=== PATIENT | female | born 1945 | race Caucasian/White ===

== ENCOUNTER 2016-05-21 11:21 | Outpatient (RCR) | payer MEDICARE, OTHER | END 2016-07-08 | disposition home or self-care (01) | LOC: CR 11:21 | PROVIDERS: ATTEND Internal Medicine Cardiovascular Disease | DX: Z48.812 Encounter for surgical aftercare following surgery on the circulatory system (principal); Z95.2 Presence of prosthetic heart valve | CPT/HCPCS: 93798 ==

== ENCOUNTER → 2016-08-21 | Outpatient (CLI) | payer MEDICARE, OTHER ==
--- NOTE | 2016-08-22 14:52 | ECHOCARDIOGRAPHY REPORT ---
DATE OF SERVICE: 08/21/2016 DATE OF SERVICE: 08/21/2016 PRIMARY PHYSICIAN: TINY CONTRERAS MD ATTENDING PHYSICIAN: MIROSLAVA NICE MD DIAGNOSES: I48.91 FINDINGS: 1. Sinus rhythm. 2. Aortic root is normal. 3. Mild left atrial enlargement is noted. 4. Left atrial diameter is 4.2 cm. 5. LV systolic function is mildly reduced. LVEF is 45 to 50%. There is mild concentric LVH with diastolic interventricular septal diameter to 1.1 cm. 6. Global hypokinesis is noted. 7. LV size and function is normal. 8. There is no significant diastolic dysfunction. 9. There is mild pericardial effusion. 10. IVC is 2 cm which suggests increased right atrial pressure. STRUCTURES OF THE HEART: There is mild pulmonic regurgitation. There is moderate tricuspid regurgitation with RVSP of 31 mmHg. There is mitral regurgitation. There is moderate mitral annular calcification noted. There is aortic valve sclerosis with no stenosis or regurgitation. CONCLUSIONS: 1. Left ventricular systolic function is mildly reduced with an ejection fraction of 45 to 50%. 2. There mild left ventricular hypertrophy and mild left ventricular enlargement. 3. There is moderate tricuspid regurgitation. 4. Mild pulmonary hypertension with RVSP of 31 mmHg. 5. Mild pericardial effusion. 6. Inferior vena cava is dilated which suggests increased right atrial pressure. Job ID: [id number] DocumentID: [id number] Dictated Date: 08/22/2016 11:57:55 Choir Accompanist Date: 08/22/2016 12:28:48 Dictated By: MIROSLAVA NICE MD
== END ==
LOC: CARD 11:26
PROVIDERS: ATTEND Internal Medicine Interventional Cardiology
DX: I48.91 Unspecified atrial fibrillation (principal); Z95.2 Presence of prosthetic heart valve
CPT/HCPCS: 93306

== ENCOUNTER → 2016-09-18 | Outpatient (CLI) | payer MEDICARE, OTHER | LOC: RAD 09:57 | PROVIDERS: ATTEND Family Medicine | DX: Z12.31 Encounter for screening mammogram for malignant neoplasm of breast (principal) | CPT/HCPCS: 77067 ==

== ENCOUNTER → 2016-10-15 | Outpatient (CLI) | payer MEDICARE, OTHER ==
--- NOTE | 2016-10-15 08:23 | Diagnostic Imaging Report ---
Left breast diagnostic mammogram. INDICATION: Increasing calcifications in the upper outer quadrant of the left breast and nodule. FINDINGS: Focal compression and magnification views demonstrate increasing calcifications in the upper outer quadrant that appear coarse with minimal heterogeneity. The oval asymmetry along the MLO view appears slightly less prominent on the true lateral view and could be related to summation artifact of parenchyma. IMPRESSION: Somewhat confluent minimally heterogeneous coarse calcifications in the upper outer aspect of the left breast. Less prominent asymmetry is seen on the lateral projection. Ultrasound evaluation pending. ACR BI-RADS Category 0: Incomplete. (Needs additional imaging evaluation). Result letter will be mailed to the patient. Note: At least 10% of breast cancer is not imaged by mammography. Dictated by: Dictated on workstation # [id number]
--- NOTE | 2016-10-15 13:03 | Diagnostic Imaging Report ---
EXAMINATION: Left breast ultrasound. INDICATION: Calcifications and asymmetry along the upper outer aspect of the left breast. FINDINGS: There is a simple cyst measuring 9 x 4 x 10 mm seen at the 1 o'clock zone 7 cm from the nipple. This may explain the oval asymmetry seen on mammography. No suspicious mass to correlate with the calcification seen on mammography is noted. IMPRESSION: No suspicious lesion. The calcifications seen on mammography are likely benign. A 6 month followup left breast mammogram is recommended to ensure stability. ACR BI-RADS Category 3: Probably benign findings. Dictated by: Dictated on workstation # [id number]
== END ==
LOC: RAD 07:18
PROVIDERS: ATTEND Nurse Practitioner Family
DX: R92.1 Mammographic calcification found on diagnostic imaging of breast (principal)
CPT/HCPCS: 76642

== ENCOUNTER 2017-03-15 09:21 | Emergency (ER) | payer MEDICARE, OTHER ==
[~2017-03-15] VITALS: Ht 160 cm; Wt 88.5 kg
[2017-03-15] MEDS ORDERED: MECLIZINE 25 MG (ANTIVERT) TAB PO ONE (11:00)
--- NOTE | 2017-03-15 11:13 | ED Neurological Problem ---
General Chief Complaint: Dizziness/Syncope Stated Complaint: VERTIGO Nursing Triage Note: pt c/o dizziness starting yesterday afternoon. hx afib. denies palpitations. worse when supine. denies congestion. denies chest pain, soa, vision changes, weakness. Nursing Sepsis Screen: No Definite Risk Source: patient Exam Limitations: no limitations History of Present Illness Time seen by provider: 11:12 Initial Comments To ER with dizziness that began yesterday afternoon. She states the dizziness is present all the time but seems to be worse with movement. She has never had this before. She denies any headache chest pain or shortness of breath. She does have a history of atrial fibrillation. Timing/Duration: 24 hours Severity: moderate Associated Symptoms: nausea/vomiting (nausea without vomiting) Allergies and Home Medications Allergies Coded Allergies: No Known Drug Allergies (Unverified , 03/15/17) Constitutional: see HPI Eyes: No Symptoms Reported Ears, Nose, Mouth, Throat: no symptoms reported Respiratory: no symptoms reported Cardiovascular: no symptoms reported Genitourinary: no symptoms reported Musculoskeletal: no symptoms reported Skin: no symptoms reported Psychiatric/Neurological: See HPI, Other (dizziness) Endocrine: No Symptoms Reported Hematologic/Lymphatic: No Symptoms Reported Past Digdpty-Ntaepj-Yzzbgm Hx Patient Social History Recent Foreign Travel: No Contact w/Someone Who Travel: No Recent Infectious Disease Expo: No Physical Exam Vital Signs Vital Sign - Last 12Hours 03/15/17 09:58 Temp 97.3 Pulse 84 Resp 16 B/P (MAP) 113/66 Pulse Ox 99 O2 Delivery Room Air Capillary Refill : Less Than 3 Seconds General Appearance: WD/WN, no apparent distress HEENT: PERRL/EOMI, normal ENT inspection Neck: non-tender, full range of motion Respiratory: normal breath sounds, no respiratory distress, no accessory muscle use Cardiovascular: regular rate, rhythm, no murmur Gastrointestinal: normal bowel sounds, non tender, soft Extremities: normal range of motion, non-tender Neurologic/Psychiatric: alert, normal mood/affect, oriented x 3 Crainal Nerves: normal hearing, normal speech, PERRL Skin: normal color, warm/dry Progress/Results/Core Measures Results/Orders Lab Results Laboratory Tests Test 03/15/17 11:34 03/15/17 11:38 Range/Units White Blood Count 5.5 4.3-11.0 10^3/uL Red Blood Count 4.25 L 4.35-5.85 10^6/uL Hemoglobin 12.3 11.5-16.0 G/DL Hematocrit 37 35-52 % Mean Corpuscular Volume 87 80-99 FL Mean Corpuscular Hemoglobin 29 25-34 PG Mean Corpuscular Hemoglobin Concent 33 32-36 G/DL Red Cell Distribution Width 14.9 H 10.0-14.5 % Platelet Count 190 130-400 10^3/uL Mean Platelet Volume 9.9 7.4-10.4 FL Neutrophils (%) (Auto) 72 42-75 % Lymphocytes (%) (Auto) 18 12-44 % Monocytes (%) (Auto) 8 0-12 % Eosinophils (%) (Auto) 2 0-10 % Basophils (%) (Auto) 1 0-10 % Neutrophils # (Auto) 3.9 1.8-7.8 X 10^3 Lymphocytes # (Auto) 1.0 1.0-4.0 X 10^3 Monocytes # (Auto) 0.5 0.0-1.0 X 10^3 Eosinophils # (Auto) 0.1 0.0-0.3 10^3/uL Basophils # (Auto) 0.0 0.0-0.1 10^3/uL My Orders Orders - MELANY OCONNOR APRN Cbc With Automated Diff (03/15/17 10:52) Comprehensive Metabolic Panel (03/15/17 10:52) Troponin I (03/15/17 10:52) Ekg Tracing (03/15/17 10:52) Ua Culture If Indicated (03/15/17 10:52) Ct Head Wo (03/15/17 10:52) Meclizine Tablet (Antivert Tablet) (03/15/17 11:00) Protime With Inr (03/15/17 11:41) Medications Given in ED Current Medications Medications Dose Ordered Sig/Ann Route Start Time Stop Time Status Last Admin Dose Admin Meclizine HCl 25 mg ONCE ONCE PO 03/15/17 11:00 03/15/17 11:01 DC 03/15/17 11:27 25 MG Vital Signs/I&O Vital Sign - Last 12Hours 03/15/17 09:58 Temp 97.3 Pulse 84 Resp 16 B/P (MAP) 113/66 Pulse Ox 99 O2 Delivery Room Air Blood Pressure Mean: 82 Diagnostic Imaging Diagonstic Imaging: CT Comments NAME: DYLAN OSORIO [facility] REC#: [id number] PT STATUS: REG ER : 1945 PHYSICIAN: MELANY OCONNOR APRN ADMIT DATE: 03/15/17/ER Signed Date of Exam:03/15/17 CT HEAD WO PROCEDURE: CT head without contrast. TECHNIQUE: Multiple contiguous axial images were obtained through the brain without the use of intravenous contrast. INDICATION: Vertigo. No comparison is available. FINDINGS: The there is no CT demonstration of acute intracranial hemorrhage. There is no abnormal extra-axial fluid collection. There is no mass effect or shift. There is age-appropriate global volume loss. There are some scattered regions of hypoattenuation within the subcortical white matter most compatible with microvascular changes. There is no evidence of territorial loss of meyer-white differentiation or abnormal hypodensity within the basal ganglia. There is no CT evidence to suggest abnormal hypodensity within the dorota. No focally abnormal hyperdense blood vessel evident. Basilar cisterns patent. Mastoids are clear. The visualized paranasal sinuses are clear. There is no acute calvarial abnormality IMPRESSION: 1. Age-appropriate global volume loss without CT demonstration of an acute intracranial abnormality. Dictated by: Dictated on workstation # [id number] Dict: 03/15/17 1115 Trans: 03/15/17 1132 [facility] [id number] Interpreted by: NEHEMIAH MONTILLA MD Electronically signed by: NEHEMIAH MONTILLA MD 03/15/17 1132 Departure Communication (Admissions) Progress Notes 1157- patient is up walking to the bathroom currently states that her dizziness is "a lot better" Impression Impression: Primary Impression: Vertigo Disposition: 01 HOME, SELF-CARE Condition: Improved Departure-Patient Inst. Decision time for Depature: 11:57 Referrals: TINY CONTRERAS MD (PCP/Family) Primary Care Physician Patient Instructions: Vertigo (a Type of Dizziness) (DC) Add. Discharge Instructions: 1. Return to ER for any worsening symptoms or other concerns 2. Follow-up with your doctor this week as needed 3. Use one of the pills for dizziness every 8 hours as needed All discharge instructions reviewed with patient and/or family. Voiced understanding. Scripts Meclizine HCl (Meclizine HCl) 25 Mg Tablet 25 MG PO TID Y for DIZZINESS, #15 TAB Prov: MELANY OCONNOR APRN 03/15/17 MELANY OCONNOR APRN Mar 15, 2017 11:13
--- NOTE | 2017-03-15 11:20 | Diagnostic Imaging Report ---
PROCEDURE: CT head without contrast. TECHNIQUE: Multiple contiguous axial images were obtained through the brain without the use of intravenous contrast. INDICATION: Vertigo. No comparison is available. FINDINGS: The there is no CT demonstration of acute intracranial hemorrhage. There is no abnormal extra-axial fluid collection. There is no mass effect or shift. There is age-appropriate global volume loss. There are some scattered regions of hypoattenuation within the subcortical white matter most compatible with microvascular changes. There is no evidence of territorial loss of meyer-white differentiation or abnormal hypodensity within the basal ganglia. There is no CT evidence to suggest abnormal hypodensity within the dorota. No focally abnormal hyperdense blood vessel evident. Basilar cisterns patent. Mastoids are clear. The visualized paranasal sinuses are clear. There is no acute calvarial abnormality IMPRESSION: 1. Age-appropriate global volume loss without CT demonstration of an acute intracranial abnormality. Dictated by: Dictated on workstation # [id number]
[2017-03-15 11:48] LABS: BASOPHILS % (AUTO) 1 % (0-10); EOSINOPHILS # (AUTO) 0.1 10^3/uL (0.0-0.3); EOSINOPHILS % (AUTO) 2 % (0-10); LYMPHOCYTES % (AUTO) 18 % (12-44); MEAN CORPUSCULAR HEMOGLOBIN 29 PG (25-34); MEAN CORPUSCULAR HGB CONC 33 G/DL (32-36); MEAN CORPUSCULAR VOLUME 87 FL (80-99); MEAN PLATELET VOLUME 9.9 FL (7.4-10.4); MONOCYTES # (AUTO) 0.5 X 10^3 (0.0-1.0); MONOCYTES % (AUTO) 8 % (0-12); NEUTROPHILS # (AUTO) 3.9 X 10^3 (1.8-7.8); NEUTROPHILS % (AUTO) 72 % (42-75); PLATELET COUNT 190 10^3/uL (130-400); RED BLOOD COUNT 4.25 10^6/uL (4.35-5.85); RED CELL DISTRIBUTION WIDTH 14.9 % (10.0-14.5); WHITE BLOOD COUNT 5.5 10^3/uL (4.3-11.0)
[2017-03-15 11:56] LABS: INR 1.9 (0.8-1.4)
[2017-03-15] MEDS ORDERED: MECL-106 PO (11:59)
[2017-03-15 12:06] LABS: ALANINE AMINOTRANSFERASE 17 U/L (0-55); ALBUMIN 3.9 GM/DL (3.2-4.5); ANION GAP 9 MMOL/L (5-14); ASPARTATE AMINO TRANSFERASE 22 U/L (5-34); BILIRUBIN,TOTAL 1.2 MG/DL (0.1-1.0); BLOOD UREA NITROGEN 15 MG/DL (7-18); BUN/CREATININE RATIO 22; CALCIUM 9.2 MG/DL (8.5-10.1); CARBON DIOXIDE 22 MMOL/L (21-32); CHLORIDE 108 MMOL/L (98-107); CREATININE SERUM 0.69 MG/DL (0.60-1.30); GFR ESTIMATED > 60; GLUCOSE 115 MG/DL (70-105); POTASSIUM 3.7 MMOL/L (3.6-5.0); SODIUM 139 MMOL/L (135-145); TOTAL PROTEIN 7.1 GM/DL (6.4-8.2)
[2017-03-15 12:11] LABS: BILIRUBIN,URINE NEGATIVE (NEGATIVE); KETONES,URINE NEGATIVE (NEGATIVE); LEUKOCYTE ESTERASE ,URINE 1+ (NEGATIVE); NITRITE,URINE NEGATIVE (NEGATIVE); PH,URINE 7 (5-9); PROTEIN,URINE NEGATIVE (NEGATIVE); UROBILINOGEN,URINE NORMAL (NORMAL)
[2017-03-15 12:12] LABS: WBC,URINE 0-2 /HPF
[2017-03-15 12:12] LABS: TROPONIN I < 0.30 NG/ML (<0.30)
[2017-03-15 12:50] VITALS: BP 116/62
== END 2017-03-15 12:50 | disposition home or self-care (01) ==
LOC: EDUNIT# 09:21 → ER 09:22
DX: R42 Dizziness and giddiness (principal)
CPT/HCPCS: 36415; 70450; 80053; 81000; 84484; 85025; 85610; 93005

== ENCOUNTER → 2017-04-10 | Outpatient (CLI) | payer MEDICARE, OTHER ==
[~2017-04-10] MED LIST: MECL-106 PO
--- NOTE | 2017-04-10 08:48 | Diagnostic Imaging Report ---
Left breast diagnostic mammogram with tomography evaluation. INDICATION: Left breast calcifications. FINDINGS: There is a group of calcifications in the outer aspect of the left breast with slight heterogeneity. They appear to be slightly increased from the prior exam. No definite associated mass. There is a smoothly marginated nodule in the central aspect of the left breast which appeared to correlate with a cyst on previous ultrasound. Background heterogeneously dense parenchyma is again noted. IMPRESSION: The previously seen lateral left breast calcifications appear slightly increased from the previous exam. Stereotactic biopsy is recommended. The findings and recommendations were discussed with the patient personally just before this dictation. ACR BI-RADS Category 4A: Low suspicion of malignancy. Result letter will be mailed to the patient. Note: At least 10% of breast cancer is not imaged by mammography. Report was faxed to office of CECE Turner, @ 8:44 AM/rupa. Dictated by: Dictated on workstation # [id number]
== END ==
LOC: RAD 07:46
PROVIDERS: ATTEND Nurse Practitioner Family
DX: R92.1 Mammographic calcification found on diagnostic imaging of breast (principal)

== ENCOUNTER → 2017-04-20 | Outpatient (CLI) | payer MEDICARE, OTHER ==
[~2017-04-20] VITALS: Ht 160 cm; Wt 88.5 kg
[~2017-04-20] MED LIST changes: +LIDOCAINE 1% INJ 20 ML (XYLOCAINE) VIAL INJ ONE
[2017-04-20 08:28] LABS: INR 1.3 (0.8-1.4)
[2017-04-20 10:25] VITALS: BP 124/71
[2017-04-20 11:18] VITALS: BP 118/62
== END ==
LOC: LAB 07:53
DX: R92.1 Mammographic calcification found on diagnostic imaging of breast (principal)
CPT/HCPCS: 36415; 85610; 85730

== ENCOUNTER → 2017-05-11 | Outpatient (CLI) | payer MEDICARE, OTHER ==
[~2017-05-11] MED LIST changes: -LIDOCAINE 1% INJ 20 ML (XYLOCAINE) VIAL INJ ONE
== END ==
LOC: CARD 12:06
PROVIDERS: ATTEND Internal Medicine Interventional Cardiology
DX: I48.91 Unspecified atrial fibrillation (principal); I42.9 Cardiomyopathy, unspecified; Z95.2 Presence of prosthetic heart valve
CPT/HCPCS: 93306

== ENCOUNTER → 2017-09-25 | Outpatient (CLI) | payer MEDICARE, OTHER ==
--- NOTE | 2017-09-25 17:46 | Diagnostic Imaging Report ---
INDICATION: Routine screening. COMPARISON: Comparison is made with prior mammograms from 09/18/2016 and 08/09/2015. TECHNIQUE: 2D and 3D bilateral screening mammography was performed with computer-aided detection (CAD) system. FINDINGS: Both breasts are heterogeneously dense, limiting the sensitivity of mammography. Extensive vascular and benign parenchymal calcifications are again noted bilaterally. Circumscribed mass in the central left breast appears stable consistent with benign etiology. There is a stereotactic clip in the outer left breast from prior biopsy. There appears to be postoperative scarring at this location as well in the upper-outer left breast. No malignant appearing microcalcifications are seen. The axillae are unremarkable. IMPRESSION: No mammographic features suspicious for malignancy are identified. ACR BI-RADS Category 2: Benign findings. Result letter will be mailed to the patient. Note: At least 10% of breast cancer is not imaged by mammography. Dictated by: Dictated on workstation # [id number]
== END ==
LOC: RAD 13:30
PROVIDERS: ATTEND Internal Medicine
DX: Z12.31 Encounter for screening mammogram for malignant neoplasm of breast (principal)
CPT/HCPCS: 77067

== ENCOUNTER → 2018-01-25 | Outpatient (CLI) | payer MEDICARE, OTHER | LOC: CARD 10:37 | PROVIDERS: ATTEND Internal Medicine Interventional Cardiology | DX: I48.91 Unspecified atrial fibrillation (principal); I42.9 Cardiomyopathy, unspecified; G47.33 Obstructive sleep apnea (adult) (pediatric); E66.9 Obesity, unspecified; Z95.2 Presence of prosthetic heart valve | CPT/HCPCS: 93306 ==

== ENCOUNTER 2018-06-08 09:00 | Outpatient (RCR) | payer MEDICARE, OTHER ==
--- NOTE | 2018-03-22 13:34 | Pulmonary Rehab Eval/Txmt Plan ---
Pulmonary Rehab Initial Eval Information Paper Evaluation Completed: Yes Date: Mar 22, 2018 Therapist: STAS LANDIN Diagnosis: PULM HYPERTENSION Referring Physician: BENEDICT SPARROW MD Pulmonary Rehab Treatment Plan Treatment P Treatment Periord: Initial Diagnosis Diagnosis: PULM HYPERTENSION Date: Mar 22, 2018 Barriers to Learning Barriers: None Assessment/Problems Exercise: Deconditioning, No Regular Exercise, Sedentary Type: AREOBIC Frequency: 2X WEEK Duration: 1 HR EXERCISE PER PTS ELBA Barriers to Exercise: NONE Initial MET Level: 2 Aerobic Exercise/Goals Freq: time per week minus VA: 2 Intensity: 2 Type: Arm Ergometry, Bike, Scifi/Nustep, Treadmill KAELA RIOS DO Mar 22, 2018 13:34
[2018-04-20 08:50] VITALS: BP 140/60
[2018-04-20 09:58] VITALS: BP 110/50
[2018-04-22 08:45] VITALS: BP 116/60
[2018-04-22 09:35] VITALS: BP 130/60
[2018-05-06 08:50] VITALS: BP 100/63
[2018-05-06 09:58] VITALS: BP 98/70
[2018-05-11 09:00] VITALS: BP 118/80
[2018-05-11 09:42] VITALS: BP 100/60
[2018-05-13 09:00] VITALS: BP 100/70
[2018-05-13 10:00] VITALS: BP 99/63
[2018-05-18 08:45] VITALS: BP 118/53
[2018-05-20 08:40] VITALS: BP 92/60
[2018-05-20 10:00] VITALS: BP 80/50
[2018-05-25 09:00] VITALS: BP 120/70
[2018-05-25 10:00] VITALS: BP 120/50
[2018-05-27 08:55] VITALS: BP 118/60
[2018-05-27 10:00] VITALS: BP 107/60
[2018-06-01 09:00] VITALS: BP 125/60
[2018-06-01 10:00] VITALS: BP 128/60
[2018-06-03 08:50] VITALS: BP 111/83
[2018-06-03 09:50] VITALS: BP 120/60
[2018-06-08 09:00] VITALS: BP 90/60
[2018-06-08 10:00] VITALS: BP 95/58
[2018-06-17 08:55] VITALS: BP 115/60
== END 2018-06-20 | disposition home or self-care (01) ==
LOC: PULM 09:00
PROVIDERS: ATTEND Internal Medicine Pulmonary Disease
DX: J45.909 Unspecified asthma, uncomplicated (principal); I27.20 Pulmonary hypertension, unspecified

== ENCOUNTER 2018-06-09 16:10 | Outpatient (RCR) | payer MEDICARE, OTHER | END 2018-06-11 | disposition home or self-care (01) | LOC: CR3 16:10 | PROVIDERS: ATTEND Internal Medicine Interventional Cardiology | DX: Z29.8 Encounter for other specified prophylactic measures (principal) ==

== ENCOUNTER 2018-06-24 08:52 | Outpatient (RCR) | payer MEDICARE, OTHER ==
[2018-06-22 08:45] VITALS: BP 102/69
[2018-06-22 09:40] VITALS: BP 120/60
[2018-06-24 09:00] VITALS: BP 100/50
[2018-06-24 11:00] VITALS: BP 115/60
[2018-07-06 13:00] VITALS: BP 140/60
[2018-07-06 14:00] VITALS: BP 120/60
[2018-07-08 08:40] VITALS: BP 98/60
[2018-07-08 09:50] VITALS: BP 120/70
[2018-07-13 08:45] VITALS: BP 83/59
[2018-07-13 09:52] VITALS: BP 82/58
== END 2018-09-22 | disposition home or self-care (01) ==
LOC: PULM 08:52
PROVIDERS: ATTEND Internal Medicine Pulmonary Disease
DX: J45.909 Unspecified asthma, uncomplicated (principal); I27.20 Pulmonary hypertension, unspecified

== ENCOUNTER 2018-07-14 17:10 | Outpatient (RCR) | payer MEDICARE, OTHER | END 2018-07-16 | disposition home or self-care (01) | LOC: CR3 17:10 | PROVIDERS: ATTEND Internal Medicine Interventional Cardiology | DX: Z29.8 Encounter for other specified prophylactic measures (principal) ==

== ENCOUNTER → 2018-08-04 | Outpatient (CLI) | payer MEDICARE, OTHER ==
--- NOTE | 2018-08-04 17:08 | Diagnostic Imaging Report ---
PROCEDURE: CT abdomen and pelvis with and without contrast. TECHNIQUE: Precontrast acquisitions were acquired through the abdomen and pelvis. Multiple contiguous axial images were obtained through the abdomen and pelvis after the administration of intravenous contrast. Auto Exposure Controls were utilized during the CT exam to meet ALARA standards for radiation dose reduction. INDICATION: Non-Hodgkin's lymphoma checkup. COMPARISON: None FINDINGS: The lung bases demonstrate no focal masses. There is mild cardiomegaly. Mitral valve prosthesis is noted. No pericardial effusion is seen. Cholecystectomy clips are noted. No focal hepatic lesions are seen. The spleen demonstrates multiple calcified granulomas, as does the liver. Mild heterogeneity of the spleen is likely due to perfusion artifact, and this appears normal on the delayed imaging. There is mild atrophy of the pancreas with no focal lesion seen. The adrenal glands appear normal. The kidneys are unremarkable. There is no hydronephrosis. No retroperitoneal adenopathy is seen. No significant mesenteric adenopathy is seen. The bowel loops are nondistended without evidence of obstruction. No bowel wall thickening is seen. Sternotomy wires are noted. No acute osseous abnormality is seen. There are degenerative changes in the spine. IMPRESSION: 1. No focal masses or lymphadenopathy seen. 2. Mild cardiomegaly. Dictated by: Dictated on workstation # [id number]
== END ==
LOC: RAD 15:38
PROVIDERS: ATTEND Internal Medicine
DX: C85.90 Non-Hodgkin lymphoma, unspecified, unspecified site (principal); I51.7 Cardiomegaly
CPT/HCPCS: 74178

== ENCOUNTER → 2018-08-12 | Outpatient (CLI) | payer MEDICARE, OTHER | LOC: CARD 13:55 | PROVIDERS: ATTEND Internal Medicine Interventional Cardiology | DX: I48.1 Persistent atrial fibrillation (principal); I42.9 Cardiomyopathy, unspecified; R06.02 Shortness of breath; O07.1 Delayed or excessive hemorrhage following failed attempted termination of pregnancy; Z95.2 Presence of prosthetic heart valve | CPT/HCPCS: 93306 ==

== ENCOUNTER → 2018-09-28 | Outpatient (CLI) | payer MEDICARE, OTHER ==
--- NOTE | 2018-09-28 13:14 | Diagnostic Imaging Report ---
INDICATION: Routine screening. COMPARISON: 09/25/2017 and 09/18/2016. TECHNIQUE: 2D and 3D bilateral screening mammography was performed with CAD. FINDINGS: Both breasts remain heterogeneously dense, limiting the sensitivity of mammography. The nodular density in the central left breast is stable and consistent with benign etiology. Calcifications appear to be stable. A marker clip in the left breast from prior biopsy remains in place. No new mass or malignant appearing microcalcifications are seen. The axillae are unremarkable. IMPRESSION: No mammographic features. ACR BI-RADS Category 2: Benign findings. Result letter will be mailed to the patient. Note: At least 10% of breast cancer is not imaged by mammography. Dictated by: Dictated on workstation # [id number]
== END ==
LOC: RAD 07:53
PROVIDERS: ATTEND Internal Medicine
DX: Z12.31 Encounter for screening mammogram for malignant neoplasm of breast (principal)
CPT/HCPCS: 77067

== ENCOUNTER → 2019-03-17 | Outpatient (CLI) | payer MEDICARE, OTHER ==
[~2019-03-17] VITALS: Ht 160 cm; Wt 90.0 kg
[~2019-03-17] MED LIST changes: +CATHETER FLUSH 10 ML SYR IV PRN; +REGADENOSON 0.4 MG/5 ML SYR (LEXISCAN) IV ONE
[2019-03-17 09:41] VITALS: BP 131/85
[2019-03-17 09:44] VITALS: BP 125/81
== END ==
LOC: CARD 07:48
PROVIDERS: ATTEND Internal Medicine Interventional Cardiology
DX: I42.9 Cardiomyopathy, unspecified (principal); G47.33 Obstructive sleep apnea (adult) (pediatric); Z95.2 Presence of prosthetic heart valve
CPT/HCPCS: 78452; 93017

== ENCOUNTER 2019-07-12 11:11 | Outpatient (RCR) | payer MEDICARE, OTHER ==
[~2019-07-12 11:11] MED LIST changes: -CATHETER FLUSH 10 ML SYR IV PRN; -MECL-106 PO; +MECL-149 PO; -REGADENOSON 0.4 MG/5 ML SYR (LEXISCAN) IV ONE
== END 2019-07-12 11:44 | disposition home or self-care (01) ==
PROVIDERS: ATTEND Internal Medicine
DX: R32 Unspecified urinary incontinence (principal); R39.15 Urgency of urination

== ENCOUNTER 2019-07-13 19:10 | Observation (INO) | payer MEDICARE, OTHER ==
[~2019-07-13] VITALS: Ht 167 cm; Wt 100.0 kg
[2019-07-13 19:45] LABS: BASOPHILS % (AUTO) 1 % (0-10); EOSINOPHILS # (AUTO) 0.2 10^3/uL (0.0-0.3); EOSINOPHILS % (AUTO) 3 % (0-10); HEMATOCRIT 35 % (35-52); HEMOGLOBIN 11.5 G/DL (11.5-16.0); LYMPHOCYTES # (AUTO) 1.2 X 10^3 (1.0-4.0); LYMPHOCYTES % (AUTO) 20 % (12-44); MEAN CORPUSCULAR HEMOGLOBIN 28 PG (25-34); MEAN CORPUSCULAR HGB CONC 33 G/DL (32-36); MEAN CORPUSCULAR VOLUME 85 FL (80-99); MEAN PLATELET VOLUME 9.6 FL (7.4-10.4); MONOCYTES # (AUTO) 0.7 X 10^3 (0.0-1.0); MONOCYTES % (AUTO) 12 % (0-12); NEUTROPHILS % (AUTO) 65 % (42-75); PLATELET COUNT 190 10^3/uL (130-400); RED CELL DISTRIBUTION WIDTH 14.6 % (10.0-14.5); WHITE BLOOD COUNT 6.1 10^3/uL (4.3-11.0)
[2019-07-13] MEDS ORDERED: dilTIAZem DRIP PRE-MIX 125 ML IV SCH (19:45)
[2019-07-13 19:51] LABS: INR 3.3 (0.8-1.4); PROTHROMBIN TIME PATIENT 35.2 SEC (12.2-14.7)
[2019-07-13 20:10] LABS: ALANINE AMINOTRANSFERASE 12 U/L (0-55); ALBUMIN 3.9 GM/DL (3.2-4.5); ALKALINE PHOSPHATASE 81 U/L (40-136); BILIRUBIN,TOTAL 1.1 MG/DL (0.1-1.0); BUN/CREATININE RATIO 15; CARBON DIOXIDE 21 MMOL/L (21-32); CREATININE SERUM 0.79 MG/DL (0.60-1.30); GFR ESTIMATED > 60; GLUCOSE 114 MG/DL (70-105); MAGNESIUM 1.7 MG/DL (1.6-2.4); TOTAL PROTEIN 7.2 GM/DL (6.4-8.2)
--- NOTE | 2019-07-13 20:23 | Diagnostic Imaging Report ---
INDICATION: Heart palpitations FINDINGS: Frontal view of the chest demonstrates cardiomegaly with postoperative changes. The lungs are clear. The vascularity is normal. IMPRESSION: There is cardiomegaly and postoperative changes with no acute findings. Dictated by: Dictated on workstation # [id number]
[2019-07-13 20:31] LABS: TSH (THYROID ANALYZER) 0.75 UIU/ML (0.35-4.94)
--- NOTE | 2019-07-13 20:38 | ED Cardiac General ---
History of Present Illness General Chief Complaint: Cardiac/General Problems Stated Complaint: HIGH HEART RATE Nursing Triage Note: THE PT IS AMBULATORY TO THE ROOM WITHOUT DIFFICULTY. NO DISTRESS IS SEEN ON ARRIVAL. LOC IS NORMAL FOR THE PT. THE PT HAS A LONG HX OF A-FIB. Source: patient, old records Exam Limitations: no limitations History of Present Illness Date Seen by Provider: Jul 13, 2019 Time Seen by Provider: 19:22 Initial Comments This 74-year-old woman presents to the emergency room with tachycardia and palpitations. She denies chest pain. She has a history of atrial fibrillation which seemed to resolve after having a bovine mitral valve replacement and a Rizvi Maze procedure performed in 2015. She is anticoagulated on warfarin therapy. Dr. Espinoza is her public relations supervisor. Dr. Vogt's her primary care provider. Allergies and Home Medications Allergies Coded Allergies: No Known Drug Allergies (Unverified , 03/15/17) Home Medications Meclizine HCl 25 Mg Tablet, 25 MG PO TID PRN for DIZZINESS Prescribed by: MELANY OCONNOR on 03/15/17 1159 Patient Home Medication List Home Medication List Reviewed: Yes Review of Systems Review of Systems Constitutional: no symptoms reported EENTM: No Symptoms Reported Respiratory: No Symptoms Reported Cardiovascular: See HPI Gastrointestinal: No Symptoms Reported Genitourinary: No Symptoms Reported Musculoskeletal: no symptoms reported Skin: no symptoms reported Psychiatric/Neurological: No Symptoms Reported Endocrine: No Symptoms Reported Hematologic/Lymphatic: No Symptoms Reported Past Vswvotz-Wytlcl-Xvgjmq Hx Past Med/Social Hx: Reviewed Nursing Past Med/Soc Hx Patient Social History Alcohol Use: Denies Use Recreational Drug Use: No 2nd Hand Smoke Exposure: No Recent Foreign Travel: No Contact w/Someone Who Travel: No Recent Infectious Disease Expo: No Recent Hopitalizations: No Physical Abuse: No Sexual Abuse: No Mistreated: No Fear: No Seasonal Allergies Seasonal Allergies: Yes Past Medical History Surgeries: Yes Valve Replacement (bovine mitral valve replacement with Rizvi maze procedure) Respiratory: Yes Asthma, Sleep Apnea Currently Using CPAP: Yes Cardiac: Yes Atrial Fibrillation (paroxysmal), Valvular Heart Disease Neurological: No : No Reproductive Disorders: No Genitourinary: No Gastrointestinal: No Musculoskeletal: No Endocrine: No HEENT: No Cancer: Yes Lymphoma Did You Recieve Any Treatments: Yes What Type of Treatment Did You: Chemotherapy Physical Exam Vital Signs Vital Signs - First Documented 07/13/19 19:55 Temp 37.1 Pulse 130 Resp 18 B/P (MAP) 106/84 (91) Capillary Refill : Less Than 3 Seconds Height, Weight, BMI Height: 5'3.00" Weight: 197lbs. 0.0oz. 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 Norm as Tested Skin: Normal Color, Warm/Dry Progress/Results/Core Measures Results/Orders Lab Results Laboratory Tests Test 07/13/19 19:30 Range/Units White Blood Count 6.1 4.3-11.0 10^3/uL Red Blood Count 4.10 L 4.35-5.85 10^6/uL Hemoglobin 11.5 11.5-16.0 G/DL Hematocrit 35 35-52 % Mean Corpuscular Volume 85 80-99 FL Mean Corpuscular Hemoglobin 28 25-34 PG Mean Corpuscular Hemoglobin Concent 33 32-36 G/DL Red Cell Distribution Width 14.6 H 10.0-14.5 % Platelet Count 190 130-400 10^3/uL Mean Platelet Volume 9.6 7.4-10.4 FL Neutrophils (%) (Auto) 65 42-75 % Lymphocytes (%) (Auto) 20 12-44 % Monocytes (%) (Auto) 12 0-12 % Eosinophils (%) (Auto) 3 0-10 % Basophils (%) (Auto) 1 0-10 % Neutrophils # (Auto) 4.0 1.8-7.8 X 10^3 Lymphocytes # (Auto) 1.2 1.0-4.0 X 10^3 Monocytes # (Auto) 0.7 0.0-1.0 X 10^3 Eosinophils # (Auto) 0.2 0.0-0.3 10^3/uL Basophils # (Auto) 0.0 0.0-0.1 10^3/uL Prothrombin Time 35.2 H 12.2-14.7 SEC INR Comment 3.3 H 0.8-1.4 Activated Partial Thromboplast Time 44 H 24-35 SEC Sodium Level 138 135-145 MMOL/L Potassium Level 3.2 L 3.6-5.0 MMOL/L Chloride Level 106 98-107 MMOL/L Carbon Dioxide Level 21 21-32 MMOL/L Anion Gap 11 5-14 MMOL/L Blood Urea Nitrogen 12 7-18 MG/DL Creatinine 0.79 0.60-1.30 MG/DL Estimat Glomerular Filtration Rate > 60 BUN/Creatinine Ratio 15 Glucose Level 114 H 70-105 MG/DL Calcium Level 8.6 8.5-10.1 MG/DL Corrected Calcium 8.7 8.5-10.1 MG/DL Magnesium Level 1.7 1.6-2.4 MG/DL Total Bilirubin 1.1 H 0.1-1.0 MG/DL Aspartate Amino Transf (AST/SGOT) 17 5-34 U/L Alanine Aminotransferase (ALT/SGPT) 12 0-55 U/L Alkaline Phosphatase 81 40-136 U/L Myoglobin 62.8 10.0-92.0 NG/ML Troponin I < 0.028 <0.028 NG/ML Total Protein 7.2 6.4-8.2 GM/DL Albumin 3.9 3.2-4.5 GM/DL TSH [place] Testing 0.75 0.35-4.94 UIU/ML My Orders Orders - RONNIE MUNIZ MD Cbc With Automated Diff (07/13/19:) Magnesium (07/13/19:) Chest 1 View, Ap/Pa Only (07/13/19:) Ekg Tracing (07/13/19:) Comprehensive Metabolic Panel (07/13/19:) Myoglobin Serum (07/13/19:) Protime With Inr (07/13/19) Partial Thromboplastin Time (07/13/19:) O2 (07/13/19:) Monitor-Rhythm Ecg Trace Only (07/13/19:) Lipid Panel (07/14/19 06:00) Ed Iv/Invasive Line Start (07/13/19) Troponin I (07/13/19 19:22) Thyroid Analyzer (07/13/19 19:24) Diltiazem Drip Pre-Mix (Cardizem Drip Pr (07/13/19 19:45) Metoprolol Tartrate (Ir) Tab (Lopressor (07/13/19 21:00) Potassium Chloride (Tablet) (Klor Con Ta (07/13/19 21:15) Ekg Tracing (07/13/19 21:43) Diltiazem Tablet (Cardizem Tablet) (07/13/19 22:00) Diltiazem Tablet (Cardizem Tablet) (07/13/19 22:00) Medications Given in ED Current Medications Medications Dose Ordered Sig/Ann Route Start Time Stop Time Status Last Admin Dose Admin Metoprolol Tartrate 12.5 mg ONCE ONCE PO 07/13/19 21:00 07/13/19 21:01 DC 07/13/19 21:17 12.5 MG Potassium Chloride 20 meq ONCE ONCE PO 07/13/19 21:15 07/13/19 21:16 DC 07/13/19 21:11 20 MEQ Vital Signs/I&O 07/13/19 19:55 Temp 37.1 Pulse 130 Resp 18 B/P (MAP) 106/84 (91) Blood Pressure Mean: 91 Progress Progress Note #1: Time: 21:10 Progress Note Patient is found to have atrial fibrillation with RVR. Rate was well-controlled on Cardizem drip at 5 mg per hour. Workup was fairly benign. She had mild hypokalemia which was replaced with oral potassium. We will continue warfarin therapy and her metoprolol doses while on the Cardizem drip. Dr. Cárdenas requested holding off on the losartan doses. Case was discussed with both Dr. Cárdenas and Dr. Mendez. Progress Note #2: Time: 22:00 Progress Note Patient converted to sinus rhythm. We will stop the Cardizem drip and converted to oral Cardizem 30 mg every 6 hours. EKG confirmed sinus rhythm. This was discussed with Dr. Mendez. Initial ECG Impression Date: Jul 13, 2019 Initial ECG Impression Time: 19:17 Initial ECG Rate: 129 Initial ECG Rhythm: A Fib/Flutter Initial ECG Impression: Atrial Fibrillation w/RVR Comment Fibrillation with RVR. No ST elevation or depression. QTc interval 516. EKG : EKG Time: 21:38 Rate: 76 Rhythm: Normal Sinus Intervals: Normal ECG Impression: Normal Comment Sinus rhythm with no ST elevation or depression. No abnormal intervals or axis deviation. Diagnostic Imaging Diagonstic Imaging: Xray Plain Films/CT/US/NM/MRI: chest Comments Chest x-ray viewed by me and report reviewed. See report below: NAME: DYLAN OSORIO [facility] REC#: [id number] PT STATUS: REG ER : 1945 PHYSICIAN: RONNIE MUNIZ MD ADMIT DATE: 07/13/19/ER Signed Date of Exam:07/13/19 CHEST 1 VIEW, AP/PA ONLY INDICATION: Heart palpitations FINDINGS: Frontal view of the chest demonstrates cardiomegaly with postoperative changes. The lungs are clear. The vascularity is normal. IMPRESSION: There is cardiomegaly and postoperative changes with no acute findings. Dictated by: Dictated on workstation # [id number] Dict: 07/13/192021 Trans: 07/13/192026 [facility] [id number] Interpreted by: RIGO ORTIZ MD Electronically signed by: RIGO ORTIZ MD 07/13/192026 Departure Communication (Admissions) Time/Spoke to Admitting Phy: 21:00 Dr. Cárdenas Time/Spoke to Consulting Phy: 20:40 Dr. Mendez Impression Primary Impression: Atrial fibrillation with RVR Additional Impression: Hypokalemia Disposition: ADMITTED INPATIENT Condition: Improved Admissions Decision to Admit Reason: Admit from ER (General) Decision to Admit/Date: Jul 13, 2019 Time/Decision to Admit Time: 20:40 Departure-Patient Inst. Referrals: MARIE VOGT MD (PCP) Primary Care Physician RONNIE MUNIZ MD Jul 13, 2019 20:38
[2019-07-13 20:55] LABS: CALCIUM 8.6 MG/DL (8.5-10.1); CHLORIDE 106 MMOL/L (98-107); POTASSIUM 3.2 MMOL/L (3.6-5.0); SODIUM 138 MMOL/L (135-145)
[2019-07-13] MEDS ORDERED: meTOprolol TARTRATE 25 MG (LOPRESSOR) TABLET PO ONE (21:00)
[2019-07-13] MEDS ORDERED: KCL 10 MEQ TAB (MICRO K) PO ONE (21:15)
[2019-07-13 23:00] VITALS: BP 109/50
[2019-07-13] MEDS ORDERED: traZODone 50 MG (DESYREL) TAB PO PRN (23:15)
[2019-07-13 23:45] VITALS: BP 109/50
[2019-07-14] VITALS: BP 99/54
[2019-07-14 03:31] LABS: BUN/CREATININE RATIO 14; CALCIUM 8.3 MG/DL (8.5-10.1); CARBON DIOXIDE 22 MMOL/L (21-32); CHLORIDE 108 MMOL/L (98-107); CHOLESTEROL 151 MG/DL (< 200); CREATININE SERUM 0.73 MG/DL (0.60-1.30); GFR ESTIMATED > 60; GLUCOSE 97 MG/DL (70-105); HDL CHOLESTEROL 47 MG/DL (40-60); POTASSIUM 3.6 MMOL/L (3.6-5.0); SODIUM 139 MMOL/L (135-145); TRIGLYCERIDES 66 MG/DL (<150); VLDL CHOLESTEROL 13 MG/DL (5-40)
[2019-07-14 04:00] VITALS: BP 90/54
[2019-07-14] MEDS ORDERED: NS IV 500 ML 500 ML IV ONE (05:45)
[2019-07-14] MEDS ORDERED: NS IV 1000 ML 1,000 ML IV SCH (05:45)
--- NOTE | 2019-07-14 07:23 | Consultation-Cardiology ---
HPI-Cardiology Cardiology Consultation Date of Consultation 07/14/19 Date of Admission Time Seen by Provider: 07:18 Indication: Atrial fibrillation HPI 74-year-old lady with history of mitral valve replacement using bovine valve with Maze procedure done in 2016, was doing well until yesterday when she started to have palpitation, felt her heart racing and irregular. Denied any chest pain. No shortness of breath. No syncope or near syncopal episodes. Started on Cardizem drip, heart rate is better controlled at this time. Home Medications & Allergies Allergies: Coded Allergies: nifedipine (Verified Adverse Reaction, Unknown, HEADACHE, 07/13/19) Home Medication List Reviewed: Yes WIC-Pdlusb-Hcqnzo Hx Patient Social History Marital Status: Alcohol Use: Denies Use Recreational Drug Use: No 2nd Hand Smoke Exposure: No Recent Foreign Travel: No Recent Infectious Disease Expo: No Recent Hopitalizations: No Immunizations Up To Date Date of Pneumonia Vaccine: May 04, 2016 Date of Influenza Vaccine: Jan 12, 2019 Past Medical History Discussed below Family Medical History Family Medical Hx Noncontributory Review of Systems-General Review of Systems Constitutional: no symptoms reported, see HPI EENTM: see HPI, no symptoms reported Respiratory: no symptoms reported, see HPI Cardiovascular: see HPI; No chest pain, No edema, No Hx of Intervention; palpitations; No syncope, No vascular heart diseas, No other Gastrointestinal: no symptoms reported, see HPI Genitourinary: no symptoms reported, see HPI Musculoskeletal: no symptoms reported Skin: no symptoms reported Psychiatric/Neurological: No Symptoms Reported Reviewed Test Results Reviewed Test Results Lab Laboratory Tests Test 07/13/19 19:30 07/14/19 02:29 Range/Units White Blood Count 6.1 4.3-11.0 10^3/uL Red Blood Count 4.10 L 4.35-5.85 10^6/uL Hemoglobin 11.5 11.5-16.0 G/DL Hematocrit 35 35-52 % Mean Corpuscular Volume 85 80-99 FL Mean Corpuscular Hemoglobin 28 25-34 PG Mean Corpuscular Hemoglobin Concent 33 32-36 G/DL Red Cell Distribution Width 14.6 H 10.0-14.5 % Platelet Count 190 130-400 10^3/uL Mean Platelet Volume 9.6 7.4-10.4 FL Neutrophils (%) (Auto) 65 42-75 % Lymphocytes (%) (Auto) 20 12-44 % Monocytes (%) (Auto) 12 0-12 % Eosinophils (%) (Auto) 3 0-10 % Basophils (%) (Auto) 1 0-10 % Neutrophils # (Auto) 4.0 1.8-7.8 X 10^3 Lymphocytes # (Auto) 1.2 1.0-4.0 X 10^3 Monocytes # (Auto) 0.7 0.0-1.0 X 10^3 Eosinophils # (Auto) 0.2 0.0-0.3 10^3/uL Basophils # (Auto) 0.0 0.0-0.1 10^3/uL Prothrombin Time 35.2 H 12.2-14.7 SEC INR Comment 3.3 H 0.8-1.4 Activated Partial Thromboplast Time 44 H 24-35 SEC Sodium Level 138 139 135-145 MMOL/L Potassium Level 3.2 L 3.6 3.6-5.0 MMOL/L Chloride Level 106 108 H 98-107 MMOL/L Carbon Dioxide Level 21 22 21-32 MMOL/L Anion Gap 11 9 5-14 MMOL/L Blood Urea Nitrogen 12 10 7-18 MG/DL Creatinine 0.79 0.73 0.60-1.30 MG/DL Estimat Glomerular Filtration Rate > 60 > 60 BUN/Creatinine Ratio 15 14 Glucose Level 114 H 97 70-105 MG/DL Calcium Level 8.6 8.3 L 8.5-10.1 MG/DL Corrected Calcium 8.7 8.5-10.1 MG/DL Magnesium Level 1.7 1.6-2.4 MG/DL Total Bilirubin 1.1 H 0.1-1.0 MG/DL Aspartate Amino Transf (AST/SGOT) 17 5-34 U/L Alanine Aminotransferase (ALT/SGPT) 12 0-55 U/L Alkaline Phosphatase 81 40-136 U/L Myoglobin 62.8 10.0-92.0 NG/ML Troponin I < 0.028 <0.028 NG/ML Total Protein 7.2 6.4-8.2 GM/DL Albumin 3.9 3.2-4.5 GM/DL TSH [place] Testing 0.75 0.35-4.94 UIU/ML Triglycerides Level 66 <150 MG/DL Cholesterol Level 151 < 200 MG/DL LDL Cholesterol Direct 108 1-129 MG/DL VLDL Cholesterol 13 5-40 MG/DL HDL Cholesterol 47 40-60 MG/DL Physical Exam Physical Exam Vital Signs Vital Signs - First Documented 07/13/19 07/13/19 19:55 22:46 Temp 37.1 Pulse 130 Resp 18 B/P (MAP) 106/84 (91) Pulse Ox 100 O2 Delivery Room Air Capillary Refill : Less Than 3 Seconds Height, Weight, BMI Height: 5'3.00" Weight: 197lbs. 0.0oz. 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 Had history of maze procedure done in 2016. Will evaluate 2-D echo. I will start amiodarone bolus then oral and follow-up as an outpatient Mitral valve replacement using bovine valve done in 2016. Has been doing well. Maintained on Coumadin Hypotension, maintained on IV start and and metoprolol. Continue to monitor blood pressure Palpitation, improved Clinical Quality Measures DVT/VTE Risk/Contraindication: Risk Factor Score Per Nursin RFS Level Per Nursing on Admit: 2=Moderate ALYSHA WASHINGTON MD Jul 14, 2019 07:23
[2019-07-14] MEDS ORDERED: AMIODARONE (OMNICELL DRIP KIT) 150 MG/3 ML IV ONE (07:37)
[2019-07-14] MEDS ORDERED: AMIODARONE 200 MG (CORDARONE) TAB ONE (07:37)
[2019-07-14] MEDS: AMIODARONE FOR BOLUS 150 MG in D5W 100 ML IVPB 100 ML IV NR ×2 (07:49→09:27)
[2019-07-14 08:00] VITALS: BP 106/61
[2019-07-14] MEDS ORDERED: AMIODARONE 200 MG (CORDARONE) TAB PO SCH (09:00)
[2019-07-14] MEDS ORDERED: meTOprolol TARTRATE 25 MG (LOPRESSOR) TABLET PO SCH (09:00)
[2019-07-14] MEDS ORDERED: ONDANSETRON 4 MG/2 ML (SDV) Z0FRAN ONE (09:20)
[2019-07-14] MEDS ORDERED: ONDANSETRON 4 MG/2 ML (SDV) Z0FRAN IVP ONE (09:30)
--- NOTE | 2019-07-14 09:52 | Short Stay Summary-Hospitalist ---
History of Present Illness HPI/Chief Complaint 74-year-old female with past medical history of chronic A. fib who presented to the emergency department due to heart palpitations. She states that her symptoms started yesterday afternoon and continued to worsen and her heart rate was 142 when she decided to seek care in the emergency room. She was found to be in atrial fibrillation with rapid ventricular rate in the emergency room. she was given oral diltiazem and converted to sinus rhythm. She was monitored overnight and has remained in sinus rhythm. She denies any chest pain or further palpitations. She does have a history of mitral valve replacement in 2016. She is on warfarin for anticoagulation and INR is 3.3. Date Seen 07/14/19 Time Seen by a Provider: 09:48 Attending Physician Cassius Cárdenas MD PCP Emil Becerra MD Referring Physician Date of Admission Jul 13, 2019 at 21:57 Home Medications & Allergies Home Medications Reviewed patient Home Medication Reconciliation performed by pharmacy medication reconciliations staging technician and/or nursing. Patients Allergies have been reviewed. Allergies Allergies Coded Allergies nifedipine (Verified Adverse Reaction, Unknown, HEADACHE, 07/13/19) Past Ddbfpup-Ztunsr-Wwprsc Hx Past Med/Social Hx: Reviewed Nursing Past Med/Soc Hx Patient Social History Marrital Status: Employed/Student: retired Alcohol Use: Denies Use Recreational Drug Use: No Smoking Status: Unknown if Ever Smoked 2nd Hand Smoke Exposure: No Recent Foreign Travel: No Contact w/other who traveled: No Recent Hopitalizations: No Recent Infectious Disease Expo: No Immunizations Up To Date Date of Pneumonia Vaccine: May 04, 2016 Date of Influenza Vaccine: Jan 12, 2019 Seasonal Allergies Seasonal Allergies: Yes Past Medical History Surgeries: Gallbladder, Hysterectomy, Valve Replacement Currently Using CPAP: Yes Currently Using BIPAP: No Cardiac: Atrial Fibrillation : No Reproductive: No Cancer: Lymphoma Did You Recieve Any Treatments: Yes What Type of Treatment Did You: Chemotherapy History of Blood Disorders: No Adverse Reaction to Blood [place]: No Family History Reviewed Nursing Family Hx No Pertinent Family Hx Review of Systems Constitutional: No chills, No fever Respiratory: No short of breath Cardiovascular: No chest pain; Hx of Intervention, palpitations Gastrointestinal: no symptoms reported Genitourinary: no symptoms reported Musculoskeletal: no symptoms reported Skin: no symptoms reported Psychiatric/Neurological: No Symptoms Reported Physical Exam Physical Exam Vital Signs Vital Signs - First Documented 07/13/19 07/13/19 19:55 22:46 Temp 37.1 Pulse 130 Resp 18 B/P (MAP) 106/84 (91) Pulse Ox 100 O2 Delivery Room Air Capillary Refill : Less Than 3 Seconds Height, Weight, BMI Height: 5'3.00" Weight: 197lbs. 0.0oz. 88.587714ll; 35.85 BMI Method:Stated General Appearance: No Apparent Distress, WD/WN HEENT: PERRL/EOMI, Normal ENT Inspection Neck: Normal Inspection, Supple Respiratory: Chest Non Tender, Lungs Clear, No Accessory Muscle Use, No Respiratory Distress Cardiovascular: No Edema, Systolic Murmur, Irregularly Irregular Gastrointestinal: Normal Bowel Sounds, Non Tender, Soft Extremity: Normal Inspection, No Pedal Edema Neurologic/Psychiatric: Alert, Oriented x3, Normal Mood/Affect; No Aphasia, No Facial Droop Skin: Normal Color, Warm/Dry Results Results/Procedures Labs Laboratory Tests 07/13/19 19:30 07/14/19 02:29 Patient resulted labs reviewed. Short Stay Diagnosis Discharge Diagnosis-Short Stay Admission Diagnosis A-fib with RVR Final Discharge Diagnosis A-fib with RVR Conclusion Plan A-fib with RVR Mitral Valve Prolapse s/p replacement Rate now in the 60s Not on cardizem gtt Echo ordered Continue Cardizem orally Amiodarone to be started by Dr Vanessa Islas DC home following echo Clinical Quality Measures DVT/VTE Risk/Contraindication: Risk Factor Score Per Nursin RFS Level Per Nursing on Admit: 2=Moderate ABDIEL SOLIS MD Jul 14, 2019 09:52
[2019-07-14] MEDS ORDERED: POTA10TA36 PO (11:19)
[2019-07-14] MEDS ORDERED: FLUT1DIS26 IH (11:19)
[2019-07-14] MEDS ORDERED: OMEP20CA18 PO (11:19)
[2019-07-14] MEDS ORDERED: MONT10TA26 PO (11:19)
[2019-07-14] MEDS ORDERED: DOCU100C37 PO (11:19)
[2019-07-14] MEDS ORDERED: WARF2.5T82 PO (11:19)
[2019-07-14] MEDS ORDERED: IRBE75TA9 PO (11:19)
[2019-07-14] MEDS ORDERED: TRZ50T PO (11:19)
[2019-07-14] MEDS ORDERED: METO-333 PO (11:19)
--- NOTE | 2019-07-14 11:22 | NUR ---
SPOKE WITH THE PT (SHE HAD HER BOTTLES) AND CALLED [facility] TO COMPLETE THE MED REC. THE FOLLOWING ARE FILL DATES FROM [facility]: 04-21-2019 WARFARIN 2.5MG #90/90DS 04-28-2019 METOPROLOL TART 25MG #90/90FD 05-09-2019 OMEPRAZOLE 20MG #90/90DS 05-09-2019 MONTELUKAST 10MG #90/90DS 05-25-2019 TRAZODONE 50MG #90/90DS 06-08-2019 IRBESARTAN 75MG #90/90DS FOLLOWING ARE FILL DATES FROM [facility]: 03-17-2019 ADVAIR 250/50MG #1/30DS- I NOTED PAST DUE FILL ON THE MED REC 07-02-2019 POTASSIUM ER 10MEQ #30/30DS OTC MEDS: DOCUSATE 100MG
[2019-07-14 12:00] VITALS: BP 108/58
[2019-07-14] MEDS ORDERED: WARF2TAB PO (13:01)
[2019-07-14] MEDS ORDERED: AMIO200T4 PO (13:01)
[2019-07-14] MEDS ORDERED: warFARin 2.5 MG (COUMADIN) TAB PO SCH (18:00)
[2019-07-15] MEDS ORDERED: fentaNYL INJECTION 100 MCG/2 ML AMP ONE (09:19)
[2019-07-15] MEDS ORDERED: LIDOCAINE 1% INJ 20 ML 20 ML VIAL ONE (09:19)
[2019-07-15] MEDS ORDERED: MIDAZOLAM 5 MG/5 ML (VERSED) VIAL ONE (09:19)
[2019-07-15] MEDS ORDERED: VERAPAMIL 5 MG/2 ML (CALAN) VIAL IV ONE (09:19)
[2019-07-15] MEDS ORDERED: NS IV 1000 ML 0 ML ONE (09:20)
[2019-07-15] MEDS ORDERED: HEParin (CATH LAB) 0 ML IV ONE (09:20)
[2019-07-15] MEDS ORDERED: NITRO DRIP 25000 MCG/D5W 0 ML IV ONE (09:20)
[2019-07-15] MEDS ORDERED: HEParin 1000 UNIT/ML (10ML VIAL) FOR BOLUS ONE (09:20)
--- OUTSIDE RECORDS SUMMARY | 2019-07-16 00:21 | XMS REPORT | Encounter Summary ---
Author Author [facility] Organization [facility] Address Unknown Phone Unavailable Care Team Providers Care Artificial Flowers Starcher Name Role Phone PCP Unavailable Encounter Details Care Team Description Date Type Department Regi Gay DO [address] [place] [id number] [phone] 05/30/2011 [facility] al Encounter Social History Date Tobacco Use Types Packs/Day Years Used Never Assessed Sex Assigned at Date Recorded Not on file Industry Job Start Date Occupation Not on file Not on file Not on file Travel End Travel History Travel Start No recent travel history available. 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 HISTORY OF PRESENT ILLNESS: This is a very pleasant 66-year-old female accompanied by her today for the above-mentioned diagnosis of non-Hodgkin's lymphoma. She is currently here for evaluation of cycle number 6 having cycle number 5 yesterday. She continues with her R-CHOP every 21 days and has done really remarkably well. She did have a repeat PET scan done after 4 cycles on 05/12/2011 that showed a very good clinical response. The previously mentioned retroperitoneal nodes in the initial scan had decreased in size, largest node measuring 1.1 x 0.8 cm with no new areas of uptake. The spleen continues to be without any abnormalities. Liver, adrenal glands, kidney, and pancreas also unremarkable. I had called the patient previously but then again went over the PET scan with her and her on the 16 of May. Plans are for the additional 2 cycles of R-CHOP with a repeat PET scan and determination of her final needs, whether 6 or 8 with then a referral to Radiation Oncology when she completes chemotherapy. CURRENT MEDICATIONS: Include 1. Albuterol inhaler. 2. Digoxin 125 mcg. 3. Diltiazem 240 mg. 4. Colace 100 mg. 5. Omeprazole 20 mg. 6. Ferrous sulfate 325 mg. 7. Flonase 50 mcg. 8. Advair 500/50. 9. Hydrocodone/acetaminophen as needed. 10. Singulair 4 mg daily. 11. Zofran 4 mg as needed. 12. Senokot as needed for constipation. 13. Ambien 5 mg at bedtime for sleep. 14. Allopurinol daily. 15. Fentanyl patch. REVIEW OF SYSTEMS: Completely negative unless otherwise specified per HPI. A 10-point review of systems has been completed. SOCIAL HISTORY: Updated. The patient is expecting an additional grandchild on the 19 of June. She is requesting we move her chemotherapy to the with Neulasta on the , and I feel like she will be able to have this accommodated. The patient and her recently went to [place], drove to their [place] in [place], and she did quite well with the trip. PHYSICAL EXAMINATION: VITAL SIGNS: Oxygen saturation is 98% on room air, temperature is 97, blood pressure is 122/71, pulse 95, respirations 16, weight is 174 pounds. GENERAL: The patient is nontoxic, in no acute distress. Awake, alert, and oriented x3. HEENT: Mucous membranes are moist. Neck is supple. There is no JVD. Extraocular muscles are intact. HEART: S1, S2. Regular. LUNGS: Clear bilaterally. ABDOMEN: Soft and nontender. EXTREMITIES: Without any cyanosis, clubbing, or edema. LABORATORY DATA: Today is pending. Results from the show her white count though to be 5.35, hemoglobin is 11.2, platelets 265,000, ANC was 3350. Her LFTs were all acceptable. Glucose was slightly elevated at 107. We obviously will recheck her CBC with CMP prior to her next cycle of chemotherapy. IMPRESSION AND PLAN: This is a 66-year-old female with non-Hodgkin's lymphoma, stage III. At this time, will continue with her chemotherapy. After cycle number 6 on the 18 of June. Hopefully, I would like to repeat a PET scan the following week or possibly the next week and then have the patient follow up in the clinic as needed. Regi Gay DO CC: RS LACE MACHINE OPERATOR documented in this encounter Plan of Treatment Not on filedocumented as of this encounter Visit Diagnoses Not on filedocumented in this encounter
--- OUTSIDE RECORDS SUMMARY | 2019-07-16 00:21 | XMS REPORT | Encounter Summary ---
Author Author [facility] Organization [facility] Address Unknown Phone Unavailable Care Team Providers Care Silk Screen Printer Machine Name Role Phone PCP Unavailable Encounter Details Care Team Description Date Type Department Regi Pham DO [address] [place] [address] [phone] 07/11/2011 [facility] al Encounter Social History Date Tobacco Use Types Packs/Day Years Used Never Assessed Sex Assigned at Date Recorded Not on file Industry Job Start Date Occupation Not on file Not on file Not on file Travel End Travel History Travel Start No recent travel history available. documented as of this encounter Miscellaneous Notes * Clinic Note - Regi Pham DO - 07/01/2013 10:14 PM [facility] LAB TECHNICIAN REPORT Name: MONA FRANCO Date of : 1945 Attending Physician: REGI PHAM Date of Service: 07/11/2011 REASON FOR VISIT: Non-Hodgkin's lymphoma, diffuse large B-cell stage III. HISTORY OF PRESENT ILLNESS: This is a very pleasant 66-year-old female accompanied by her today for the above-mentioned diagnosis of non-Hodgkin's lymphoma. She is currently here after having received her seventh of R-CHOP. She did have a repeat PET and then after 6 cycles it still showed residual disease. I have elected to give her 2 additional cycles of R-CHOP. I did do a dose reduction on the vincristine to 1 mg total dose as she was complaining of some neuropathy. She today in clinic visit is feeling well. She has no new complaints. REVIEW OF SYSTEMS: The patient has some variable fatigue as well as the above-mentioned numbness in her toes that I am concerned could be related to vincristine, so I have done a 50% dose reduction on it. The patient as well did have some insomnia associated with the prednisone and likely may do a dose reduction on the prednisone on her last cycle as well. The patient is going to move back to [place], [place], and I will help to establish her with a radiation and medical oncologist in the area. PAST MEDICAL/SURGICAL HISTORY: Unchanged. MEDICATIONS: Medications have been reviewed and updated per the paper chart. PHYSICAL EXAMINATION: VITAL SIGNS: Heart rate is 89, blood pressure is 126/63, oxygen saturation 97% on room air, temperature is 98. GENERAL: She is nontoxic in no acute distress. Awake, alert, and oriented x3. HEENT: Mucous membranes are moist. Neck is supple. There is no jugular venous distention. Extraocular muscles are intact. HEART: S1, S2 regular. LUNGS: Clear bilaterally. ABDOMEN: Soft and nontender. EXTREMITIES: Without any cyanosis, clubbing, or edema. PLAN: As stated above, the patient does have stage III non-Hodgkin's lymphoma. She will complete a total of 8 cycles of R-CHOP, and then a repeat PET scan will be done. The patient will be referred then to Radiation Oncology at [place], [place], and she will be referred to Dr. Bolivar Joy, phone number [phone], for further discussions of radiation needs. I will attempt to contact this physician to help the referral process. I will see the patient back in 3 weeks time, and she was instructed to contact me if I can be of any further assistance. Regi Pham DO CC: LAB TECHNICIAN documented in this encounter Plan of Treatment Not on filedocumented as of this encounter Visit Diagnoses Not on filedocumented in this encounter
--- OUTSIDE RECORDS SUMMARY | 2019-07-16 00:21 | XMS REPORT | Encounter Summary ---
Author Author [facility] Address Unknown Phone Unavailable Care Team Providers Care Global Marketing Intern Name Role Phone PCP Unavailable Encounter Details Care Team Description Date Type Department Regi Pham DO [address] [place] [address] [phone] 08/03/2011 [facility] 08/26/[id number] [place] [id number] Social History Date Tobacco Use Types Packs/Day Years Used Never Assessed Sex Assigned at Date Recorded Not on file Industry Job Start Date Occupation Not on file Not on file Not on file Travel End Travel History Travel Start No recent travel history available. documented as of this encounter Plan of Treatment Not on filedocumented as of this encounter Visit Diagnoses Not on filedocumented in this encounter
--- OUTSIDE RECORDS SUMMARY | 2019-07-16 00:21 | XMS REPORT | Encounter Summary ---
Author Author [facility] Organization [facility] Address Unknown Phone Unavailable Care Team Providers Care Air Marshal Name Role Phone PCP Unavailable Encounter Details Care Team Description Date Type Department 05/30/2011 Hist-Appointmen [facility] t Social History Date Tobacco Use Types Packs/Day [...]
--- OUTSIDE RECORDS SUMMARY | 2019-07-16 00:21 | XMS REPORT | Encounter Summary ---
Author Author [facility] Organization [facility] Address Unknown Phone Unavailable Care Team Providers Care Chief Medical Physicist Name Role Phone PCP Unavailable Encounter Details Care Team Description Date Type Department Regi Pham DO [address] [address] [phone] Other malignant lymphomas, unspecified s ite, extranodal and solid organ sites 06/25/2011 [facility] Encounter [address] [place] [address] Social History Date Tobacco Use Types Packs/Day Years Used Never Assessed Sex Assigned at Date Recorded Not on file Industry Job Start Date Occupation Not on file Not on file Not on file Travel End Travel History Travel Start No recent travel history available. documented as of this encounter Plan of Treatment Not on filedocumented as of this encounter Procedures Comments Procedure Name Priority Date/Time Associated Diag nosis NM PET CT SKULL BASE TO Routine 06/25/2011 THIGH PS 7:15 AM MARQUETRY WORKER documented in this encounter Results * NM Pet CT skull base to thigh PS (06/25/2011 7:15 AM MARQUETRY WORKER) Specimen Narrative Performed At [facility] Patient: MONA FRANCO Phone #: Simplify Rec#: [id number] Sex: F : 1945 Roberto#: [id number] Location: RL Check-in#: [id number] Procedure Requested: [id number] SK ULL BASE TO THIGH PS Reason For Exam: 199.1 MALIGNANT N EOPLASM NOS Exam Ordered: 06/25/2011 073 9 Exam Date/Time: 06/25/2011 0845 Check-in Date/Time: 06/25/2011 0739 Attendin REGI PHAM Requestin REGI PHAM Referrin NO, REFERRING Primary Care: [id number] [place] [place] PET/CT WHOLE BODY INDICATION: Restaging non-Hodgkin's d iffuse large B-cell lymphoma diagnosed February 2011. Last chemothera py treatment June 20, 2011. COMPARISON: May 12, 2011 TECHNIQUE: Nuclear medicine PET scanning was perfo rmed after the intravenous administration of 13.7 mCi F - 18 FDG f rom the skull base to the mid-thigh. Noncontrasted concurrent CT scanning wa s performed for attenuation correction and localization purposes on ly. These images do not constitute a diagnostic quality CT exam ination and are not used to diagnose disease independently of the P ET images. A glucose level before injection was 91 mg/dl. FINDINGS: HEAD-NECK: MRI with contrast has superior sensitiv ity for metastatic disease within the brain, due to normal physiologic up take of FDG throughout the meyer matter. Given this limitation no suspicious foc us of increased FDG uptake within the brain parenchyma to suggest intracr anial metastasis. The brain parenchyma is without evidence of space -occupying mass lesion, mass effect, or extra-axial fluid collection . No suspicious foci of increased FDG upt jaye within the head and neck. No suspicious cervical lymphadenopathy. Th e visualized orbits and globes are normal in appearance. Mild right ma xillary sinus disease. The remaining visualized paranasal sinuses and mastoid air cells are otherwise clear. The thyroid gland is h omogeneous. CHEST: Right Port-A-Cath with the tip at the s uperior vena cava/right atrial junction. No suspicious foci of increased FDG upt jaye are identified within the thorax. Calcified mediastinal and bilateral hil ar lymph nodes. No mediastinal or hilar lymphadenopathy. No focal consoli dation or mass. Calcified pulmonary granulomas. No pleural effusi ons. Normal heart size. Mitral annular calcifications. ABDOMEN/PELVIS: Limit evaluation of the solid organs an d viscera without intravenous contrast. Smaller retroperitoneal lymph nodes wit h the largest in the left para-aortic region measuring 0.8 x 0.6 cm, previously 1.1 x 0.8 cm (image to 15, series 3) with no hyperme tabolic FDG uptake. No new suspicious foci of increased FDG uptake are identified within the abdomen and pelvis. The liver, spleen, pancreas, kidneys, adrenal glands, urinary bladder, and bowel are within normal limits. No intraperitoneal free fluid. Cholecystec andrew. Splenic granulomas. MUSCULOSKELETAL: No osseous lesions suspicious for bony metastasis on the basis of increased FDG uptake and CT appearance are identified. Multilevel degenerative disc disease. T he previously described right subareolar low level FDG uptake has res olved and was likely physiologic. IMPRESSION: Continued treatment response as indicat ed by smaller retroperitoneal lymph nodes and absence of hypermetabol ic FDG uptake. No new suspicious foci to suggest metas tatic disease. ATTESTATION STATEMENT: The Staff Radiologist has personally re viewed this study and agrees with the findings in this report. Signed (Authenticated, Released) Date-T phi: 06/25/2011 1133 Weekday Babysitter- HELEN YAN M.D., Staff Radiologist Dictated By- TYLER VANESSA M.D., Re sident Staff Physician- HELEN YAN M.D., S [facility] Radiologist Authenticated By- HELEN YAN M.D., Staff Radiologist Procedure Note Interface, Rad Conversion - 07/02/2013 5:12 AM MARQUETRY WORKER REPORT Patient: MONA FRANCO Phone #: Med Rec#: [id number] Sex: F : 1945 Roberto#: [id number] Location: RL Check-in#: [id number] Procedure Requested: [id number] SKULL BASE TO THIGH PS Reason For Exam: 199.1 MALIGNANT NEOPLASM NOS Exam Ordered: 06/25/2011 0739 Exam Date/Time: 06/25/201145 Check-in Date/Time: 06/25/201139 AttendinREGI MERIDA RequestinREGI MERIDA Referrin NO, REFERRING Primary Care: [id number] [place]ER [place] NM PET/CT WHOLE BODY INDICATION: Restaging non-Hodgkin's diffuse large B-cell lymphoma diagnosed February 2011. Last chemotherapy treatment June 20, 2011. COMPARISON: May 12, 2011 TECHNIQUE: Nuclear medicine PET scanning was performed after the intravenous administration of 13.7 mCi F - 18 FDG from the skull base to the mid-thigh. Noncontrasted concurrent CT scanning was performed for attenuation correction and localization purposes only. These images do not constitute a diagnostic quality CT examination and are not used to diagnose disease independently of the PET images. A glucose level before injection was 91 mg/dl. FINDINGS: HEAD-NECK: MRI with contrast has superior sensitivity for metastatic disease within the brain, due to normal physiologic uptake of FDG throughout the meyer matter. Given this limitation no suspicious focus of increased FDG uptake within the brain parenchyma to suggest intracranial metastasis. The brain parenchyma is without evidence of space-occupying mass lesion, mass effect, or extra-axial fluid collection. No suspicious foci of increased FDG uptake within the head and neck. No suspicious cervical lymphadenopathy. The visualized orbits and globes are normal in appearance. Mild right maxillary sinus disease. The remaining visualized paranasal sinuses and mastoid air cells are otherwise clear. The thyroid gland is homogeneous. CHEST: Right Port-A-Cath with the tip at the superior vena cava/right atrial junction. No suspicious foci of increased FDG uptake are identified within the thorax. Calcified mediastinal and bilateral hilar lymph nodes. No mediastinal or hilar lymphadenopathy. No focal consolidation or mass. Calcified pulmonary granulomas. No pleural effusions. Normal heart size. Mitral annular calcifications. ABDOMEN/PELVIS: Limit evaluation of the solid organs and viscera without intravenous contrast. Smaller retroperitoneal lymph nodes with the largest in the left para-aortic region measuring 0.8 x 0.6 cm, previously 1.1 x 0.8 cm (image to 15, series 3) with no hypermet abolic FDG uptake. No new suspicious foci of increased FDG uptake are identified within the abdomen and pelvis. The liver, spleen, pancreas, kidneys, adrenal glands, urinary bladder, and bowel are within normal limits. No intraperitoneal free fluid. Cholecystectomy. Splenic granulomas. MUSCULOSKELETAL: No osseous lesions suspicious for bony metastasis on the basis of increased FDG uptake and CT appearance are identified. Multilevel degenerative disc disease. The previously described right subareolar low level FDG uptake has resolved and was likely physiologic. IMPRESSION: Continued treatment response as indicated by smaller retroperitoneal lymph nodes and absence of hypermetabolic FDG uptake. No new suspicious foci to suggest metastatic disease. ATTESTATION STATEMENT: The Staff Radiologist has personally reviewed this study and agrees with the findings in this report. Signed (Authenticated, Released) Date-Time: 06/25/2011 1133 Weekday Babysitter- HELEN YAN M.D., Staff Radiologist Dictated By- TYLER VANESSA M.D., Resident Staff Physician- HELEN YAN M.D., Staff Radiologist Authenticated By- HELEN YAN M.D., Staff Radiologist Performing Organization Address City/State/[facility] Ph one Number SYMONE documented in this encounter Visit Diagnoses Diagnosis Other malignant lymphomas, unspecified site, extranodal and solid organ sites documented in this encounter
--- OUTSIDE RECORDS SUMMARY | 2019-07-16 00:21 | XMS REPORT | Encounter Summary ---
Author Author [facility] Organization [facility] Address Unknown Phone Unavailable Care Team Providers Care Physician Chief Of Pathology Name Role Phone PCP Unavailable Encounter Details Care Team Description Date Type Department 07/11/2011 Hist-Appointmen SLS CANCER [facility] t [...]
--- OUTSIDE RECORDS SUMMARY | 2019-07-16 00:21 | XMS REPORT | Encounter Summary ---
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 documented in this encounter Results * NM Pet CT skull base to thigh PS (05/12/2011 9:05 AM LEADED GLASS INSTALLER) Specimen Narrative Performed At [facility] Patient: MONA FRANCO Phone #: Edufii Rec#: [id number] Sex: F : 1945 Roberto#: [id number] Location: RL Check-in#: [id number] Procedure Requested: [id number] SK ULL BASE TO THIGH PS Reason For Exam: 199.1 MALIGNANT N EOPLASM NOS Exam Ordered: 05/12/2011 091 9 Exam Date/Time: 05/12/2011 1030 Check-in Date/Time: 05/12/2011 0919 AttendinREGI MERIDA Requestin REGI PHAM Referrin NO, REFERRING DR Primary Care: [id number] REGI PHAM DO NM PET/CT WHOLE BODY Indication: Restaging non-Hodgkin lym phoma status post chemotherapy. Comparison: No previous PET-CT for bri navarro. MRI lumbar and thoracic spine dated 24 February 2011. Technique: Nuclear medicine PET scannin g was performed after the intravenous administration of 16.8 mCi F - 18 FDG from the skull base to the mid thigh. Noncontrasted concurrent CT scanning wa s performed for attenuation correction and localization purposes on ly. These images do not constitute a diagnostic quality CT exam ination and are not used to diagnose disease independently of the P ET images. A glucose level before injection was 90 mg/dl. Findings: Life support devices: Right port with t ip at the superior cavoatrial junction. Head-neck: MRI with contrast has superior sensitiv ity for metastatic disease within the brain, due to normal physiologic up take of FDG throughout the meyer matter. Given this limitation, no suspi cious foci of increased FDG uptake in are identified within the vis ualized cerebellar parenchyma to suggest intracranial metastasis. No abnormal FDG uptake within the head or neck. No suspicious cervical lymphadenopathy. The salivary glands an d thyroid gland are unremarkable. The cervical airway is patent. The para nasal sinuses, orbits and mastoid air cells are unremarkable. Chest: No suspicious focus of abnormal FDG upt jaye within the chest. Scattered foci of bilateral lower lobe and left u pper lobe groundglass opacities likely represent subsegmental atelectas is versus less likely infectious/inflammatory process. No pul monary mass or consolidation. Scattered calcified pulmonary granuloma s. Mediastinal and bilateral hilar calcified lymph nodes are consist ent with remote granulomatous disease. No axillary, supraclavicular, mediastinal or hilar lymphadenopathy. The heart is normal in size. No pericardial effusion. Mitral annular calcifications. No pleur al effusion or pneumothorax. Abdomen/pelvis: Limited evaluation of the viscera and o rgans without IV contrast. No abnormal FDG uptake is identified withi n the abdomen or pelvis. There has been marked interval decrease in si ze of the multiple retroperitoneal lymph nodes consistent with treatment response. The largest retroperitoneal lymph node now measures 1.1 x 0.8 cm and is a left para-aortic lymph node (image 208, series 3). The gallbladder is surgically absent. S plenic calcifications are consistent with remote granulomatous di sease. The liver, spleen, adrenal glands, kidneys, pancreas and bowel are otherwise unremarkable. The uterus is surgically absent. Normal uri nary bladder. Musculoskeletal: No osseous lesions suspicious for bony metastasis on the basis of increased FDG uptake and CT appearance are identified. Multilevel degenerative changes of the visualized spine. Asymmetry of the right breast subareolar region compared to th e left may be within physiologic amounts. This would be optimally evalua asuncion with mammography. Impression: Findings consistent with treatment resp onse as indicated by the absence of FDG uptake within multiple retroperi toneal lymph nodes which have markedly decreased in size. The largest lymph node now measures 1.1 x 0.8 cm. Remote granulomatous disease. Asymmetry of the right breast subareola r region compared to the left may be within physiologic limits. This woul d be more optimally evaluated with mammography. ATTESTATION STATEMENT: The Staff Radiologist has personally re viewed the images and dictated, reviewed, or edited the final report. Signed (Authenticated, Released) Date-T phi: 05/12/2011 1610 Political Consultant- STUART Wharton, Staff Radiologist Dictated By- MARY BURNETTE D.O., Resident Staff Physician- STUART Up, Staff Radiologist Authenticated By- STUART Wharton, Staff Radiologist Procedure Note Interface, Rad Conversion - 07/02/2013 6:18 AM LEADED GLASS INSTALLER REPORT Patient: MONA FRANCO Phone #: Edufii Rec#: [id number] Sex: F : 1945 Roberto#: [id number] Location: RL Check-in#: [id number] Procedure Requested: [id number] SKULL BASE TO THIGH PS Reason For Exam: 199.1 MALIGNANT NEOPLASM NOS Exam Ordered: 05/12/2011 0919 Exam Date/Time: 05/12/2011 1030 Check-in Date/Time: 05/12/2011918 AttendinREGI MERIDA RequestinREGI MERIDA Referrin NO, REFERRING Primary Care: REGI MERIDA DO NM PET/CT WHOLE BODY Indication: Restaging non-Hodgkin lymphoma status post chemotherapy. Comparison: No previous PET-CT for comparison. MRI lumbar and thoracic spine dated 24 February 2011. Technique: Nuclear medicine PET scanning was performed after the intravenous administration of 16.8 mCi F - 18 FDG from the skull base to the mid thigh. Noncontrasted concurrent CT scanning was performed for attenuation correction and localization purposes only. These images do not constitute a diagnostic quality CT examination and are not used to diagnose disease independently of the PET images. A glucose level before injection was 90 mg/dl. Findings: Life support devices: Right port with tip at the superior cavoatrial junction. Head-neck: MRI with contrast has superior sensitivity for metastatic disease within the brain, due to normal physiologic uptake of FDG throughout the meyer matter. Given this limitation, no suspicious foci of increased FDG uptake in are identified within the visualized cerebellar parenchyma to suggest intracranial metastasis. No abnormal FDG uptake within the head or neck. No suspicious cervical lymphadenopathy. The salivary glands and thyroid gland are unremarkable. The cervical airway is patent. The paranasal sinuses, orbits and mastoid air cells are unremarkable. Chest: No suspicious focus of abnormal FDG uptake within the chest. Scattered foci of bilateral lower lobe and left upper lobe groundglass opacities likely represent subsegmental atelectasis versus less likely infectious/inflammatory process. No pulmonary mass or consolidation. Scattered calcified pulmonary granulomas. Mediastinal and bilateral hilar calcified lymph nodes are consistent with remote granulomatous disease. No axillary, supraclavicular, mediastinal or hilar lymphadenopathy. The heart is normal in size. No pericardial effusion. Mitral annular calcifications. No pleural effusion or pneumothorax. Abdomen/pelvis: Limited evaluation of the viscera and organs without IV contrast. No abnormal FDG uptake is identified within the abdomen or pelvis. There has been marked interval decrease in size of the multiple retroperitoneal lymph nodes consistent with treatment response. The largest retroperitoneal lymph node now measures 1.1 x 0.8 cm and is a left para-aortic lymph node (image 208, series 3). The gallbladder is surgically absent. Splenic calcifications are consistent with remote granulomatous disease. The liver, spleen, adrenal glands, kidneys, pancreas and bowel are otherwise unremarkable. The uterus is surgically absent. Normal urinary bladder. Musculoskeletal: No osseous lesions suspicious for bony metastasis on the basis of increased FDG uptake and CT appearance are identified. Multilevel degenerative changes of the visualized spine. Asymmetry of the right breast subareolar region compared to the left may be within physiologic amounts. This would be optimally evaluated with mammography. Impression: Findings consistent with treatment response as indicated by the absence of FDG uptake within multiple retroperitoneal lymph nodes which have markedly decreased in size. The largest lymph node now measures 1.1 x 0.8 cm. Remote granulomatous disease. Asymmetry of the right breast subareolar region compared to the left may be within physiologic limits. This would be more optimally evaluated with mammography. ATTESTATION STATEMENT: The Staff Radiologist has personally reviewed the images and dictated, reviewed, or edited the final report. Signed (Authenticated, Released) Date-Time: 05/12/2011 1610 Political Consultant- STUART DICKEY M.D., Staff Radiologist Dictated By- MARY BURNETTE D.O., Resident Staff Physician- STUART DICKEY M.D., Staff Radiologist Authenticated By- STUART DICKEY M.D., Staff Radiologist Performing Organization Address City/State/[facility] Ph one Number SANTODYLAN documented in this encounter Visit Diagnoses Diagnosis Chemotherapy follow-up examination documented in this encounter
--- OUTSIDE RECORDS SUMMARY | 2019-07-16 00:21 | XMS REPORT | Encounter Summary ---
Author Author [facility] Organization [facility] Address Unknown Phone Unavailable Care Team Providers Care Laborer Pipeline Name Role Phone PCP Unavailable Encounter Details Care Team Description Date Type Department 06/27/2011 Hist-Appointmen SLS CANCER SPC HST CL t [...]
--- OUTSIDE RECORDS SUMMARY | 2019-07-16 00:21 | XMS REPORT | Encounter Summary ---
Author Author [facility] Organization [facility] Address Unknown Phone Unavailable Care Team Providers Care Junior Java Developer Name Role Phone PCP Unavailable Encounter Details Care Team Description Date Type Department Regi Pham DO [address] [place] [address] [phone] 08/06/2011 [facility] al Encounter Social History Date Tobacco Use Types Packs/Day Years Used Never Assessed Sex Assigned at Date Recorded Not on file Industry Job Start Date Occupation Not on file Not on file Not on file Travel End Travel History Travel Start No recent travel history available. documented as of this encounter Miscellaneous Notes * Clinic Note - Regi Pham DO - 07/01/2013 9:54 PM PRODUCTION ARTIST REPORT Name: MONA FRANCO Date of : 1945 Attending Physician: REGI PHAM Date of Service: 08/06/2011 REASON FOR CLINIC VISIT: Diffuse large B-cell non-Hodgkin's lymphoma. HISTORY: This is a very pleasant 66-year-old female coming in with her today for the above-mentioned diagnosis of non-Hodgkin's lymphoma. She is here today after she has received 8 total cycles of R-CHOP. It was noted that the patient did have a repeat PET scan after 4 cycles and after 6 cycles, still showing minimal residual disease. I have chosen to given her 2 additional cycles of R-CHOP past. She did have a repeat PET scan today after all 8 cycles showing from August 04, [address] with stable small retroperitoneal lymph nodes without FDG uptake. No new suspicious foci of FDG uptake or lymphadenopathy. At this time it is felt the patient did have a complete response in regards to her chemotherapy of R-CHOP with 8 cycles. However, she will be sent to radiation oncology in [facility] in [place], [place] for an evaluation by Dr. Joy for evaluation. I have previously spoken with Dr. Joy regarding the patient's treatment. REVIEW OF SYSTEMS: On review of systems today, the patient is in good spirits. She did tolerate cycle #8 with only minimal complications of fatigue. It was noted that after the first 6 cycles I did dose reduce her vincristine 50% as she was having some neuropathies. PAST MEDICAL AND SURGICAL HISTORY: Unchanged. MEDICATIONS: Reviewed and updated per the paper chart. PHYSICAL EXAMINATION: VITAL SIGNS: Stable. HEART: S1 and S2. LUNGS: Clear. ABDOMEN: Soft. EXTREMITIES: Without cyanosis, clubbing, or edema. NEUROLOGIC: Neuropathy in her fingertips and hands. Fingers have greatly improved. Feet still have some variable neuropathy. LABORATORY DATA: Reviewed and updated per the chart. PLAN AT THIS TIME: This is an individual with the above-mentioned stage III non-Hodgkin's lymphoma. She has completed a total of 8 cycles or R-CHOP and with a repeat PET scan after all 8 cycles showing what appears to be a complete response. She will, however, be evaluated by radiation for recommendations regarding additional consolidative treatment. At this time the patient is relocating back to her home of [place], [place] and will be referred to the [facility]. She does have appointments pending with them to establish a new relationship with a medical oncologist and a radiation oncologist at [facility]. I had assisted the patient today with obtaining PET CT DVDs to take with her and also any additional clinic information the patient needs will be forwarded to her oncologist in [place]. The patient has been told if I can be of any further assistance going forward to let me know. I would be happy to continue to participate in her care. Regi Pham DO CC: Dr. Joy, [facility], [facility] [address] [address] UCTION ARTIST documented in this encounter Plan of Treatment Not on filedocumented as of this encounter Visit Diagnoses Not on filedocumented in this encounter
--- OUTSIDE RECORDS SUMMARY | 2019-07-16 00:21 | XMS REPORT | Encounter Summary ---
Author Author [facility] Organization [facility] Address Unknown Phone Unavailable Care Team Providers Care Stained Glass Joiner Name Role Phone PCP Unavailable Encounter Details Care Team Description Date Type Department Regi Pham DO [address] [address] [phone] Other malignant lymphomas, unspecified s ite, extranodal and solid organ sites 08/04/2011 [facility] Encounter [address] [place] [address] Social History Date Tobacco Use Types Packs/Day [...] NM PET CT SKULL BASE TO Routine 08/04/2011 THIGH PS 7:22 AM CDT documented in this encounter Results * NM Pet CT skull base to thigh PS (08/04/2011 7:22 AM CDT) [facility] N[facility] Patient: MONA FRANCO Phone #: Med Rec#: [id number] Sex: F : 1945 Roberto#: [id number] Location: Check-in#: [id number] Procedure Requested: [id number] SK ULL BASE TO THIGH PS Reason For Exam: 199.1 MALIGNANT N EOPLASM NOS Exam Ordered: 08/04/2011 075 1 Exam Date/Time: 08/04/2011 0900 Check-in Date/Time: 08/04/2011 0751 Attendin REGI PHAM Requestin REGI PHAM Referrin NO, REFERRING DR Primary Care: [id number] [place] PET/CT WHOLE BODY Indication: Restaging non-Hodgkin's large B cell lymphoma status post chemotherapy. Comparison: June 25, 2011. Technique: Nuclear medicine PET scannin g was performed after the intravenous administration of 13.6 mCi F - 18 FDG from the skull base to the mid-thigh. Noncontrasted concurrent CT scanning wa s performed for attenuation correction and localization purposes on ly. These images do not constitute a diagnostic quality CT exam ination and are not used to diagnose disease independently of the P ET images. A glucose level before injection was 91 mg/dl. Findings: Head-neck: MRI with contrast has superior sensitiv ity for metastatic disease within the brain, due to normal physiologic up take of FDG throughout the meyer matter. Given this limitation no suspic ious focus of increased FDG uptake within the visualized brain pare nchyma to suggest intracranial metastasis. The visualized brain parenchyma is unre markable, without evidence of space-occupying mass lesion, mass effec t, or extra-axial fluid collection. Mild bilateral maxillary si nus disease, without FDG uptake. The other visualized paranasal sinuses are clear. No suspicious foci of increased FDG upt jaye within the head neck. No suspicious cervical lymphadenopathy. Th e orbits and globes are normal in appearance. The visualized mastoid air cells are clear. The thyroid gland is unremarkable. Chest: Stable right port with tip at the super ior cavoatrial junction. No suspicious foci of increased FDG upt jaye are identified within the thorax. No mediastinal or hilar lymphad enopathy. Small calcified pulmonary granulomas, without FDG uptak e. Mild bilateral dependent and basilar subsegmental atelectasis. No pu lmonary mass or consolidation. No pleural effusions. Stable cardiomegaly. Mild coronary artery disease. Mitral annular calcification. Calcified mediastinal and hilar lymph nodes. Minimal atherosclerosis of the t horacic aorta. Abdomen/Pelvis: Limit evaluation of the solid organs an d viscera without intravenous contrast. No suspicious foci of increased FDG upt jaye are identified within the abdomen and pelvis. No abdominal or pel jeff lymphadenopathy. Stable small subcentimeter retroperitoneal lymph nod es. The liver, pancreas, kidneys, adrenal g lands, urinary bladder, and bowel are unremarkable. Numerous tiny calcifi ed splenic granulomas, without FDG uptake. Cholecystectomy. No intrape ritoneal free fluid. Mild atherosclerosis of the abdominal aorta and its branches. Small fat-containing umbilical hernia. Trace free fluid in the posterior pelvis is likely physiologic. Musculoskeletal: No osseous lesions suspicious for bony metastasis on the basis of increased FDG uptake and CT appearance are identified. Impression: Stable small retroperitoneal lymph node s without FDG uptake. No new suspicious foci of FDG uptake or lymphadenopathy. ATTESTATION STATEMENT: The Staff Radiologist has personally re viewed the images and dictated, reviewed, or edited the final report. Signed (Authenticated, Released) Date-T phi: 08/06/2011 1123 Block Feeder- STUART Wharton, Staff Radiologist Dictated By- BETTIE THOMPSON D.O., Resident Staff Physician- STUART Up, Staff Radiologist Authenticated By- STUART Wharton, Staff Radiologist Procedure Note Interface, Rad Conversion - 07/02/2013 4:10 AM POULTRY BARN MANAGER REPORT Patient: MONA FRANCO Phone #: Epos Rec#: [id number] Sex: F : 1945 Roberto#: [id number] Location: Check-in#: [id number] Procedure Requested: [id number] SKULL BASE TO THIGH PS Reason For Exam: 199.1 MALIGNANT NEOPLASM NOS Exam Ordered: 08/04/2011 0751 Exam Date/Time: 08/04/2011 09 Check-in Date/Time: 08/04/2011 075 AttendinREGI STRINGER RequestinREGI STRINGER Referrin NO, REFERRING Primary Care: [id number] [place]ER [place] NM PET/CT WHOLE BODY Indication: Restaging non-Hodgkin's large B cell lymphoma status post chemotherapy. Comparison: June 25, 2011. Technique: Nuclear medicine PET scanning was performed after the intravenous administration of 13.6 mCi F - 18 FDG from the skull base to the mid-thigh. Noncontrasted concurrent CT scanning was performed for attenuation correction and localization purposes only. These images do not constitute a diagnostic quality CT examination and are not used to diagnose disease independently of the PET images. A glucose level before injection was 91 mg/dl. Findings: Head-neck: MRI with contrast has superior sensitivity for metastatic disease within the brain, due to normal physiologic uptake of FDG throughout the meyer matter. Given this limitation no suspicious focus of increased FDG uptake within the visualized brain parenchyma to suggest intracranial metastasis. The visualized brain parenchyma is unremarkable, without evidence of space-occupying mass lesion, mass effect, or extra-axial fluid collection. Mild bilateral maxillary sinus disease, without FDG uptake. The other visualized paranasal sinuses are clear. No suspicious foci of increased FDG uptake within the head neck. No suspicious cervical lymphadenopathy. The orbits and globes are normal in appearance. The visualized mastoid air cells are clear. The thyroid gland is unremarkable. Chest: Stable right port with tip at the superior cavoatrial junction. No suspicious foci of increased FDG uptake are identified within the thorax. No mediastinal or hilar lymphadenopathy. Small calcified pulmonary granulomas, without FDG uptake. Mild bilateral dependent and basilar subsegmental atelectasis. No pulmonary mass or consolidation. No pleural effusions. Stable cardiomegaly. Mild coronary artery disease. Mitral annular calcification. Calcified mediastinal and hilar lymph nodes. Minimal atherosclerosis of the thoracic aorta. Abdomen/Pelvis: Limit evaluation of the solid organs and viscera without intravenous contrast. No suspicious foci of increased FDG uptake are identified within the abdomen and pelvis. No abdominal or pelvic lymphadenopathy. Stable small subcentimeter retroperitoneal lymph nodes. The liver, pancreas, kidneys, adrenal glands, urinary bladder, and bowel are unremarkable. Numerous tiny calcified splenic granulomas, without FDG uptake. Cholecystectomy. No intraperitoneal free fluid. Mild atherosclerosis of the abdominal aorta and its branches. Small fat-containing umbilical hernia. Trace free fluid in the posterior pelvis is likely physiologic. Musculoskeletal: No osseous lesions suspicious for bony metastasis on the basis of increased FDG uptake and CT appearance are identified. Impression: Stable small retroperitoneal lymph nodes without FDG uptake. No new suspicious foci of FDG uptake or lymphadenopathy. ATTESTATION STATEMENT: The Staff Radiologist has personally reviewed the images and dictated, reviewed, or edited the final report. Signed (Authenticated, Released) Date-Time: 08/06/2011 1123 Block Feeder- STUART DICKEY M.D., Staff Radiologist Dictated By- BETTIE THOMPSON D.O., Resident Staff Physician- STUART DICKEY M.D., Staff Radiologist Authenticated By- STUART DICKEY M.D., Staff Radiologist Performing Organization Address City/State[facility] one Number SYMONE documented in this encounter Visit Diagnoses Diagnosis Other malignant lymphomas, unspecified site, extranodal and solid organ sites documented in this encounter
--- OUTSIDE RECORDS SUMMARY | 2019-07-16 00:21 | XMS REPORT | Encounter Summary ---
Author Author [facility] Organization [facility] Address Unknown Phone Unavailable Care Team Providers Care Materials Assistant Name Role Phone PCP Unavailable Encounter Details Care Team Description Date Type Department 08/06/2011 Hist-Appointmen SL CANCER SPC HST C L t Social History Date Tobacco Use Types [...]
--- OUTSIDE RECORDS SUMMARY | 2019-07-16 00:21 | XMS REPORT | Clinical Summary ---
Author Author [facility] Organization [facility] Address Unknown Phone Unavailable Care Team Providers Care Second Butler Name Role Phone PCP Unavailable Allergies Not on File Medications Not on file Active Problems Not on file Social History Date Tobacco Use Types Packs/Day Years Used Never Assessed Sex Assigned at Date Recorded Not on file Industry Job Start Date Occupation Not on file Not on file Not on file Travel End Travel History Travel Start No recent travel history available. Last Filed Vital Signs Not on file Plan of Treatment Not on file Results Not on filefrom Last 3 Months
--- OUTSIDE RECORDS SUMMARY | 2019-07-16 00:21 | XMS REPORT | Encounter Summary ---
Author Author [facility] Organization [facility] Address Unknown Phone Unavailable Care Team Providers Care Employee Counselor Name Role Phone PCP Unavailable Encounter Details Care Team Description Date Type Department 04/25/2011 Hist-Appointmen SLS CANCER SPC HST CL t [...]
--- OUTSIDE RECORDS SUMMARY | 2019-07-16 00:21 | XMS REPORT | Encounter Summary ---
Author Author [facility] Organization [facility] Address Unknown Phone Unavailable Care Team Providers Care Manager China Name Role Phone PCP Unavailable Encounter Details Care Team Description Date Type Department Regi Gay DO [address] [place] [address] [phone] 05/16/2011 [facility] al Encounter Social History Date Tobacco Use Types Packs/Day Years Used Never Assessed Sex Assigned at Date Recorded Not on file Industry Job Start Date Occupation Not on file Not on file Not on file Travel End Travel History Travel Start No recent travel history available. documented as of this encounter Miscellaneous Notes * Clinic Note - Regi Gay DO - 07/01/2013 10:58 PM MECHANIC DRIVER REPORT Name: MONA FRANCO Date of : 1945 Attending Physician: REGI GAY Date of Service: 05/16/2011 REASON FOR CLINIC VISIT: Non-Hodgkin's diffuse large B-cell lymphoma. HISTORY OF PRESENT ILLNESS: This is a very pleasant 66-year-old female accompanied by her today with the above-mentioned diagnosis of lymphoma. She is currently here for evaluation of cycle #5 of her non-Hodgkin's lymphoma treatment. She continues with R-CHOP every 21 days. She does 4 cycles with a repeat imaging of a PET/CT done on 05/12/2011 that shows a good clinical response, but continues to show good treatment response as indicated by the absence of the FDG uptake within the previously multiple retroperitoneal nodes which has decreased in size. The largest node now measures 1.1 x 0.8 cm. No new areas of uptake. The spleen is without any abnormalities as well as liver, adrenal glands, kidney, and pancreas are also unremarkable. I have called the patient previously about this but again went over this with the patient and her today in clinic visit. Plans are for 2 additional cycles of R-CHOP with a repeat PET scan and then make a determination if she will need a total of 6 or 8. She likely will be referred on to radiation oncology as well when she completes her chemotherapy. MEDICATIONS: Reviewed and updated per the paper chart. REVIEW OF SYSTEMS: Completely negative. Mona continues to do well. She denies any fevers, chills, or night sweats. No appetite changes. No abdominal pains. No insomnia. Past Medical, Past Surgical, and Social History are unchanged from previous dictations. PHYSICAL EXAMINATION: VITAL SIGNS: Oxygen saturation is 98% on room air. Temperature is 97. Blood pressure is 112/72. Pulse 95. Respirations are 16. Weight is 166 pounds. GENERAL: The patient is nontoxic, in no acute distress. Awake, alert, and oriented x3. HEENT: Mucous membranes are moist. NECK is supple. There is no JVD. Extraocular muscles are intact. HEART: S1, S2. Regular. LUNGS: Clear bilaterally. ABDOMEN: Soft and nontender. No palpable splenomegaly. EXTREMITIES: Without any cyanosis, clubbing, or edema. LABORATORY DATA: From 05/08/2011 shows an albumin of 3.8, AST 25, total bilirubin 0.5, total protein 6.4, calcium is 9.1, creatinine 0.4, alkaline phosphatase 79, sodium is 149, potassium 3.9, platelet count is 241, hemoglobin is 11. White count is 5.32. IMPRESSION AND PLAN: As stated, this is a 66-year-old female with the above mentioned stage III non-Hodgkin's lymphoma. At this time, the patient will complete #5 and #6 of her R-CHOP with likely a repeat PET CT after 6 cycles for determination of additional cycles if needed. I will see the patient back prior to cycle #5 of her R-CHOP. She has been instructed to contact me if I can be of any further assistance. Regi Gya DO CC: ANIC DRIVER documented in this encounter Plan of Treatment Not on filedocumented as of this encounter Visit Diagnoses Not on filedocumented in this encounter
--- OUTSIDE RECORDS SUMMARY | 2019-07-16 00:21 | XMS REPORT | Encounter Summary ---
Author Author [facility] Organization [facility] Address Unknown Phone Unavailable Care Team Providers Care Pool Hall Inspector Name Role Phone PCP Unavailable Encounter Details Care Team Description Date Type Department Regi Gay DO [address] [place] [address] [phone] 06/27/2011 [facility] al Encounter Social History Date Tobacco Use Types Packs/Day Years Used Never Assessed Sex Assigned at Date Recorded Not on file Industry Job Start Date Occupation Not on file Not on file Not on file Travel End Travel History Travel Start No recent travel history available. documented as of this encounter Miscellaneous Notes * Clinic Note - Regi Gay DO - 07/01/2013 10:26 PM INSULATION MACHINE OPERATOR REPORT Name: MONA FRANCO Date of : 1945 Attending Physician: REGI GAY Date of Service: 06/27/2011 REASON FOR CLINIC VISIT: Non-Hodgkin's lymphoma, diffuse large B-cell, stage III. HISTORY OF PRESENT ILLNESS: This is a very pleasant 66-year-old female accompanied by her today for the above-mentioned diagnosis of non-Hodgkin's lymphoma. She is currently here for evaluation of cycle #7 after having a total of 6. She continues to do quite well. A repeat PET scan again visualizes a retroperitoneal lymph nodes, with the smaller left retroperitoneal lymph nodes with the largest in the left periaortic region measuring 0.8 x 0.6 cm, previous 1.1 x 0.8 cm. After careful consideration with the patient and her , I recommended an additional 2 cycles of R-CHOP therapy for a total of 8 for stage III non-Hodgkin's lymphoma. When they do complete this therapy, they will transition her care to [place]. The patient continued to have some variable fatigue. She is now mentioning some numbness in her toes and I am concerned this possibly could be related to vincristine, so I will likely make a dose reduction. The patient is also having significant insomnia and agitation from her prednisone so likely I will also reevaluate this for possible dose reduction. REVIEW OF SYSTEMS: The patient is having an adequate appetite. As stated, fatigue is variable. Overall, she appears to be doing well. Unless otherwise mentioned, ten-point review of systems has been completed and is negative. CURRENT MEDICATIONS: Have been reviewed and updated per the paper chart. PAST MEDICAL/PAST SURGICAL HISTORY: Unchanged. SOCIAL HISTORY: Updated. The patient did have granddaughter since her last visit and she is very happy to have the addition of the granddaughter to their family. PHYSICAL EXAMINATION: VITAL SIGNS: Stable. The patient is awake, alert, and oriented. HEART: S1, S2. Regular. LUNGS: Clear bilaterally. ABDOMEN: Soft and nontender. EXTREMITIES: Without any cyanosis, clubbing, or edema. There is noted on the nails bilaterally some discoloration in the corners likely related to chemotherapy. Pulses are good and intact. The patient has no ambulatory dysfunction on physical examination. Motor strength is equal bilaterally. LABORATORY DATA: Today is pending. IMPRESSION: A 66-year-old female with stage III non-Hodgkin's disease. At this time, based on her most recent PET scan we will plan for an additional two cycles of R-CHOP and then we will refer to radiation for evaluation. Please note the patient will be transitioning her care after she finishes here to [place], [place], [facility] in [facility] for further continuation of care. Regi Gay DO CC: LATION MACHINE OPERATOR documented in this encounter Plan of Treatment Not on filedocumented as of this encounter Visit Diagnoses Not on filedocumented in this encounter
--- OUTSIDE RECORDS SUMMARY | 2019-07-16 00:21 | XMS REPORT | Encounter Summary ---
Author Author [facility] Organization [facility] Address Unknown Phone Unavailable Care Team Providers Care Drop Hammer Set Up Operator Name Role Phone PCP Unavailable Encounter Details Care Team Description Date Type Department 05/16/2011 Hist-Appointmen SLS CANCER SPC HST CL t [...]
--- OUTSIDE RECORDS SUMMARY | 2019-07-16 00:21 | XMS REPORT | Encounter Summary ---
Author Author [facility] Organization [facility] Address Unknown Phone Unavailable Care Team Providers Care Obstetrician Name Role Phone PCP Unavailable Encounter Details Care Team Description Date Type Department AnkitRegi, DO [address] [address] [phone] Other malignant lymphomas, unspecified s ite, extranodal and solid organ sites 04/17/2011 [facility] 08/02/[id number] [place] [id number] Social History Date Tobacco Use Types Packs/Day [...] Procedure Name Priority Date/Time Associated Diag nosis COMPREHENSIVE METABOLIC Routine 07/30/2011 PANEL 7:58 AM CDT CBC AND DIFF (MANUAL DIFF Routine 07/30/2011 IF NECESSARY) 7:58 AM CDT COMPREHENSIVE METABOLIC Routine 07/09/2011 PANEL 7:48 AM FUR IRONER CBC AND DIFF (MANUAL DIFF Routine 07/09/2011 IF NECESSARY) 7:48 AM FUR IRONER COMPREHENSIVE METABOLIC Routine 06/18/2011 PANEL 7:50 AM FUR IRONER CBC AND DIFF (MANUAL DIFF Routine 06/18/2011 IF NECESSARY) 7:50 AM FUR IRONER COMPREHENSIVE METABOLIC Routine 05/29/2011 PANEL 7:25 AM FUR IRONER CBC AND DIFF (MANUAL DIFF Routine 05/29/2011 IF NECESSARY) 7:25 AM FUR IRONER COMPREHENSIVE METABOLIC Routine 05/08/2011 PANEL 7:50 AM FUR IRONER CBC AND DIFF (MANUAL DIFF Routine 05/08/2011 IF NECESSARY) 7:50 AM FUR IRONER COMPREHENSIVE METABOLIC Routine 04/22/2011 PANEL 10:15 AM FUR IRONER COMPREHENSIVE METABOLIC Routine 04/17/2011 PANEL 8:00 AM FUR IRONER CBC AND DIFF (MANUAL DIFF Routine 04/17/2011 IF NECESSARY) 8:00 AM FUR IRONER documented in this encounter Results * CBC and Diff (manual diff if necessary) (07/30/2011 7:58 AM CDT) Only the most recent of 6 results within the time period is included. WBC 5.94 4.00 - 11.00 TH/UL SUNQUEST RBC 3.13 (L) 4.00 - 5.00 MIL/UL SUNQUEST Hemoglobin 9.6 (L) 12.0 - 15.0 G/DL SUNQUEST Hematocrit 29 (L) 36 - 45 % SUNQUEST MCV 92 80 - 99 FL SUNQUEST MCH 31 27 - 34 PG SUNQUEST MCHC 33 32 - 36 % SUNQUEST RDW 16.4 (H) 9.0 - 14.5 % SUNQUEST Platelet Count 294 140 - 400 TH/UL SUNQUEST MPV 9.7 9.4 - 12.3 FL SUNQUEST % Neutrophils 67 45 - 78 % SUNQUEST %Lymphocytes 16 15 - 47 % SUNQUEST %Monocytes 15 (H) 0 - 12 % SUNQUEST %Eosinophils 1 0 - 7 % SUNQUEST %Basophils 1 0 - 2 % SUNQUEST # Granulocytes 3.99 1.70 - 6.80 TH/UL SUNQUEST # Lymphocytes 0.95 (L) 1.00 - 3.30 TH/UL SUNQUEST # Monocytes 0.91 (H) 0.20 - 0.90 TH/UL SUNQUEST # Eosinophils 0.04 0.00 - 0.40 TH/UL SUNQUEST # Basophils 0.05 0.00 - 0.10 TH/UL SUNQUEST Specimen Blood Performing Organization Address City/State/Zipcode Ph one Number [facility]RL [address] [place], [place] [address] SUNQUEST * Comprehensive Metabolic Panel (07/30/2011 7:58 AM CDT) Only the most recent of 7 results within the time period is included. Albumin 3.5 3.5 - 5.0 G/DL SUNQUEST Aspartate 26 15 - 46 IU/L SUNQUEST Aminotransferas e Bilirubin Total 0.5 0.2 - 1.3 MG/DL [place] Protein Total 5.9 (L) 6.0 - 8.2 G/DL SUN[place] Serum Calcium 8.5 8.4 - 10.2 MG/DL [place] Creatinine 0.4 0.4 - 1.1 MG/DL [place] Glucose 109 (H) 70 - 100 MG/DL SUNQUEST Alkaline 100 42 - 128 IU/L [place] Phosphatase Sodium 143 133 - 147 MEQ/L [place] Potassium 3.1 (L) 3.5 - 5.1 MEQ/L SUNQUEST Chloride 103 96 - 112 MEQ/L SUN[place] Carbon Dioxide 31 (H) 22 - 30 MEQ/L SUNQUEST Blood Urea 9 7 - 26 MG/DL SUNQUEST Nitrogen Anion Gap 9 3 - 15 [place] Alanine 33 13 - 69 IU/L SUNQUEST Aminotransferas e eGFR Female >130 SUNQUEST Non-AA Comment: Chronic Kidney Disease less than 60 mL/min/1.73 sq.m Kidney failure less than 15 mL/min/1.73 sq.m eGFR Female AA >130 SUNQUEST Comment: Chronic Kidney Disease less than 60 mL/min/1.73 sq.m Kidney failure less than 15 mL/min/1.73 sq.m Specimen Blood Performing Organization Address City/[facility] Ph one Number [facility] [address] [place], [place] [address] SUNQUEST documented in this encounter Visit Diagnoses Diagnosis Other malignant lymphomas, unspecified site, extranodal and solid organ sites documented in this encounter
--- OUTSIDE RECORDS SUMMARY | 2019-07-16 00:22 | XMS REPORT | Encounter Summary ---
Author Author [facility] Organization [facility] Address Unknown Phone Unavailable Care Team Providers Care Special Education Instructor Name Role Phone PCP Unavailable Encounter Details Care Team Description Date Type Department Regi Gay DO [address] [place] [address] [phone] 03/05/2011 [facility] al Encounter Social History Date Tobacco Use Types Packs/Day Years Used Never Assessed Sex Assigned at Date Recorded Not on file Industry Job Start Date Occupation Not on file Not on file Not on file Travel End Travel History Travel Start No recent travel history available. documented as of this encounter Miscellaneous Notes * Clinic Note - Regi Gay DO - 07/01/2013 11:45 PM LAST PUTTER AWAY REPORT Name: MONA FRANCO Date of : 1945 Attending Physician: REGI GAY Date of Service: 03/05/2011 REASON FOR CLINIC VISIT: Non-Hodgkin's diffuse large B-cell lymphoma, stage III. HISTORY OF PRESENT ILLNESS: This is a female I first met in clinic visit on 02/21/2011. She recently moved back to [place] from [place]. She had an extensive workup in [place] where she was found to have a diffuse large B-cell lymphoma. When I initially met the patient in my clinic, she was complaining of significant back pain as well as she was also found to be hypoxic. At that time, she was admitted to the hospital for further evaluation of her back pain and hypoxia as well as also to complete staging workup of her non-Hodgkin's lymphoma. It was noted to date that the patient did have an LP as well as also a bone marrow biopsy. Both were negative for any evidence of disease. It is noted that by outside scans, she does have a diffuse hilar and retroperitoneal lymphadenopathy as well as initial LDH was found to be 212 at her outside hospital. Since I have last seen the patient, in the interim, she did receive her first cycle of R-CHOP as an inpatient. She did get allopurinol as prophylaxis for tumor lysis. She is doing well. She continues to have some nausea as well as complications with headache likely from the Zofran. REVIEW OF SYSTEMS: Remarkable for nausea, also anorexia. Her back pain is controlled with fentanyl patches. She denies any ankle swelling. No chest pain. No rectal bleeding. No hematuria. No dysuria. The remainder of the 10-point review of systems is completely negative. PAST MEDICAL/PAST SURGICAL HISTORY: Unchanged. CURRENT MEDICATIONS: Have been reviewed and updated per the paper chart. PHYSICAL EXAMINATION: VITAL SIGNS: Today oxygen saturation is 99% on room air, temperature is 97.7, blood pressure is 112/59, pulse 86, respirations are 16, weight is 160 pounds. GENERAL: The patient is nontoxic, in no acute distress. Awake, alert, and oriented x3. HEENT: Mucous membranes are moist. Neck is supple. There is no JVD. Extraocular muscles are intact. HEART: S1, S2. Regular. LUNGS: Clear bilaterally. ABDOMEN: Soft and nontender. EXTREMITIES: Without any cyanosis, clubbing, or edema. LABORATORY DATA: Pending. IMPRESSION AND PLAN: Diffuse large B-cell lymphoma, stage III. The patient will proceed with R-CHOP according to plan at next cycle. Plans at this time are 6 to 8 cycles of therapy. I will repeat a PET scan likely after 2 to 3 cycles of R-CHOP. The patient will receive Neulasta on day 2 after her R-CHOP. Regi Gay DO CC: PUTTER AWAY documented in this encounter Plan of Treatment Not on filedocumented as of this encounter Visit Diagnoses Not on filedocumented in this encounter
--- OUTSIDE RECORDS SUMMARY | 2019-07-16 00:22 | XMS REPORT | Encounter Summary ---
Author Author [facility] Organization [facility] Address Unknown Phone Unavailable Care Team Providers Care Hat Trimmer Name Role Phone PCP Unavailable Encounter Details Care Team Description Date Type Department Regi Pham, DO [address] [address] [phone] 04/07/2011 [facility] Encounter [address] [place] [address] Social History Date Tobacco Use Types Packs/Day [...] Procedure Name Priority Date/Time Associated Diag nosis URINALYSIS MICROSCOPIC Routine 04/07/2011 ONLY 11:45 AM COMMERCIAL COLLECTIONS DRIVER URINALYSIS REFLEX Routine 04/07/2011 11:45 AM COMMERCIAL COLLECTIONS DRIVER URINALYSIS (INCLUDES Routine 04/07/2011 MICROSCOPIC REVIEW, IF 11:45 AM COMMERCIAL COLLECTIONS DRIVER INDICATED) CULTURE, URINE Routine 04/07/2011 11:45 AM COMMERCIAL COLLECTIONS DRIVER documented in this encounter Results * Culture, Urine (04/07/2011 11:45 AM COMMERCIAL COLLECTIONS DRIVER) Specimen Urine Narrative Performed At [facility] Specimen: URINE Collected: 04/07/2011 11:45 Status: Final Last Updated: 10/2010 21:55 Isolate 1 (Final) >100,000 Cfu/ml Escherichia coli I solate 1 E scherichia coli - m cg/ml JOY Ampicillin <=2 S Aztreonam <=1 S Cefazolin <=4 S Cefepime <=1 S Ceftriaxone <=1 S Ciprofloxacin <=0.25 S ESBL (+/-) - Gentamicin <=1 S Meropenem <=0.25 S Nitrofurantoin <=16 S Septra/Bactrim <=20 S Antibiotic Therapy Table: Drug Cost Admini stration ------- -- AMPICILLIN $ IV AMPICILLIN $ PO AZTREONAM $$$ IV CEFAZOLIN $ IV CEFEPIME $ IV CEFTRIAXONE $ IV CIPROFLOXACIN $ PO CIPROFLOXACIN $ IV GENTAMICIN $ IV MEROPENEM $$$ IV NITROFURANTOIN $ PO SEPTRA/BACTRIM $ PO Performing Organization [facility] one Number RL [address] [place] [address] SUNQUEST * Urinalysis Microscopic Only (04/07/2011 11:45 AM COMMERCIAL COLLECTIONS DRIVER) MICROSCOPIC Done SUNQUEST Microscopic WBC >40 (A) 1 - 5 SUNQUEST Urine Epithelial Small (A) Absent SUNQUEST Cells Calcium Oxalate Present (A) Absent SUNQUEST [place] Microscopic RBC 11 - 20 (A) 1 - 5 SUNQUEST Urine Specimen Urine Performing Organization [facility] one Number [facility] [address] [place] [address] SUNQUEST * Urinalysis Reflex (04/07/2011 11:45 AM COMMERCIAL COLLECTIONS DRIVER) Pathologist [facility] UA Reflex COMPLETEComment: Culture SUNQUEST Ordered Specimen Urine Performing Organization [facility] one Number [facility] [address] [place] [address] SUNQUEST * Urinalysis (04/07/2011 11:45 AM COMMERCIAL COLLECTIONS DRIVER) Appearance, Yellow SUNQUEST Urine Specific 1.020 1.001 - 1.030 SUNQUEST [place], UA PH Urine 7.0 5.0 - 8.0 SUNQUEST Hemoglobin Large (A) Negative SUNQUEST Urine Leukocyte Negative Negative SUNQUEST Esterase Bilirubin Urine Negative Negative SUNQUEST Glucose Urine Negative Negative MG/DL SUNQUEST Ketones Urine Negative Negative MG/DL SUNQUEST Protein Urine Negative Negative MG/DL SUNQUEST Qual Urobilinogen Negative Negative EU/DL SUNQUEST Urine Specimen Urine Performing Organization Address City/State/[facility] Ph one Number RL [address] [place], [place] [address] SUNQUEST documented in this encounter Visit Diagnoses Not on filedocumented in this encounter
--- OUTSIDE RECORDS SUMMARY | 2019-07-16 00:22 | XMS REPORT | Encounter Summary ---
Author Author [facility] Organization [facility] Address Unknown Phone Unavailable Care Team Providers Care Shift Superintendent Caustic Cresylate Name Role Phone PCP Unavailable Encounter Details Care Team Description Date Type Department 04/04/2011 Hist-Appointmen [facility] CL t [...]
--- OUTSIDE RECORDS SUMMARY | 2019-07-16 00:22 | XMS REPORT | Encounter Summary ---
Author Author [facility] Address Unknown Phone Unavailable Care Team Providers Care Fruit Tester Name Role Phone PCP Unavailable Encounter Details Care Team Description Date Type Department Regi Pham, DO [address] [address] [phone] Encounter for antineoplastic chemotherap y 03/20/2011 [facility] 04/11/2011 [address] [place] [address] Social History Date Tobacco Use Types [...] Date/Time Associated Diag nosis COMPREHENSIVE METABOLIC Routine 03/20/2011 PANEL 8:08 AM POLICE RADIO DISPATCHER CBC AND DIFF (MANUAL DIFF Routine 03/20/2011 IF NECESSARY) 8:08 AM POLICE RADIO DISPATCHER documented in this encounter Results * Comprehensive Metabolic Panel (03/20/2011 8:08 AM POLICE RADIO DISPATCHER) Albumin 3.2 (L) 3.5 - 5.0 G/DL SUNQUEST Aspartate 20 15 - 46 IU/L SUNQUEST Aminotransferas e Bilirubin Total 0.5 0.2 - 1.3 MG/DL SUNQUEST Protein Total 7.2 6.0 - 8.2 G/DL SUNQUEST Serum Calcium 9.1 8.4 - 10.2 MG/DL SUNQUEST Creatinine 0.5 0.4 - 1.1 MG/DL SUNQUEST Glucose 134 (H) 65 - 100 MG/DL SUNQUEST Alkaline 116 42 - 128 IU/L SUNQUEST Phosphatase Sodium 139 134 - 145 MEQ/L SUNQUEST Potassium 3.2 (L) 3.5 - 5.1 MEQ/L SUNQUEST Chloride 103 98 - 107 MEQ/L SUNQUEST Carbon Dioxide 27 22 - 30 MEQ/L SUNQUEST Blood Urea 7 7 - 26 MG/DL SUNQUEST Nitrogen Anion Gap 8 3 - 15 SUNQUEST Alanine 22 13 - 69 IU/L SUNQUEST Aminotransferas e eGFR Female 124 SUNQUEST Non-AA Comment: Chronic Kidney Disease less than 60 mL/min/1.73 sq.m Kidney failure less than 15 mL/min/1.73 sq.m eGFR Female AA >130 SUNQUEST Comment: Chronic Kidney Disease less than 60 mL/min/1.73 sq.m Kidney failure less than 15 mL/min/1.73 sq.m Specimen Blood Performing Organization Address City/State/[facility] Ph one Number [facility] [address] [place], [place] [address] SUNQUEST * CBC and Diff (manual diff if necessary) (03/20/2011 8:08 AM POLICE RADIO DISPATCHER) WBC 5.20 4.00 - 11.00 TH/UL SUNQUEST RBC 3.45 (L) 4.00 - 5.00 MIL/UL SUNQUEST Hemoglobin 9.3 (L) 12.0 - 15.0 G/DL SUNQUEST Hematocrit 30 (L) 36 - 45 % SUNQUEST MCV 86 80 - 99 FL SUNQUEST MCH 27 27 - 34 PG SUNQUEST MCHC 31 (L) 32 - 36 % SUNQUEST RDW 24.6 (H) 9.0 - 14.5 % SUNQUEST Platelet Count 352 140 - 400 TH/UL SUNQUEST MPV 10.2 9.4 - 12.3 FL SUNQUEST % Neutrophils 47 45 - 78 % SUNQUEST %Lymphocytes 29 15 - 47 % SUNQUEST %Monocytes 19 (H) 0 - 12 % SUNQUEST %Eosinophils 1 0 - 7 % SUNQUEST %Basophils 4 (H) 0 - 2 % SUNQUEST # Granulocytes 2.44 1.70 - 6.80 TH/UL SUNQUEST # Lymphocytes 1.51 1.00 - 3.30 TH/UL SUNQUEST # Monocytes 0.99 (H) 0.20 - 0.90 TH/UL SUNQUEST # Eosinophils 0.05 0.00 - 0.40 TH/UL SUNQUEST # Basophils 0.21 (H) 0.00 - 0.10 TH/UL SUNQUEST Polychromasia Present (A) Absent SUNQUEST Toxic Present (A) Absent SUNQUEST Granulation Specimen Blood Performing Organization Address City/State/[facility] Ph one Number [facility] [address] [place], [place] [address] SUNQUEST documented in this encounter Visit Diagnoses Diagnosis Encounter for antineoplastic chemothera py documented in this encounter
--- OUTSIDE RECORDS SUMMARY | 2019-07-16 00:22 | XMS REPORT | Encounter Summary ---
Author Author [facility] Organization [facility] Address Unknown Phone Unavailable Care Team Providers Care Traffic Monitor Specialist Name Role Phone PCP Unavailable Encounter Details Care Team Description Date Type Department Regi Pham DO [address] [address] [phone] 03/25/2011 [facility] ion Encounter Social History Date Tobacco Use Types Packs/Day Years Used Never Assessed Sex Assigned at Date Recorded Not on file Industry Job Start Date Occupation Not on file Not on file Not on file Travel End Travel History Travel Start No recent travel history available. documented as of this encounter Miscellaneous Notes * Miscellaneous - Regi Pham DO - 03/25/2011 10:05 AM LANDSCAPE FOREMAN Date: 03/25/11 10:05 To: MONA FRANCO From: Promise Cannon Patient: MONA FRANCO Physician: Dr. Regi Pham DO Subject: New Medication Message: I have written a prescription for you and sent it directly to the pharm acy listed below. Click on Prescription Receipt for a copy of the prescription t hat the pharmacy received. Be sure to follow the directions and precautions on t he prescription. If the pharmacy recipient is a mail order pharmacy, you may wish to contact you r mail order service in 3-7 business days to verify shipment of your prescriptio n. If the pharmacy recipient is not a mail order pharmacy, please call the pharm acy to make sure your prescription is ready before you pick it up. Prescription Details Date Prescribed:03/25/2011 10:05:12 AM Medication: Allopurinol Dosage Form: TABS Strength: 300 MG Dispense: 30 Quantity Qualifier: Tablet(s) SI tablet orally daily Refills: 1 Refills Left: 1 Note to Pharmacist: Date Expires: 03/25/2012 12:00:00 Attachments: 1 SCAPE FOREMAN documented in this encounter Plan of Treatment Not on filedocumented as of this encounter Visit Diagnoses Not on filedocumented in this encounter
--- OUTSIDE RECORDS SUMMARY | 2019-07-16 00:22 | XMS REPORT | Encounter Summary ---
Author Author [facility] Organization [facility] Address Unknown Phone Unavailable Care Team Providers Care Digital Photographic Printer Name Role Phone PCP Unavailable Encounter Details Care Team Description Date Type Department Ralph Santana MD [address] [facility] [address] [place] [address] [phone] 04/08/2011 [facility] Encounter Social History Date Tobacco Use Types Packs/Day Years Used Never Assessed Sex Assigned at Date Recorded Not on file Industry Job Start Date Occupation Not on file Not on file Not on file Travel End Travel History Travel Start No recent travel history available. documented as of this encounter Miscellaneous Notes * Miscellaneous - Ralph Santana MD - 04/08/2011 9:49 AM CONVERTIBLE TOP INSTALLER Date: 04/08/11 09:49 To: MONA FRANCO From: Promise Cannon Patient: MONA FRANCO Physician: Dr. RALPH SANTANA MD Subject: New Medication Message: I have written [...] you pick it up. Prescription Details Date Prescribed:04/08/2011 9:49:50 AM Medication: Cipro Dosage Form: TABS Strength: 500 MG Dispense: 10 Quantity Qualifier: Tablet(s) SI tablet po BID x 5 days Refills: 0 Refills Left: 0 Note to Pharmacist: Date Expires: 04/08/2012 12:00:00 Attachments: 1 ERTIBLE TOP INSTALLER * Miscellaneous - Ralph Santana MD - 04/08/2011 9:49 AM CONVERTIBLE TOP INSTALLER Date: 04/08/11 09:49 To: MONA FRANCO From: Promise Davis Patient: MONA FRANCO Physician: Dr. RALPH SANTANA MD Subject: Doctor Added for Online Messaging Message: Since you have an online messaging relationship with other doctors at [facility], your account has also been made av ailable to me in order to provide you with services online. If you believe this messaging relationship was made in error, please deactivate me from your list of doctors. Attachments: 0 ERTIBLE TOP INSTALLER documented in this encounter Plan of Treatment Not on filedocumented as of this encounter Visit Diagnoses Not on filedocumented in this encounter
--- OUTSIDE RECORDS SUMMARY | 2019-07-16 00:22 | XMS REPORT | Encounter Summary ---
Author Author [facility] Organization [facility] Address Unknown Phone Unavailable Care Team Providers Care Cash Applications Associate Name Role Phone PCP Unavailable Encounter Details Care Team Description Date Type Department Regi Gay DO [address] [place] [address] [phone] 04/04/2011 [facility] al Encounter Social History Date Tobacco Use Types Packs/Day Years Used Never Assessed Sex Assigned at Date Recorded Not on file Industry Job Start Date Occupation Not on file Not on file Not on file Travel End Travel History Travel Start No recent travel history available. documented as of this encounter Miscellaneous Notes * Clinic Note - Regi Gay DO - 07/01/2013 11:19 PM PHOTORESIST PRINTER REPORT Name: MONA FRANCO Date of : 1945 Attending Physician: REGI GAY Date of Service: 04/04/2011 REASON FOR CLINIC VISIT: Non-Hodgkin's diffuse large B-cell lymphoma, stage III. HISTORY OF PRESENT ILLNESS: This is a 66-year-old female whom I initially met in clinic visit on 02/21/2011, after she had presented from [place] to [place] for ongoing care and evaluation of her non-Hodgkin's lymphoma. She is currently status post 2 cycles of R-CHOP where she has tolerated them well, had some associated nausea that adjustments of her antiemetics seemed to have improved. She is noted to have an increase in appetite, and overall is doing quite well. Since I have last seen the patient, past medical and past surgical history are unchanged. CURRENT MEDICATIONS: Have been reviewed and updated per the paper chart. Chemotherapy today, her BSA has been calculated and adjusted, and chemotherapy has been again calculated for her 3rd cycle of R-CHOP. PHYSICAL EXAMINATION: VITAL SIGNS: Stable. She is afebrile. GENERAL: She is nontoxic, in no acute distress. Awake, alert, and oriented x3. HEENT: Mucous membranes are moist. Neck is supple. There is no JVD. Extraocular muscles are intact. HEART: S1, S2. LUNGS: Clear. ABDOMEN: Soft and nontender. EXTREMITIES: Without any cyanosis, clubbing, or edema. LABORATORY DATA: Prior to her cycle number 3 of chemotherapy is pending. IMPRESSION AND PLAN: This is a 66-year-old female with stage III diffuse large B-cell lymphoma. At this time, the patient will continue with R-CHOP according to plan for next cycle. The plans are 6 to 8 cycles of therapy. I will repeat a PET/CT after likely 3 to 4 cycles of R-CHOP. The patient will continue to receive Neulasta growth factor on day 2 of her R-CHOP therapy. I will see the patient back in 3 weeks' time prior to her cycle number 5 of R-CHOP. Regi Gay DO CC: Authenticated and Edited by Regi Gay DO On 05/16/11 3:46:20 PM ORESIST PRINTER documented in this encounter Plan of Treatment Not on filedocumented as of this encounter Visit Diagnoses Not on filedocumented in this encounter
--- OUTSIDE RECORDS SUMMARY | 2019-07-16 00:22 | XMS REPORT | Encounter Summary ---
Author Author [facility] Organization [facility] Address Unknown Phone Unavailable Care Team Providers Care Growth Hacker Name Role Phone PCP Unavailable Encounter Details Care Team Description Date Type Department Regi hPam, DO [address] [facility] [address] [place] [address] [phone] Other malignant lymphomas, unspecified s ite, extranodal and solid organ sites [facility] [id number] [facility] 03/28/2011 [address] [place] [address] Social History Date Tobacco Use Types Packs/Day [...] Procedure Name Priority Date/Time Associated Diag nosis URIC ACID Routine 03/05/2011 3:55 PM CDT COMPREHENSIVE METABOLIC Routine 03/05/2011 PANEL 3:55 PM CDT CBC AND DIFF (MANUAL DIFF Routine 03/05/2011 IF NECESSARY) 3:55 PM CDT DIRECT ANTIGLOBULIN Routine 03/05/2011 POLYSPECIFIC 3:55 PM CDT documented in this encounter Results * Comprehensive Metabolic Panel (03/05/2011 3:55 PM CDT) Albumin 2.6 (L) 3.5 - 5.0 G/DL SUNQUEST Aspartate 23 15 - 46 IU/L SUNQUEST Aminotransferas e Bilirubin Total 0.5 0.2 - 1.3 MG/DL SUNQUEST Protein Total 7.2 6.0 - 8.0 G/DL SUNQUEST Serum Calcium 8.5 8.4 - 10.2 MG/DL SUNQUEST Creatinine 0.4 0.4 - 1.1 MG/DL SUNQUEST Glucose 112 (H) 65 - 100 MG/DL SUNQUEST Alkaline 146 (H) 42 - 128 IU/L SUNQUEST Phosphatase Sodium 138 137 - 145 MEQ/L SUNQUEST Potassium 3.8 3.5 - 5.1 MEQ/L SUNQUEST Chloride 103 98 - 107 MEQ/L SUNQUEST Carbon Dioxide 27 22 - 30 MEQ/L SUNQUEST Blood Urea 13 7 - 26 MG/DL SUNQUEST Nitrogen Anion Gap 8 3 - 15 SUNQUEST Alanine 32 13 - 69 IU/L SUNQUEST Aminotransferas e eGFR Female AA >130 SUNQUEST Comment: Chronic Kidney Disease less than 60 mL/min/1.73 sq.m Kidney failure less than 15 mL/min/1.73 sq.m eGFR Female >130 SUNQUEST Non-AA Comment: Chronic Kidney Disease less than 60 mL/min/1.73 sq.m Kidney failure less than 15 mL/min/1.73 sq.m Specimen Blood Performing Organization Address [facility] Ph one Number [id number] [place] [phone] SUNQUEST * Uric Acid (03/05/2011 3:55 PM CDT) Uric Acid 2.6 2.5 - 7.0 MG/DL SUNQUEST Specimen Blood Performing Organization Address [facility] Ph one Number [id number] [phone] SUNQUEST * CBC and Diff (manual diff if necessary) (03/05/2011 3:55 PM CDT) WBC 4.90 4.00 - 11.00 TH/UL SUNQUEST RBC 3.21 (L) 4.00 - 5.00 MIL/UL [facility]QUEST Hemoglobin 7.8 (L) 12.0 - 15.0 G/DL [facility]QUEST Hematocrit 26 (L) 36 - 45 % SUNQUEST MCV 80 80 - 99 FL SUNQUEST MCH 24 (L) 27 - 34 PG SUNQUEST MCHC 30 (L) 32 - 36 % SUNQUEST RDW 18.8 (H) 9.0 - 14.5 % SUNQUEST Platelet Count 315 140 - 400 TH/UL SUNQUEST MPV 9.1 (L) 9.4 - 12.3 FL SUNQUEST % Neutrophils 82 (H) 45 - 78 % SUNQUEST %Lymphocytes 16 15 - 47 % SUNQUEST %Monocytes 0 0 - 12 % SUNQUEST %Eosinophils 1 0 - 7 % SUNQUEST Ovalocytes Present (A) Absent SUNQUEST # Basophils 0.05 0.00 - 0.10 TH/UL SUNQUEST # Eosinophils 0.05 0.00 - 0.40 TH/UL SUNQUEST %Basophils 1 0 - 2 % SUNQUEST Stomatocytes Present SUNQUEST # Monocytes 0.02 (L) 0.20 - 0.90 TH/UL SUNQUEST # Lymphocytes 0.78 (L) 1.00 - 3.30 TH/UL SUNQUEST # Granulocytes 4.02 1.70 - 6.80 TH/UL SUNQUEST Hypersegmented Present (A) Absent SUNQUEST Polys Specimen Blood Performing Organization Address [facility] Ph one Number [phone] [id number] [phone] SUNQUEST * Direct Antiglobulin Polyspecific (03/05/2011 3:55 PM CDT) Direct Negative [facility]QUEST Antiglobulin Polyspecific Specimen Blood Performing Organization Address [facility]/Count Includes [facility] one Number [id number] [phone] [place], [place] [address] SUNQUEST documented in this encounter Visit Diagnoses Diagnosis Other malignant lymphomas, unspecified site, extranodal and solid organ sites documented in this encounter
--- OUTSIDE RECORDS SUMMARY | 2019-07-16 00:22 | XMS REPORT | Encounter Summary ---
Author Author [facility] Organization [facility] Address Unknown Phone Unavailable Care Team Providers Care Poultry Pathologist Name Role Phone PCP Unavailable Encounter Details Care Team Description Date Type Department Regi Pham DO [address] [place] [id number] [phone] Other malignant lymphomas, unspecified s ite, extranodal and solid organ sites 03/22/2011 [facility] 04/12/[id number] [place] [address] Social History Date Tobacco Use Types Packs/Day Years Used Never Assessed Sex Assigned at Date Recorded Not on file Industry Job Start Date Occupation Not on file Not on file Not on file Travel End Travel History Travel Start No recent travel history available. documented as of this encounter Plan of Treatment Not on filedocumented as of this encounter Visit Diagnoses Diagnosis Other malignant lymphomas, unspecified site, extranodal and solid organ sites documented in this encounter
--- OUTSIDE RECORDS SUMMARY | 2019-07-16 00:22 | XMS REPORT | Encounter Summary ---
Author Author [facility] Organization [facility] Address Unknown Phone Unavailable Care Team Providers Care Electrotyper Name Role Phone PCP Unavailable Encounter Details Care Team Description Date Type Department Michael Phamcy Bren, DO [address] [place] [id number] [phone] Other malignant lymphomas, unspecified s ite, extranodal and solid organ sites 03/03/[address] [address] Social History Date Tobacco Use Types [...]
--- OUTSIDE RECORDS SUMMARY | 2019-07-16 00:22 | XMS REPORT | Encounter Summary ---
Author Author [facility] Organization [facility] Address Unknown Phone Unavailable Care Team Providers Care Technical Maintenance Technician Name Role Phone PCP Unavailable Encounter Details Care Team Description Date Type Department Regi Gay DO [address] [place] [id number] [phone] 04/25/2011 [facility] Encounter Social History Date Tobacco Use Types Packs/Day Years Used Never Assessed Sex Assigned at Date Recorded Not on file Industry Job Start Date Occupation Not on file Not on file Not on file Travel End Travel History Travel Start No recent travel history available. documented as of this encounter Miscellaneous Notes * Clinic Note - Regi Gay DO - 07/01/2013 11:14 PM [facility] REPORT Name: MONA FRANCO Date of : 1945 Attending Physician: REGI GAY Date of Service: 04/25/2011 REASON FOR CLINIC VISIT: Non-Hodgkin's diffuse large B-cell lymphoma, stage III. HISTORY OF PRESENT ILLNESS: This 66-year-old female presents with the above-mentioned diagnosis of lymphoma. She is here for ongoing evaluation of her non-Hodgkin's lymphoma. She is currently status post 3 cycles of R-CHOP. After cycle #4, I do plan to reimage her with PET CT. The patient continues to tolerate R-CHOP well. She has some variable fatigue and very mild grade 1 nausea. Overall, she continues to do well. Appetite is good and weight is stable. Since I have last seen Mona, there are no additional changes to her past medical or past surgical history. CURRENT MEDICATIONS: Have been reviewed and updated. They include: 1. Albuterol. 2. Digoxin. 3. Diltiazem. 4. Colace. 5. Omeprazole. 6. Ferrous sulfate. 7. Flonase. 8. Advair. 9. Hydrocodone acetaminophen or Lortab. 10. Singulair. 11. Zofran as needed. 12. Senokot. 13. Ambien. 14. Allopurinol. 15. Fentanyl patch every 72 hours. REVIEW OF SYSTEMS: Completely negative unless otherwise specified per history of present illness. A ten-point review of systems has been completed. PHYSICAL EXAMINATION: VITAL SIGNS: Oxygen saturation is 100% on room air. Temperature 96.6, blood pressure 112/69, pulse 72, respirations are 18. Weight is 163 pounds. GENERAL: The patient is nontoxic, in no acute distress. Awake, alert, and oriented x3. HEENT: Mucous membranes are moist. Neck is supple. There is no JVD. Extraocular muscles are intact. HEART: S1, S2. Regular. LUNGS: Clear bilaterally. ABDOMEN: Soft and nontender. EXTREMITIES: Without any cyanosis, clubbing, or edema. LABORATORY DATA: Lab from 04/22: Albumin 2.7, AST 19, total bilirubin 0.3, total protein 6.3, calcium 8.8, creatinine 0.5, sodium 144, potassium 3.5, chloride 106, CO2 29, BUN 20. White count is pending. CBC and differential will be done prior to her next cycle of chemotherapy. IMPRESSION AND PLAN: This is a very pleasant 66-year-old female accompanied by her today in clinic visit for discussion of her stage III diffuse large B-cell lymphoma. Plans are cycle #4 of R-CHOP with the repeat imaging with a PET/CT to assess response to chemotherapy. We will see the patient back in 3 weeks' time and review PET/CT with her. Regi Gay DO CC: ITE MAN documented in this encounter Plan of Treatment Not on filedocumented as of this encounter Visit Diagnoses Not on filedocumented in this encounter
--- OUTSIDE RECORDS SUMMARY | 2019-07-16 00:22 | XMS REPORT | Encounter Summary ---
Author Author [facility] Organization [facility] Address Unknown Phone Unavailable Care Team Providers Care Senior Linux Systems Engineer Name Role Phone PCP Unavailable Encounter Details Care Team Description Date Type Department 03/05/2011 Hist-Appointmen [facility] C L [...] * Miscellaneous - Regi Pham DO - 03/05/2011 3:00 PM CDT Date: 03/05/11 16:32 To: MONA FRANCO From: Jordana Coello Patient: MONA FRANCO Physician: Dr. Regi Pham [...] you pick it up. Prescription Details Date Prescribed:03/05/2011 4:32:01 PM Medication: Lidocaine-Prilocaine Dosage Form: KIT Strength: 2.5-2.5 % Dispense: 30 Quantity Qualifier: grams SIG: apply to port site 1 hour prior to treatment- # 30 gm tube Refills: 1 Refills Left: 1 Note to Pharmacist: Date Expires: 03/05/2012 12:00:00 Date Prescribed:03/05/2011 4:32:02 PM Medication: Ativan Dosage Form: TABS Strength: 1 MG Dispense: 30 Quantity Qualifier: Tablet(s) SI tab orally Q 8 hrs PRN Refills: 1 Refills Left: 1 Note to Pharmacist: Date Expires: 03/05/2012 12:00:00 Date Prescribed:03/05/2011 4:32:02 PM Medication: Prochlorperazine Maleate Dosage Form: TABS Strength: 10 MG Dispense: 30 Quantity Qualifier: Tablet(s) SI tablet orally Q 6 hrs PRN Refills: 1 Refills Left: 1 Note to Pharmacist: Date Expires: 03/05/2012 12:00:00 Attachments: 3 O CHECKER AND ASSEMBLER documented in this encounter Plan of Treatment Not on filedocumented as of this encounter Visit Diagnoses Not on filedocumented in this encounter
--- OUTSIDE RECORDS SUMMARY | 2019-07-16 00:23 | XMS REPORT | Encounter Summary ---
Author Author [facility] Organization [facility] Address Unknown Phone Unavailable Care Team Providers Care Cigar Binder Name Role Phone PCP Unavailable Encounter Details Care Team Description Date Type Department Steve López MD [address] [place], [place] [id number] Rafael Mendoza DO [address] [place], [place] [id number] Other malignant lymphomas, unspecified s ite, extranodal and solid organ sites 02/21/2011 [facility] 02/28/[address] [place] [address] Social History Date Tobacco Use Types Packs/Day Years Used Never Assessed Sex Assigned at Date Recorded Not on file Industry Job Start Date Occupation Not on file Not on file Not on file Travel End Travel History Travel Start No recent travel history available. documented as of this encounter Discharge Summaries * Steve López MD - 07/01/2013 11:53 PM [facility] REPAIRER REPORT Name: DYLAN OSORIO Date of : 1945 Attending Physician: PHYSICIAN BRISA Date of Admission: 02/21/2011 Date of Discharge: 02/28/2011 Primary Care Physician: Dr. Griffin Chaney [place], [place] CONSULTATIONS: 1. Linux Vmware Administrator, Dr. Regi Gay. 2. Machine Group Leader, Dr. Jose Maria Lassiter. DIAGNOSES: 1. Diffuse large B cell lymphoma. 2. Back pain. 3. Anemia, microcytic. 4. Hypoxia with sleep and at rest. 5. Constipation. 6. Moderate diastolic dysfunction. 7. Atrial fibrillation. 8. Obstructive sleep apnea. PAST MEDICAL HISTORY: 1. Atrial fibrillation off anticoagulation due to anemia. 2. Esophagogastroduodenoscopy, January 27, 2011, that showed a hiatal hernia, gastric polyps, gastritis. 3. Colonoscopy on January 27, 2011 showed uncomplicated internal hemorrhoids. 4. Anemia, microcytic. 5. Pulmonary nodules. 6. Obstructive sleep apnea. 7. Asthma. 8. Insomnia. 9. Gastroesophageal reflux disease. 10. Urinary tract infection. PRINCIPAL PROCEDURES PERFORMED: 1. Chemotherapy port placement. 2. Bone marrow biopsy. 3. Lumbar puncture. SIGNIFICANT LABORATORY DATA AND OTHER STUDIES: ABG: pH of 7.49, pCO2 34, pO2 54. Uric acid 1.7. BNP 84. Haptoglobin more than 300. Ferritin 656. WBC 12.83, hemoglobin 6.9, hematocrit 22, MCV 76, platelet count 471. Vitamin B12 471, folic acid 6.1. Echocardiogram: Ejection fraction 60%. Severe left ventricular dilatation. Mild to moderate mitral regurgitation. Moderate diastolic dysfunction. Haptoglobin more than 300. CSF for cytology: Negative for malignant cells. CHEST X-RAY: Mild interval increased interstitial markings bilaterally which may represent mild vascular congestion. Linear atelectasis versus scarring is again seen in the left upper lobe. A small left pleural effusion is again identified likely associated with atelectasis. MRI of her lumbar spine: No evidence of significant degenerative changes. There is no spinal canal stenosis or neuroforaminal narrowing at any level. No vertebral body height loss or marrow edema to suggest acute fracture. Diffuse low T1 marrow signal is noted which may relate to diffuse marrow infiltrative process. Extensive lymphadenopathy in the visualized retroperitoneum, upper abdomen, and pelvis. MRI of thoracic spine: No significant degenerative disk disease and no evidence of spinal canal stenosis or neuroforaminal narrowing. Enhancing lesion in the T11 vertebral body is also hyperintense on the T1 sequence images and is comfortable with a hemangioma. There is diffuse T1 marrow signal, which may relate to diffuse marrow infiltrative process. HOSPITAL COURSE and PLAN: This is a 66-year-old white female patient recently diagnosed with B cell lymphoma at [facility]. Patient had a biopsy of left supraclavicular lymph node that showed diffuse large B cell lymphoma that was done at [facility]. The patient also has been having backache. The patient is now here in [place] for further treatment. The patient was seen by the director sales support, Dr. Regi Gay, and directed to the hospital as a direct admission. 1. Large B cell lymphoma. The patient is being followed the director sales support and the patient underwent a chemotherapy port placement as well as a lumbar puncture and a bone marrow biopsy. The bone marrow biopsy result is pending at the time of this dictation. The patient has been started on chemotherapy and she did receive chemotherapy on February 27, 2011. The patient tolerated chemotherapy very well. 2. The patient had been evaluated with MRA of thoracic and lumbar spine. The findings as described above that showed diffuse infiltrative process, possible that this could be from lymphoma. The patient's pain is controlled with the fentanyl patch and Vicodin as needed. 3. Anemia, microcytic. The patient did require blood transfusion. The patient had a recent esophagogastroduodenoscopy and colonoscopy done on January 27, 2011 as described above. The fecal occult blood test is negative. The patient's haptoglobin is also normal. 4. Mild hypoxemia, seems multifactorial due to V/Q mismatch, nodules, nocturnal hypoxemia, as well as hypoxemia with sleeping. The patient also had been evaluated by the account review specialist, Dr. Jose Maria Lassiter. After evaluating the oxygen saturations by the respiratory therapist, patient was maintaining good oxygen saturation with walking and it is a 93 to 95% with walking, but while the patient is in bed sleeping, oxygen will decrease to 88%. It seems like the patient needs oxygen while she is in bed and she spends most of her time in bed due to her generalized weakness. I recommended her to use oxygen 2 to 3 liters while in bed or sleeping during the daytime or she can use the CPAP during the daytime and continue to use CPAP at night time. 5. Constipation. Continue laxatives. 6. History of atrial fibrillation. The patient has been off Coumadin and that has been discontinued recently due to anemia. 7. Moderate diastolic dysfunction. 8. I also discussed with the director sales support, Dr. Regi Gay, and they are planning to do the Neulasta as an outpatient as the patient's cell count will drop after his chemotherapy. Continue to follow with the director sales support as an outpatient. CONDITION: Stable. DISPOSITION: Home with home health. DISCHARGE INSTRUCTIONS: 1. Diet: Two-gram sodium diet. 2. Activity as per tolerance. FOLLOW UP: 1. Follow with the primary care physician in one week. 2. Linux Vmware Administrator, Dr. Regi Gay in one week. 3. Machine Group Leader, Dr. Lassiter in 2 to 3 weeks. Total time for the discharge, including coordination of care was one hour. DISCHARGE MEDICATIONS: Electronically generated summary for 1. ADVAIR DISKUS 500 inhalation 2 times per day 2. ALBUTEROL SULFATE ORAL 2 puff Every 4 hours PRN 3. ALLOPURINOL ORAL 300 mg Daily 4. AMBIEN ORAL 5 mg Bedtime 5. ASPIRIN ORAL 325 mg Daily 6. CARDIZEM ORAL 240 mg Daily 7. COLACE ORAL 100 mg 2 times per day 8. DIGOXIN ORAL 125 mcg Daily PM 9. FENTANYL TD 12 mcg Change every 72 hrs 10. FLONASE NASL 1 spray Daily 11. IRON ORAL 325 mg Daily 12. LIDOCAINE 1 patch on 12 hrs --off 12 hours 13. MIRALAX ORAL 17 gram Bedtime 14. NEXIUM ORAL 20 mg Daily 15. SENOKOT ORAL 2 tablet Daily 16. SINGULAIR ORAL 10 mg Daily PM 17. VICODIN ORAL 5 mg Every 4 hours PRN every 4-6 hrs as needed for pain 18. ZOFRAN ORAL 4 mg Every 6 hours Steve López MD Dictated By: cc: Destiny Land, MD Regi Bell, [place] REPAIRER documented in this encounter H&P Notes * Steve López MD - 07/01/2013 11:59 PM [facility] REPAIRER REPORT Name: DYLAN OSORIO Date of : 1945 Attending Physician: PHYSICIAN BRISA Date of Admission: 02/21/2011 Primary Care Physician: Griffin Chaney MD - ANDREIA Dixon CHIEF COMPLAINT: Back pain. HISTORY OF PRESENT ILLNESS: This is a 66-year-old white female patient, referred to the hospital by director sales support, Dr. Gay, office, with a chief complaint of back pain and diagnosed for non-Hodgkin's lymphoma. The patient states that she has been having back pain mainly in the lower back, across her lower back as well as more pain on the left lower back, and going on for the last 6 weeks, 5/10 in severity, constant dull pain, increased with sitting up and walking, decreased with lying down. Nonradiating, the patient had been evaluated in [place] by primary care physician and had a CT scan of the spine done and the patient states that she was diagnosed with non-Hodgkin's lymphoma and had been evaluated by the director sales support in [place], Dr. Brody Haynes, and the patient wishes to get the treatment here in [place] with Dr. Gay, director sales support. The patient also has been having nausea, had an episode of vomiting x1. She was having decreased oral intake. The patient also has been feeling constipated and states that her last bowel movement was one week ago. The patient also has been having fever on and off for the last 6 weeks and it was a low-grade fever 100.8. The patient has had a weight loss of 32 pounds in the last 3 months. The patient denies any chest pain. The patient also has been having night sweats. The patient has been feeling generalized weak and malaise. REVIEW OF SYSTEMS: The patient denies any shortness of air or chest pain. The patient has been having a fever, weight loss, nausea, vomiting, constipation, , night sweats, and generalized weak. The patient also states that she was at [facility] about 2 weeks ago and the patient also had EGD and colonoscopy done one month at the [facility] and that is was normal Her hemoglobin was 7.29 but she did require any blood transfusion. At that time physician also recommended to stop the Coumadin and she is off Coumadin for the last 2 weeks that she was taking for her atrial fibrillation. Now the patient is taking aspirin. Other information as in the history, otherwise a 12-point system asked and negative except as described in the history. Patient denies any lower extremity numbness or any weakness. ALLERGIES: PROCARDIA. PAST MEDICAL HISTORY: 1. Recent diagnosis for non-Hodgkin's lymphoma about one week ago by Dr. Brody Haynes in [place]. 2. Asthma. 3. Urinary tract infection. 4. Obstructive sleep apnea. The patient is on CPAP at nighttime. 5. Atrial fibrillation. The patient underwent radiofrequency ablation in 2005 at [facility]. The patient was on Coumadin stopped about 2 weeks ago as described above. 6. EGD colonoscopy done about one month ago, and as per patient, it was normal. 7. Anemia. PAST SURGICAL HISTORY: Hysterectomy, cholecystectomy, right knee surgery. MEDICATIONS: 1. Keflex, started about 4 days ago for her urinary tract infection. 2. Albuterol inhaler p.r.n. 3. Digoxin 125 mcg p.o. daily. 4. Cardizem CD 240 mg p.o. daily 5. Colace 100 mg p.o. b.i.d. 6. Nexium 20 mg p.o. daily. 7. Ferrous sulfate 325 mg p.o. daily. 8. Flonase nasal spray daily. 9. Advair 500/51 puff b.i.d. 10. Vicodin 5/500 p.r.n. 11. Singular 10 mg p.o. daily. 12. Zofran 4 mg p.r.n. 13. Ambien 5 mg p.o. at bedtime. SOCIAL HISTORY: The patient denies any smoking or alcohol. The patient is and has 3 children. The patient lives with her . The patient does not have any advanced care directives. Wishes her to be decision-maker. The patient is to be a FULL CODE. FAMILY HISTORY: Mother due to lung cancer. Father due to myocardial infarction at age of 86. Also had a history of coronary artery disease, cerebrovascular accident, chronic obstructive pulmonary disease, diabetes. PHYSICAL EXAMINATION: VITAL SIGNS: Temperature 98.8, pulse 9. As per a rate blood pressure 107/64, saturation 92% on room air. GENERAL: This is a 66-year-old white female patient, lying in bed, comfortable, and not in any acute distress. SKIN: No cyanosis. No icterus. HEAD: Atraumatic, normocephalic. EYES: Pupils equal and reactive to light. Oral cavity: Mucous membranes are moist. NECK: Supple. No jugular venous distention. HEART: S1 and S2 normal. No murmur or gallop. Percent regular. LUNGS: Bilateral air entry present, clear. ABDOMEN: Soft, nontender, nondistended. Bowel sounds present. EXTREMITIES: Bilateral pedal pulses present. No edema. NEUROLOGIC: The patient is awake, alert, and oriented x4. Bilateral upper extremity and lower extremity power 5/5. Bilateral lower extremity touch sensation is normal. LABORATORY DATA: Pending. ASSESSMENT/PLAN: 1. Non-Hodgkin's lymphoma, associated with backache. We will admit the patient to the hospital. Will ask for hematologic consultation. Pain control with pain medications. We will also need further evaluation with MRI of the spine. 2. History of atrial fibrillation, radiofrequency ablation. Continue the digoxin and Cardizem CD. The patient was on Coumadin that has been stopped about 2 weeks ago and the patient is now on aspirin. 3. Constipation. We will check with acute abdominal series. 4. History of obstructive sleep apnea. Continue the CPAP. 5. History of asthma, stable. Continue with bronchodilator treatment. Deep venous thrombosis prophylaxis. Currently we will put the patient on SCDs, and once the patient is done with other procedures including the bone marrow biopsy, then we will start the patient on heparin subcutaneous for DVT prophylaxis. The case was discussed with the patient's family, , and son at the bedside. Steve López MD Dictated By: cc: Griffin Chaney MD - [place], [place] REPAIRER documented in this encounter Consult Notes * Jose Maria Lassiter MD - 07/01/2013 11:54 PM [facility] REPAIRER REPORT Name: DYLAN OSORIO Date of : 1945 Attending Physician: HOSPITALIST, PHYSICIAN Consulting Physician: Jose Maria Lassiter MD Date of Consultation: 02/28/2011 REASON FOR REFERRAL: Hypoxemia. HISTORY OF PRESENT ILLNESS: Ms. Osorio is a 66-year-old white female with recent diagnosis of non-Hodgkin's lymphoma, admitted for planned chemotherapy. She was also noted to be dyspneic and hypoxic. A pulmonary consultation was requested. Ms. Osorio has been diagnosed with asthma all her life. Primary factor was ragweed. She is on Advair and Singulair. She was also diagnosed with sleep apnea, on BiPAP at 16/7 with 2 to 3 liters of O2 at night. This was diagnosed several years ago. Several months ago, she moved to [place] to retire. This was around April of last year. About 6 weeks ago, she was seen for fatigue. Eventual workup showed that she had non-Hodgkin's lymphoma. She moved back to the [place] area to continue ongoing therapy for her cancer and to be closer to family. She was admitted several days ago. Since admission, she was noted to be hypoxic and she requires about 2 liters of oxygen. According to Ms. Osorio, her dyspnea has not changed since 6 weeks ago while in [place]. She denied any chest pain, productive cough, night sweats or chills. PAST MEDICAL HISTORY: 1. Recent diagnosis of Non-Hodgkin's lymphoma. 2. CT imaging of the chest, abdomen and pelvis revealed hepatosplenomegaly, retroperitoneal intraabdominal, thoracic and left supraclavicular adenopathy. Diagnosis was made on an excisional biopsy of a lymph node, I believe it is the left supraclavicular adenopathy. 3. She has also a history of anemia due to chronic disease, 4. Atrial fibrillation status post ablation. 5. Sub-centimeter bilateral pulmonary nodules of unknown etiology. 6. Elevated liver function tests due to presumed lymphoma with hepatosplenomegaly. 7. Obstructive sleep apnea on BiPAP 16/7 cm pressure with 3 liters of O2. 8. History of intermittent hypoxemia. 9. Insomnia. 10. Irregular breast mass felt to be due to scarring. PAST SURGICAL HISTORY: 1. Hysterectomy. 2. Cholecystectomy. 3. Appendectomy. 4. Right knee surgery. 5. Prior breast biopsy in 2009, benign. 6. Status post ablation therapy for atrial fib. ALLERGIES: PROCARDIA - REACTION IS NOT SPECIFIED. CURRENT MEDICATIONS: 1. Diltiazem 240 mg once a day. 2. Digoxin 0.125 mg once a day. 3. Colace 100 mg p.o. b.i.d. 4. Protonix 40 mg once a day. 5. Ferrous sulfate 325 mg once a day. 6. Advair 1 puff twice a day. 7. Flonase 1 puff once a day. 8. Singulair 10 mg once a day 9. Senokot 374 mg once a day 10. Ambien 5 mg p.o. at bedtime. 11. MiraLax one package p.o. at bedtime. 12. Lidocaine patch once a day. 13. Fentanyl 12 mcg per hour patch once every 72 hours. 14. Allopurinol 300 mg daily. FAMILY HISTORY: Remarkable for lung cancer in her mother who at the age of 60. Father at age 85 due to complications following hip fracture. She suspects it may have been related to heart disease. SOCIAL HISTORY: Born and raised in [place]. She is . She has never smoked. Denies any alcohol use. 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 Medical directive: SHE IS A FULL CODE. REVIEW OF SYSTEMS: As mentioned above. It is remarkable for fatigue. Otherwise, denies any headache, seizure, syncope, chest pain, hemoptysis, abdominal pain, nausea, vomiting, diarrhea, hematemesis, hematochezia, melena. PHYSICAL EXAMINATION: GENERAL: She is alert, in no apparent distress. VITAL SIGNS: Temperature is 97.7 degrees Fahrenheit, pulse is 97, respiratory rate is 20, blood pressure 96/59 mmHg. Saturates 93% on 3 liters. HEENT: Unremarkable. NECK: Supple without lymphadenopathy or thyromegaly. CHEST: Breath sounds are clear bilaterally without rales or wheezes. CARDIOVASCULAR: Normal S1, S2. No murmur or gallop. There is no JVD and no carotid bruit. Pulses, though 4+ bilaterally. ABDOMEN: Soft, nontender. No organomegaly or masses felt. EXTREMITIES: There is no edema, cyanosis, or clubbing. LABORATORY: Portable chest x-ray shows mild interstitial nodular infiltrates. There is mild volume loss in the left lower lobe. Cannot rule out left lower lobe atelectasis or infiltrates. Compared to the study of February 26, there are no significant changes. Urine protein electrophoresis was performed, showing no evidence of monoclonal protein being present. MRI of the spine showed some enhancing lesion in T11 vertebral body compatible with hemangioma. CSF fluid was negative of malignant cells. Echocardiogram showed normal ejection fraction, left ventricular function, severe left atrial dilatation with mild to moderate mitral regurgitation, moderate diastolic dysfunction, arterial blood gas revealed pH 7.49, pCO2 34, pO2 of 54 on 2 liters of O2. WBC is 13,100, hemoglobin 7.2, platelets are 347,000. INR is 1.5. IMPRESSION: 1. Hypoxia in this 66-year-old white female. Etiology is probably related to underlying apparent severe obstructive sleep apnea with hypoxemia. Suspect some evidence for abnormal ventilation perfusion scan related to her parenchymal nodules that are contributing. Her underlying asthma may be contributing to some degree. I do not believe the patient has pulmonary embolus. No evidence of pneumonia. She does not appear to be in congestive heart failure. 2. Diffuse non-Hodgkin's lymphoma. Please see above comments. 3. Obstructive sleep apnea-hypopnea syndrome on BiPAP with 16/7 cm of pressure with 3 liters of O2. 4. Atrial fibrillation status post ablation therapy in 2005. 5. Moderate diastolic dysfunction. 6. Mild to moderate mitral regurgitation. 7. Anemia, due to above processes. 8. Asthma, currently well-controlled. RECOMMENDATIONS: Would continue her bronchodilator therapy for asthma. Continue home BiPAP as you are, along with oxygen therapy. For now, I suspect Ms. Osorio will require oxygen during the daytime while she is undergoing treatment for non-Hodgkin's lymphoma. We will keep saturation around 90% or greater. From a pulmonary standpoint, the patient is stable and could be discharged if okay with Dr. López and the oncologist. I would be happy to see her in the office in the next 1 to 3 weeks for followup. Thank you for this consultation. Jose Maria Lassiter MD Dictated by: cc: Regi Gay DO [place] REPAIRER documented in this encounter Plan of Treatment Not on filedocumented as of this encounter Procedures Comments Procedure Name Priority Date/Time Associated Diag nosis FECAL OCCULT BLOOD Routine 02/28/2011 INPATIENT 9:15 AM CDT CBC AND DIFF (MANUAL DIFF Routine 02/28/2011 IF NECESSARY) 7:45 AM CDT XR CHEST SINGLE VIEW Routine 02/28/2011 FRONTAL 4:[address] GUIDED BIOPSY BONE Routine 02/27/2011 11:15 AM CDT HEMATOPATHOLOGY REPORT Routine 02/27/2011 10:15 AM CDT [place] HIST[facility]Y Routine 02/27/2011 10:15 AM CDT HEMATOPATHOLOGY REPORT Routine 02/27/2011 8:58 AM CDT HEMATOPATHOLOGY REPORT Routine 02/27/2011 8:57 AM CDT ARTERIAL BLOOD GAS + COOX Routine 02/27/2011 8:22 AM CDT URIC ACID Routine 02/27/2011 4:35 AM CDT HEMOGLOBIN AND HEMATOCRIT Routine 02/27/2011 4:35 AM CDT PLATELET Routine 02/26/2011 4:09 PM CDT COAGULATION SCREEN Routine 02/26/2011 4:09 PM CDT MESSAGE TO PHYSICIAN Routine 02/26/2011 3:00 PM CDT PROTEIN CEREBROSPINAL Routine 02/26/2011 FLUID 2:57 PM CDT CSF CELL COUNT AND Routine 02/26/2011 DIFFERENTIAL 2:57 PM CDT GLUCOSE CSF Routine 02/26/2011 2:57 PM CDT IR LUMBAR PUNCTURE W Routine 02/26/2011 FLUORO 2:40 PM CDT IR PORTACATH PLACEMENT Routine 02/26/2011 2:00 PM CDT XR CHEST 2 VIEWS (PA AND Routine 02/26/2011 LATERAL) 1:20 PM CDT CBC AND DIFF (MANUAL DIFF Routine 02/26/2011 IF NECESSARY) 4:45 AM CDT [place] HISTOLOGY Routine 02/26/2011 12:00 AM CDT PROTIME MIXING STUDIES Routine 02/25/2011 4:30 AM CDT CBC AND DIFF (MANUAL DIFF Routine 02/25/2011 IF NECESSARY) 4:30 AM CDT BASIC METABOLIC PANEL Routine 02/25/2011 4:30 AM CDT POTASSIUM Routine 02/24/2011 5:40 PM CDT HAPTOGLOBIN Routine 02/24/2011 5:40 PM CDT MRI LUMBAR SPINE W WO Routine 02/24/2011 CONTRAST 2:18 PM CDT MRI THORACIC SPINE W WO Routine 02/24/2011 CONTRAST 2:17 PM CDT COAGULATION SCREEN Routine 02/24/2011 7:46 AM CDT MAGNESIUM Routine 02/24/2011 4:35 AM CDT COMPLETE BLOOD COUNT Routine 02/24/2011 4:35 AM CDT BASIC METABOLIC PANEL Routine 02/24/2011 4:35 AM CDT VITAMIN B12 Routine 02/23/2011 4:51 AM CDT IRON/TRANSFERRIN Routine 02/23/2011 4:51 AM CDT HAPTOGLOBIN Routine 02/23/2011 4:51 AM CDT FOLATE Routine 02/23/2011 4:51 AM CDT FERRITIN Routine 02/23/2011 4:51 AM CDT COMPLETE BLOOD COUNT Routine 02/23/2011 4:51 AM CDT BASIC METABOLIC PANEL Routine 02/23/2011 4:51 AM CDT B TYPE NATRIURETIC Routine 02/23/2011 PEPTIDE 4:51 AM CDT DIRECT ANTIGLOBULIN IGG Routine 02/22/2011 3:31 PM CDT DIRECT ANTIGLOBULIN C3 Routine 02/22/2011 3:31 PM CDT IRON/TRANSFERRIN Routine 02/22/2011 2:45 PM CDT HAPTOGLOBIN Routine 02/22/2011 2:45 PM CDT RBCS 2 UNITS Routine 02/22/2011 4:21 AM CDT ANTIBODY SCREEN Routine 02/22/2011 4:21 AM CDT COMPLETE BLOOD COUNT Routine 02/22/2011 4:21 AM CDT DIRECT ANTIGLOBULIN Routine 02/22/2011 POLYSPECIFIC 4:21 AM CDT ABORH TYPE Routine 02/22/2011 4:21 AM CDT B TYPE NATRIURETIC Routine 02/22/2011 PEPTIDE 4:20 AM CDT URINE NITRITE Routine 02/21/2011 9:30 PM CDT URINALYSIS (INCLUDES Routine 02/21/2011 MICROSCOPIC REVIEW, IF 9:30 PM CDT INDICATED) PROTEIN ELECTROPHORESIS Routine 02/21/2011 URINE RANDOM 9:30 PM CDT CULTURE, URINE Routine 02/21/2011 9:30 PM CDT XR ACUTE ABDOMEN SERIES W Routine 02/21/2011 2 VIEW CHEST P 5:09 PM CDT ECHO TRANSTHORACIC Routine 02/21/2011 4:36 PM CDT HEMATOPATHOLOGY REPORT Routine 02/21/2011 3:54 PM CDT RETYPE PATIENT ABORH Routine 02/21/2011 3:54 PM CDT URIC ACID Routine 02/21/2011 3:54 PM CDT PROTEIN ELECTROPHORESIS Routine 02/21/2011 SERUM 3:54 PM CDT LACTATE DEHYDROGENASE Routine 02/21/2011 3:54 PM CDT FERRITIN Routine 02/21/2011 3:54 PM CDT DIGOXIN Routine 02/21/2011 3:54 PM CDT COMPREHENSIVE METABOLIC Routine 02/21/2011 PANEL 3:54 PM CDT CBC AND DIFF (MANUAL DIFF Routine 02/21/2011 IF NECESSARY) 3:54 PM CDT COAGULATION SCREEN Routine 02/21/2011 3:54 PM CDT BETA 2 MICROGLOBULIN, Routine 02/21/2011 SERUM 3:54 PM CDT B12/FOLATE Routine 02/21/2011 3:54 PM CDT documented in this encounter Results * Fecal Occult Blood Inpatient (02/28/2011 9:15 AM CDT) Pathologist [facility] Fecal Occult Negative [facility] Blood Specimen Stool Performing Organization Address City/State/Zipcond Ph one Number [phone] [place], [place] [address] [facility] * CBC and Diff (manual diff if necessary) (02/28/2011 7:45 AM CDT) Only the most recent of 4 results within the time period is included. WBC 13.16 (H) 4.00 - 11.00 TH/UL [facility] RBC 2.95 (L) 4.00 - 5.00 MIL/UL [facility] Hemoglobin 7.2 (L) 12.0 - 15.0 G/DL SUNQUEST Hematocrit 24 (L) 36 - 45 % SUNQUEST MCV 80 80 - 99 FL SUNQUEST MCH 24 (L) 27 - 34 PG SUNQUEST MCHC 31 (L) 32 - 36 % SUNQUEST RDW 20.1 (H) 9.0 - 14.5 % SUNQUEST Platelet Count 347 140 - 400 TH/UL SUNQUEST MPV 9.6 9.4 - 12.3 FL SUNQUEST % Neutrophils 89 (H) 45 - 78 % SUNQUEST %Lymphocytes 5 (L) 15 - 47 % SUNQUEST %Monocytes 6 0 - 12 % SUNQUEST %Basophils 0 0 - 2 % SUNQUEST # Granulocytes 11.74 (H) 1.70 - 6.80 TH/UL SUNQUEST # Lymphocytes 0.62 (L) 1.00 - 3.30 TH/UL SUNQUEST # Monocytes 0.79 0.20 - 0.90 TH/UL SUNQUEST # Eosinophils 0.00 0.00 - 0.40 TH/UL SUNQUEST # Basophils 0.01 0.00 - 0.10 TH/UL SUNQUEST Specimen Blood Performing Organization Address City/State/Zipcode one Number SLRL [address] [place], [place] [address] SUNQUEST * XR Chest single view frontal (02/28/2011 4:15 AM CDT) Specimen Narrative Performed At [facility]ONE Patient: DYLAN OSORIO Phone #: [place] Rec#: [id number] Sex: F : 1945 Roberto#: [id number] Location: [place] [address] Check-in#: [id number] Procedure Requested: [id number] DX CHEST SIN GLE VIEW Reason For Exam: DYSPNEA Exam Ordered: 02/28/2011 060 0 Exam Date/Time: 02/28/2011419 Check-in Date/Time: 02/28/2011424 Attendin HOSPITALCHAU ADKINS "" Requestin MAN LEDEZMA "" Referrin NO, REFERRING Primary Care: COTY, FAMILY Single frontal view of the chest. History: Dyspnea and sleep apnea. Findings: Comparison is made with February 26. Right chest port has been placed with t he distal tip overlying the superior vena cava. There is mild pulmo nary venous congestion present. Left pleural effusion and left basilar atelectasis are not significantly change. No pneumothorax is present. Impression: Stable chest with mild pulmonary venous congestion, left basilar atelectasis and pleural effusion. Signed (Authenticated, Released) Date-T phi: 02/28/2011 0753 Electronic Device Monitor- NATHANAEL Up, Staff Radiologist Dictated By- NATHANAEL CLEMENT M.D., [facility] Radiologist Staff Physician- NATHANAEL Sheehan, Staff Radiologist Authenticated By- NATHANAEL Up, Staff Radiologist Procedure Note Interface, Rad Conversion - 07/02/2013 8:06 AM CUPOLA REPAIRER REPORT Patient: DYLAN OSORIO Phone #: [place] Rec#: [id number] Sex: F : 1945 Roberto#: [id number] Location: [place] [address] Check-in#: [id number] Procedure Requested: [id number] DX CHEST SINGLE VIEW Reason For Exam: DYSPNEA Exam Ordered: 02/28/2011 06 Exam Date/Time: 02/28/2011419 Check-in Date/Time: 02/28/2011424 Attendin HOSPITALIST, PHYSICIAN "" Requestin HOSPITALIST, PHYSICIAN "" Referrin COTY, REFERRING Primary Care: COTY, FAMILY Single frontal view of the chest. History: Dyspnea and sleep apnea. Findings: Comparison is made with February 26, 2011. Right chest port has been placed with the distal tip overlying the superior vena cava. There is mild pulmonary venous congestion present. Left pleural effusion and left basilar atelectasis are not significantly change. No pneumothorax is present. Impression: Stable chest with mild pulmonary venous congestion, left basilar atelectasis and pleural effusion. Signed (Authenticated, Released) Date-Time: 02/28/2011 0753 Electronic Device Monitor- NATHANAEL CLEMENT M.D., Staff Radiologist Dictated By- NATHANAEL CLEMENT M.D., Staff Radiologist Staff Physician- NATHANAEL CLEMENT M.D., Staff Radiologist Authenticated By- NATHANAEL CLEMENT M.D., Staff Radiologist Performing Organization Address City/State/Zipcode Ph one Number SYMONE * CT Guided Biopsy Bone (02/27/2011 11:15 AM CDT) Specimen Narrative Performed At [facility] Patient: DYLAN OSORIO Phone #: [place] Rec#: [id number] Sex: F : 1945 [facility]#: [id number] Location: [facility] [address] Check-in#: [id number] Procedure Requested: [id number] CT BIOPSY KARLIE NE Reason For Exam: LYMPHOMA Exam Ordered: 02/27/2011 110 0 Exam Date/Time: 02/27/2011 1215 Check-in Date/Time: 02/27/2011 1246 Attendin HOSPITALISTCHAU "" Requestin REGI GAY Referrin NO, REFERRING DR Primary Care: NO, FAMILY DR CT BIOPSY BONE LYMPHOMA Feb 27, 2011 12:15:00 PM Findings: After written informed con sent was obtained, the patient was prepped and draped in a sterile manner. Conscious sedation was provided with fentanyl and Versed. 1% lidocaine visualized. Using CT guidance, a 13-gauge bone biop sy needle was advanced into the posterior right iliac crest. Bone marro w aspirate was obtained and given to laboratory personnel for processing. Bone marrow biopsy was then obtained through the access needle. Following removal of the needle, hemost asis was achieved using manual compression. There were no complication s. Approximate sedation time approximately 30 minutes. Impression: Successful CT guided right iliac crest bone marrow aspiration and biopsy. Signed (Authenticated, Released) Date-T phi: 02/27/2011 1325 Electronic Device Monitor- AIDE GUPTA M.D. , Staff Radiologist Dictated By- AIDE GUPTA M.D., Sta [facility] Radiologist Staff Physician- AIDE GUPTA M.D., Staff Radiologist Authenticated By- AIDE GUPTA M.D. , Staff Radiologist Procedure Note Interface, Rad Conversion - 07/02/2013 8:06 AM CUPOLA REPAIRER REPORT Patient: DYLAN OSORIO Phone #: [place] Rec#: [id number] Sex: F : 1945 Roberto#: [id number] Location: [facility] [address] Check-in#: [id number] Procedure Requested: [id number] CT BIOPSY BONE Reason For Exam: LYMPHOMA Exam Ordered: 02/27/2011 1100 Exam Date/Time: 02/27/2011 1215 Check-in Date/Time: 02/27/2011 1246 Attendin HOSPITALIST, PHYSICIAN "" Requestin REGI GAY Referrin COTY, REFERRING DR Primary Care: NO, FAMILY DR CT BIOPSY BONE LYMPHOMA Feb 27, 2011 12:15:00 PM Findings: After written informed consent was obtained, the patient was prepped and draped in a sterile manner. Conscious sedation was provided with fentanyl and Versed. 1% lidocaine visualized. Using CT guidance, a 13-gauge bone biopsy needle was advanced into the posterior right iliac crest. Bone marrow aspirate was obtained and given to laboratory personnel for processing. Bone marrow biopsy was then obtained through the access needle. Following removal of the needle, hemostasis was achieved using manual compression. There were no complications. Approximate sedation time approximately 30 minutes. Impression: Successful CT guided right iliac crest bone marrow aspiration and biopsy. Signed (Authenticated, Released) Date-Time: 02/27/2011 1325 Electronic Device Monitor- AIDE GUPTA M.D., Staff Radiologist Dictated By- AIDE GUPTA M.D., Staff Radiologist Staff Physician- AIDE GUPTA M.D., Staff Radiologist Authenticated By- AIDE GUPTA M.D., Staff Radiologist Performing Organization Address City/State/[facility] Ph one Number SYMONE * Pathology (02/27/2011 10:15 AM CDT) Only the most recent of 2 results within the time period is included. Specimen Narrative Performed At See Anatomic Pathology report: [id number] SUNQUEST Performing Organization Address City/[facility] Ph one Number SLRL [address] [place], [place] [address] SUNQUEST * Hematopathology Report (02/27/2011 10:15 AM CDT) Only the most recent of 4 results within the time period is included. AP_REPORT-Horiz HEMATOPathology Report SUNQUEST on AP Report Comment: (unformatted) HEMATOPathology Report Encounter: [id number] Reported: 02/28/2011 16:02 Flow Cytometry Report Specimen:Bone Marrow Collection Date:02/27/2011 10:15 CLINICAL HISTORY Lymphoma, back pain, hypoxia DESCRIPTION Adequacy assessment: The specimen is adequate for evaluation (viability - 100%). A total of 150,212 events are analyzed. B-lymphoid cells: B cells comprise approximately <1% of all cells and show normal expression of B cell markers CD19, CD20, and HLA-DR; too few for clonality assessment. T-lymphoid cells: T cells comprise approximately 11% of all cells and show normal expression of T cell markers CD2, CD3, CD5, and CD7. The CD4:CD8 ratio is 2.6. There is no evidence of loss of any de leon-T cell antigen. NK cells comprise approximately 3% of all cells that co-express CD16 and CD56. Myeloid cells: Blasts (dim CD45 expressing cells) comprise approximately 1% of cells. INTERPRETATION There is no diagnostic immunophenotypic evidence of non-Hodgkin lymphoma. An increased blast population is not identified immunophenotypically. Clinical and morphological correlation is essential. Sample analysis included the following cell surface markers: CD2, CD3, CD4, CD5, CD7, CD8, CD10, CD16, CD19, CD20, CD45, CD56, and HLA-DR. Viability was assessed using 7-AAD. This panel was developed and its performance characteristics determined by [facility] [employer]. It has not been approved by the US Food and Drug Administration. The FDA has determined that such clearance or approval is not necessary. End of Report Specimen AP_SPECIMEN Performing Organization Address City/State/Zipcode Ph one Number SLRL [address] [place] [phone] SUNQUEST * Arterial Blood Gas + Coox (02/27/2011 8:22 AM CDT) pH Arterial 7.49 (H) 7.36 - 7.44 UNITS SUNQUEST pCO2 Arterial 34 (L) 35 - 45 MM HG SUNQUEST PO2 Arterial 54 (L) 71 - 100 MM HG SUNQUEST Base Excess 2.6 -3.0 - 3.0 MEQ/L SUNQUEST Bicarbonate 26.0 19.0 - 29.0 MEQ/L SUNQUEST Hemoglobin 7.5 (L) 12.0 - 15.0 G/DL SUNQUEST Whole Blood Oxyhemoglobin 90.0 (L) 95.0 - 100.0 % THB SUNQUEST Carboxyhemoglob 2.5 (H) 0.0 - 1.5 % THB SUNQUEST in Methemoglobin 0.0 0.0 - 1.5 % THB SUNQUEST O2 Content 9.5 (L) 17.0 - 100.0 ML/DL SUNQUEST Arterial Sample Site Brach left SUNQUEST Device NC SUNQUEST LPM 2.00 L/MIN SUNQUEST Total Oxygen 92.0 (L) 95.0 - 100.0 % THB SUNQUEST Saturation Specimen Arterial Performing Organization Address [facility] one Number SLRL [address] [place] [phone] SUNQUEST * Hemoglobin and Hematocrit (02/27/2011 4:35 AM CDT) Hemoglobin 7.6 (L) 12.0 - 15.0 G/DL SUNQUEST Hematocrit 24 (L) 36 - 45 % SUNQUEST Specimen Blood Performing Organization Address [facility] one Number SLRL [address] [place] [phone] SUNQUEST * Uric Acid (02/27/2011 4:35 AM CDT) Only the most recent of 2 results within the time period is included. Uric Acid 1.7 (L) 2.5 - 7.0 MG/DL SUNQUEST Specimen Blood Performing Organization Address [facility] one Number SLRL [address] [place] [phone] SUNQUEST * Platelet (02/26/2011 4:09 PM CDT) Platelet Count 383 140 - 400 TH/UL SUNQUEST Specimen Blood Performing Organization Address [facility] one Number SLRL [address] [place] [phone] SUNQUEST * Coagulation Screen (02/26/2011 4:09 PM CDT) Only the most recent of 3 results within the time period is included. Protime 17.6 (H) 11.7 - 14.3 SEC SUNQUEST APTT 34 22 - 34 SEC SUNQUEST Fibrinogen 886 (H) 146 - 390 MG/DL SUNQUEST Assay INR 1.5 (H) 0.9 - 1.1 SUNQUEST Specimen Blood Performing Organization Address [facility] Ph one Number SLRL [address] [place], [place] [address] SUNQUEST * Message to Physician (02/26/2011 3:00 PM CDT) Message to Flow cytometry testing SUNQUEST Physician cancelled Comment: Flow cytometry testing cancelled due to the low cell count of the CSF specimen. Specimen No Collect Performing Organization Address [facility] Ph one Number SLRL [address] [place], [place] [address] SUNQUEST * Protein Cerebrospinal Fluid (02/26/2011 2:57 PM CDT) Protein CSF 35 15 - 60 MG/DL SUNQUEST Specimen CSF Performing Organization Address [facility] Ph one Number SLRL [address] [place], [place] [address] SUNQUEST * Glucose CSF (02/26/2011 2:57 PM CDT) Glucose CSF 58 40 - 70 MG/DL SUNQUEST Specimen CSF Performing Organization Address [facility] Ph one Number SLRL [address] [place] [phone] SUNQUEST * CSF Cell Count and Differential (02/26/2011 2:57 PM CDT) CSF Lymphs 2 SUNQUEST Total CSF RBC Count 7 /UL SUNQUEST CSF WBC Count 0 0 - 5 /UL SUNQUEST CSF Absent Absent SUNQUEST Xanthochromia CSF Clarity Clear SUNQUEST CSF Color Colorless SUNQUEST Tube Number, 4 SUNQUEST CSF CSF Cells 2 SUNQUEST Counted Specimen CSF Performing Organization Address [facility] Ph one Number SLRL [address] [place] [phone] SUNQUEST * IR Lumbar puncture w fluoro (02/26/2011 2:40 PM CDT) Specimen [facility]ative [facility] Patient: DYLAN OSORIO Phone #: [place] Rec#: [id number] Sex: F : 1945 Roberto#: [id number] Location: [facility] [address] Check-in#: [id number] Procedure Requested: [id number] IR LUMBAR PU NCTURE Reason For Exam: INFECTION Exam Ordered: 02/26/2011 133 0 Exam Date/Time: 02/26/2011 1510 Check-in Date/Time: 02/26/2011 1343 Attendin HOSPITALIST, CHAU FERNANDO "" Requestin REGI GAY Referrin NO, REFERRING DR Primary Care: NO, FAMILY Reason for Examination: INFECTION IR LUMBAR PUNCTURE, Feb 26, 2011 03: 10:00 PM With the patient in the prone position, using fluoroscopic guidance, sterile technique, and 1% Xylocaine loc al anesthesia, a 20 gauge spinal needle was inserted into the lumbar sub arachnoid space at the L2-L3 level without difficulty or complicatio ns. 9 cc of CSF was withdrawn and sent for analysis. The needle was remov ed and manual pressure was applied. The patient tolerated the procedure wel l and no complications were noted. Impression: Successful uncomplicated nicanor mbar puncture. Signed (Authenticated, Released) Date-T phi: 02/26/2011 1607 Electronic Device Monitor- VIVIAN LOONEY M.D., Staff Radiologist Dictated By- VIVIAN LOONEY M.D., Staff Radiologist Staff Physician- VIVIAN LOONEY M.D., S taf Radiologist Authenticated By- VIVIAN LOONEY M.D., Staff Radiologist Procedure Note Interface, Rad Conversion - 07/02/2013 8:08 AM CUPOLA REPAIRER REPORT Patient: DYLAN OSORIO Phone #: [place] Rec#: [id number] Sex: F : 1945 Roberto#: [id number] Location: [facility] Check-in#: [id number] Procedure Requested: [id number] IR LUMBAR PUNCTURE Reason For Exam: INFECTION Exam Ordered: 02/26/2011 1330 Exam Date/Time: 02/26/2011 1510 Check-in Date/Time: 02/26/2011 1343 Attendin HOSPITALIST, PHYSICIAN "" Requestin REGI GAY Referrin NO, REFERRING DR Primary Care: NO, FAMILY DR Reason for Examination: INFECTION IR LUMBAR PUNCTURE, Feb 26, 2011 03:10:00 PM With the patient in the prone position, using fluoroscopic guidance, sterile technique, and 1% Xylocaine local anesthesia, a 20 gauge spinal needle was inserted into the lumbar subarachnoid space at the L2-L3 level without difficulty or complications. 9 cc of CSF was withdrawn and sent for analysis. The needle was removed and manual pressure was applied. The patient tolerated the procedure well and no complications were noted. Impression: Successful uncomplicated lumbar puncture. Signed (Authenticated, Released) Date-Time: 02/26/2011 1607 Electronic Device Monitor- VIVIAN LOONEY M.D., Staff Radiologist Dictated ByAdarsh LOONEY M.D., Staff Radiologist Staff Physician- VIVIAN LOONEY M.D., Staff Radiologist Authenticated ByAdarsh LOONEY M.D., Staff Radiologist Performing Organization Address City/[facility] Ph one Number SYMONE * IR Portacath placement (02/26/2011 2:00 PM CDT) Specimen Narrative Performed At REPORT SYMONE Patient: DYLAN OSORIO Phone #: [place] Rec#: [id number] Sex: F : 1945 Roberto#: [id number] Location: [facility] Check-in#: [id number] Procedure Requested: [id number] IR PORTACATH PLACEMENT Reason For Exam: MALIGNANCY Exam Ordered: 02/26/2011 133 0 Exam Date/Time: 02/26/2011 1440 Check-in Date/Time: 02/26/2011 1412 Attendin HOSPITALIST, CHAU FERNANDO "" Requestin REGI GAY Referrin NO, REFERRING DR Primary Care: NO, FAMILY Reason for Examination: MALIGNANCY IR PORTACATH PLACEMENT, Feb 26, 2011 02:40:00 PM Interpretation: Ultrasound localization was utilized to evaluate potential access sites, to document selected vessel patency, to allow real-time ultrasound visualization of vascular needle entry, or to identify and confirm appropriate needle access of organ or m ass, and to provide hard copy documentation of the vascular access, n eedle position or catheter position. All elements of Maximal sterile barrier technique were utilized. Procedure: Port-A-Cath insertion Informed Consent: The procedure and p ossible complications were explained to the patient prior to the procedure. Guidance: Ultrasound and fluoroscopy Personnel: Dr. Vivian Looney Access: Percutaneous, right inte rnal jugular vein, right chest pocket Structures Accessed: SVC, and chest wall Closure: 4-0 Vicryl Local Anesthetic: 1% Xylocaine local Conscious Sedation: 1 mg Versed, 50 m cg fentanyl Sedation time: 1 hour Complications: None X-ray Report: With the patient in the supine position , using sterile prepping draping, and 1% Xylocaine local anesthesia, a mi cropuncture needle was used to access the right internal jugular v ein under ultrasound guidance. Through this, a stainless steel wire wa s inserted to the right atrium. A 5 Bengali coaxial dilator was advanced. Using 1% Xylocaine local anesthesia, a small chest pocket and subcutaneous tunnel were created into t he subclavicular region on the right . A SmartPort single-lumen Port-A-Cath wa s then inserted into the pocket, and line is tunneled through the subcut aneous tissues. A peel-away sheath was inserted into th e venotomy site, the dilator and wire were removed, and following measur ement and trimming of the catheter to length, the catheter was in serted. The peel-away sheath was then removed, position was confirmed with the tip at the atriocaval junction, and the venotomy site and port pocket were closed with 4-0 Vicryl. The patient tolerated the procedure wel l no complications were noted. Impression: Successful uncomplicated in sertion of a right IJ SmartPort. Signed (Authenticated, Released) Date-T phi: 02/26/2011 1607 Electronic Device Monitor- VIVIAN LOONEY M.D., Staff Radiologist Dictated By- VIVIAN LOONEY M.D., Staff Radiologist Staff Physician- VIVIAN LOONEY M.D., S lorin Radiologist Authenticated By- VIVIAN LOONEY M.D., Staff Radiologist Procedure Note Interface, Rad Conversion - 07/02/2013 8:08 AM CUPOLA REPAIRER REPORT Patient: DYLAN OSORIO Phone #: [place] Rec#: [id number] Sex: F : 1945 Roberto#: [id number] Location: [facility] [address] Check-in#: [id number] Procedure Requested: [id number] IR PORTACATH PLACEMENT Reason For Exam: MALIGNANCY Exam Ordered: 02/26/2011 1330 Exam Date/Time: 02/26/2011 1440 Check-in Date/Time: 02/26/2011 1412 Attendin HOSPITALIST, PHYSICIAN "" Requestin VICTOR HUGO REGI NURLL Referrin NO, REFERRING Primary Care: NO, FAMILY Reason for Examination: MALIGNANCY IR PORTACATH PLACEMENT, Feb 26, 2011 02:40:00 PM Interpretation: Ultrasound localization was utilized to evaluate potential access sites, to document selected vessel patency, to allow real-time ultrasound visualization of vascular needle entry, or to identify and confirm appropriate needle access of organ or mass, and to provide hard copy documentation of the vascular access, needle position or catheter position. All elements of Maximal sterile barrier technique were utilized. Procedure: Port-A-Cath insertion Informed Consent: The procedure and possible complications were explained to the patient prior to the procedure. Guidance: Ultrasound and fluoroscopy Personnel: Dr. Vivian oLoney Access: Percutaneous, right internal jugular vein, right chest pocket Structures Accessed: SVC, and chest wall Closure: 4-0 Vicryl Local Anesthetic: 1% Xylocaine local Conscious Sedation: 1 mg Versed, 50 mcg fentanyl Sedation time: 1 hour Complications: None X-ray Report: With the patient in the supine position, using sterile prepping draping, and 1% Xylocaine local anesthesia, a micropuncture needle was used to access the right internal jugular vein under ultrasound guidance. Through this, a stainless steel wire was inserted to the right atrium. A 5 Bengali coaxial dilator was advanced. Using 1% Xylocaine local anesthesia, a small chest pocket and subcutaneous tunnel were created into the subclavicular region on the right . A SmartPort single-lumen Port-A-Cath was then inserted into the pocket, and line is tunneled through the subcutaneous tissues. A peel-away sheath was inserted into the venotomy site, the dilator and wire were removed, and following measurement and trimming of the catheter to length, the catheter was inserted. The peel-away sheath was then removed, position was confirmed with the tip at the atriocaval junction, and the venotomy site and port pocket were closed with 4-0 Vicryl. The patient tolerated the procedure well no complications were noted. Impression: Successful uncomplicated insertion of a right IJ SmartPort. Signed (Authenticated, Released) Date-Time: 02/26/2011 1607 Electronic Device Monitor- VIVIAN LOONEY M.D., Staff Radiologist Dictated ByAdarsh LOONEY M.D., Staff Radiologist Staff Physician- VIVIAN LOONEY M.D., Staff Radiologist Authenticated ByAdarsh LOONEY M.D., Staff Radiologist Performing Organization Address City/State/Zipcode Ph one Number SYMONE * XR Chest 2 views (PA and lateral) (02/26/2011 1:20 PM CDT) Specimen Narrative Performed At REPORT [facility]MONE Patient: DYLAN OSORIO Phone #: [place] Rec#: [id number] Sex: F : 1945 Roberto#: [id number] Location: [facility] [address] 01 Check-in#: [id number] Procedure Requested: [id number] DX CHEST 2 V IEWS Reason For Exam: CHEST PAIN Exam Ordered: 02/26/2011 114 9 Exam Date/Time: 02/26/2011 1330 Check-in Date/Time: 02/26/2011 1332 Attendin HOSPITALISTCHAU "" Requestin STEVE LÓPEZ Referrin COTY, REFERRING Primary Care: COTY, FAMILY Two View Chest Feb 26, 2011 01:30:00 PM Indications: CHEST PAIN, fever, adenopa thy Comparison: Five days prior\\E:E\\ recent MRI lumbar and thoracic spine studies Lungs/pleura: There has been an interva l increase in vascularity and interstitial markings bilaterally. Line ar atelectasis or scarring is again seen in the left upper lobe. A sm all left pleural effusion is identified. Heart and Mediastinum: Upper normal to mildly enlarged. Mediastinal/hilar adenopathy cannot be excluded. Calcified hilar nodes are also identified bilaterally. Bones: Unremarkable, degenerative cortez es. Abdomen: Unremarkable Impression: Mild interval increase in interstitial markings bilaterally which may represent mild vascular congestion. Liz ear atelectasis versus scarring is again seen in the left upper lobe. S mall left pleural effusion is again identified likely associated with atelectasis. Recent MRI studies demonstrated signifi cant adenopathy in the abdomen but also likely present in the chest. Signed (Authenticated, Released) Date-T phi: 02/26/2011 1445 Electronic Device Monitor- DENY Sheehan, Staff Radiologist Dictated By- DENY LYNCH M.D., [facility] Radiologist Staff Physician- DENY LYNCH M.D. , Staff Radiologist Authenticated By- DENY Sheehan, Staff Radiologist Procedure Note Interface, Rad Conversion - 07/02/2013 8:08 AM CUPOLA REPAIRER REPORT Patient: DYLAN OSORIO Phone #: [place] Rec#: [id number] Sex: F : 1945 [facility]#: [id number] Location: [place] [address] Check-in#: [id number] Procedure Requested: [id number] DX CHEST 2 VIEWS Reason For Exam: CHEST PAIN Exam Ordered: 02/26/2011 1149 Exam Date/Time: 02/26/2011 1330 Check-in Date/Time: 02/26/2011 1332 Attendin HOSPITALIST, PHYSICIAN "" Requestin STEVE LÓPEZ Referrin COTY, REFERRING Primary Care: COTY, FAMILY Two View Chest Feb 26, 2011 01:30:00 PM Indications: CHEST PAIN, fever, adenopathy Comparison: Five days prior\\E:E\\ recent MRI lumbar and thoracic spine studies Lungs/pleura: There has been an interval increase in vascularity and interstitial markings bilaterally. Linear atelectasis or scarring is again seen in the left upper lobe. A small left pleural effusion is identified. Heart and Mediastinum: Upper normal to mildly enlarged. Mediastinal/hilar adenopathy cannot be excluded. Calcified hilar nodes are also identified bilaterally. Bones: Unremarkable, degenerative changes. Abdomen: Unremarkable Impression: Mild interval increase in interstitial markings bilaterally which may represent mild vascular congestion. Linear atelectasis versus scarring is again seen in the left upper lobe. Small left pleural effusion is again identified likely associated with atelectasis. Recent MRI studies demonstrated significant adenopathy in the abdomen but also likely present in the chest. Signed (Authenticated, Released) Date-Time: 02/26/2011 1445 Electronic Device Monitor- DENY LYNCH M.D., Staff Radiologist Dictated By- DENY LYNCH M.D., Staff Radiologist Staff Physician- DENY LYNCH M.D., Staff Radiologist Authenticated By- DENY LYNCH M.D., Staff Radiologist Performing Organization Address [facility] one Number SYMONE * Basic Metabolic Panel (02/25/2011 4:30 AM CDT) Only the most recent of 3 results within the time period is included. Sodium 134 134 - 144 MEQ/L SUNQUEST Potassium 4.0 3.5 - 5.1 MEQ/L SUNQUEST Chloride 102 101 - 111 MEQ/L SUNQUEST Carbon Dioxide 25 23 - 32 MEQ/L SUNQUEST Anion Gap 7 3 - 15 SUNQUEST Creatinine 0.6 0.4 - 1.1 MG/DL SUNQUEST Blood Urea 16 8 - 26 MG/DL SUNQUEST Nitrogen Glucose 101 (H) 65 - 100 MG/DL SUNQUEST Calcium 7.7 (L) 8.8 - 10.5 MG/DL SUNQUEST eGFR Female 101 SUNQUEST Non-AA Comment: Chronic Kidney Disease less than 60 mL/min/1.73 sq.m Kidney failure less than 15 mL/min/1.73 sq.m eGFR Female AA 121 SUNQUEST Comment: Chronic Kidney Disease less than 60 mL/min/1.73 sq.m Kidney failure less than 15 mL/min/1.73 sq.m Specimen Blood Performing Organization Address [facility] one Number [address] [place] [address] 11 SUNQUEST * Protime Mixing Studies (02/25/2011 4:30 AM CDT) Protime Patient 17.9 (H) 11.9 - 14.3 SEC SUNQUEST Protime Mix 15.5 SEC SUNQUEST Normal Pool 14.3 SEC SUNQUEST Protime Mix Corrects SUNQUEST Interpretation Specimen Blood Performing Organization Address [facility] one Number [address]RL [address] [place], [place] [address] 11 SUNQUEST * Potassium (02/24/2011 5:40 PM CDT) Potassium 3.5 3.5 - 5.1 MEQ/L SUNQUEST Specimen Blood Performing Organization Address [facility] one Number [address] [place] [address] 11 SUNQUEST * Haptoglobin (02/24/2011 5:40 PM CDT) Only the most recent of 3 results within the time period is included. Haptoglobin >300 (H) 30 - 200 MG/DL SUNQUEST Specimen Blood Performing Organization Address City/State/Zipcode Ph one Number [address] [place], [place] [address] SUNQUEST * MRI Lumbar Spine w wo contrast (02/24/2011 2:18 PM CDT) Specimen Narrative Performed At REPORT SYMONE Patient: DYLAN OSORIO Phone #: [place] [facility] Rec#: [id number] Sex: F : 1945 Roberto#: [id number] Location: [facility] Check-in#: [id number] Procedure Requested: [id number] MRI L SPINE W WO CONTRAST Reason For Exam: KNOWN L SPINE MA SS SPECIFY Exam Ordered: 02/21/2011 152 6 Exam Date/Time: 02/24/2011 1500 Check-in Date/Time: 02/24/2011 1417 Attendin SAWISTCHAU "" Requestin REGI GAY Referrin NO, REFERRING DR Primary Care: NO, FAMILY MRI L SPINE W WO CONTRAST Date: Feb 24, 2011 03:00:00 PM Indication: Back pain. Technique: Multiplanar, multipulse sequ ence images of the lumbar spine were obtained before and after the admi nistration of 15 mL of Omniscan IV gadolinium contrast. Comparison: MRI thoracic spine the same day. Findings: The conus medullaris is in no rmal position. Visualized spinal cord is homogeneous in signal intensity . No abnormal spinal cord or nerve root enhancement is seen. Vertebral bodies maintain normal height and alignment. There is diffuse low T1 marrow signal without focal abno rmality. No suspicious enhancement is seen. There is mild disc desiccation and intervertebral disc space narrowing at T11-T12, L3-L4, and L4-L5. There is no disc herniation or significant disc bulge at any level. No spinal canal stenosis or neural foraminal narrowing is seen. There is extensive retroperitoneal lymp hadenopathy. Multiple enlarged lymph nodes are also seen along the aor tocaval chain and in the visualized upper abdomen. Multiple enla rged retrocrural lymph nodes are also noted. Multiple enlarged pelvic ly mph nodes are also seen in the visualized portions of the pelvis. Impression: 1. No evidence of significant degenerat charline changes. There is no spinal canal stenosis or neural foraminal narr owing at any level. 2. No vertebral body height loss or mar row edema to suggest acute fracture. 3. Diffuse low T1 marrow signal is note d which may relate to diffuse marrow infiltrative process. 4. Extensive lymphadenopathy in the vis ualized retroperitoneum, upper abdomen, and pelvis. Correlation with p rior studies if available is advised. If no prior studies are availa ble, consider further evaluation with CT of the chest, abdomen, and pelv is. Signed (Authenticated, Released) Date-T phi: 02/24/2011 1613 Electronic Device Monitor- KIERA Magdaleno, Staff Radiologist Dictated By- Belinda IRVIN D.O. Radiologist Staff Physician- KIERA Sheehan, Staff Radiologist Authenticated By- KIERA Magdaleno, Staff Radiologist Procedure Note Interface, Rad Conversion - 07/02/2013 8:12 AM CUPOLA REPAIRER REPORT Patient: DYLAN OSORIO Phone #: [place] [facility] Rec#: [id number] Sex: F : 1945 Roberto#: [id number] Location: [place] [address] Check-in#: [id number] Procedure Requested: [id number] MRI L SPINE W WO CONTRAST Reason For Exam: KNOWN L SPINE MASS SPECIFY Exam Ordered: 02/21/2011 1526 Exam Date/Time: 02/24/2011 1500 Check-in Date/Time: 02/24/2011 1417 Attendin HOSPITALIST, PHYSICIAN "" Requestin REGI GAY Referrin NO, REFERRING DR Primary Care: NO, FAMILY MRI L SPINE W WO CONTRAST Date: Feb 24, 2011 03:00:00 PM Indication: Back pain. Technique: Multiplanar, multipulse sequence images of the lumbar spine were obtained before and after the administration of 15 mL of Omniscan IV gadolinium contrast. Comparison: MRI thoracic spine the same day. Findings: The conus medullaris is in normal position. Visualized spinal cord is homogeneous in signal intensity. No abnormal spinal cord or nerve root enhancement is seen. Vertebral bodies maintain normal height and alignment. There is diffuse low T1 marrow signal without focal abnormality. No suspicious enhancement is seen. There is mild disc desiccation and intervertebral disc space narrowing at T11-T12, L3-L4, and L4-L5. There is no disc herniation or significant disc bulge at any level. No spinal canal stenosis or neural foraminal narrowing is seen. There is extensive retroperitoneal lymphadenopathy. Multiple enlarged lymph nodes are also seen along the aortocaval chain and in the visualized upper abdomen. Multiple enlarged retrocrural lymph nodes are also noted. Multiple enlarged pelvic lymph nodes are also seen in the visualized portions of the pelvis. Impression: 1. No evidence of significant degenerati ve changes. There is no spinal canal stenosis or neural foraminal narrowing at any level. 2. No vertebral body height loss or yudi ow edema to suggest acute fracture. 3. Diffuse low T1 marrow signal is noted which may relate to diffuse marrow infiltrative process. 4. Extensive lymphadenopathy in the visu alized retroperitoneum, upper abdomen, and pelvis. Correlation with prior studies if available is advised. If no prior studies are available, consider further evaluation with CT of the chest, abdomen, and pelvis. Signed (Authenticated, Released) Date-Time: 02/24/2011 1613 Electronic Device Monitor- KIERA CRUZ D.O., Staff Radiologist Dictated By- KIERA CRUZ D.O., Staff Radiologist Staff Physician- KIERA CRUZ D.O., Staff Radiologist Authenticated By- KIERA CRUZ D.O., Staff Radiologist Performing Organization Address City/State/Zipcode Ph one Number SYMONE * MRI Thoracic Spine w wo contrast (02/24/2011 2:17 PM CDT) Specimen Narrative Performed At REPORT [facility] Patient: DYLAN OSORIO Phone #: [place] [facility] Rec#: [id number] Sex: F : 1945 Roberto#: [id number] Location: [facility] 01 Check-in#: [id number] Procedure Requested: [id number] MRI T SPINE W WO CONTRAST Reason For Exam: KNOWN T SPINE MA SS SPECIFY Exam Ordered: 02/21/2011 152 6 Exam Date/Time: 02/24/2011 1440 Check-in Date/Time: 02/24/2011 1417 Attendin HOSPITALISTCHAU "" Requestin VICTOR HUGOREGILL Referrin NO, REFERRING DR Primary Care: NO, FAMILY MRI T SPINE W WO CONTRAST Date: Feb 24, 2011 02:40:00 PM Indication: Back pain. Technique: Multiplanar, multipulse sequ ence images of the thoracic spine were obtained before and after the admi nistration of 15 mL of Omniscan IV gadolinium contrast. Comparison: MRI lumbar spine the same d ay. Findings: Visualized spinal cord is xavier ogeneous in signal intensity. There is no abnormal spinal cord or ner ve root enhancement seen. Vertebral bodies maintain normal height and alignment. Mild disc bulges at T5-T6 and T11-T12. There is no spina l canal stenosis or neural foraminal narrowing at any level. There is a 1 cm T2 hyperintense lesion with heterogeneous hyperintense T1 sign al shows enhancement on the postcontrast images in the anterior/sup erior T11 vertebral body and likely relates to hemangioma. There is diffuse low T1 marrow signal the visualized skeletal structures with no other focal signal abnormality. No other areas of osseous enhancement a re present. Evaluation of the thorax is limited by respiratory motion and technique, however, cannot exclude mediastinal lym phadenopathy. Impression: 1. No significant degenerative disc dis ease and no evidence of spinal canal stenosis or neural foraminal narr owing. 2. Enhancing lesion in the T11 vertebra l body is also hyperintense on the T1 sequence images and is compatibl e with hemangioma. No other areas of focal signal abnormality or suspicio us enhancement in the visualized skeletal structures. However, there is diffuse low T1 marrow signal which may relate to diffuse marrow infi ltrative process. Signed (Authenticated, Released) Date-T phi: 02/24/2011 1122 Electronic Device Monitor- KIERA Magdaleno, Staff Radiologist Dictated By- Belinda IRVIN D.O. [facility] Radiologist Staff Physician- KIERA Sheehan, Staff Radiologist Authenticated By- KIERA Magdaleno, Staff Radiologist Procedure Note Interface, Rad Conversion - 07/02/2013 8:12 AM CUPOLA REPAIRER REPORT Patient: DYLAN OSORIO Phone #: [place] [facility] Rec#: [id number] Sex: F : 1945 Roberto#: [id number] Location: [place] [address] Check-in#: [id number] Procedure Requested: [id number] MRI T SPINE W WO CONTRAST Reason For Exam: KNOWN T SPINE MASS SPECIFY Exam Ordered: 02/21/2011 1526 Exam Date/Time: 02/24/2011 1440 Check-in Date/Time: 02/24/2011 1417 Attendin HOSPITALIST, PHYSICIAN "" Requestin REGI GAY Referrin NO, REFERRING DR Primary Care: NO, FAMILY MRI T SPINE W WO CONTRAST Date: Feb 24, 2011 02:40:00 PM Indication: Back pain. Technique: Multiplanar, multipulse sequence images of the thoracic spine were obtained before and after the administration of 15 mL of Omniscan IV gadolinium contrast. Comparison: MRI lumbar spine the same day. Findings: Visualized spinal cord is homogeneous in signal intensity. There is no abnormal spinal cord or nerve root enhancement seen. Vertebral bodies maintain normal height and alignment. Mild disc bulges at T5-T6 and T11-T12. There is no spinal canal stenosis or neural foraminal narrowing at any level. There is a 1 cm T2 hyperintense lesion with heterogeneous hyperintense T1 signal shows enhancement on the postcontrast images in the anterior/superior T11 vertebral body and likely relates to hemangioma. There is diffuse low T1 marrow signal the visualized skeletal structures with no other focal signal abnormality. No other areas of osseous enhancement are present. Evaluation of the thorax is limited by respiratory motion and technique, however, cannot exclude mediastinal lymphadenopathy. Impression: 1. No significant degenerative disc dise ase and no evidence of spinal canal stenosis or neural foraminal narrowing. 2. Enhancing lesion in the T11 vertebral body is also hyperintense on the T1 sequence images and is compatible with hemangioma. No other areas of focal signal abnormality or suspicious enhancement in the visualized skeletal structures. However, there is diffuse low T1 marrow signal which may relate to diffuse marrow infiltrative process. Signed (Authenticated, Released) Date-Time: 02/24/2011 2093 Electronic Device Monitor- KIERA CRUZ D.O., Staff Radiologist Dictated By- KIERA CRUZ D.O., Staff Radiologist Staff Physician- KIERA CRUZ D.O., Staff Radiologist Authenticated By- KIERA CRUZ D.O., Staff Radiologist Performing Organization Address [facility] Ph one Number SYMONE * Complete Blood Count (02/24/2011 4:35 AM CDT) Only the most recent of 3 results within the time period is included. WBC 12.66 (H) 4.00 - 11.00 TH/UL SUNQUEST RBC 3.24 (L) 4.00 - 5.00 MIL/UL SUNQUEST Hemoglobin 8.1 (L) 12.0 - 15.0 G/DL SUNQUEST Hematocrit 25 (L) 36 - 45 % SUNQUEST MCV 78 (L) 80 - 99 FL SUNQUEST MCH 25 (L) 27 - 34 PG SUNQUEST MCHC 32 32 - 36 % SUNQUEST RDW 20.0 (H) 9.0 - 14.5 % SUNQUEST Platelet Count 418 (H) 140 - 400 TH/UL SUNQUEST MPV 9.7 9.4 - 12.3 FL SUNQUEST Specimen Blood Performing Organization Address [facility] Ph one Number [address] [place] [address] SUNQUEST * Magnesium (02/24/2011 4:35 AM CDT) Magnesium 1.5 1.4 - 2.0 MEQ/L SUNQUEST Specimen Blood Performing Organization Address [facility] one Number [address] [place] [address] 11 SUNQUEST * B Type Natriuretic Peptide (02/23/2011 4:51 AM CDT) Only the most recent of 2 results within the time period is included. B-Type 84 0 - 100 PG/ML SUNQUEST Naturiuretic Peptide Specimen Blood Performing Organization Address [facility] one Number [address] [place] [address] SUNQUEST * Vitamin B12 (02/23/2011 4:51 AM CDT) VITAMIN B12 414 180 - 914 PG/ML SUNQUEST Specimen Blood Performing Organization Address [facility] one Number [address]RL [address] [place] [address] SUNQUEST * Folate (02/23/2011 4:51 AM CDT) Folate 4.5 3.4 - 20.0 NG/ML SUNQUEST Specimen Blood Performing Organization [facility] one Number [address] [place] [address] SUNQUEST * Ferritin (02/23/2011 4:51 AM CDT) Only the most recent of 2 results within the time period is included. Ferritin 774 (H) 20 - 200 NG/ML SUNQUEST Specimen Blood Performing Organization Address [facility] one Number [address] [place] [address] SUNQUEST * Iron/Transferrin (02/23/2011 4:51 AM CDT) Only the most recent of 2 results within the time period is included. Transferrin 95 (L) 170 - 340 MG/DL SUNQUEST Iron 13 (L) 50 - 150 UG/DL SUNQUEST Iron/Transferri 11 (L) 15 - 50 % SUNQUEST n % Saturation Total 114 (L) 204 - 408 UG/DL SUNQUEST Iron-Binding Capacity Specimen Blood Performing Organization [facility] one Number [address] [place], [place] [address] SUNQUEST * Direct Antiglobulin C3 (02/22/2011 3:31 PM CDT) DIRECT Negative SUNQUEST ANTIGLOBULIN C3 Specimen Blood Performing Organization Address [facility] one Number [address] [place], [place] [address] SUNQUEST * Direct Antiglobulin IgG (02/22/2011 3:31 PM CDT) Direct Positive (A) SUNQUEST Antiglobulin IgG Specimen Blood Performing Organization Address [facility] one Number [address] [place], [place] [address] SUNQUEST * RBCs 2 Units (02/22/2011 4:21 AM CDT) 01 - PRODUCT ID Red Blood Cells SUNQUEST 01 - UNIT [id number] SUNQUEST NUMBER 01 - CROSS Compatible SUNQUEST MATCH 01 - STATUS Transfused SUNQUEST INFO 01 - PRODUCT [id number] SUNQUEST CODE 01 - BLOOD TYPE O Pos SUNQUEST 02 - PRODUCT [id number] SUNQUEST CODE 02 - PRODUCT ID Red Blood Cells SUNQUEST 02 - STATUS Transfused SUNQUEST INFO 02 - UNIT [id number] SUNQUEST NUMBER 02 - BLOOD TYPE O Pos SUNQUEST 02 - CROSS Compatible SUNQUEST MATCH Specimen Blood Performing Organization Address [facility] one Number [address] [place], [place] [address] SUNQUEST * ABORH Type (02/22/2011 4:21 AM CDT) ABORH Type O Positive SUNQUEST Specimen Blood Performing Organization Address [facility] one Number [address] [place], [place] [address] SUNQUEST * Antibody Screen (02/22/2011 4:21 AM CDT) Antibody Screen Negative SUNQUEST Specimen Blood Performing Organization Address [facility] one Number [address] [place], [place] [address] SUNQUEST * Direct Antiglobulin Polyspecific (02/22/2011 4:21 AM CDT) Direct Positive (A) SUNQUEST Antiglobulin Polyspecific Specimen Blood Performing Organization Address [facility] one Number [address] [place] [address] SUNQUEST * Culture, Urine (02/21/2011 9:30 PM CDT) Specimen Urine Narrative Performed At REPORT [facility] Specimen/Source: URINE/coag Collected: 02/21/2011 21:30 Status: Final Last Updated: 23:28 Culture result (Final) No growth at 1 day Performing Organization Address [facility] one Number [address] [place] [address] SUNQUEST * Urine Nitrite (02/21/2011 9:30 PM CDT) Nitrite Urine Negative Negative SUNQUEST Specimen Urine Performing Organization Address [facility] one Number [address] [place] [address] SUNQUEST * Urinalysis (02/21/2011 9:30 PM CDT) Appearance, Yellow SUNQUEST Urine Specific >=1.030 1.001 - 1.030 SUNQUEST [place], UA PH Urine 5.5 5.0 - 8.0 SUNQUEST Hemoglobin Negative Negative SUNQUEST Urine Leukocyte Negative Negative SUNQUEST Esterase Bilirubin Urine Small (A) Negative SUNQUEST Glucose Urine Negative Negative MG/DL SUNQUEST Ketones Urine Negative Negative MG/DL SUNQUEST Protein Urine 30 (A) Negative MG/DL SUNQUEST Qual Urobilinogen 2.0 (A) Negative EU/DL SUNQUEST Urine Specimen Urine Performing Organization Address [facility] one Number [address] [place] [address] SUNQUEST * Protein Electrophoresis Urine Random (02/21/2011 9:30 PM CDT) Protein Urine 73.0 MG/DL SUNQUEST Quantitative Creatinine 171.0 MG/DL SUNQUEST Urine Random Protein/Creat 427 (H) 0 - 150 MG/G SUNQUEST Ratio Albumin UPE 11 0 - 50 % SUNQUEST Random Total Globulins 89 (H)Comment: A monoclonal 60 - 67 % S UNQUEST UPE Random protein is not identified. Pathologist Reviewed by Christofer Banda SUNJERAD Morrison M.D.,Comment: Reviewed by Penelope Banda M.D.,Ph.D. Specimen Urine Performing Organization Address City/State/Zipcode Ph one Number [address] [place], [place] [address] SUNQUEST * XR Acute Abdomen series w 2 view Chest P (02/21/2011 5:09 PM CDT) Specimen Narrative Performed At [facility] Patient: DYLAN OSORIO Phone #: [place] Rec#: [id number] Sex: F : 1945 Roberto#: [id number] Location: [facility] Check-in#: [id number] Procedure Requested: [id number] DX ACUTE ABD SERIES W 2V CHEST P Reason For Exam: CONSTIPATION Exam Ordered: 02/21/2011 171 0 Exam Date/Time: 02/21/20114 Check-in Date/Time: 02/21/20111712 Attendin HOSPITALCHAU ADKINS "" Requestin HOSPITALISTMAN "" Referrin COTY, REFERRING Primary Care: COTY, FAMILY Reason for Examination: CONSTIPATION DX ACUTE ABD SERIES W 2V CHEST P, Feb 21, 2011 05:14:00 PM Interpretation: The heart is large wi th mild vascular engorgement, and mild interstitial change, and a small a mount of pleural effusion on the left. No free air or fluid is seen within the abdomen. Intestinal gas pattern is normal with opaque contrast material The left colon. No soft tissue masses or unusual calcifications are se en. Impression: Residual barium in the left colon. Mild congestive failure. Signed (Authenticated, Released) Date-T phi: 02/21/2011 184 Electronic Device Monitor- VIVIAN LOONEY M.D., Staff Radiologist Dictated By- VIVIAN LOONEY M.D., Staff Radiologist Staff Physician- VIVIAN LOONEY M.D., S lorin Radiologist Authenticated By- VIVIAN LOONEY M.D., Staff Radiologist Procedure Note Interface, Rad Conversion - 07/02/2013 11:13 AM CUPOLA REPAIRER REPORT Patient: DYLAN OSORIO Phone #: [place] [facility] Rec#: [id number] Sex: F : 1945 Roberto#: [id number] Location: [place] [address] Check-in#: [id number] Procedure Requested: [id number] DX ACUTE ABD SERIES W 2V CHEST P Reason For Exam: CONSTIPATION Exam Ordered: 02/21/20111709 Exam Date/Time: 02/21/20111713 Check-in Date/Time: 02/21/20111712 Attendin HOSPITALIST, PHYSICIAN "" Requestin HOSPITALIST, PHYSICIAN "" Referrin COTY, REFERRING Primary Care: COTY, FAMILY Reason for Examination: CONSTIPATION DX ACUTE ABD SERIES W 2V CHEST P, Feb 21, 2011 05:14:00 PM Interpretation: The heart is large with mild vascular engorgement, and mild interstitial change, and a small amount of pleural effusion on the left. No free air or fluid is seen within the abdomen. Intestinal gas pattern is normal with opaque contrast material The left colon. No soft tissue masses or unusual calcifications are seen. Impression: Residual barium in the left colon. Mild congestive failure. Signed (Authenticated, Released) Date-Time: 02/21/2011 184 Electronic Device Monitor- VIVIAN LOONEY M.D., Staff Radiologist Dictated By- VIVIAN LOONEY M.D., Staff Radiologist Staff Physician- VIVIAN LOONEY M.D., Staff Radiologist Authenticated By- VIVIAN LOONEY M.D., Staff Radiologist Performing Organization Address City/State/Zipcode Ph one Number [email or web address] * ECHO TRANSTHORACIC (02/21/2011 4:36 PM CDT) Specimen Narrative Performed At [facility] RAD ECHOCARDIOGRAM REPORT [facility] Name: DYLAN OSORIO Date: 02/21/2011 16:36 Chart #: [id number] : 1945 Location: [facility] IP Sono: beltran Age: 66 Gender: F Referring: STEVE LÓPEZ Room #: 214 Indication Chest pain Procedure -[id number] Complete Echo 2D/Color flow/Doppler BP: 106 / 72 HR: Ht: 65 Wt: 166 BSA: 1.9 2D ECHO MEASUREMENTS LV Diastolic Diameter Bas 5.1 cm 3.6-5.4 IVS Diastolic Thickness 1.1 cm 0.6-1.1 LV Systolic Diameter Base 3.2 cm 2.3-4.0 LVPW Diastolic Thickness 0.8 cm 0.6-1.1 LA Systolic Diameter LX 4.2 cm 2.3-3.8 Ascending Aorta Diameter 3.6 cm 2.1-3.4 MITRAL VALVE DOPPLER Mitral E Point Velocity 123 cm/s Mitral E to A Ratio 1.5 Mitral A Point Velocity 82.7 cm/s TRICUSPID VALVE DOPPLER RV Systolic Pressure 36.8 mmHg WALL SEGMENT ANALYSIS: ROUTINE LVSI : 1 %FM : 100 LAD : 1 LCX : 1 RCA : 1 FINDINGS LV Ejection Fraction: 60 Normal left ventricular systolic functi on, with an estimated ejection fraction of 60%. Normal wall thickness. Normal wall motion. Normal left ventricular chamber dimensi ons. Normal right ventricular size and systo lic function. Mild right atrial dilatation. Severe le ft atrial dilatation. LA volume index= 42 ml/m2. Moderate diastolic dysfunction - elevat ed mean LA pressure with reduced LV relaxation. Sclerotic aortic valve without regurgit ation. Mitral annular calcification and mildly thickened leaflets with mild to moderate regurgitation. Normal pulmonic valve with trivial regu rgitation. Normal tricuspid valve with mild regurg itation. Unable to accurately estimate PA pressure. No pericardial effusion. IVC is responsive to inspiration indica ting normal RA pressure. Normal ascending aorta dimension. No apparent intracardiac masses or thro mbi. CONCLUSIONS: 1. Normal left ventricular systolic fun ction, with an estimated ejection fraction of 60%. 2. Severe left atrial dilatation. LA vo lume index= 42 ml/m2. 3. Mild-moderate mitral regurgitation. 4. Moderate diastolic dysfunction. 5. No previous study available for bri navarro. Yoko Lin M.D. (Electronically Signed) Final Date: 21 February 2011 17:12 Procedure Note Interface, Rad Conversion - 07/12/2013 12:53 PM CDT RESULT ECHOCARDIOGRAM REPORT [facility] Name: DYLAN OSORIO Date: 02/21/2011 16:36 Chart #: [id number] : 1945 Location: [facility] IP Sono: beltran Age: 66 Gender: F Referring: STEVE LÓPEZ Room #: 214 Indication Chest pain Procedure -70681 Complete Echo 2D/Colorflow/Doppler BP: 106 / 72 HR: Ht: 65 Wt: 166 BSA: 1.9 2D ECHO MEASUREMENTS LV Diastolic Diameter Bas 5.1 cm 3.6-5.4 IVS Diastolic Thickness 1.1 cm 0.6-1.1 LV Systolic Diameter Base 3.2 cm 2.3-4.0 LVPW Diastolic Thickness 0.8 cm 0.6-1.1 LA Systolic Diameter LX 4.2 cm 2.3-3.8 Ascending Aorta Diameter 3.6 cm 2.1-3.4 MITRAL VALVE DOPPLER Mitral E Point Velocity 123 cm/s Mitral E to A Ratio 1.5 Mitral A Point Velocity 82.7 cm/s TRICUSPID VALVE DOPPLER RV Systolic Pressure 36.8 mmHg WALL SEGMENT ANALYSIS: ROUTINE LVSI : 1 %FM : 100 LAD : 1 LCX : 1 RCA : 1 FINDINGS LV Ejection Fraction: 60 Normal left ventricular systolic function, with an estimated ejection fraction of 60%. Normal wall thickness. Normal wall motion. Normal left ventricular chamber dimensions. Normal right ventricular size and systolic function. Mild right atrial dilatation. Severe left atrial dilatation. LA volume index= 42 ml/m2. Moderate diastolic dysfunction - elevated mean LA pressure with reduced LV relaxation. Sclerotic aortic valve without regurgitation. Mitral annular calcification and mildly thickened leaflets with mild to moderate regurgitation. Normal pulmonic valve with trivial regurgitation. Normal tricuspid valve with mild regurgitation. Unable to accurately estimate PA pressure. No pericardial effusion. IVC is responsive to inspiration indicating normal RA pressure. Normal ascending aorta dimension. No apparent intracardiac masses or thrombi. CONCLUSIONS: 1. Normal left ventricular systolic func tion, with an estimated ejection fraction of 60%. 2. Severe left atrial dilatation. LA vol ume index= 42 ml/m2. 3. Mild-moderate mitral regurgitation. 4. Moderate diastolic dysfunction. 5. No previous study available for alexey landry. Yoko Lin M.D. (Electronically Signed) Final Date: 21 February 2011 17:12 Performing Organization Address [facility] Ph one Number [facility] RAD [address] [place] [address] * Comprehensive Metabolic Panel (02/21/2011 3:54 PM CDT) Albumin 1.5 (L) 3.5 - 5.0 G/DL SUNQUEST Aspartate 37 15 - 41 IU/L SUNQUEST Aminotransferas e Bilirubin Total 1.3 0.3 - 1.4 MG/DL SUNQUEST Protein Total 7.1 6.0 - 8.0 G/DL SUNQUEST Serum Calcium 8.1 (L) 8.8 - 10.5 MG/DL SUNQUEST Creatinine 0.6 0.4 - 1.1 MG/DL SUNQUEST Glucose 106 (H) 65 - 100 MG/DL SUNQUEST Alkaline 120 42 - 128 IU/L SUNQUEST Phosphatase Sodium 132 (L) 134 - 144 MEQ/L SUNQUEST Potassium 4.1 3.5 - 5.1 MEQ/L SUNQUEST Chloride 96 (L) 101 - 111 MEQ/L SUNQUEST Carbon Dioxide 25 23 - 32 MEQ/L SUNQUEST Blood Urea 17 8 - 26 MG/DL SUNQUEST Nitrogen Anion Gap 11 3 - 15 SUNQUEST Alanine 20 14 - 63 IU/L SUNQUEST Aminotransferas e eGFR Female 101 SUNQUEST Non-AA Comment: Chronic Kidney Disease less than 60 mL/min/1.73 sq.m Kidney failure less than 15 mL/min/1.73 sq.m eGFR Female AA 121 SUNQUEST Comment: Chronic Kidney Disease less than 60 mL/min/1.73 sq.m Kidney failure less than 15 mL/min/1.73 sq.m Specimen Blood Performing Organization Address [facility] Ph one Number [address] [place], [place] [address] SUNQUEST * Lactate Dehydrogenase (02/21/2011 3:54 PM CDT) Lactate 214 5 - 248 IU/L SUNQUEST Dehydrogenase Specimen Blood Performing Organization Address [facility] Ph one Number [address] [address] [place], [place] [address] SUNQUEST * Digoxin (02/21/2011 3:54 PM CDT) Digoxin 0.8 0.8 - 2.1 NG/ML SUNQUEST Specimen Blood Performing Organization Address [facility] one Number [address] [place], [place] [address] SUNQUEST * B12/Folate (02/21/2011 3:54 PM CDT) VITAMIN B12 471 180 - 914 PG/ML SUNQUEST Folate 6.1 3.4 - 20.0 NG/ML SUNQUEST Specimen Blood Performing Organization Address [facility] one Number [address] [place] [phone] SUNQUEST * Protein Electrophoresis Serum (02/21/2011 3:54 PM CDT) Pathologist [facility] Protein Total 7.0 6.0 - 8.0 G/DL SUNQUEST SPE Albumin 1.6 (L) 3.5 - 5.0 G/DL SUNQUEST Alpha 1 0.4 0.1 - 0.4 G/DL SUNQUEST Alpha 2 1.1 0.4 - 1.3 G/DL SUNQUEST Beta 0.8 0.6 - 1.3 G/DL SUNQUEST Gamma 3.1 (H)Comment: Chronic 0.6 - 1.5 G/DL SUNQUE ST inflammatory pattern. A/G Ratio 0.3 SUNQUEST Pathologist Reviewed by Christofer Banda, SUNQUEST Review M.D.,Comment: Reviewed by Penelope Banda M.D.,Ph.D. Specimen Blood Performing Organization Address [facility] one Number [address] [place], [place] [address] SUNQUEST * Beta 2 Microglobulin, Serum (02/21/2011 3:54 PM CDT) Beta 2 4.56 (H) 0.70 - 1.80 MCG/ML SUNQUEST Microglobulin Comment: Test Performed by: [facility] D[facility] Med [facility] Pathology [address] [place] [address] Director Broadcast: Geovanny Pichardo III, M.D. Specimen Blood Performing Organization Address [facility] one Number [address] [place], [place] [address] SUNQUEST * Retype Patient ABORH (02/21/2011 3:54 PM CDT) Pathologist [facility] ABORH Type O Positive SUNQUEST Confirm Blood Yes SUNQUEST Type Specimen Blood Performing Organization Address City/State/Zipcode Ph one Number [address] [place], [place] [address] SUNQUEST documented in this encounter Visit Diagnoses Diagnosis Other malignant lymphomas, unspecified site, extranodal and solid organ sites documented in this encounter
--- OUTSIDE RECORDS SUMMARY | 2019-07-16 00:23 | XMS REPORT | Encounter Summary ---
Author Author [facility] Organization [facility] Address Unknown Phone Unavailable Care Team Providers Care Butt Welder Name Role Phone PCP Unavailable Encounter Details Care Team Description Date Type Department Regi Pham DO [address] [place] [id number] [phone] 02/21/2011 [facility] Encounter Social History Date Tobacco Use Types Packs/Day Years Used Never Assessed Sex Assigned at Date Recorded Not on file Industry Job Start Date Occupation Not on file Not on file Not on file Travel End Travel History Travel Start No recent travel history available. documented as of this encounter Miscellaneous Notes * Clinic Note - Regi Phma DO - 07/01/2013 11:59 PM [employer] REPORT Name: MONA FRANCO Date of : 1945 Attending Physician: REGI PHAM Date of Service: 02/21/2011 REASON FOR CLINIC VISIT: 1. Diffuse large B-cell lymphoma. 2. Back pain. 3. Hypoxia. HISTORY OF PRESENT ILLNESS: This patient transferred her care from the [facility] in [place] to myself at [facility]. She initially presented with of low back pain, about 35 pound weight loss. She has had a workup at an outside hospital with an excisional biopsy that flow cytometry is negative. However, there are some microscopic cells consistent with diffuse large B-cell lymphoma. It is also noted that she had a CT scan of her chest, abdomen, and pelvis that shows diffuse hilar and retroperitoneal lymphadenopathy. She, as well, has had an LDH at an outside hospital that was found to be elevated at 212 and also her IgA is 468, IgG is elevated at 2814, IgM is 183. The patient presents for ongoing evaluation and recommendations regarding the recent diagnosis of diffuse large B-cell lymphoma. Today when I see the patient in clinic visit, she is very ill appearing. She was uncomfortable. She is hypoxic on room air at 89%. She is complaining of extreme pain in her thoracic and lumbar region. I have offered to admit the patient for pain control and also appropriate workup of her hypoxia as well as finish the remainder of the workup for diffuse large B-cell lymphoma as the patient has not had a bone marrow biopsy nor LP. I would like to get a PET scan and also an MRI of the thoracic spine. PAST MEDICAL HISTORY: Remarkable for asthma, atrial fibrillation sleep apnea, gastroesophageal reflux disease, anemia, and also as mentioned above. PAST SURGICAL HISTORY: Remarkable for previous heart ablation, hysterectomy, cholecystectomy, appendectomy, previous knee surgeries. The patient has a history of previous breast biopsy that was benign. FAMILY HISTORY: Mother has a history of lung cancer. No other type of lymphoma noted in the family. SOCIAL HISTORY: She is . She has 3 sons. She recently moved back to [place] within the last 1 to 2 days from [place]. She does not use tobacco. 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 She does not consume daily alcohol. ALLERGIES: PROCARDIA. CURRENT MEDICATIONS: Include 1. Albuterol inhaler. 2. Digoxin. 3. Diltiazem. 4. Colace. 5. Omeprazole. 6. Ferrous sulfate. 7. Flonase. 8. Advair. 9. Lortab. 10. Singulair. 11. Zofran as needed for nausea. 12. Ambien as needed for sleep. 13. Senokot for constipation. REVIEW OF SYSTEMS: As stated per History of Present Illness. A ten-point review of systems has been completed and unless otherwise specified is negative. PHYSICAL EXAMINATION: VITAL SIGNS: Oxygen saturation is 89% on room air. Temperature 97.2, blood pressure 108/65, pulse 100, respirations 18. Height 168 cm. Weight 168 pounds. GENERAL: The patient is nontoxic and in no acute distress. Awake, alert, and oriented x3. HEENT: Mucous membranes are moist. Neck is supple. No JVD. Extraocular muscles are intact. HEART: S1, S2. Regular. LUNGS: Clear bilaterally. ABDOMEN: Soft and nontender. EXTREMITIES: Without any cyanosis, clubbing, or edema. LABORATORY DATA: Labs today are pending. The patient will be admitted to the hospital for further workup. IMPRESSION: This is a female who transferred her care from [place] to [facility] for additional workup of her diagnosis of diffuse large B-cell lymphoma. At this time, she will be going to the hospital for further workup. PLAN: While she is in the hospital, I would like to check a beta 2 microglobulin, SPEP with immunofixation, UPEP with immunofixation, and send her peripheral blood for flow cytometry. I will recheck LDH, uric acid level, and also standard blood work with a CBC, CMP, urinalysis, coagulations. I would like to get a bone marrow biopsy with aspirate and send for flow and cytogenetics for proper staging of her diffuse large B-cell lymphoma. I do recommend a lumbar puncture with cytology. My concern is that she has extensive disease. I recommend a PET CT scan for further workup of her lymphoma. MRI of the thoracic spine and lumbar spine due to her significant exquisite back pain with concern for tumor burden encasing the thoracic spine and lumbar spine. I do recommend echocardiogram. The patient will need a port prior to DC for anticipated chemotherapy. I have spoken with Dr. José Miguel Mendoza, the hospitalist senior loss control specialist. He has agreed to accept the patient to his service. Regi Pham DO CC: [employer] * Clinic Note - Regi Pham DO - 07/01/2013 11:59 PM [employer] REPORT Name: MONA FRANCO Date of : 1945 Attending Physician: REGI PHAM Date of Service: 02/21/2011 REASON FOR CLINIC VISIT: 1. Diffuse large B-cell lymphoma. 2. Back pain. 3. Hypoxia. HISTORY OF PRESENT ILLNESS: This patient transferred her care from the [facility] in [place] to myself at [facility]. She initially presented with complaints of low back pain, about 35 pound weight loss. She has had a workup at an outside hospital with an excisional biopsy that flow cytometry is negative. However, there are some microscopic cells consistent with diffuse large B-cell lymphoma. It is also noted that she had a CT scan of her chest, abdomen, and pelvis that shows diffuse hilar and retroperitoneal lymphadenopathy. She, as well, has had an LDH at an outside hospital that was found to be elevated at 212 and also her IgA is 468, IgG is elevated at 2814, IgM is 183. The patient presents for ongoing evaluation and recommendations regarding the recent diagnosis of diffuse large B-cell lymphoma. Today when I see the patient in clinic visit, she is very ill appearing. She was uncomfortable. She is hypoxic on room air at 89%. She is complaining of extreme pain in her thoracic and lumbar region. I have offered to admit the patient for pain control and also appropriate workup of her hypoxia as well as finish the remainder of the workup for diffuse large B-cell lymphoma as the patient has not had a bone marrow biopsy nor LP. I would like to get a PET scan and also an MRI of the thoracic spine. PAST MEDICAL HISTORY: Remarkable for asthma, atrial fibrillation sleep apnea, gastroesophageal reflux disease, anemia, and also as mentioned above. PAST SURGICAL HISTORY: Remarkable for previous heart ablation, hysterectomy, cholecystectomy, appendectomy, previous knee surgeries. The patient has a history of previous breast biopsy that was benign. FAMILY HISTORY: Mother has a history of lung cancer. No other type of lymphoma noted in the family. SOCIAL HISTORY: She is . She has 3 sons. She recently moved back to [place] within the last 1 to 2 days from [place]. She does not use tobacco. 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 She does not consume daily alcohol. ALLERGIES: PROCARDIA. CURRENT MEDICATIONS: Include 1. Albuterol inhaler. 2. Digoxin. 3. Diltiazem. 4. Colace. 5. Omeprazole. 6. Ferrous sulfate. 7. Flonase. 8. Advair. 9. Lortab. 10. Singulair. 11. Zofran as needed for nausea. 12. Ambien as needed for sleep. 13. Senokot for constipation. REVIEW OF SYSTEMS: As stated per History of Present Illness. A ten-point review of systems has been completed and unless otherwise specified is negative. PHYSICAL EXAMINATION: VITAL SIGNS: Oxygen saturation is 89% on room air. Temperature 97.2, blood pressure 108/65, pulse 100, respirations 18. Height 168 cm. Weight 168 pounds. GENERAL: The patient is nontoxic and in no acute distress. Awake, alert, and oriented x3. HEENT: Mucous membranes are moist. Neck is supple. No JVD. Extraocular muscles are intact. HEART: S1, S2. Regular. LUNGS: Clear bilaterally. ABDOMEN: Soft and nontender. EXTREMITIES: Without any cyanosis, clubbing, or edema. LABORATORY DATA: Labs today are pending. The patient will be admitted to the hospital for further workup. IMPRESSION: This is a female who transferred her care from [place] to [facility] for additional workup of her diagnosis of diffuse large B-cell lymphoma. At this time, she will admitted to the hospital for further workup. PLAN: I would like to get a bone marrow biopsy with aspirate and send for flow and cytogenetics for proper staging of her diffuse large B-cell lymphoma and I recommend a lumbar puncture with cytology. I recommend a PET CT scan for further workup of her lymphoma. MRI of the thoracic spine and lumbar spine due to her significant exquisite back pain with concern for tumor burden encasing the thoracic spine and lumbar spine. I do recommend echocardiogram. The patient will need a port prior to DC for anticipated chemotherapy. While she is in the hospital, I would like to check a beta 2 microglobulin, SPEP with immunofixation, UPEP with immunofixation, and send her peripheral blood for flow cytometry. I will recheck LDH, uric acid level, and also standard blood work with a CBC, CMP, urinalysis, coagulations. I have spoken with Dr. José Miguel Mendoza, the hospitalist senior loss control specialist. He has agreed to accept the patient to his service. Regi Pham DO CC: Authenticated and Edited by Regi Pham DO On 03/26/11 3:36:38 PM [employer] documented in this encounter Plan of Treatment Not on filedocumented as of this encounter Visit Diagnoses Not on filedocumented in this encounter
--- OUTSIDE RECORDS SUMMARY | 2019-07-16 00:23 | XMS REPORT | Encounter Summary ---
Author Author [facility] Organization [facility] Address Unknown Phone Unavailable Care Team Providers Care Straw Hat Brusher Name Role Phone PCP Unavailable Encounter Details Care Team Description Date Type Department 02/21/2011 Hist-Appointmen [facility]LS [facility] CL t [...]
--- OUTSIDE RECORDS SUMMARY | 2019-07-16 00:24 | XMS REPORT | CCD ---
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 Name Role Phone PP Unavailable CCM Unavailable Summary Purpose Interface Exchange Insurance Providers Payer name Policy type / Coverage type Covered green party ID Effective Begin Date Effective End Date WPS Medicare Part B Medicare Part B [id number] Unknown [employer] Medicar e Part B [id number] Unkno wn Family history Father Diagnosis Age At Onset Stroke Unknown Heart Attack Unknown Diabetes Unknown Mother Diagnosis Age At Onset Cancer Unknown Asthma Unknown Social History Social History Element Codes Description Effective Dates Marital status Unknown M arried Raciel 07/08/2016 Number of children Unknown 3 04/10/2016 Employment Unknown Retir ed 04/10/[address]: 822904627 Never smoker 04/10/[address]: 974600045 Never drinks alcohol 04/10/2016 Allergies, Adverse Reactions, Alerts Allergies, Adverse Reactions, Alerts data not found Past Medical History Illness Codes Condition Status Onset Date Resolved Date Bilateral primary os teoarthritis of knee ICD-9: 715.96 ICD-10: M17.0 Active 09/09/2016 Unknown Chronic atrial fibri llation ICD-9: 427.31 ICD-10: I48.2 Active 04/10/2016 Unknown Essential (primary) hypertension ICD-9: 401.1 ICD-10: I10 Active 04/10/2016 Unknown Pain in left leg ICD-9: 729.5 ICD-10: M79.605 Active 09/09/2016 Unknown Pain in right leg ICD-9: 729.5 ICD-10: M79.604 Active 09/09/2016 Unknown Gastro-esophageal re flux disease without esophagitis ICD-9: 530.81 ICD-10: K21.9 Active 04/10/2016 Unknown Problems Condition Codes Effectiv e Dates Condition Status Bilateral primary os teoarthritis of knee ICD-9: 715.96 ICD-10: M17.0 09/09/2016 Active Chronic atrial fibri llation ICD-9: 427.31 ICD-10: I48.2 04/10/2016 Active Essential (primary) hypertension ICD-9: 401.1 ICD-10: I10 04/10/2016 Active Pain in left leg ICD-9: 729.5 ICD-10: M79.605 09/09/2016 Active Pain in right leg ICD-9: 729.5 ICD-10: M79.604 09/09/2016 Active Gastro-esophageal re flux disease without esophagitis ICD-9: 530.81 ICD-10: K21.9 04/10/2016 Active Medications Medication Codes Instruc tions Start Date Stop Date Sta s Fill Instructions metoprolol tartrate 25 mg tablet RxNorm: 028288 1/2 Tablet(s) PO BID 07/10/2016 07/04/2017 Active montelukast 10 mg ta blet RxNorm: 141536 1 Tablet(s) PO daily 07/08/2016 07/02/2017 Active omeprazole 20 mg cap jaren,delayed release RxNorm: 439683 1 Capsule(s) PO daily 07/08/2016 07/02/2017 Ac tive warfarin 2.5 mg tablet RxNorm: 728503 1 Tablet(s) PO /thu/w//sat 1/2 tab oth er days 07/08/2016 01/03/2017 Active omeprazole 20 mg cap jaren,delayed release RxNorm: 143348 1 Capsule(s) PO daily 06/23/2016 07/07/2016 In active montelukast 10 mg ta blet RxNorm: 826058 1 Tablet(s) PO daily 06/23/2016 07/07/2016 Inactive aspirin 81 mg tablet RxNorm: 397656 1 Tablet(s) PO daily No Start Date Active albuterol sulfate 1. 25 mg/3 mL solution for nebulization RxNorm: 469895 Milliliter(s) INH as needed No Start Date Active melatonin 10 mg RxNorm: 1 PO QHS No Start Date Active Advair Diskus 500 mc g-50 mcg/dose powder for inhalation RxNorm: 4232824 1 INH BID No Start Date Active magnesium oxide 400 mg capsule RxNorm: 265376 1 Capsule(s) PO No Start Date Active 1 tab twice a week fluticasone 50 mcg/a ctuation nasal spray,suspension RxNorm: 2505628 1 Jetmore NASAL daily No Start Date Active montelukast 10 mg ta blet RxNorm: 703129 1 Tablet(s) PO daily No Start Date 06/22/2016 Inactive omeprazole 20 mg cap jaren,delayed release RxNorm: 223723 1 Capsule(s) PO No Start Date 06/22/2016 Inactive warfarin 2.5 mg tablet RxNorm: 506666 1 Tablet(s) PO m-w-f 1.25 other days No Start Date 07/07/2016 Inactive metoprolol tartrate 12.5 Tablet RxNorm: 1 Tablet(s) PO BID No Start Date 07/09/2016 Inactive Medication Administered No Medication Administered data Immunizations No Immunization data Assessments Condition Codes Effectiv e Dates Pain in left leg ICD-10: M79.605 ICD-9: 729.5 09/09/2016 Essential (primary) hypertension ICD -10: I10 ICD-9: 401.1 09/09/2016 Bilateral primary osteoarthritis of knee ICD-10: M17.0 ICD-9: 715.96 09/09/2016 Chronic atrial fibrillation ICD-10: I48.2 ICD-9: 427.31 09/09/2016 Pain in right leg ICD-10: M79.604 ICD-9: 729.5 09/09/2016 Gastro-esophageal reflux disease without esophagitis ICD-10: K21.9 ICD-9: 530.81 07/08/2016 Reason For Visit Reason For Visit Effective Dates Notes hypertension 09/09/2016 hypertension 07/08/2016 Hospital Follow Up 04/10/2016 Results Observation Observation Code Item Item Code Result Date Pt [id number] PT 24.6 seconds 10/06/2016 Pt Uoi7545 INR 2.4 10/06/2016 Pt Iua6049 Low Intensity - 1.5-2.0 10/06/2016 Pt Ofa0708 Mod intensity - 2.0-3.0 10/06/2016 Pt Pyu8887 Hi intensity - 3.0-4.0 10/06/2016 Tsh Ord6 hTSH II 1.43 uIU/mL 09/10/2016 Cbc With Differential Ord2 WBC 5.05 K/ul 09/10/2016 Cbc With Differential Ord2 RBC 4.18 M/ul 09/10/2016 Cbc With Differential Ord2 HGB 12.0 g/dl 09/10/2016 Cbc With Differential Ord2 Neut% 59.0 % 09/10/2016 Cbc With Differential Ord2 HCT 36.9 % 09/10/2016 Cbc With Differential Ord2 MCV 88.3 fl 09/10/2016 Cbc With Differential Ord2 Lymph% 25.9 % 09/10/2016 Cbc With Differential Ord2 Rosebud% 11.7 % 09/10/2016 Cbc With Differential Ord2 MCH 28.7 pg 09/10/2016 Cbc With Differential Ord2 MCHC 32.5 pg 09/10/2016 Cbc With Differential Ord2 Eos% 2.8 % 09/10/2016 Cbc With Differential Ord2 PLT 195 K/ul 09/10/2016 Cbc With Differential Ord2 Baso% 0.6 % 09/10/2016 Cbc With Differential Ord2 RDW 15.5 % 09/10/2016 Cbc With Differential Ord2 Neut ABS# 2.98 K/ul 09/10/2016 Cbc With Differential Ord2 Lymph ABS# 1.31 K/ul 09/10/2016 Cbc With Differential Ord2 [place] ABS# 0.6 K/ul 09/10/2016 Cbc With Differential Ord2 Eos ABS# 0.1 K/ul 09/10/2016 Cbc With Differential Ord2 Baso ABS# 0.0 K/ul 09/10/2016 Lipid Ord30 CHOL 173 mg/dL 09/10/2016 Lipid Ord30 HDL 51.0 mg/dl 09/10/2016 Lipid Ord30 TRIG 76 mg/dL 09/10/2016 Lipid Ord30 LDL 107 mg/dL 09/10/2016 Lipid Ord30 C/HDL 3.4 Ratio 09/10/2016 Comp Metabolic Wzo024 NA 140 mEq/L 09/10/2016 Comp Metabolic Laa721 K 3.7 mEq/L 09/10/2016 Comp Metabolic Bzf518 CL 105 mEq/L 09/10/2016 Comp Metabolic Guy814 CO2 26.0 mEq/L 09/10/2016 Comp Metabolic Bwd369 AN ION GAP 13 09/10/2016 Comp Metabolic Ajv054 GL UCOSE 91 mg/dL 09/10/2016 Comp Metabolic Nqg989 Cr eat 0.7 mg/dL 09/10/2016 Comp Metabolic Nxo658 eG FR 93 ml/min/1.73m2 09/10 Comp Metabolic Dos711 BUN 12 mg/dL 09/10/2016 Comp Metabolic Rge675 B/ C Ratio 17.9 Ratio 09/10/2016 Comp Metabolic Hxw693 CA LCIUM 8.6 mg/dL 09/10/2016 Comp Metabolic Cgy238 AL K PHOS 70 U/L 09/10/2016 Comp Metabolic Jrg301 T(SGOT) 19 U/L 09/10/2016 Comp Metabolic Nry557 AL T(SGPT) 12 U/L 09/10/2016 Comp Metabolic Zac377 BI LI T 0.9 mg/dL 09/10/2016 Comp Metabolic Bnz963 AL BUMIN 3.6 g/dL 09/10/2016 Comp Metabolic Hsv930 TP RO 6.5 g/dL 09/10/2016 Comp Metabolic Yoy018 GL OB 2.9 g/dL 09/10/2016 Comp Metabolic Ugw534 A/ G Ratio 1.3 Ratio 09/10/2016 Comp Metabolic Qtr246 Os mo 279 mOsmo 09/10/2016 Magnesium Ord90 Mag 1.6 mg/dL 09/10/2016 Pt Wgu3088 PT 24.7 seconds 09/10/2016 Pt Ihs3085 INR 2.4 09/10/2016 Pt Zhd7347 Low Intensity - 1.5-2.0 09/10/2016 Pt Hsq3133 Mod intensity - 2.0-3.0 09/10/2016 Pt Goc7654 Hi intensity - 3.0-4.0 09/10/2016 Pt Tdx8630 PT 23.1 seconds 08/18/2016 Pt Nht6369 INR 2.2 08/18/2016 Pt Rmn0721 Low Intensity - 1.5-2.0 08/18/2016 Pt Yop8516 Mod intensity - 2.0-3.0 08/18/2016 Pt Gox3323 Hi intensity - 3.0-4.0 08/18/2016 Pt Ban3585 PT 23.7 seconds 07/21/2016 Pt Pbs4829 INR 2.2 07/21/2016 Pt Qbn5322 Low Intensity - 1.5-2.0 07/21/2016 Pt Vrc2027 Mod intensity - 2.0-3.0 07/21/2016 Pt Hjs0972 Hi intensity - 3.0-4.0 07/21/2016 Pt Axk3583 PT 20.3 seconds 07/07/2016 Pt Cix8573 INR 1.8 07/07/2016 Pt Jhx5275 Low Intensity - 1.5-2.0 07/07/2016 Pt Tfj8169 Mod intensity - 2.0-3.0 07/07/2016 Pt Pzj1403 Hi intensity - 3.0-4.0 07/07/2016 Pt Khs6050 PT 21.2 seconds 06/27/2016 Pt Sdn5732 INR 1.9 06/27/2016 Pt Urk1250 Low Intensity - 1.5-2.0 06/27/2016 Pt Ijo6542 Mod intensity - 2.0-3.0 06/27/2016 Pt Pvg6129 Hi intensity - 3.0-4.0 06/27/2016 Pt Fza8647 PT 20.4 seconds 06/23/2016 Pt Rae4750 INR 1.8 06/23/2016 Pt Xak7019 Low Intensity - 1.5-2.0 06/23/2016 Pt Xmd8213 Mod intensity - 2.0-3.0 06/23/2016 Pt Ecf3501 Hi intensity - 3.0-4.0 06/23/2016 Pt Ieo4372 PT 17.6 seconds 05/22/2016 Pt Vin7380 INR 1.5 05/22/2016 Pt Kmh6476 Low Intensity - 1.5-2.0 05/22/2016 Pt Ihe3037 Mod intensity - 2.0-3.0 05/22/2016 Pt Cys2048 Hi intensity - 3.0-4.0 05/22/2016 Pt Ulj0912 PT 22.1 seconds 04/22/2016 Pt Spc6589 INR 2.1 04/22/2016 Pt Kqq1684 Low Intensity - 1.5-2.0 04/22/2016 Pt Ysn7783 Mod intensity - 2.0-3.0 04/22/2016 Pt Edy5785 Hi intensity - 3.0-4.0 04/22/2016 Pt Tew6904 PT 28.3 seconds 04/07/2016 Pt Bos7676 INR 2.8 04/07/2016 Pt Peg3464 Low Intensity - 1.5-2.0 04/07/2016 Pt Ayo8393 Mod intensity - 2.0-3.0 04/07/2016 Pt Dlt9619 Hi intensity - 3.0-4.0 04/07/2016 Review of Systems System Result Effective Dates Constitutional recent illness 09/09/2016 Constitutional No chills 09/09/2016 Constitutional fatigue 0 09/09/2016 Constitutional No insomnia 09/09/2016 Constitutional No malaise 09/09/2016 Eyes No vision change Ears/Nose/Throat/Neck No dizziness 09/09/2016 Ears/Nose/Throat/Neck No dysphagia 09/09/2016 Ears/Nose/Throat/Neck No headache 09/09/2016 Ears/Nose/Throat/Neck No hearing loss 09/09/2016 Ears/Nose/Throat/Neck No nasal allergies 09/09/2016 Ears/Nose/Throat/Neck sore throat 09/09/2016 Cardiovascular No chest pain/pressure 09/09/2016 Cardiovascular No dyspnea 09/09/2016 Cardiovascular No edema 09/09/2016 Cardiovascular No exercise intolerance 09/09/2016 Cardiovascular fatigue 0 09/09/2016 Cardiovascular No near-syncope/dizziness 09/09/2016 Respiratory No chest tightness 09/09/2016 Respiratory No cough 01/2017 Respiratory No dyspnea 0 09/09/2016 Respiratory No pedal edema 09/09/2016 Gastrointestinal No abdominal pain 09/09/2016 Gastrointestinal No constipation 09/09/2016 Gastrointestinal No diarrhea 09/09/2016 Gastrointestinal No gastroesophageal reflu x 09/09/2016 Gastrointestinal No nausea 09/09/2016 Gastrointestinal No vomiting 09/09/2016 Genitourinary/Nephrology No dysuria 09/09/2016 Genitourinary/Nephrology No nocturia 09/09/2016 Genitourinary/Nephrology No urinary incontinence 09/09/2016 Musculoskeletal stiffness 09/09/2016 Musculoskeletal No swelling 09/09/2016 Musculoskeletal No muscle weakness 09/09/2016 Musculoskeletal No myalgias 09/09/2016 Dermatologic No rash 01/2017 Dermatologic No sores Neurologic No dizziness 09/09/2016 Neurologic No headache 0 09/09/2016 Neurologic No neck pain 09/09/2016 Neurologic No syncope Psychiatric No anxiety 0 09/09/2016 Psychiatric No depression 09/09/2016 Musculoskeletal arthralgia(s) 09/09/2016 Constitutional recent illness 07/08/2016 Constitutional No chills 07/08/2016 Constitutional fatigue 0 07/08/2016 Constitutional No fever 07/08/2016 Constitutional No insomnia 07/08/2016 Constitutional No malaise 07/08/2016 Eyes No vision change Ears/Nose/Throat/Neck No dizziness 07/08/2016 Ears/Nose/Throat/Neck No dysphagia 07/08/2016 Ears/Nose/Throat/Neck No headache 07/08/2016 Ears/Nose/Throat/Neck No hearing loss 07/08/2016 Ears/Nose/Throat/Neck No nasal allergies 07/08/2016 Ears/Nose/Throat/Neck sore throat 07/08/2016 Cardiovascular No chest pain/pressure 07/08/2016 Cardiovascular No dyspnea 07/08/2016 Cardiovascular No edema 07/08/2016 Cardiovascular No exercise intolerance 07/08/2016 Cardiovascular fatigue 0 07/08/2016 Cardiovascular No near-syncope/dizziness 07/08/2016 Respiratory No chest tightness 07/08/2016 Respiratory No cough 11/2016 Respiratory No dyspnea 0 07/08/2016 Respiratory No pedal edema 07/08/2016 Gastrointestinal No abdominal pain 07/08/2016 Gastrointestinal No constipation 07/08/2016 Gastrointestinal No diarrhea 07/08/2016 Gastrointestinal No gastroesophageal reflu x 07/08/2016 Gastrointestinal No nausea 07/08/2016 Gastrointestinal No vomiting 07/08/2016 Genitourinary/Nephrology No dysuria 07/08/2016 Genitourinary/Nephrology No nocturia 07/08/2016 Genitourinary/Nephrology No urinary incontinence 07/08/2016 Musculoskeletal No stiffness 07/08/2016 Musculoskeletal No swelling 07/08/2016 Musculoskeletal No muscle weakness 07/08/2016 Musculoskeletal No myalgias 07/08/2016 Dermatologic No rash 11/2016 Dermatologic No sores Neurologic No dizziness 07/08/2016 Neurologic No headache 0 07/08/2016 Neurologic No neck pain 07/08/2016 Neurologic No syncope Psychiatric No anxiety 0 07/08/2016 Psychiatric No depression 07/08/2016 Constitutional recent illness 04/10/2016 Constitutional No chills 04/10/2016 Constitutional fatigue 1 06/11/2015 Constitutional No fever 04/10/2016 Constitutional No insomnia 04/10/2016 Constitutional No malaise 04/10/2016 Eyes No vision change Ears/Nose/Throat/Neck No dizziness 04/10/2016 Ears/Nose/Throat/Neck No dysphagia 04/10/2016 Ears/Nose/Throat/Neck No headache 04/10/2016 Ears/Nose/Throat/Neck No hearing loss 04/10/2016 Ears/Nose/Throat/Neck No nasal allergies 04/10/2016 Ears/Nose/Throat/Neck sore throat 04/10/2016 Cardiovascular No chest pain/pressure 04/10/2016 Cardiovascular No dyspnea 04/10/2016 Cardiovascular No edema 04/10/2016 Cardiovascular No exercise intolerance 04/10/2016 Cardiovascular fatigue 1 06/11/2015 Cardiovascular No near-syncope/dizziness 04/10/2016 Respiratory No chest tightness 04/10/2016 Respiratory No cough 12/2015 Respiratory No dyspnea 1 06/11/2015 Respiratory No pedal edema 04/10/2016 Gastrointestinal No abdominal pain 04/10/2016 Gastrointestinal No constipation 04/10/2016 Gastrointestinal No diarrhea 04/10/2016 Gastrointestinal No gastroesophageal reflu x 04/10/2016 Gastrointestinal No nausea 04/10/2016 Gastrointestinal No vomiting 04/10/2016 Genitourinary/Nephrology No dysuria 04/10/2016 Genitourinary/Nephrology No nocturia 04/10/2016 Genitourinary/Nephrology No urinary incontinence 04/10/2016 Musculoskeletal No stiffness 04/10/2016 Musculoskeletal No swelling 04/10/2016 Musculoskeletal No muscle weakness 04/10/2016 Musculoskeletal No myalgias 04/10/2016 Dermatologic No rash 12/2015 Dermatologic No sores Neurologic No dizziness 04/10/2016 Neurologic No headache 1 06/11/2015 Neurologic No neck pain 04/10/2016 Neurologic No syncope Psychiatric No anxiety 1 06/11/2015 Psychiatric No depression 04/10/2016 Physical Exam Exam Name System Name It em Name Status Result Effective Dates Notes Full Exam - General 1994 Constitutional general appearance Development: well developed 09/09/2016 None Full Exam - General 1994 Constitutional general appearance Development: appears stated age 0509/09/2016 None Full Exam - General 1994 Constitutional general appearance Hygiene/Attention to Grooming: good hygiene 09/09/2016 None Full Exam - General 1994 Eyes conjunctiva/eyelids Overall: conjunctiva clear 09/09/2016 None Full Exam - General 1994 Eyes conjunctiva/eyelids Overall: cornea clear 09/09/2016 None Full Exam - General 1994 Eyes conjunctiva/eyelids Overall: eyelids normal 09/09/2016 None Full Exam - General 1994 Eyes pupils and irises Overall: pupils equal, round, reactive to light and accomodation 09/09/2016 None Full Exam - General 1994 Ears/Nose/Throat otoscopic exam Overall: external auditory canals clear 09/09/2016 None Full Exam - General 1994 Ears/Nose/Throat otoscopic exam Overall: tympanic membranes clear 09/09/2016 None Full Exam - General 1994 Ears/Nose/Throat lips/teeth/gingiva Overall: benign lips 09/09/2016 None Full Exam - General 1994 Ears/Nose/Throat lips/teeth/gingiva Overall: normal dentition 09/09/2016 None Full Exam - General 1994 Ears/Nose/Throat oral cavity/pharynx/larynx Overall: oral mucosa clear 09/09/2016 None Full Exam - General 1994 Ears/Nose/Throat oral cavity/pharynx/larynx Overall: oropharyngeal mucosa clear 09/09/2016 None Full Exam - General 1994 Ears/Nose/Throat oral cavity/pharynx/larynx Overall: hypopharynx benign 09/09/2016 None Full Exam - General 1994 Ears/Nose/Throat oral cavity/pharynx/larynx Overall: no masses 09/09/2016 None Full Exam - General 1994 Respiratory auscultation Overall: breath sounds clear bilaterally 09/09/2016 None Full Exam - General 1994 Respiratory respiratory effort/rhythm Overall: no retractions 09/09/2016 None Full Exam - General 1994 Respiratory respiratory effort/rhythm Overall: normal rate 09/09/2016 None Full Exam - General 1994 Cardiovascular extremities Overall: no clubbing 09/09/2016 None Full Exam - General 1994 Cardiovascular auscultation of heart Rhythm: irregularly irregular rhythm 09/09/2016 None Full Exam - General 1994 Abdomen abdominal exam Overall: no tenderness 09/09/2016 None Full Exam - General 1994 Abdomen abdominal exam Overall: normal bowel sounds 09/09/2016 None Full Exam - General 1994 Lymphatic neck nodes Overall: anterior cervical chain benign 09/09/2016 None Full Exam - General 1994 Lymphatic neck nodes Overall: posterior cervical chain benign 09/09/2016 None Full Exam - General 1994 Musculoskeletal spine, ribs and pelvis Overall: spine benign 09/09/2016 None Full Exam - General 1994 Musculoskeletal spine, ribs and pelvis Overall: sacroiliac joint benign 09/09/2016 None Full Exam - General 1994 Musculoskeletal spine, ribs and pelvis Overall: good posture 09/09/2016 None Full Exam - General 1994 Musculoskeletal head and neck Overall: head atraumatic 09/09/2016 None Full Exam - General 1994 Musculoskeletal head and neck Overall: cervical spine benign 09/09/2016 None Full Exam - General 1994 Integument inspection of skin Overall: few scattered moles, no gross abnormalities 09/09/2016 None Full Exam - General 1994 Neurologic deep tendon reflexes Overall: deep tendon reflexes intact 09/09/2016 None Full Exam - General 1994 Neurologic cranial nerves Overall: crainial nerves 2 - 12 grossly intact 09/09/2016 None Full Exam - General 1994 Psychiatric orientation/consciousness Overall: oriented to person, place and time 09/09/2016 None Full Exam - General 1994 Psychiatric mood and affect Overall: normal mood and affect 09/09/2016 None Full Exam - General 1994 Musculoskeletal lower extremity Palpation - knee: crepitus 09/09/2016 None Full Exam - General 1994 Constitutional general appearance Development: well developed 07/08/2016 None Full Exam - General 1994 Constitutional general appearance Development: appears stated age 0307/08/2016 None Full Exam - General 1994 Constitutional general appearance Hygiene/Attention to Grooming: good hygiene 07/08/2016 None Full Exam - General 1994 Eyes conjunctiva/eyelids Overall: conjunctiva clear 07/08/2016 None Full Exam - General 1994 Eyes conjunctiva/eyelids Overall: cornea clear 07/08/2016 None Full Exam - General 1994 Eyes conjunctiva/eyelids Overall: eyelids normal 07/08/2016 None Full Exam - General 1994 Eyes pupils and irises Overall: pupils equal, round, reactive to light and accomodation 07/08/2016 None Full Exam - General 1994 Ears/Nose/Throat otoscopic exam Overall: external auditory canals clear 07/08/2016 None Full Exam - General 1994 Ears/Nose/Throat otoscopic exam Overall: tympanic membranes clear 07/08/2016 None Full Exam - General 1994 Ears/Nose/Throat lips/teeth/gingiva Overall: benign lips 07/08/2016 None Full Exam - General 1994 Ears/Nose/Throat lips/teeth/gingiva Overall: normal dentition 07/08/2016 None Full Exam - General 1994 Ears/Nose/Throat oral cavity/pharynx/larynx Overall: oral mucosa clear 07/08/2016 None Full Exam - General 1995 Ears/Nose/Throat oral cavity/pharynx/larynx Overall: oropharyngeal mucosa clear 07/08/2016 None Full Exam - General 1994 Ears/Nose/Throat oral cavity/pharynx/larynx Overall: hypopharynx benign 07/08/2016 None Full Exam - General 1994 Ears/Nose/Throat oral cavity/pharynx/larynx Overall: no masses 07/08/2016 None Full Exam - General 1994 Respiratory auscultation Overall: breath sounds clear bilaterally 07/08/2016 None Full Exam - General 1994 Respiratory respiratory effort/rhythm Overall: no retractions 07/08/2016 None Full Exam - General 1994 Respiratory respiratory effort/rhythm Overall: normal rate 07/08/2016 None Full Exam - General 1994 Cardiovascular extremities Overall: no clubbing 07/08/2016 None Full Exam - General 1994 Cardiovascular auscultation of heart Rhythm: irregularly irregular rhythm 07/08/2016 None Full Exam - General 1994 Abdomen abdominal exam Overall: no tenderness 07/08/2016 None Full Exam - General 1994 Abdomen abdominal exam Overall: normal bowel sounds 07/08/2016 None Full Exam - General 1994 Lymphatic neck nodes Overall: anterior cervical chain benign 07/08/2016 None Full Exam - General 1994 Lymphatic neck nodes Overall: posterior cervical chain benign 07/08/2016 None Full Exam - General 1994 Musculoskeletal spine, ribs and pelvis Overall: spine benign 07/08/2016 None Full Exam - General 1994 Musculoskeletal spine, ribs and pelvis Overall: sacroiliac joint benign 07/08/2016 None Full Exam - General 1994 Musculoskeletal spine, ribs and pelvis Overall: good posture 07/08/2016 None Full Exam - General 1994 Musculoskeletal head and neck Overall: head atraumatic 07/08/2016 None Full Exam - General 1994 Musculoskeletal head and neck Overall: cervical spine benign 07/08/2016 None Full Exam - General 1994 Integument inspection of skin Overall: few scattered moles, no gross abnormalities 07/08/2016 None Full Exam - General 1994 Neurologic deep tendon reflexes Overall: deep tendon reflexes intact 07/08/2016 None Full Exam - General 1994 Neurologic cranial nerves Overall: crainial nerves 2 - 12 grossly intact 07/08/2016 None Full Exam - General 1994 Psychiatric orientation/consciousness Overall: oriented to person, place and time 07/08/2016 None Full Exam - General 1994 Psychiatric mood and affect Overall: normal mood and affect 07/08/2016 None Full Exam - General 1994 Constitutional general appearance Development: well developed 04/10/2016 None Full Exam - General 1994 Constitutional general appearance Development: appears stated age 1204/10/2016 None Full Exam - General 1994 Constitutional general appearance Hygiene/Attention to Grooming: good hygiene 04/10/2016 None Full Exam - General 1994 Eyes conjunctiva/eyelids Overall: conjunctiva clear 04/10/2016 None Full Exam - General 1994 Eyes conjunctiva/eyelids Overall: cornea clear 04/10/2016 None Full Exam - General 1994 Eyes conjunctiva/eyelids Overall: eyelids normal 04/10/2016 None Full Exam - General 1994 Eyes pupils and irises Overall: pupils equal, round, reactive to light and accomodation 04/10/2016 None Full Exam - General 1994 Ears/Nose/Throat otoscopic exam Overall: external auditory canals clear 04/10/2016 None Full Exam - General 1994 Ears/Nose/Throat otoscopic exam Overall: tympanic membranes clear 04/10/2016 None Full Exam - General 1994 Ears/Nose/Throat lips/teeth/gingiva Overall: benign lips 04/10/2016 None Full Exam - General 1994 Ears/Nose/Throat lips/teeth/gingiva Overall: normal dentition 04/10/2016 None Full Exam - General 1994 Ears/Nose/Throat oral cavity/pharynx/larynx Overall: oral mucosa clear 04/10/2016 None Full Exam - General 1994 Ears/Nose/Throat oral cavity/pharynx/larynx Overall: oropharyngeal mucosa clear 04/10/2016 None Full Exam - General 1994 Ears/Nose/Throat oral cavity/pharynx/larynx Overall: hypopharynx benign 04/10/2016 None Full Exam - General 1994 Ears/Nose/Throat oral cavity/pharynx/larynx Overall: no masses 04/10/2016 None Full Exam - General 1994 Respiratory auscultation Overall: breath sounds clear bilaterally 04/10/2016 None Full Exam - General 1994 Respiratory respiratory effort/rhythm Overall: no retractions 04/10/2016 None Full Exam - General 1994 Respiratory respiratory effort/rhythm Overall: normal rate 04/10/2016 None Full Exam - General 1994 Cardiovascular extremities Overall: no clubbing 04/10/2016 None Full Exam - General 1994 Abdomen abdominal exam Overall: no tenderness 04/10/2016 None Full Exam - General 1994 Abdomen abdominal exam Overall: normal bowel sounds 04/10/2016 None Full Exam - General 1994 Lymphatic neck nodes Overall: anterior cervical chain benign 04/10/2016 None Full Exam - General 1994 Lymphatic neck nodes Overall: posterior cervical chain benign 04/10/2016 None Full Exam - General 1994 Musculoskeletal spine, ribs and pelvis Overall: spine benign 04/10/2016 None Full Exam - General 1994 Musculoskeletal spine, ribs and pelvis Overall: sacroiliac joint benign 04/10/2016 None Full Exam - General 1994 Musculoskeletal spine, ribs and pelvis Overall: good posture 04/10/2016 None Full Exam - General 1994 Musculoskeletal head and neck Overall: head atraumatic 04/10/2016 None Full Exam - General 1994 Musculoskeletal head and neck Overall: cervical spine benign 04/10/2016 None Full Exam - General 1994 Integument inspection of skin Overall: few scattered moles, no gross abnormalities 04/10/2016 None Full Exam - General 1994 Neurologic deep tendon reflexes Overall: deep tendon reflexes intact 04/10/2016 None Full Exam - General 1994 Neurologic cranial nerves Overall: crainial nerves 2 - 12 grossly intact 04/10/2016 None Full Exam - General 1994 Psychiatric orientation/consciousness Overall: oriented to person, place and time 04/10/2016 None Full Exam - General 1994 Psychiatric mood and affect Overall: normal mood and affect 04/10/2016 None Full Exam - General 1994 Cardiovascular auscultation of heart Rhythm: irregularly irregular rhythm 04/10/2016 None Procedures No Procedures data Vital Signs Date Vital 09/09/2016 Blood Pressure 1: 130/84 Code: 8480-6 BMI: 36.5 Code: 77095-5 Heart Rate 1: 95 bpm Height: 5'3" SpO2: 95% Weight: 206 lbs 07/08/2016 Blood Pressure 1: 110/64 Code: 8480-6 BMI: 36.0 Code: 31324-0 Heart Rate 1: 99 bpm Height: 5'3" SpO2: 95% Weight: 203 lbs 04/10/2016 Blood Pressure 1: 118/76 Code: 8480-6 BMI: 34.7 Code: 21192-8 Heart Rate 1: 90 bpm Height: 5'3" SpO2: 93% Weight: 196 lbs Functional Status No Functional Status data History of Present Illness Symptom Name Status Resu lt Effective Date Notes hypertension Quality danette xena hypertension 09/09/2016 None hypertension Onset and Resolution ongoing 09/09/2016 None hypertension Onset of Symptom during adulthood 09/09/2016 None hypertension Blood Pressure Values not checking blood pressure at home 09/09/2016 None hypertension Alleviating Factors medication 09/09/2016 None hypertension Pertinent Findings dizziness 09/09/2016 -intermittent episodes hypertension Pertinent Findings edema 09/09/2016 (mild) myalgias Location on bot h legs 09/09/2016 None myalgias Quality intermi ttent 09/09/2016 None myalgias Quality acute 09/09/2016 None myalgias Quality cramping 09/09/2016 None myalgias Frequency of Episodes daily 09/09/2016 None myalgias Timing of Episodes at night 09/09/2016 None myalgias Timing of Episodes during sleep 09/09/2016 None myalgias Triggers no kno wn associated factors 09/09/2016 None hearing loss Location in both ears 09/09/2016 None hearing loss Quality wor sening 09/09/2016 None hearing loss Onset and Resolution gradual in onset 09/09/2016 None muscle weakness Location diffusely 09/09/2016 None muscle weakness Quality upper extremities 09/09/2016 None muscle weakness Quality lower extremities 09/09/2016 None muscle weakness Triggers no known associated factors 09/09/2016 None arrhythmia Quality irreg ular beats 07/08/2016 (atrial fibrillation) arrhythmia Quality chron ic 07/08/2016 None arrhythmia Onset and Resolution ongoing 07/08/2016 None arrhythmia Alleviating Factors medication 07/08/2016 None hypertension Onset and Resolution ongoing 07/08/2016 None hypertension Onset of Symptom during adulthood 07/08/2016 None arrhythmia Onset of Symptom during adulthood 07/08/2016 None Hospital Follow Up _ [facility] 04/10/2016 None Advance Directives No Advance Directive data Encounters Encounter Performer Loca tion Codes Date ([id number]) [id number] EST. P ATIENT, LEVEL IV Diagnosis: Chronic atrial fibrillation[ICD10: I48.2] Diagnosis: Essential (primary) hypertension[ICD10: I10] Diagnosis: Pain in left leg[ICD10: M79.605] Diagnosis: Pain in right leg[ICD10: M79.604] Diagnosis: Bilateral primary osteoarthritis of knee[ICD10: M17.0] Seema Han MD, [facility] CPT-4: 23954 09/09/2016 ([id number]) [id number] EST. P ATIENT, LEVEL IV Diagnosis: Essential (primary) hypertension[ICD10: I10] Diagnosis: Gastro-esophageal reflux disease without esophagitis[ICD10: K21.9] Seema Han MD, [facility] CPT-4: 92593 07/08/2016 ([id number]) [id number] EST. P ATIENT, LEVEL IV Diagnosis: Essential (primary) hypertension[ICD10: I10] Diagnosis: Chronic atrial fibrillation[ICD10: I48.2] Diagnosis: Gastro-esophageal reflux disease without esophagitis[ICD10: K21.9] Seema Han MD, [facility] CPT-4: 23600 04/10/2016 Plan of Care Planned Activity Notes C odes Status Date Referral: [facility] physical therapy WPtel: [phone] [facility]66[facility] Patient informed. Completed 09/18/2016 Care Plan: Referral Order SNOMED-CT : [id number] Pending 09/10/2016 Visit Plan: Atrial Fibrillation - pt on chronic anticoagulation and is currently rate controlled. The pt is to have labs done as appropriate to monitor medication levels and is to report if they start to feel as if their heart rate is becoming uncontrolled.Hypertension - well controlled - continue with current medications, continue with no added salt diet. Pt has been encouraged to exercise daily.The pt has been advised to call the office if there are any acute concerns about change in blood pressure readings at home.Knee pain - recommended water therapy 09/09/2016 Appointment: Seema Han WPtel: [facility]7 [facility] (15 min) Moderate 09/09/2016 Patient Education: Patient Medication Summary Completed 09/09/2016 Patient Education: Obesity Completed 09/09/2016 Visit Plan: Hypertension - well controll ed - continue with current medications, continue with no added salt diet. Pt has been encouraged to exercise daily.The pt has been advised to call the office if there are any acute concerns about change in blood pressure readings at home.Esophageal Reflux - the patient has been counseled against excessive intake of caffeine, spicy foods, peppermint, and cinnamon - all of which can exacerbate esophageal reflux.The patient is to take medications as prescribed and call the office if the symptoms are not improving. 07/08/2016 Appointment: Seema Han WPtel: [facility]4 [facility] (15 min) Moderate 07/08/2016 Patient Education: Patient Medication Summary Completed 07/08/2016 Patient Education: Obesity Completed 07/08/2016 Visit Plan: Hypertension - well controll ed - continue with current medications, continue with no added salt diet. Pt has been encouraged to exercise daily.The pt has been advised to call the office if there are any acute concerns about change in blood pressure readings at home.Atrial Fibrillation - pt on chronic anticoagulation and is currently rate controlled. The pt is to have labs done as appropriate to monitor medication levels and is to report if they start to feel as if their heart rate is becoming uncontrolled. referral to Dr. Clineophageal Reflux - the patient has been counseled against excessive intake of caffeine, spicy foods, peppermint, and cinnamon - all of which can exacerbate esophageal reflux.The patient is to take medications as prescribed and call the office if the symptoms are not improving. 04/10/2016 [facility]ment: [phone] [facility] Patient 04/10/2016 Patient Education: Patient Medication Summary Completed 04/10/2016 Patient Education: Obesity Completed 04/10/2016 [phone] Referral Appointment Requested Instructions Comment . Hypertension - wel l controlled - continue with current medications, continue with no added salt diet. Pt has been encouraged to exercise daily. The pt has been advised to call the office if there are any acute concerns about change in blood pressure readings at home. Esophageal Reflux - the patient has been counseled against excessive intake of caffeine, spicy foods, peppermint, and cinnamon - all of which can exacerbate esophageal reflux. The patient is to take medications as prescribed and call the office if the symptoms are not improving. . Atrial Fibrillatio n - pt on chronic anticoagulation and is currently rate controlled. The pt is to have labs done as appropriate to monitor medication levels and is to report if they start to feel as if their heart rate is becoming uncontrolled. Hypertension - well controlled - continue with current medications, continue with no added salt diet. Pt has been encouraged to exercise daily. The pt has been advised to call the office if there are any acute concerns about change in blood pressure readings at home. Knee pain - recommended water therapy . Hypertension - wel l controlled - continue with current medications, continue with no added salt diet. Pt has been encouraged to exercise daily. The pt has been advised to call the office if there are any acute concerns about change in blood pressure readings at home. Atrial Fibrillation - pt on chronic anticoagulation and is currently rate controlled. The pt is to have labs done as appropriate to monitor medication levels and is to report if they start to feel as if their heart rate is becoming uncontrolled. referral to Dr. Espinoza Esophageal Reflux - the patient has been counseled against excessive intake of caffeine, spicy foods, peppermint, and cinnamon - all of which can exacerbate esophageal reflux. The patient is to take medications as prescribed and call the office if the symptoms are not improving.
--- OUTSIDE RECORDS SUMMARY | 2019-07-16 00:25 | XMS REPORT | CCD ---
Author Author External, Mona Tucker Organization Seema Han MD, [facility] Address Unknown Phone Unavailable Care Team Providers Care Division Operations Specialist Name Role Phone PP Unavailable CCM Unavailable Summary Purpose Interface Exchange Insurance Providers Payer name Policy type / Coverage type Covered libertarian ID Effective Begin Date Effective End Date WPS Medicare Part B Medicare Part B [id number] Unknown [employer] Medic[employer] e Part B [id number] Unkno wn Family history Father Diagnosis Age At Onset Stroke Unknown Heart Attack Unknown Diabetes Unknown Mother Diagnosis Age At Onset Cancer Unknown Asthma Unknown Social History Social History Element Codes Description Effective Dates Marital status Unknown M arried Raciel 07/08/2016 Number of children Unknown 3 04/10/2016 Employment Unknown Retir ed 04/10/[address]: 103795872 Never smoker 04/10/[address]: 111017869 Never drinks alcohol 04/10/2016 Allergies, Adverse Reactions, Alerts Substance Reaction Codes Entered Date Inactivated Date Status Lisinopril cough, rash Unknown 05/14/2017 No Inactive Date Active Past Medical History Illness Codes Condition Status Onset Date Resolved Date Chronic atrial fibri llation ICD-9: 427.31 ICD-10: I48.2 Active 04/10/2016 Unknown Essential (primary) hypertension ICD-9: 401.1 ICD-10: I10 Active 04/10/2016 Unknown Gastro-esophageal re flux disease without esophagitis ICD-9: 530.81 ICD-10: K21.9 Active 04/10/2016 Unknown longterm (current) use of anticoagulants ICD-9: V58.61 ICD-10: Z79.01 Active 01/08/2017 Unknown Benign paroxysmal ve rtigo, bilateral ICD-9: 386.11 ICD-10: H81.13 Active 03/17/2017 Unknown Morbid (severe) obes ity due to excess calories ICD-9: 278.01 ICD-10: E66.01 Active 01/08/2017 Unknown Bilateral primary os teoarthritis of knee ICD-9: 715.96 ICD-10: M17.0 Active 09/09/2016 Unknown Pain in left leg ICD-9: 729.5 ICD-10: M79.605 Active 09/09/2016 Unknown Pain in right leg ICD-9: 729.5 ICD-10: M79.604 Active 09/09/2016 Unknown Problems Condition Codes Effectiv e Dates Condition Status Chronic atrial fibri llation ICD-9: 427.31 ICD-10: I48.2 04/10/2016 Active Essential (primary) hypertension ICD-9: 401.1 ICD-10: I10 04/10/2016 Active Gastro-esophageal re flux disease without esophagitis ICD-9: 530.81 ICD-10: K21.9 04/10/2016 Active 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-9: V58.61 ICD-10: Z79.01 01/08/2017 Active Benign paroxysmal ve rtigo, bilateral ICD-9: 386.11 ICD-10: H81.13 03/17/2017 Active Morbid (severe) obes ity due to excess calories ICD-9: 278.01 ICD-10: E66.01 01/08/2017 Active Bilateral primary os teoarthritis of knee ICD-9: 715.96 ICD-10: M17.0 09/09/2016 Active Pain in left leg ICD-9: 729.5 ICD-10: M79.605 09/09/2016 Active Pain in right leg ICD-9: 729.5 ICD-10: M79.604 09/09/2016 Active Medications Medication Codes Instruc tions Start Date Stop Date Sta Fill Instructions amoxicillin 500 mg t ablet RxNorm: 029625 2 Tablet(s) PO UD 03/17/2017 No Stop Date Active 2 po 1 hour prior to dental procedure and repeat 2 pills evening after dental procedure meclizine 25 mg tablet RxNorm: 063841 1 Tablet(s) PO Q8 PRN 03/17/2017 No Stop Date Active meclizine 25 mg tablet RxNorm: 061615 1 Tablet(s) PO Q8 PRN 03/17/2017 03/16/2017 Inactive warfarin 2.5 mg tablet RxNorm: 058210 1 Tablet(s) PO m/tue/w/f/sat 1/2 tab oth er days 01/08/2017 07/06/2017 Active metoprolol tartrate 25 mg tablet RxNorm: 081187 /2 Tablet(s) PO BID 07/10/2016 07/04/2017 Active montelukast 10 mg ta blet RxNorm: 007514 1 Tablet(s) PO daily 07/08/2016 07/02/2017 Active omeprazole 20 mg cap jaren,delayed release RxNorm: 937085 1 Capsule(s) PO daily 07/08/2016 07/02/2017 Ac tive warfarin 2.5 mg tablet RxNorm: 944471 1 Tablet(s) PO /thu///sat 1/ tab oth er days 07/08/2016 01/03/2017 Inactive omeprazole 20 mg cap jaren,delayed release RxNorm: 667958 1 Capsule(s) PO daily 06/23/2016 07/07/2016 In active montelukast 10 mg ta blet RxNorm: 20010607 1 Tablet(s) PO daily 06/23/2016 07/07/2016 Inactive aspirin 81 mg tablet RxNorm: 798018 1 Tablet(s) PO daily No Start Date Active albuterol sulfate 1. 25 mg/3 mL solution for nebulization RxNorm: 739851 Milliliter(s) INH as needed No Start Date Active melatonin 10 mg RxNorm: 1 PO QHS No Start Date Active Advair Diskus 500 mc g-50 mcg/dose powder for inhalation RxNorm: 5559867 1 INH BID No Start Date Active magnesium oxide 400 mg capsule RxNorm: 651916 1 Capsule(s) PO No Start Date Active 1 tab twice a week fluticasone 50 mcg/a ctuation nasal spray,suspension RxNorm: 1913953 1 [place] NASAL daily No Start Date Active amoxicillin 500 mg t ablet RxNorm: 474682 2 Tablet(s) PO UD No Start Date 03/16/2017 Inactive 2 po 1 hour prior to dental procedure and repeat 2 pills evening after dental procedure montelukast 10 mg ta blet RxNorm: 096494 1 Tablet(s) PO daily No Start Date 06/22/2016 Inactive omeprazole 20 mg cap jaren,delayed release RxNorm: 227132 1 Capsule(s) PO No Start Date 06/22/2016 Inactive warfarin 2.5 mg tablet RxNorm: 978687 1 Tablet(s) PO -w- 1.25 other days No Start Date 07/07/2016 Inactive metoprolol tartrate 12.5 Tablet RxNorm: 1 Tablet(s) PO BID No Start Date 07/09/2016 Inactive Medication Administered No Medication Administered data Immunizations No Immunization data Assessments Condition Codes Effectiv e Dates Chronic atrial fibrillation ICD-10: I48.2 ICD-9: 427.31 05/14/2017 Essential (primary) hypertension ICD -10: I10 ICD-9: 401.1 05/14/2017 Gastro-esophageal reflux disease without esophagitis ICD-10: K21.9 ICD-9: 530.81 05/14/2017 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-10: Z79.01 ICD-9: V58.61 05/05/2017 Benign paroxysmal vertigo, bilateral ICD-10: H81.13 ICD-9: 386.11 03/17/2017 Morbid (severe) obesity due to excess calories ICD-10: E66.01 ICD-9: 278.01 01/08/2017 Pain in left leg ICD-10: M79.605 ICD-9: 729.5 09/09/2016 Bilateral primary osteoarthritis of knee ICD-10: M17.0 ICD-9: 715.96 09/09/2016 Pain in right leg ICD-10: M79.604 ICD-9: 729.5 09/09/2016 Reason For Visit Reason For Visit Effective Dates Notes hypertension 05/14/2017 Hospital Follow Up 03/17/2017 hypertension 01/08/2017 hypertension 09/09/2016 hypertension 07/08/2016 Hospital Follow Up 04/10/2016 Results Observation Observation Code Item Item Code Result Date Pt Wqu5035 PT 24.9 seconds 05/19/2017 Pt Lca9536 INR 2.3 05/19/2017 Pt Qju7751 Low Intensity - 1.5-2.0 05/19/2017 Pt Mlo7766 Mod intensity - 2.0-3.0 05/19/2017 Pt Bwm4203 Hi intensity - 3.0-4.0 05/19/2017 Pt Grr5548 PT 21.4 seconds 05/05/2017 Pt Ptc5459 INR 1.9 05/05/2017 Pt Fcn9738 Low Intensity - 1.5-2.0 05/05/2017 Pt Avv9754 Mod intensity - 2.0-3.0 05/05/2017 Pt Irb7499 Hi intensity - 3.0-4.0 05/05/2017 Pt Kby9473 PT 18.9 seconds 04/29/2017 Pt Hpm5526 INR 1.6 04/29/2017 Pt Tzx2867 Low Intensity - 1.5-2.0 04/29/2017 Pt Wcx5511 Mod intensity - 2.0-3.0 04/29/2017 Pt Syh7305 Hi intensity - 3.0-4.0 04/29/2017 Pt Thv3607 PT 25.7 seconds 03/04/2017 Pt Qsk7486 INR 2.3 03/04/2017 Pt Ssd8053 Low Intensity - 1.5-2.0 03/04/2017 Pt Fqe0132 Mod intensity - 2.0-3.0 03/04/2017 Pt Kqm5483 Hi intensity - 3.0-4.0 03/04/2017 Hematopath Consultation, Smear [id number] WBC NORMAL 01/29/2017 Hematopath Consultation, Smear [id number] RBC NORMAL 01/29/2017 Hematopath Consultation, Smear [id number] PLTS NORMAL 01/29/2017 Hematopath Consultation, Smear [id number] PATHOLOGIST COMMENT 01/29/2017 Cbc With Differential Ord2 WBC 3.96 K/ul 01/26/2017 Cbc With Differential Ord2 RBC 4.34 M/ul 01/26/2017 Cbc With Differential Ord2 HGB 12.5 g/dl 01/26/2017 Cbc With Differential Ord2 HCT 38.5 % 01/26/2017 Cbc With Differential Ord2 Neut% 51.4 % 01/26/2017 Cbc With Differential Ord2 MCV 88.7 fl 01/26/2017 Cbc With Differential Ord2 Lymph% 34.6 % 01/26/2017 Cbc With Differential Ord2 MCH 28.8 pg 01/26/2017 Cbc With Differential Ord2 [place]% 10.4 % 01/26/2017 Cbc With Differential Ord2 MCHC 32.5 pg 01/26/2017 Cbc With Differential Ord2 Eos% 2.3 % 01/26/2017 Cbc With Differential Ord2 Baso% 1.3 % 01/26/2017 Cbc With Differential Ord2 PLT 195 K/ul 01/26/2017 Cbc With Differential Ord2 Neut ABS# 2.04 K/ul 01/26/2017 Cbc With Differential Ord2 RDW 15.4 % 01/26/2017 Cbc With Differential Ord2 Lymph ABS# 1.37 K/ul 01/26/2017 Cbc With Differential Ord2 [place] ABS# 0.4 K/ul 01/26/2017 Cbc With Differential Ord2 Eos ABS# 0.1 K/ul 01/26/2017 Cbc With Differential Ord2 Baso ABS# 0.1 K/ul 01/26/2017 Pt Mue7315 PT 25.2 seconds 01/26/2017 Pt Sym2633 INR 2.3 01/26/2017 Pt Air0684 Low Intensity - 1.5-2.0 01/26/2017 Pt Vfh5158 Mod intensity - 2.0-3.0 01/26/2017 Pt Gvh9360 Hi intensity - 3.0-4.0 01/26/2017 Pt Vqo4453 PT 23.3 seconds 12/31/2016 Pt Nri7342 INR 2.1 12/31/2016 Pt Uec8949 Low Intensity - 1.5-2.0 12/31/2016 Pt Fqu2340 Mod intensity - 2.0-3.0 12/31/2016 Pt Unr9454 Hi intensity - 3.0-4.0 12/31/2016 Magnesium Ord90 Mag 1.8 mg/dL 12/31/2016 Cbc With Differential Ord2 WBC 4.48 K/ul 12/31/2016 Cbc With Differential Ord2 RBC 4.28 M/ul 12/31/2016 Cbc With Differential Ord2 HGB 12.3 g/dl 12/31/2016 Cbc With Differential Ord2 HCT 37.5 % 12/31/2016 Cbc With Differential Ord2 Neut% 51.1 % 12/31/2016 Cbc With Differential Ord2 MCV 87.6 fl 12/31/2016 Cbc With Differential Ord2 Lymph% 31.9 % 12/31/2016 Cbc With Differential Ord2 MCH 28.7 pg 12/31/2016 Cbc With Differential Ord2 [place]% 13.6 % 12/31/2016 Cbc With Differential Ord2 MCHC 32.8 pg 12/31/2016 Cbc With Differential Ord2 Eos% 2.7 % 12/31/2016 Cbc With Differential Ord2 PLT 209 K/ul 12/31/2016 Cbc With Differential Ord2 Baso% 0.7 % 12/31/2016 Cbc With Differential Ord2 Neut ABS# 2.29 K/ul 12/31/2016 Cbc With Differential Ord2 RDW 15.4 % 12/31/2016 Cbc With Differential Ord2 Lymph ABS# 1.43 K/ul 12/31/2016 Cbc With Differential Ord2 [place] ABS# 0.6 K/ul 12/31/2016 Cbc With Differential Ord2 Eos ABS# 0.1 K/ul 12/31/2016 Cbc With Differential Ord2 Baso ABS# 0.0 K/ul 12/31/2016 Comp Metabolic Beq949 NA 139 mEq/L 12/31/2016 Comp Metabolic Dza976 K 3.7 mEq/L 12/31/2016 Comp Metabolic Ath120 CL 104 mEq/L 12/31/2016 Comp Metabolic Nni309 CO2 26.0 mEq/L 12/31/2016 Comp Metabolic Zmz236 AN ION GAP 13 12/31/2016 Comp Metabolic Kgy293 GL UCOSE 84 mg/dL 12/31/2016 Comp Metabolic Upt108 Cr eat 0.7 mg/dL 12/31/2016 Comp Metabolic Fik631 eG FR 85 ml/min/1.73m2 12/31 Comp Metabolic Avf394 BUN 13 mg/dL 12/31/2016 Comp Metabolic Apk439 B/ C Ratio 18.1 Ratio 12/31/2016 Comp Metabolic Tta828 CA LCIUM 8.9 mg/dL 12/31/2016 Comp Metabolic Qle222 AL K PHOS 57 U/L 12/31/2016 Comp Metabolic Ean774 T(SGOT) 19 U/L 12/31/2016 Comp Metabolic Qse590 AL T(SGPT) 15 U/L 12/31/2016 Comp Metabolic Cyu083 BI LI T 0.9 mg/dL 12/31/2016 Comp Metabolic Rfi894 AL BUMIN 3.8 g/dL 12/31/2016 Comp Metabolic Jqc266 TP RO 6.7 g/dL 12/31/2016 Comp Metabolic Dyi490 GL OB 2.9 g/dL 12/31/2016 Comp Metabolic Wdy154 A/ G Ratio 1.3 Ratio 12/31/2016 Comp Metabolic Abs297 Os mo 277 mOsmo 12/31/2016 Pt Qeo7271 PT 22.1 seconds 11/24/2016 Pt Ird4324 INR 2.1 11/24/2016 Pt Tgn4185 Low Intensity - 1.5-2.0 11/24/2016 Pt Ojw8339 Mod intensity - 2.0-3.0 11/24/2016 Pt Pxy2120 Hi intensity - 3.0-4.0 11/24/2016 Pt Jof1904 PT 24.6 seconds 10/06/2016 Pt Iqk1212 INR 2.4 10/06/2016 Pt Wcr5220 Low Intensity - 1.5-2.0 10/06/2016 Pt Kld7901 Mod intensity - 2.0-3.0 10/06/2016 Pt Yrw2947 Hi intensity - 3.0-4.0 10/06/2016 Tsh Ord6 [...] 25.9 % 09/10/2016 Cbc With Differential Ord2 [place]% 11.7 % 09/10/2016 Cbc With Differential Ord2 [...] 1.31 K/ul 09/10/2016 Cbc With Differential Ord2 [place] ABS# 0.6 K/ul 09/10/2016 Cbc With Differential Ord2 Eos ABS# 0.1 K/ul 09/10/2016 Cbc With Differential Ord2 Baso ABS# 0.0 K/ul 09/10/2016 Lipid Ord30 CHOL 173 mg/dL 09/10/2016 Lipid Ord30 HDL 51.0 mg/dl 09/10/2016 Lipid Ord30 TRIG 76 mg/dL 09/10/2016 Lipid Ord30 LDL 107 mg/dL 09/10/2016 Lipid Ord30 C/HDL 3.4 Ratio 09/10/2016 Comp Metabolic Pcd154 NA 140 mEq/L 09/10/2016 Comp Metabolic Qjp307 K 3.7 mEq/L 09/10/2016 Comp Metabolic Sby836 CL 105 mEq/L 09/10/2016 Comp Metabolic Ogi220 CO2 26.0 mEq/L 09/10/2016 Comp Metabolic Wmi849 AN ION GAP 13 09/10/2016 Comp Metabolic Ura890 GL UCOSE 91 mg/dL 09/10/2016 Comp Metabolic Wys591 Cr eat 0.7 mg/dL 09/10/2016 Comp Metabolic Ggr171 eG FR 93 ml/min/1.73m2 09/10 Comp Metabolic Ouh450 BUN 12 mg/dL 09/10/2016 Comp Metabolic Uzz852 B/ C Ratio 17.9 Ratio 09/10/2016 Comp Metabolic Wew772 CA LCIUM 8.6 mg/dL 09/10/2016 Comp Metabolic Lxn821 AL K PHOS 70 U/L 09/10/2016 Comp Metabolic Tjr335 T(SGOT) 19 U/L 09/10/2016 Comp Metabolic Anv876 AL T(SGPT) 12 U/L 09/10/2016 Comp Metabolic Pmx297 BI LI T 0.9 mg/dL 09/10/2016 Comp Metabolic Irr416 AL BUMIN 3.6 g/dL 09/10/2016 Comp Metabolic Fjw873 TP RO 6.5 g/dL 09/10/2016 Comp Metabolic Not817 GL OB 2.9 g/dL 09/10/2016 Comp Metabolic Njy674 A/ G Ratio 1.3 Ratio 09/10/2016 Comp Metabolic Wxl428 Os mo 279 mOsmo 09/10/2016 Magnesium Ord90 Mag 1.6 mg/dL 09/10/2016 Pt Soi0441 PT 24.7 seconds 09/10/2016 Pt Vdk2489 INR 2.4 09/10/2016 Pt Oks8103 Low Intensity - 1.5-2.0 09/10/2016 Pt Gew5668 Mod intensity - 2.0-3.0 09/10/2016 Pt Qbj1742 Hi intensity - 3.0-4.0 09/10/2016 Pt Eoi0595 PT 23.1 seconds 08/18/2016 Pt Zet7481 INR 2.2 08/18/2016 Pt Nsk5692 Low Intensity - 1.5-2.0 08/18/2016 Pt Zbn2901 Mod intensity - 2.0-3.0 08/18/2016 Pt Pzw8168 Hi intensity - 3.0-4.0 08/18/2016 Pt Cjj7994 PT 23.7 seconds 07/21/2016 Pt Lmu1528 INR 2.2 07/21/2016 Pt Lsu2577 Low Intensity - 1.5-2.0 07/21/2016 Pt Wyi3500 Mod intensity - 2.0-3.0 07/21/2016 Pt Hca5986 Hi intensity - 3.0-4.0 07/21/2016 Pt Scy9323 PT 20.3 seconds 07/07/2016 Pt Ctq3088 INR 1.8 07/07/2016 Pt Wuc8174 Low Intensity - 1.5-2.0 07/07/2016 Pt Tdb2857 Mod intensity - 2.0-3.0 07/07/2016 Pt Xrp7127 Hi intensity - 3.0-4.0 07/07/2016 Pt Vvz7379 PT 21.2 seconds 06/27/2016 Pt Vzl9832 INR 1.9 06/27/2016 Pt Hlh9893 Low Intensity - 1.5-2.0 06/27/2016 Pt Jhz5276 Mod intensity - 2.0-3.0 06/27/2016 Pt Eja0262 Hi intensity - 3.0-4.0 06/27/2016 Pt Anj4877 PT 20.4 seconds 06/23/2016 Pt Bdv1976 INR 1.8 06/23/2016 Pt Aob3251 Low Intensity - 1.5-2.0 06/23/2016 Pt Nde6514 Mod intensity - 2.0-3.0 06/23/2016 Pt Gcf0308 Hi intensity - 3.0-4.0 06/23/2016 Pt Tmj7593 PT 17.6 seconds 05/22/2016 Pt Mbh5614 INR 1.5 05/22/2016 Pt Txx7026 Low Intensity - 1.5-2.0 05/22/2016 Pt Wql1518 Mod intensity - 2.0-3.0 05/22/2016 Pt Ofy4449 Hi intensity - 3.0-4.0 05/22/2016 Pt Ilp7860 PT 22.1 seconds 04/22/2016 Pt Bzd0163 INR 2.1 04/22/2016 Pt Jyt8920 Low Intensity - 1.5-2.0 04/22/2016 Pt Emp6534 Mod intensity - 2.0-3.0 04/22/2016 Pt Eix2933 Hi intensity - 3.0-4.0 04/22/2016 Pt Skk0512 PT 28.3 seconds 04/07/2016 Pt Fxz5084 INR 2.8 04/07/2016 Pt Nvi6062 Low Intensity - 1.5-2.0 04/07/2016 Pt Lbh1180 Mod intensity - 2.0-3.0 04/07/2016 Pt Jcs9907 Hi intensity - 3.0-4.0 04/07/2016 Review of Systems System Result Effective Dates Constitutional No recent illness 05/14/2017 Constitutional No chills 05/14/2017 Constitutional fatigue 0 05/14/2017 Constitutional No insomnia 05/14/2017 Constitutional No malaise 05/14/2017 Eyes No vision change Ears/Nose/Throat/Neck No dizziness 05/14/2017 Ears/Nose/Throat/Neck No dysphagia 05/14/2017 Ears/Nose/Throat/Neck No headache 05/14/2017 Ears/Nose/Throat/Neck No hearing loss 05/14/2017 Ears/Nose/Throat/Neck No nasal allergies 05/14/2017 Ears/Nose/Throat/Neck sore throat 05/14/2017 Cardiovascular No chest pain/pressure 05/14/2017 Cardiovascular No dyspnea 05/14/2017 Cardiovascular No edema 05/14/2017 Cardiovascular No exercise intolerance 05/14/2017 Cardiovascular fatigue 0 05/14/2017 Cardiovascular No near-syncope/dizziness 05/14/2017 Respiratory No chest tightness 05/14/2017 Respiratory No cough 03/2018 Respiratory No dyspnea 0 05/14/2017 Respiratory No pedal edema 05/14/2017 Gastrointestinal No abdominal pain 05/14/2017 Gastrointestinal No constipation 05/14/2017 Gastrointestinal No diarrhea 05/14/2017 Gastrointestinal No gastroesophageal reflu x 05/14/2017 Gastrointestinal No nausea 05/14/2017 Gastrointestinal No vomiting 05/14/2017 Genitourinary/Nephrology No dysuria 05/14/2017 Genitourinary/Nephrology No nocturia 05/14/2017 Genitourinary/Nephrology No urinary incontinence 05/14/2017 Musculoskeletal stiffness 05/14/2017 Musculoskeletal No swelling 05/14/2017 Musculoskeletal arthralgia(s) 05/14/2017 Musculoskeletal No muscle weakness 05/14/2017 Musculoskeletal No myalgias 05/14/2017 Dermatologic No rash 03/2018 Dermatologic No sores Neurologic No dizziness 05/14/2017 Neurologic No headache 0 05/14/2017 Neurologic No neck pain 05/14/2017 Neurologic No syncope Psychiatric No anxiety 0 05/14/2017 Psychiatric No depression 05/14/2017 Constitutional No recent illness 03/17/2017 Constitutional No chills 03/17/2017 Constitutional fatigue 1 05/17/2016 Constitutional No insomnia 03/17/2017 Constitutional No malaise 03/17/2017 Eyes No vision change Ears/Nose/Throat/Neck dizziness 03/17/2017 Ears/Nose/Throat/Neck No dysphagia 03/17/2017 Ears/Nose/Throat/Neck No headache 03/17/2017 Ears/Nose/Throat/Neck No hearing loss 03/17/2017 Ears/Nose/Throat/Neck No nasal allergies 03/17/2017 Cardiovascular No chest pain/pressure 03/17/2017 Cardiovascular No dyspnea 03/17/2017 Cardiovascular No edema 03/17/2017 Cardiovascular No exercise intolerance 03/17/2017 Cardiovascular fatigue 1 05/17/2016 Cardiovascular No near-syncope/dizziness 03/17/2017 Respiratory No chest tightness 03/17/2017 Respiratory No cough Respiratory No dyspnea 1 05/17/2016 Respiratory No pedal edema 03/17/2017 Gastrointestinal No abdominal pain 03/17/2017 Gastrointestinal No constipation 03/17/2017 Gastrointestinal No diarrhea 03/17/2017 Gastrointestinal No gastroesophageal reflu x 03/17/2017 Gastrointestinal No nausea 03/17/2017 Gastrointestinal No vomiting 03/17/2017 Genitourinary/Nephrology No dysuria 03/17/2017 Genitourinary/Nephrology No nocturia 03/17/2017 Genitourinary/Nephrology No urinary incontinence 03/17/2017 Dermatologic No rash Dermatologic No sores Neurologic dizziness Neurologic No headache 1 05/17/2016 Neurologic No neck pain 03/17/2017 Neurologic No syncope Psychiatric No anxiety 1 05/17/2016 Psychiatric No depression 03/17/2017 Constitutional No anorexia 03/17/2017 Constitutional No night sweats 03/17/2017 Constitutional No diaphoresis 03/17/2017 Constitutional No fever 03/17/2017 Musculoskeletal No joint complaint 03/17/2017 Gastrointestinal gas and bloating 03/17/2017 Constitutional No recent illness 01/08/2017 Constitutional No chills 01/08/2017 Constitutional fatigue 0 01/08/2017 Constitutional No insomnia 01/08/2017 Constitutional No malaise 01/08/2017 Eyes No vision change Ears/Nose/Throat/Neck No dizziness 01/08/2017 Ears/Nose/Throat/Neck No dysphagia 01/08/2017 Ears/Nose/Throat/Neck No headache 01/08/2017 Ears/Nose/Throat/Neck No hearing loss 01/08/2017 Ears/Nose/Throat/Neck No nasal allergies 01/08/2017 Ears/Nose/Throat/Neck sore throat 01/08/2017 Cardiovascular No chest pain/pressure 01/08/2017 Cardiovascular No dyspnea 01/08/2017 Cardiovascular No edema 01/08/2017 Cardiovascular No exercise intolerance 01/08/2017 Cardiovascular fatigue 0 01/08/2017 Cardiovascular No near-syncope/dizziness 01/08/2017 Respiratory No chest tightness 01/08/2017 Respiratory No cough 11/2016 Respiratory No dyspnea 0 01/08/2017 Respiratory No pedal edema 01/08/2017 Gastrointestinal No abdominal pain 01/08/2017 Gastrointestinal No constipation 01/08/2017 Gastrointestinal No diarrhea 01/08/2017 Gastrointestinal No gastroesophageal reflu x 01/08/2017 Gastrointestinal No nausea 01/08/2017 Gastrointestinal No vomiting 01/08/2017 Genitourinary/Nephrology No dysuria 01/08/2017 Genitourinary/Nephrology No nocturia 01/08/2017 Genitourinary/Nephrology No urinary incontinence 01/08/2017 Musculoskeletal stiffness 01/08/2017 Musculoskeletal No swelling 01/08/2017 Musculoskeletal arthralgia(s) 01/08/2017 Musculoskeletal No muscle weakness 01/08/2017 Musculoskeletal No myalgias 01/08/2017 Dermatologic No rash 11/2016 Dermatologic No sores Neurologic No dizziness 01/08/2017 Neurologic No headache 0 01/08/2017 Neurologic No neck pain 01/08/2017 Neurologic No syncope Psychiatric No anxiety 0 01/08/2017 Psychiatric No depression 01/08/2017 Constitutional recent illness 09/09/2016 Constitutional No chills [...] 1994 Constitutional general appearance Development: well developed 05/14/2017 None Full Exam - General 1994 Constitutional general appearance Development: appears stated age 0105/14/2017 None Full Exam - General 1994 Constitutional general appearance Hygiene/Attention to Grooming: good hygiene 05/14/2017 None Full Exam - General 1994 Eyes conjunctiva/eyelids Overall: conjunctiva clear 05/14/2017 None Full Exam - General 1994 Eyes conjunctiva/eyelids Overall: cornea clear 05/14/2017 None Full Exam - General 1994 Eyes conjunctiva/eyelids Overall: eyelids normal 05/14/2017 None Full Exam - General 1994 Eyes pupils and irises Overall: pupils equal, round, reactive to light and accomodation 05/14/2017 None Full Exam - General 1994 Ears/Nose/Throat otoscopic exam Overall: external auditory canals clear 05/14/2017 None Full Exam - General 1994 Ears/Nose/Throat otoscopic exam Overall: tympanic membranes clear 05/14/2017 None Full Exam - General 1994 Ears/Nose/Throat lips/teeth/gingiva Overall: benign lips 05/14/2017 None Full Exam - General 1994 Ears/Nose/Throat lips/teeth/gingiva Overall: normal dentition 05/14/2017 None Full Exam - General 1994 Ears/Nose/Throat oral cavity/pharynx/larynx Overall: oral mucosa clear 05/14/2017 None Full Exam - General 1994 Ears/Nose/Throat oral cavity/pharynx/larynx Overall: oropharyngeal mucosa clear 05/14/2017 None Full Exam - General 1994 Ears/Nose/Throat oral cavity/pharynx/larynx Overall: hypopharynx benign 05/14/2017 None Full Exam - General 1994 Ears/Nose/Throat oral cavity/pharynx/larynx Overall: no masses 05/14/2017 None Full Exam - General 1994 Respiratory auscultation Overall: breath sounds clear bilaterally 05/14/2017 None Full Exam - General 1994 Respiratory respiratory effort/rhythm Overall: no retractions 05/14/2017 None Full Exam - General 1994 Respiratory respiratory effort/rhythm Overall: normal rate 05/14/2017 None Full Exam - General 1994 Cardiovascular extremities Overall: no clubbing 05/14/2017 None Full Exam - General 1994 Cardiovascular auscultation of heart Rhythm: irregularly irregular rhythm 05/14/2017 None Full Exam - General 1994 Abdomen abdominal exam Overall: no tenderness 05/14/2017 None Full Exam - General 1994 Abdomen abdominal exam Overall: normal bowel sounds 05/14/2017 None Full Exam - General 1994 Musculoskeletal spine, ribs and pelvis Overall: spine benign 05/14/2017 None Full Exam - General 1994 Musculoskeletal spine, ribs and pelvis Overall: sacroiliac joint benign 05/14/2017 None Full Exam - General 1994 Musculoskeletal spine, ribs and pelvis Overall: good posture 05/14/2017 None Full Exam - General 1994 Musculoskeletal head and neck Overall: head atraumatic 05/14/2017 None Full Exam - General 1994 Musculoskeletal head and neck Overall: cervical spine benign 05/14/2017 None Full Exam - General 1994 Neurologic deep tendon reflexes Overall: deep tendon reflexes intact 05/14/2017 None Full Exam - General 1994 Neurologic cranial nerves Overall: crainial nerves 2 - 12 grossly intact 05/14/2017 None Full Exam - General 1994 Psychiatric orientation/consciousness Overall: oriented to person, place and time 05/14/2017 None Full Exam - General 1994 Psychiatric mood and affect Overall: normal mood and affect 05/14/2017 None Full Exam - General 1994 Constitutional general appearance Development: well developed 03/17/2017 None Full Exam - General 1994 Constitutional general appearance Development: appears stated age 1103/17/2017 None Full Exam - General 1994 Constitutional general appearance Hygiene/Attention to Grooming: good hygiene 03/17/2017 None Full Exam - General 1994 Eyes conjunctiva/eyelids Overall: conjunctiva clear 03/17/2017 None Full Exam - General 1994 Eyes conjunctiva/eyelids Overall: cornea clear 03/17/2017 None Full Exam - General 1994 Eyes conjunctiva/eyelids Overall: eyelids normal 03/17/2017 None Full Exam - General 1994 Eyes pupils and irises Overall: pupils equal, round, reactive to light and accomodation 03/17/2017 None Full Exam - General 1994 Ears/Nose/Throat otoscopic exam Overall: external auditory canals clear 03/17/2017 None Full Exam - General 1994 Ears/Nose/Throat otoscopic exam Overall: tympanic membranes clear 03/17/2017 None Full Exam - General 1994 Ears/Nose/Throat lips/teeth/gingiva Overall: benign lips 03/17/2017 None Full Exam - General 1994 Ears/Nose/Throat lips/teeth/gingiva Overall: normal dentition 03/17/2017 None Full Exam - General 1994 Ears/Nose/Throat oral cavity/pharynx/larynx Overall: oral mucosa clear 03/17/2017 None Full Exam - General 1994 Ears/Nose/Throat oral cavity/pharynx/larynx Overall: oropharyngeal mucosa clear 03/17/2017 None Full Exam - General 1994 Ears/Nose/Throat oral cavity/pharynx/larynx Overall: hypopharynx benign 03/17/2017 None Full Exam - General 1994 Ears/Nose/Throat oral cavity/pharynx/larynx Overall: no masses 03/17/2017 None Full Exam - General 1994 Respiratory auscultation Overall: breath sounds clear bilaterally 03/17/2017 None Full Exam - General 1994 Respiratory respiratory effort/rhythm Overall: no retractions 03/17/2017 None Full Exam - General 1994 Respiratory respiratory effort/rhythm Overall: normal rate 03/17/2017 None Full Exam - General 1994 Cardiovascular extremities Overall: no clubbing 03/17/2017 None Full Exam - General 1994 Cardiovascular auscultation of heart Rhythm: irregularly irregular rhythm 03/17/2017 None Full Exam - General 1994 Abdomen abdominal exam Overall: no tenderness 03/17/2017 None Full Exam - General 1994 Abdomen abdominal exam Overall: normal bowel sounds 03/17/2017 None Full Exam - General 1994 Musculoskeletal spine, ribs and pelvis Overall: spine benign 03/17/2017 None Full Exam - General 1994 Musculoskeletal spine, ribs and pelvis Overall: sacroiliac joint benign 03/17/2017 None Full Exam - General 1994 Musculoskeletal spine, ribs and pelvis Overall: good posture 03/17/2017 None Full Exam - General 1994 Musculoskeletal head and neck Overall: head atraumatic 03/17/2017 None Full Exam - General 1994 Musculoskeletal head and neck Overall: cervical spine benign 03/17/2017 None Full Exam - General 1994 Neurologic deep tendon reflexes Overall: deep tendon reflexes intact 03/17/2017 None Full Exam - General 1994 Neurologic cranial nerves Overall: crainial nerves 2 - 12 grossly intact 03/17/2017 None Full Exam - General 1994 Psychiatric orientation/consciousness Overall: oriented to person, place and time 03/17/2017 None Full Exam - General 1994 Psychiatric mood and affect Overall: normal mood and affect 03/17/2017 None Full Exam - General 1994 Constitutional general appearance Development: well developed 01/08/2017 None Full Exam - General 1994 Constitutional general appearance Development: appears stated age 0901/08/2017 None Full Exam - General 1994 Constitutional general appearance Hygiene/Attention to Grooming: good hygiene 01/08/2017 None Full Exam - General 1994 Eyes conjunctiva/eyelids Overall: conjunctiva clear 01/08/2017 None Full Exam - General 1994 Eyes conjunctiva/eyelids Overall: cornea clear 01/08/2017 None Full Exam - General 1994 Eyes conjunctiva/eyelids Overall: eyelids normal 01/08/2017 None Full Exam - General 1994 Eyes pupils and irises Overall: pupils equal, round, reactive to light and accomodation 01/08/2017 None Full Exam - General 1994 Ears/Nose/Throat otoscopic exam Overall: external auditory canals clear 01/08/2017 None Full Exam - General 1994 Ears/Nose/Throat otoscopic exam Overall: tympanic membranes clear 01/08/2017 None Full Exam - General 1994 Ears/Nose/Throat lips/teeth/gingiva Overall: benign lips 01/08/2017 None Full Exam - General 1994 Ears/Nose/Throat lips/teeth/gingiva Overall: normal dentition 01/08/2017 None Full Exam - General 1994 Ears/Nose/Throat oral cavity/pharynx/larynx Overall: oral mucosa clear 01/08/2017 None Full Exam - General 1994 Ears/Nose/Throat oral cavity/pharynx/larynx Overall: oropharyngeal mucosa clear 01/08/2017 None Full Exam - General 1994 Ears/Nose/Throat oral cavity/pharynx/larynx Overall: hypopharynx benign 01/08/2017 None Full Exam - General 1994 Ears/Nose/Throat oral cavity/pharynx/larynx Overall: no masses 01/08/2017 None Full Exam - General 1994 Respiratory auscultation Overall: breath sounds clear bilaterally 01/08/2017 None Full Exam - General 1994 Respiratory respiratory effort/rhythm Overall: no retractions 01/08/2017 None Full Exam - General 1994 Respiratory respiratory effort/rhythm Overall: normal rate 01/08/2017 None Full Exam - General 1994 Cardiovascular extremities Overall: no clubbing 01/08/2017 None Full Exam - General 1994 Cardiovascular auscultation of heart Rhythm: irregularly irregular rhythm 01/08/2017 None Full Exam - General 1994 Abdomen abdominal exam Overall: no tenderness 01/08/2017 None Full Exam - General 1994 Abdomen abdominal exam Overall: normal bowel sounds 01/08/2017 None Full Exam - General 1994 Musculoskeletal spine, ribs and pelvis Overall: spine benign 01/08/2017 None Full Exam - General 1994 Musculoskeletal spine, ribs and pelvis Overall: sacroiliac joint benign 01/08/2017 None Full Exam - General 1994 Musculoskeletal spine, ribs and pelvis Overall: good posture 01/08/2017 None Full Exam - General 1994 Musculoskeletal head and neck Overall: head atraumatic 01/08/2017 None Full Exam - General 1994 Musculoskeletal head and neck Overall: cervical spine benign 01/08/2017 None Full Exam - General 1994 Neurologic deep tendon reflexes Overall: deep tendon reflexes intact 01/08/2017 None Full Exam - General 1994 Neurologic cranial nerves Overall: crainial nerves 2 - 12 grossly intact 01/08/2017 None Full Exam - General 1994 Psychiatric orientation/consciousness Overall: oriented to person, place and time 01/08/2017 None Full Exam - General 1994 Psychiatric mood and affect Overall: normal mood and affect 01/08/2017 None Full Exam - General 1994 Constitutional [...] No Procedures data Vital Signs Date Vital 05/14/2017 Blood Pressure 1: 102/68 Code: 8480-6 BMI: 32.8 Code: 64936-3 Heart Rate 1: 91 bpm Height: 5'3" SpO2: 96% Weight: 185 lbs 03/17/2017 Blood Pressure 1: 118/80 Code: 8480-6 BMI: 34.7 Code: 41036-0 Heart Rate 1: 93 bpm Height: 5'3" SpO2: 98% Weight: 196 lbs 01/08/2017 Blood Pressure 1: 134/68 Code: 8480-6 BMI: 36.3 Code: 58401-4 Heart Rate 1: 92 bpm Height: 5'3" SpO2: 95% Weight: 205 lbs 09/09/2016 Blood Pressure 1: 130/84 Code: 8480-6 BMI: 36.5 Code: 66673-4 Heart Rate 1: 95 bpm Height: 5'3" SpO2: 95% Weight: 206 lbs 07/08/2016 Blood Pressure 1: 110/64 Code: 8480-6 BMI: 36.0 Code: 89686-6 Heart Rate 1: 99 bpm Height: 5'3" SpO2: 95% Weight: 203 lbs 04/10/2016 Blood Pressure 1: 118/76 Code: 8480-6 BMI: 34.7 Code: 19264-9 Heart Rate 1: 90 bpm Height: 5'3" SpO2: 93% Weight: 196 lbs Functional Status No Functional Status data History of Present Illness Symptom Name Status Resu lt Effective Date Notes hypertension Quality danette xena hypertension 05/14/2017 None hypertension Onset and Resolution ongoing 05/14/2017 None hypertension Onset of Symptom during adulthood 05/14/2017 None hypertension Blood Pressure Values not checking blood pressure at home 05/14/2017 None hypertension Alleviating Factors medication 05/14/2017 None hypertension Pertinent Findings Denies dizziness 05/14/2017 None hypertension Pertinent Findings Denies edema 05/14/2017 None hypertension Pertinent Findings Denies dyspnea 05/14/2017 None cough Quality acute 05/14/2017 None cough Quality intermitte nt 05/14/2017 None cough Quality productive 05/14/2017 None cough Pertinent Findings post nasal drip 05/14/2017 (yellowish-green) cough Pertinent Findings nasal congestion 05/14/2017 None cough Pertinent Findings sputum production 05/14/2017 None cough Pertinent Findings Denies chills 05/14/2017 None cough Pertinent Findings Denies fever 05/14/2017 None cough Pertinent Findings Denies nausea 05/14/2017 None cough Pertinent Findings Denies vomiting 05/14/2017 None hypertension Pertinent Findings weight loss 05/14/2017 None cough Onset and Resolution sudden in onset 05/14/2017 None cough Onset of Symptom 3 -4 days ago 05/14/2017 None Hospital Follow Up _ [facility] er: vertigo 03/17/2017 None Hospital Follow Up Quality acute 03/17/2017 None Hospital Follow Up Quality improving 03/17/2017 None Hospital Follow Up Onset of Symptom 3 days ago 03/17/2017 None Hospital Follow Up Onset and Resolution sudden in onset 03/17/2017 None vertigo Quality acute 03/17/2017 None vertigo Quality improving 03/17/2017 None vertigo Onset and Resolution sudden in onset 03/17/2017 None vertigo Onset and Resolution ongoing 03/17/2017 None vertigo Onset of Symptom 3 days ago 03/17/2017 None vertigo Frequency of Episodes decreasing 03/17/2017 None vertigo Triggers no know n associated factors 03/17/2017 None vertigo Alleviating Factors medication 03/17/2017 (meclizine) vertigo Limitation on Activities does not limit activities 03/17/2017 None vertigo Pertinent Findings dizziness 03/17/2017 None vertigo Pertinent Findings Denies nausea 03/17/2017 None vertigo Pertinent Findings Denies fever 03/17/2017 None hypertension Quality danette mccallum hypertension 01/08/2017 None hypertension Onset and Resolution ongoing 01/08/2017 None hypertension Onset of Symptom during adulthood 01/08/2017 None hypertension Blood Pressure Values not checking blood pressure at home 01/08/2017 None hypertension Alleviating Factors medication 01/08/2017 None hypertension Pertinent Findings dizziness 01/08/2017 -intermittent episodes hypertension Pertinent Findings edema 01/08/2017 (mild) myalgias Location on bot h legs 01/08/2017 None myalgias Quality cramping 01/08/2017 None myalgias Quality acute 01/08/2017 None myalgias Quality intermi ttent 01/08/2017 None myalgias Frequency of Episodes daily 01/08/2017 None myalgias Timing of Episodes at night 01/08/2017 None myalgias Timing of Episodes during sleep 01/08/2017 None myalgias Triggers no kno wn associated factors 01/08/2017 None hearing loss Location in both ears 01/08/2017 None hearing loss Quality wor sening 01/08/2017 None hearing loss Onset and Resolution gradual in onset 01/08/2017 None muscle weakness Location diffusely 01/08/2017 None muscle weakness Quality upper extremities 01/08/2017 None muscle weakness Quality lower extremities 01/08/2017 None muscle weakness Triggers no known associated factors 01/08/2017 None muscle weakness Onset and Resolution improved during the day 01/08/2017 None hypertension Quality danette mccallum hypertension 09/09/2016 None hypertension Onset and Resolution [...] 07/08/2016 None Hospital Follow Up _ [facility] 04/10/2016 None Advance Directives No Advance Directive data Encounters Encounter Performer Loca tion Codes Date ([id number]) [id number] EST. P ATIENT, LEVEL IV Diagnosis: Essential (primary) hypertension[ICD10: I10] Diagnosis: Chronic atrial fibrillation[ICD10: I48.2] Diagnosis: Gastro-esophageal reflux disease without esophagitis[ICD10: K21.9] [facility] CPT-4: 65853 05/14/2017 [id number]) [id number] EST. P ATIENT, LEVEL III Diagnosis: Benign paroxysmal vertigo, bilateral[ICD10: H81.13] [facility] CPT-4: 93580 03/17/2017 [id number] EST. 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 P ATIENT, LEVEL IV Diagnosis: Chronic atrial fibrillation[ICD10: I48.2] Diagnosis: Essential (primary) hypertension[ICD10: I10] Diagnosis: Pain in left leg[ICD10: M79.605] Diagnosis: Pain in right leg[ICD10: M79.604] Diagnosis: Bilateral primary osteoarthritis of knee[ICD10: M17.0] Seema Han MD, [facility] CPT-4: 26709 09/09/2016 ([id number]) [id number] EST. P ATIENT, LEVEL IV Diagnosis: Essential (primary) hypertension[ICD10: I10] Diagnosis: Gastro-esophageal reflux disease without esophagitis[ICD10: K21.9] Seema Han MD, [facility] CPT-4: 27685 07/08/2016 ([id number] EST. P ATIENT, LEVEL IV Diagnosis: Essential (primary) hypertension[ICD10: I10] Diagnosis: Chronic atrial fibrillation[ICD10: I48.2] Diagnosis: Gastro-esophageal reflux disease without esophagitis[ICD10: K21.9] Seema Han MD, [facility] CPT-4: 64659 04/10/2016 Plan of Care Planned Activity Notes C odes Status Date Visit Plan: Hypertension - well con trolled - continue with current medications, continue with [...] if their heart rate is becoming uncontrolled. Esophageal Reflux - the patient has been counseled against excessive intake of caffeine, spicy foods, peppermint, and cinnamon - all of which can exacerbate esophageal reflux. The patient is to take medications as prescribed and call the office if the symptoms are not improving. Pt upset today because she feels like she did not get a timely call back about her biopsy report from breast biopsy - I addressed her concerns today. She requested that the hospital fax it to us on 05/06/17, and they faxed it to us on 05/05/17, not on 04/22/17 as they indicated to the patient. I suspect that it was faxed to Dr. Osorio on 04/22/17. 05/14/2017 [facility]: [phone] [place] (15 min) Moderate 05/14/2017 Patient Education: Patient Medication Summary Completed 05/14/2017 Patient Education: Patient Medication Summary Completed 05/05/2017 Visit Plan: BPPV - Benign Paroxysma l Positional Vertigo - discussed diagnosis with the patient, offered the pt the appropriate additional information in hand-out. Pt instructed in home exercises to help alleviate and prevent future recurrent episodes of vertigo. Pt informed that if symptoms worsen, call the office for further instructions/medication interventions. Gas and bloating-start gas x/beano as discussed 03/17/2017 Appointment: [phone] [place] (30 min) Complex 03/17/2017 Patient Education: Patient Medication Summary Completed 03/17/2017 Patient Education: Obesity Completed 03/17/2017 Visit Plan: Hypertension - well con trolled - continue with current medications, continue with [...] if their heart rate is becoming uncontrolled. Obesity - chronic issue with this patient. The pt has been counseled about diet changes - she is to continue with Weight Watchers, calorie restriction, and need to continue to exercise. Pt will RTC in one month for weight check. Low White count - check peripheral smear. Chronic Anticoagulant use - Pt has been counseled about the anticoagulant, need for serial monitoring, and need for the pt to alert the physician as to any new bruising, or acute bleeding. Therapeutic goal for INR is between 2.0 and 3.5. 01/08/2017 Appointment: Seema Han WPtel: [phone] [facility]66[facility] (15 min) Moderate 01/08/2017 Patient Education: Patient Medication Summary Completed 01/08/2017 Patient Education: Obesity Completed 01/08/2017 Appointment: Seema Han WPtel: [phone] [facility] (15 min) Moderate 11/06/2016 Referral: [facility] physical therapy WPtel: [phone] Patient informed. Completed 09/18/2016 Care Plan: Referral Order SNOMED-CT : [id number] Pending 09/10/2016 Visit Plan: Atrial Fibrillation - p t on chronic anticoagulation and is currently rate [...] home. Knee pain - recommended water therapy 09/09/2016 Appointment: Seema Han WPtel: [phone] [facility] (15 min) Moderate 09/09/2016 Patient Education: Patient Medication Summary Completed 09/09/2016 Patient Education: Obesity Completed 09/09/2016 Visit Plan: Hypertension - well con trolled - continue with current medications, continue with [...] not improving. 07/08/2016 Appointment: Seema Han WPtel: [address] [place] [address] (15 min) Moderate 07/08/2016 Patient Education: Patient Medication Summary Completed 07/08/2016 Patient Education: Obesity Completed 07/08/2016 Visit Plan: Hypertension - well con trolled - continue with current medications, continue with [...] not improving. 04/10/2016 Appointment: Seema Han WPtel: [address] [place] [address] New Patient 04/10/2016 Patient Education: Patient Medication Summary Completed 04/10/2016 Patient Education: Obesity Completed 04/10/2016 Referral: [facility] WPtel: [address] [place] [address] Referral Appointment Requested Instructions Comment . BPPV - Benign Paro xysmal Positional Vertigo - discussed diagnosis with the patient, offered the pt the appropriate additional information in hand-out. Pt instructed in home exercises to help alleviate and prevent future recurrent episodes of vertigo. Pt informed that if symptoms worsen, call the office for further instructions/medication interventions. Gas and bloating-start gas x/beano as discussed . Hypertension - wel l controlled - [...] office if the symptoms are not improving. flonase one spray tw ice daily corcidin HBP - for congestion . Hypertension - well controlled - cuate nue with current medications, continue with no added [...] if their heart rate is becoming uncontrolled. Esophageal Reflux - the patient has been counseled against excessive intake of caffeine, spicy foods, peppermint, and cinnamon - all of which can exacerbate esophageal reflux. The patient is to take medications as prescribed and call the office if the symptoms are not improving. Pt upset today because she feels like she did not get a timely call back about her biopsy report from breast biopsy - I addressed her concerns today. She requested that the hospital fax it to us on 05/06/17, and they faxed it to us on 05/05/17, not on 04/22/17 as they indicated to the patient. I suspect that it was faxed to Dr. Osorio on 04/22/17. . Hypertension - wel l controlled - [...] if their heart rate is becoming uncontrolled. Obesity - chronic issue with this patient. The pt has been counseled about diet changes - she is to continue with Weight Watchers, calorie restriction, and need to continue to exercise. Pt will RTC in one month for weight check. Low White count - check peripheral smear. Chronic Anticoagulant use - Pt has been counseled about the anticoagulant, need for serial monitoring, and need for the pt to alert the physician as to any new bruising, or acute bleeding. Therapeutic goal for INR is between 2.0 and 3.5.
--- OUTSIDE RECORDS SUMMARY | 2019-07-16 00:26 | XMS REPORT | CCD ---
Author Author External, Mona Tucker Organization Seema Han MD, [facility] Address Unknown Phone Unavailable Care Team Providers Care Mobile Device Engineer Name Role Phone PP Unavailable CCM Unavailable Summary Purpose Interface Exchange Insurance Providers Payer name Policy type / Coverage type Covered democrat ID Effective Begin Date Effective End Date WPS Medicare Part B Medicare Part B [id number] Unknown [employer] Medicar e Part B [id number] Unkno wn Family history Father Diagnosis Age At Onset Stroke Unknown Heart Attack Unknown Diabetes Unknown Mother Diagnosis Age At Onset Cancer Unknown Asthma Unknown Social History Social History Element Codes Description Effective Dates Marital status Unknown M arried Raciel 07/08/2016 Number of children Unknown 3 04/10/2016 Employment Unknown Retir ed 04/10/[address]: 773726810 Never smoker 04/10/[address]: 106599910 Never drinks alcohol 04/10/2016 Allergies, Adverse Reactions, [...] ICD-9: 530.81 ICD-10: K21.9 Active 04/10/2016 Unknown group home (current) use of anticoagulants ICD-9: V58.61 ICD-10: [...] esophagitis ICD-9: 530.81 ICD-10: K21.9 04/10/2016 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 ICD-9: V58.61 ICD-10: [...] Instruc tions Start Date Stop Date Sta tus Fill Instructions fluticasone 50 mcg/a ctuation nasal spray,suspension RxNorm: 1503805 1 [place] NASAL daily 06/09/2017 06/03/2018 Active amoxicillin 500 mg t ablet RxNorm: 022236 2 Tablet(s) PO UD 03/17/2017 No Stop Date Active 2 po 1 hour prior to dental procedure and repeat 2 pills evening after dental procedure meclizine 25 mg tablet RxNorm: 174223 1 Tablet(s) PO Q8 PRN 03/17/2017 No Stop Date Active meclizine 25 mg tablet RxNorm: 515220 1 Tablet(s) PO Q8 PRN 03/17/2017 03/16/2017 Inactive warfarin 2.5 mg tablet RxNorm: 320872 1 Tablet(s) PO m/tue/w/f/sat 1/2 tab oth er days 01/08/2017 07/06/2017 Active metoprolol tartrate 25 mg tablet RxNorm: 869088 1/2 Tablet(s) PO BID 07/10/2016 07/04/2017 Active montelukast 10 mg ta blet RxNorm: 20010607 1 Tablet(s) PO daily 07/08/2016 07/02/2017 Active omeprazole 20 mg cap jaren,delayed release RxNorm: 493738 1 Capsule(s) PO daily 07/08/2016 07/02/2017 Ac tive warfarin 2.5 mg tablet RxNorm: 681256 1 Tablet(s) PO m/tue/w/f/sat 1/2 tab oth er days 07/08/2016 01/03/2017 Inactive omeprazole 20 mg cap jaren,delayed release RxNorm: 351341 1 Capsule(s) PO daily 06/23/2016 07/07/2016 In active montelukast 10 mg ta blet RxNorm: 767700 1 Tablet(s) PO daily 06/23/2016 07/07/2016 Inactive aspirin 81 mg tablet RxNorm: 574976 1 Tablet(s) PO daily No Start Date Active albuterol sulfate 1. 25 mg/3 mL solution for nebulization RxNorm: 231506 Milliliter(s) INH as needed No Start Date Active melatonin 10 mg RxNorm: 1 PO QHS No Start Date Active Advair Diskus 500 mc g-50 mcg/dose powder for inhalation RxNorm: 3446306 1 INH BID No Start Date Active magnesium oxide 400 mg capsule RxNorm: 829131 1 Capsule(s) PO No Start Date Active 1 tab twice a week amoxicillin 500 mg t ablet RxNorm: 204905 2 Tablet(s) PO UD No Start Date 03/16/2017 Inactive 2 po 1 hour prior to dental procedure and repeat 2 pills evening after dental procedure montelukast 10 mg ta blet RxNorm: 300982 1 Tablet(s) PO daily No Start Date 06/22/2016 Inactive omeprazole 20 mg cap jaren,delayed release RxNorm: 812222 1 Capsule(s) PO No Start Date 06/22/2016 Inactive warfarin 2.5 mg tablet RxNorm: 297693 1 Tablet(s) PO -w- 1.25 other days No Start Date 07/07/2016 Inactive metoprolol tartrate 12.5 Tablet RxNorm: 1 Tablet(s) PO BID No Start Date 07/09/2016 Inactive fluticasone 50 mcg/a ctuation nasal spray,suspension RxNorm: 5918382 1 [place] NASAL daily No Start Date 06/08/2017 Inactive Medication Administered No Medication Administered data Immunizations No Immunization data Assessments Condition Codes Effectiv e Dates Chronic atrial fibrillation ICD-10: I48.2 ICD-9: 427.31 05/14/2017 Essential (primary) hypertension ICD -10: I10 ICD-9: 401.1 05/14/2017 Gastro-esophageal reflux disease without esophagitis ICD-10: K21.9 ICD-9: 530.81 05/14/2017 group home (current) use of anticoagulants ICD-10: Z79.01 ICD-9: [...] Code Item Item Code Result Date Pt Kgm4600 PT 24.9 seconds 05/19/2017 Pt Dwc9484 INR 2.3 05/19/2017 Pt Dyk7934 Low Intensity - 1.5-2.0 05/19/2017 Pt Iet0037 Mod intensity - 2.0-3.0 05/19/2017 Pt Npi1016 Hi intensity - 3.0-4.0 05/19/2017 Pt Etp0073 PT 21.4 seconds 05/05/2017 Pt Wep1713 INR 1.9 05/05/2017 Pt Tkl3183 Low Intensity - 1.5-2.0 05/05/2017 Pt Upi4043 Mod intensity - 2.0-3.0 05/05/2017 Pt Gmx0299 Hi intensity - 3.0-4.0 05/05/2017 Pt Rqx3915 PT 18.9 seconds 04/29/2017 Pt Kot5747 INR 1.6 04/29/2017 Pt Qlj3258 Low Intensity - 1.5-2.0 04/29/2017 Pt Ffr3949 Mod intensity - 2.0-3.0 04/29/2017 Pt Hzn1654 Hi intensity - 3.0-4.0 04/29/2017 Pt Wgj5338 PT 25.7 seconds 03/04/2017 Pt Mpr4993 INR 2.3 03/04/2017 Pt Lfc7135 Low Intensity - 1.5-2.0 03/04/2017 Pt Kfs7623 Mod intensity - 2.0-3.0 03/04/2017 Pt Sqf4903 Hi intensity - 3.0-4.0 03/04/2017 Hematopath Consultation, Smear [id number] WBC NORMAL 01/29/2017 Hematopath Consultation, Smear [id number] RBC NORMAL 01/29/2017 Hematopath Consultation, Smear [id number] PLTS NORMAL 01/29/2017 Hematopath Consultation, Smear [id number] PATHOLOGIST COMMENT 01/29/2017 Cbc With Differential Ord2 [...] 28.8 pg 01/26/2017 Cbc With Differential Ord2 Holt% 10.4 % 01/26/2017 Cbc With Differential Ord2 Eos% 2.3 % 01/26/2017 Cbc With Differential Ord2 MCHC 32.5 pg 01/26/2017 Cbc With Differential Ord2 PLT 195 K/ul 01/26/2017 Cbc With Differential Ord2 Baso% 1.3 % 01/26/2017 Cbc With Differential Ord2 Neut ABS# 2.04 K/ul 01/26/2017 Cbc With Differential Ord2 RDW 15.4 % 01/26/2017 Cbc With Differential Ord2 Lymph ABS# 1.37 K/ul 01/26/2017 Cbc With Differential Ord2 Holt ABS# 0.4 K/ul 01/26/2017 Cbc With Differential Ord2 Eos ABS# 0.1 K/ul 01/26/2017 Cbc With Differential Ord2 Baso ABS# 0.1 K/ul 01/26/2017 Pt Xpi2429 PT 25.2 seconds 01/26/2017 Pt Qlc5494 INR 2.3 01/26/2017 Pt Kgl5515 Low Intensity - 1.5-2.0 01/26/2017 Pt Ess7561 Mod intensity - 2.0-3.0 01/26/2017 Pt Jsv8334 Hi intensity - 3.0-4.0 01/26/2017 Pt Hfz5498 PT 23.3 seconds 12/31/2016 Pt Scs8316 INR 2.1 12/31/2016 Pt Qhg5563 Low Intensity - 1.5-2.0 12/31/2016 Pt Hei0333 Mod intensity - 2.0-3.0 12/31/2016 Pt Scr4677 Hi intensity - 3.0-4.0 12/31/2016 Comp Metabolic Uzp670 NA 139 mEq/L 12/31/2016 Comp Metabolic Pji116 K 3.7 mEq/L 12/31/2016 Comp Metabolic Wfz836 CL 104 mEq/L 12/31/2016 Comp Metabolic Fil692 CO2 26.0 mEq/L 12/31/2016 Comp Metabolic Hda837 AN ION GAP 13 12/31/2016 Comp Metabolic Mpw972 GL UCOSE 84 mg/dL 12/31/2016 Comp Metabolic Hjb938 Cr eat 0.7 mg/dL 12/31/2016 Comp Metabolic Eru797 eG FR 85 ml/min/1.73m2 12/31 Comp Metabolic Qpu472 BUN 13 mg/dL 12/31/2016 Comp Metabolic Zqc135 B/ C Ratio 18.1 Ratio 12/31/2016 Comp Metabolic She487 CA LCIUM 8.9 mg/dL 12/31/2016 Comp Metabolic Sai029 AL K PHOS 57 U/L 12/31/2016 Comp Metabolic Nee445 T(SGOT) 19 U/L 12/31/2016 Comp Metabolic Evg574 AL T(SGPT) 15 U/L 12/31/2016 Comp Metabolic Dmz081 BI LI T 0.9 mg/dL 12/31/2016 Comp Metabolic Jxw250 AL BUMIN 3.8 g/dL 12/31/2016 Comp Metabolic Pyt344 TP RO 6.7 g/dL 12/31/2016 Comp Metabolic Cwz858 GL OB 2.9 g/dL 12/31/2016 Comp Metabolic Edy907 A/ G Ratio 1.3 Ratio 12/31/2016 Comp Metabolic The638 Os mo 277 mOsmo 12/31/2016 Cbc With Differential Ord2 WBC 4.48 K/ul 12/31/2016 Cbc With Differential Ord2 RBC 4.28 M/ul 12/31/2016 Cbc With Differential Ord2 HGB 12.3 g/dl 12/31/2016 Cbc With Differential Ord2 Neut% 51.1 % 12/31/2016 Cbc With Differential Ord2 HCT 37.5 % 12/31/2016 Cbc With Differential Ord2 MCV 87.6 fl 12/31/2016 Cbc With Differential Ord2 Lymph% 31.9 % 12/31/2016 Cbc With Differential Ord2 MCH 28.7 pg 12/31/2016 Cbc With Differential Ord2 Holt% 13.6 % 12/31/2016 Cbc With Differential Ord2 MCHC 32.8 pg 12/31/2016 Cbc With Differential Ord2 Eos% 2.7 % 12/31/2016 Cbc With Differential Ord2 PLT 209 K/ul 12/31/2016 Cbc With Differential Ord2 Baso% 0.7 % 12/31/2016 Cbc With Differential Ord2 RDW 15.4 % 12/31/2016 Cbc With Differential Ord2 Neut ABS# 2.29 K/ul 12/31/2016 Cbc With Differential Ord2 Lymph ABS# 1.43 K/ul 12/31/2016 Cbc With Differential Ord2 Holt ABS# 0.6 K/ul 12/31/2016 Cbc With Differential Ord2 Eos ABS# 0.1 K/ul 12/31/2016 Cbc With Differential Ord2 Baso ABS# 0.0 K/ul 12/31/2016 Magnesium Ord90 Mag 1.8 mg/dL 12/31/2016 Pt Omd4922 PT 22.1 seconds 11/24/2016 Pt Jvo6654 INR 2.1 11/24/2016 Pt Eqi4494 Low Intensity - 1.5-2.0 11/24/2016 Pt Rfd9669 Mod intensity - 2.0-3.0 11/24/2016 Pt Qly2556 Hi intensity - 3.0-4.0 11/24/2016 Pt Oof2824 PT 24.6 seconds 10/06/2016 Pt Ugh7663 INR 2.4 10/06/2016 Pt Oko4245 Low Intensity - 1.5-2.0 10/06/2016 Pt Nge3647 Mod intensity - 2.0-3.0 10/06/2016 Pt Xca7320 Hi intensity - 3.0-4.0 10/06/2016 Tsh Ord6 [...] 25.9 % 09/10/2016 Cbc With Differential Ord2 MCH 28.7 pg 09/10/2016 Cbc With Differential Ord2 Holt% 11.7 % 09/10/2016 Cbc With Differential Ord2 MCHC 32.5 pg 09/10/2016 Cbc With Differential Ord2 Eos% 2.8 % 09/10/2016 Cbc With Differential Ord2 PLT 195 K/ul 09/10/2016 Cbc With Differential Ord2 Baso% 0.6 % 09/10/2016 Cbc With Differential Ord2 RDW 15.5 % 09/10/2016 Cbc With Differential Ord2 Neut ABS# 2.98 K/ul 09/10/2016 Cbc With Differential Ord2 Lymph ABS# 1.31 K/ul 09/10/2016 Cbc With Differential Ord2 Holt ABS# 0.6 K/ul 09/10/2016 Cbc With Differential Ord2 Eos ABS# 0.1 K/ul 09/10/2016 Cbc With Differential Ord2 Baso ABS# 0.0 K/ul 09/10/2016 Lipid Ord30 CHOL 173 mg/dL 09/10/2016 Lipid Ord30 HDL 51.0 mg/dl 09/10/2016 Lipid Ord30 TRIG 76 mg/dL 09/10/2016 Lipid Ord30 LDL 107 mg/dL 09/10/2016 Lipid Ord30 C/HDL 3.4 Ratio 09/10/2016 Comp Metabolic Uhs689 NA 140 mEq/L 09/10/2016 Comp Metabolic Uiu494 K 3.7 mEq/L 09/10/2016 Comp Metabolic Fgt250 CL 105 mEq/L 09/10/2016 Comp Metabolic Pgf275 CO2 26.0 mEq/L 09/10/2016 Comp Metabolic Vgl733 AN ION GAP 13 09/10/2016 Comp Metabolic Jex066 GL UCOSE 91 mg/dL 09/10/2016 Comp Metabolic Kge923 Cr eat 0.7 mg/dL 09/10/2016 Comp Metabolic Huc192 eG FR 93 ml/min/1.73m2 09/10 Comp Metabolic Xpg348 BUN 12 mg/dL 09/10/2016 Comp Metabolic Bnu893 B/ C Ratio 17.9 Ratio 09/10/2016 Comp Metabolic Nfl482 CA LCIUM 8.6 mg/dL 09/10/2016 Comp Metabolic Ndj345 AL K PHOS 70 U/L 09/10/2016 Comp Metabolic Mzu533 T(SGOT) 19 U/L 09/10/2016 Comp Metabolic Kzx854 AL T(SGPT) 12 U/L 09/10/2016 Comp Metabolic Dho326 BI LI T 0.9 mg/dL 09/10/2016 Comp Metabolic Qtz791 AL BUMIN 3.6 g/dL 09/10/2016 Comp Metabolic Zwn949 TP RO 6.5 g/dL 09/10/2016 Comp Metabolic Isr448 GL OB 2.9 g/dL 09/10/2016 Comp Metabolic Tie106 A/ G Ratio 1.3 Ratio 09/10/2016 Comp Metabolic Pxg566 Os mo 279 mOsmo 09/10/2016 Pt Isy1347 PT 24.7 seconds 09/10/2016 Pt Ggs6059 INR 2.4 09/10/2016 Pt Lbb1187 Low Intensity - 1.5-2.0 09/10/2016 Pt Nzj2290 Mod intensity - 2.0-3.0 09/10/2016 Pt Kqg7563 Hi intensity - 3.0-4.0 09/10/2016 Magnesium Ord90 Mag 1.6 mg/dL 09/10/2016 Pt Bls1009 PT 23.1 seconds 08/18/2016 Pt Why2165 INR 2.2 08/18/2016 Pt Tcw4018 Low Intensity - 1.5-2.0 08/18/2016 Pt Bgb3095 Mod intensity - 2.0-3.0 08/18/2016 Pt Kum3430 Hi intensity - 3.0-4.0 08/18/2016 Pt Lyz6550 PT 23.7 seconds 07/21/2016 Pt Jph3729 INR 2.2 07/21/2016 Pt Fut3392 Low Intensity - 1.5-2.0 07/21/2016 Pt Bek9381 Mod intensity - 2.0-3.0 07/21/2016 Pt Vrn1312 Hi intensity - 3.0-4.0 07/21/2016 Pt Obc0326 PT 20.3 seconds 07/07/2016 Pt Kny5330 INR 1.8 07/07/2016 Pt Dfq4807 Low Intensity - 1.5-2.0 07/07/2016 Pt Ukf7497 Mod intensity - 2.0-3.0 07/07/2016 Pt Pfv7740 Hi intensity - 3.0-4.0 07/07/2016 Pt Buq1471 PT 21.2 seconds 06/27/2016 Pt Gek2370 INR 1.9 06/27/2016 Pt Vvd5315 Low Intensity - 1.5-2.0 06/27/2016 Pt Itg6593 Mod intensity - 2.0-3.0 06/27/2016 Pt Jps2400 Hi intensity - 3.0-4.0 06/27/2016 Pt Sqb3157 PT 20.4 seconds 06/23/2016 Pt Ubr3464 INR 1.8 06/23/2016 Pt Amm1821 Low Intensity - 1.5-2.0 06/23/2016 Pt Cve0903 Mod intensity - 2.0-3.0 06/23/2016 Pt Xnb5188 Hi intensity - 3.0-4.0 06/23/2016 Pt Wbt7074 PT 17.6 seconds 05/22/2016 Pt Nde2498 INR 1.5 05/22/2016 Pt Gnr1349 Low Intensity - 1.5-2.0 05/22/2016 Pt Sei1495 Mod intensity - 2.0-3.0 05/22/2016 Pt Wxh3212 Hi intensity - 3.0-4.0 05/22/2016 Pt Vyx0058 PT 22.1 seconds 04/22/2016 Pt Uxg4048 INR 2.1 04/22/2016 Pt Tum7772 Low Intensity - 1.5-2.0 04/22/2016 Pt Bac0393 Mod intensity - 2.0-3.0 04/22/2016 Pt Gkx3219 Hi intensity - 3.0-4.0 04/22/2016 Pt Znw3180 PT 28.3 seconds 04/07/2016 Pt Ghx0768 INR 2.8 04/07/2016 Pt Mqv0498 Low Intensity - 1.5-2.0 04/07/2016 Pt Swl3121 Mod intensity - 2.0-3.0 04/07/2016 Pt Mcu0898 Hi intensity - 3.0-4.0 04/07/2016 Review of [...] 1: 102/68 Code: 8480-6 BMI: 32.8 Code: 45241-1 Heart Rate 1: 91 bpm Height: 5'3" SpO2: 96% Weight: 185 lbs 03/17/2017 Blood Pressure 1: 118/80 Code: 8480-6 BMI: 34.7 Code: 71293-4 Heart Rate 1: 93 bpm Height: 5'3" SpO2: 98% Weight: 196 lbs 01/08/2017 Blood Pressure 1: 134/68 Code: 8480-6 BMI: 36.3 Code: 43124-1 Heart Rate 1: 92 bpm Height: 5'3" SpO2: 95% Weight: 205 lbs 09/09/2016 Blood Pressure 1: 130/84 Code: 8480-6 BMI: 36.5 Code: 41399-6 Heart Rate 1: 95 bpm Height: 5'3" SpO2: 95% Weight: 206 lbs 07/08/2016 Blood Pressure 1: 110/64 Code: 8480-6 BMI: 36.0 Code: 94582-4 Heart Rate 1: 99 bpm Height: 5'3" SpO2: 95% Weight: 203 lbs 04/10/2016 Blood Pressure 1: 118/76 Code: 8480-6 BMI: 34.7 Code: 00765-0 Heart Rate 1: 90 bpm Height: 5'3" [...] ago 05/14/2017 None Hospital Follow Up _ Oth er: vertigo 03/17/2017 None Hospital Follow Up [...] Denies fever 03/17/2017 None hypertension Quality danette xena hypertension 01/08/2017 None hypertension Onset and Resolution [...] the day 01/08/2017 None hypertension Quality danette xena hypertension 09/09/2016 None [...] 07/08/2016 None Hospital Follow Up _ pne [facility] 04/10/2016 None Advance Directives No Advance Directive data Encounters Encounter Performer Loca tion Codes Date ([id number]) [id number] EST. P GRADY, LEVEL IV Diagnosis: Essential (primary) hypertension[ICD10: I10] Diagnosis: Chronic atrial fibrillation[ICD10: I48.2] Diagnosis: Gastro-esophageal reflux disease without esophagitis[ICD10: K21.9] Seema Han MD, [facility] CPT-4: 25952 05/14/2017 ([id number]) [id number] EST. P ATIENT, LEVEL III Diagnosis: Benign paroxysmal vertigo, bilateral[ICD10: H81.13] Adela Han MD, [facility] CPT-4: 71660 03/17/2017 ([id number]) [id number] EST. P ATIENT, LEVEL IV Diagnosis: Essential (primary) hypertension[ICD10: I10] Diagnosis: Chronic atrial fibrillation[ICD10: I48.2] Diagnosis: group home (current) use of anticoagulants[ICD10: Z79.01] Diagnosis: Morbid (severe) obesity due to excess calories[ICD10: E66.01] Seema Han MD, [facility] CPT-4: 40790 01/08/2017 ([id number]) 60514 EST. P ATIENT, LEVEL IV Diagnosis: Chronic atrial fibrillation[ICD10: I48.2] Diagnosis: Essential (primary) hypertension[ICD10: I10] Diagnosis: Pain in left leg[ICD10: M79.605] Diagnosis: Pain in right leg[ICD10: M79.604] Diagnosis: Bilateral primary osteoarthritis of knee[ICD10: M17.0] Seema Han MD, [facility] CPT-4: 92497 09/09/2016 ([id number] EST. P ATIENT, LEVEL IV Diagnosis: Essential (primary) hypertension[ICD10: I10] Diagnosis: Gastro-esophageal reflux disease without esophagitis[ICD10: K21.9] Seema Han MD, [facility] CPT-4: 54786 07/08/2016 [id number]) [id number] EST. P ATIENT, LEVEL IV Diagnosis: Essential (primary) hypertension[ICD10: I10] Diagnosis: Chronic atrial fibrillation[ICD10: I48.2] Diagnosis: Gastro-esophageal reflux disease without esophagitis[ICD10: K21.9] Seema Han MD, [facility] CPT-4: 50938 04/10/2016 Plan of Care Planned Activity Notes [...] on 04/22/17. 05/14/2017 [phone] [facility] Moderate 05/14/2017 Patient Education: Patient [...] [place] [phone] (30 min) Complex 03/17/2017 Patient Education: Patient [...] 3.5. 01/08/2017 Appointment: Seema Han WPtel: [phone] [facility] (15 min) Moderate 01/08/2017 Patient Education: Patient Medication Summary Completed 01/08/2017 Patient Education: Obesity Completed 01/08/2017 Appointment: Seema Han WPtel: [phone] [facility] (15 min) Moderate 11/06/2016 Referral: Maria Guadalupe physical therapy WPtel: [phone] [facility]66[facility] Patient informed. Completed 09/18/2016 Care Plan: Referral Order SNOMED-CT : [id number] Pending 09/10/2016 Visit Plan: Atrial Fibrillation - [...] water therapy 09/09/2016 Appointment: Seema Han WPtel: [phone] [facility] (15 min) Moderate 09/09/2016 Patient Education: Patient [...] not improving. 07/08/2016 Appointment: Seema Han WPtel: [facility] [address] (15 min) Moderate 07/08/2016 Patient Education: Patient [...] not improving. 04/10/2016 Appointment: Seema Han WPtel: [address] [place], [place] [address] New Patient 04/10/2016 Patient Education: Patient Medication Summary Completed 04/10/2016 Patient Education: Obesity Completed 04/10/2016 Referral: Maria Guadalupe physical therapy WPtel: [phone] Referral Appointment Requested Instructions Comment . BPPV [...]
--- OUTSIDE RECORDS SUMMARY | 2019-07-16 00:26 | XMS REPORT | CCD ---
Author Author External, Mona Tucker Organization Seema Han MD, [facility] Address Unknown Phone Unavailable Care Team Providers Care Jar Filler Name Role Phone PP Unavailable CCM Unavailable Summary Purpose Interface Exchange Insurance Providers Payer name Policy type / Coverage type Covered libertarian ID Effective Begin Date Effective End Date WPS Medicare Part B Medicare Part B [id number] Unknown [employer] Medicar e Part B [id number] Unkno wn Family history Father Diagnosis Age At Onset Stroke Unknown Heart Attack Unknown Diabetes Unknown Mother Diagnosis Age At Onset Cancer Unknown Asthma Unknown Social History Social History Element Codes Description Effective Dates Marital status Unknown M arried Raciel 07/08/2016 Number of children Unknown 3 04/10/2016 Employment Unknown Retir ed 04/10/[address]: 483370952 Never smoker 04/10/[address]: 699409310 Never drinks alcohol 04/10/2016 Allergies, Adverse Reactions, [...] ICD-9: 530.81 ICD-10: K21.9 Active 04/10/2016 Unknown halfway (current) use of anticoagulants ICD-9: V58.61 ICD-10: [...] esophagitis ICD-9: 530.81 ICD-10: K21.9 04/10/2016 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 ICD-9: V58.61 ICD-10: [...] fluticasone 50 mcg/a ctuation nasal spray,suspension RxNorm: 9396154 1 Brethren NASAL daily 06/09/2017 06/03/2018 Active amoxicillin 500 mg t ablet RxNorm: 742053 2 Tablet(s) PO UD 03/17/2017 No Stop Date Active 2 po 1 hour prior to dental procedure and repeat 2 pills evening after dental procedure meclizine 25 mg tablet RxNorm: 521059 1 Tablet(s) PO Q8 PRN 03/17/2017 No Stop Date Active meclizine 25 mg tablet RxNorm: 526712 1 Tablet(s) PO Q8 PRN 03/17/2017 03/16/2017 Inactive warfarin 2.5 mg tablet RxNorm: 162740 1 Tablet(s) PO m/tue/w/f/sat 1/2 tab oth er days 01/08/2017 07/06/2017 Active metoprolol tartrate 25 mg tablet RxNorm: 183935 1/2 Tablet(s) PO BID 07/10/2016 07/04/2017 Active montelukast 10 mg ta blet RxNorm: 20010607 1 Tablet(s) PO daily 07/08/2016 07/02/2017 Active omeprazole 20 mg cap jaren,delayed release RxNorm: 372554 1 Capsule(s) PO daily 07/08/2016 07/02/2017 Ac tive warfarin 2.5 mg tablet RxNorm: 719463 1 Tablet(s) PO m/tue/w/f/sat 1/2 tab oth er days 07/08/2016 01/03/2017 Inactive omeprazole 20 mg cap jaren,delayed release RxNorm: 524658 1 Capsule(s) PO daily 06/23/2016 07/07/2016 In active montelukast 10 mg ta blet RxNorm: 849782 1 Tablet(s) PO daily 06/23/2016 07/07/2016 Inactive aspirin 81 mg tablet RxNorm: 119783 1 Tablet(s) PO daily No Start Date Active albuterol sulfate 1. 25 mg/3 mL solution for nebulization RxNorm: 001861 Milliliter(s) INH as needed No Start Date Active melatonin 10 mg RxNorm: 1 PO QHS No Start Date Active Advair Diskus 500 mc g-50 mcg/dose powder for inhalation RxNorm: 4581172 1 INH BID No Start Date Active magnesium oxide 400 mg capsule RxNorm: 778285 1 Capsule(s) PO No Start Date Active 1 tab twice a week amoxicillin 500 mg t ablet RxNorm: 309773 2 Tablet(s) PO UD No Start Date 03/16/2017 Inactive 2 po 1 hour prior to dental procedure and repeat 2 pills evening after dental procedure montelukast 10 mg ta blet RxNorm: 909875 1 Tablet(s) PO daily No Start Date 06/22/2016 Inactive omeprazole 20 mg cap jaren,delayed release RxNorm: 144930 1 Capsule(s) PO No Start Date 06/22/2016 Inactive warfarin 2.5 mg tablet RxNorm: 430704 1 Tablet(s) PO -w- 1.25 other days No Start Date 07/07/2016 Inactive metoprolol tartrate 12.5 Tablet RxNorm: 1 Tablet(s) PO BID No Start Date 07/09/2016 Inactive fluticasone 50 mcg/a ctuation nasal spray,suspension RxNorm: 9246519 1 Brethren NASAL daily No Start Date 06/08/2017 Inactive Medication Administered No Medication Administered data Immunizations No Immunization data Assessments Condition Codes Effectiv e Dates Chronic atrial fibrillation ICD-10: I48.2 ICD-9: 427.31 05/14/2017 Essential (primary) hypertension ICD -10: I10 ICD-9: 401.1 05/14/2017 Gastro-esophageal reflux disease without esophagitis ICD-10: K21.9 ICD-9: 530.81 05/14/2017 halfway (current) use of anticoagulants ICD-10: Z79.01 ICD-9: [...] Code Item Item Code Result Date Pt Gpu0874 PT 21.1 seconds 06/18/2017 Pt Qpe7953 INR 1.8 06/18/2017 Pt Efb2696 Low Intensity - 1.5-2.0 06/18/2017 Pt Cha4955 Mod intensity - 2.0-3.0 06/18/2017 Pt Osj9510 Hi intensity - 3.0-4.0 06/18/2017 Pt Uti2091 PT 24.9 seconds 05/19/2017 Pt Kqy9311 INR 2.3 05/19/2017 Pt Egz0326 Low Intensity - 1.5-2.0 05/19/2017 Pt Zhr3423 Mod intensity - 2.0-3.0 05/19/2017 Pt Amk3910 Hi intensity - 3.0-4.0 05/19/2017 Pt Npv3661 PT 21.4 seconds 05/05/2017 Pt Xgi6611 INR 1.9 05/05/2017 Pt Bbv2576 Low Intensity - 1.5-2.0 05/05/2017 Pt Pxz1286 Mod intensity - 2.0-3.0 05/05/2017 Pt Lym3791 Hi intensity - 3.0-4.0 05/05/2017 Pt Wro3552 PT 18.9 seconds 04/29/2017 Pt Tmu6220 INR 1.6 04/29/2017 Pt Gtl1546 Low Intensity - 1.5-2.0 04/29/2017 Pt Jib0879 Mod intensity - 2.0-3.0 04/29/2017 Pt Kjs6347 Hi intensity - 3.0-4.0 04/29/2017 Pt Kcg7054 PT 25.7 seconds 03/04/2017 Pt Scf0864 INR 2.3 03/04/2017 Pt Pyf1642 Low Intensity - 1.5-2.0 03/04/2017 Pt Qor0584 Mod intensity - 2.0-3.0 03/04/2017 Pt Yds8269 Hi intensity - 3.0-4.0 03/04/2017 Hematopath Consultation, Smear [id number] WBC NORMAL 01/29/2017 Hematopath Consultation, Smear [id number] RBC NORMAL 01/29/2017 Hematopath Consultation, Smear [id number] PLTS NORMAL 01/29/2017 Hematopath Consultation, Smear [id number] PATHOLOGIST COMMENT 01/29/2017 Cbc With Differential Ord2 WBC 3.96 K/ul 01/26/2017 Cbc With Differential Ord2 RBC 4.34 M/ul 01/26/2017 Cbc With Differential Ord2 HGB 12.5 g/dl 01/26/2017 Cbc With Differential Ord2 HCT 38.5 % 01/26/2017 Cbc With Differential Ord2 Neut% 51.4 % 01/26/2017 Cbc With Differential Ord2 MCV 88.7 fl 01/26/2017 Cbc With Differential Ord2 Lymph% 34.6 % 01/26/2017 Cbc With Differential Ord2 Nance% 10.4 % 01/26/2017 Cbc With Differential Ord2 MCH 28.8 pg 01/26/2017 Cbc With Differential Ord2 Eos% 2.3 % 01/26/2017 Cbc With Differential Ord2 MCHC 32.5 pg 01/26/2017 Cbc With Differential Ord2 Baso% 1.3 % 01/26/2017 Cbc With Differential Ord2 PLT 195 K/ul 01/26/2017 Cbc With Differential Ord2 Neut ABS# 2.04 K/ul 01/26/2017 Cbc With Differential Ord2 RDW 15.4 % 01/26/2017 Cbc With Differential Ord2 Lymph ABS# 1.37 K/ul 01/26/2017 Cbc With Differential Ord2 Nance ABS# 0.4 K/ul 01/26/2017 Cbc With Differential Ord2 Eos ABS# 0.1 K/ul 01/26/2017 Cbc With Differential Ord2 Baso ABS# 0.1 K/ul 01/26/2017 Pt Sxm3340 PT 25.2 seconds 01/26/2017 Pt Awe0892 INR 2.3 01/26/2017 Pt Ulr7451 Low Intensity - 1.5-2.0 01/26/2017 Pt Qml0764 Mod intensity - 2.0-3.0 01/26/2017 Pt Aux5576 Hi intensity - 3.0-4.0 01/26/2017 Pt Qol3392 PT 23.3 seconds 12/31/2016 Pt Zuk1550 INR 2.1 12/31/2016 Pt Vce8567 Low Intensity - 1.5-2.0 12/31/2016 Pt Rdo2237 Mod intensity - 2.0-3.0 12/31/2016 Pt Dve1554 Hi intensity - 3.0-4.0 12/31/2016 Magnesium Ord90 [...] 31.9 % 12/31/2016 Cbc With Differential Ord2 Nance% 13.6 % 12/31/2016 Cbc With Differential Ord2 MCH 28.7 pg 12/31/2016 Cbc With Differential Ord2 Eos% 2.7 % 12/31/2016 Cbc With Differential Ord2 MCHC 32.8 pg 12/31/2016 Cbc With Differential Ord2 PLT 209 K/ul 12/31/2016 Cbc With Differential Ord2 Baso% 0.7 % 12/31/2016 Cbc With Differential Ord2 Neut ABS# 2.29 K/ul 12/31/2016 Cbc With Differential Ord2 RDW 15.4 % 12/31/2016 Cbc With Differential Ord2 Lymph ABS# 1.43 K/ul 12/31/2016 Cbc With Differential Ord2 Nance ABS# 0.6 K/ul 12/31/2016 Cbc With Differential Ord2 Eos ABS# 0.1 K/ul 12/31/2016 Cbc With Differential Ord2 Baso ABS# 0.0 K/ul 12/31/2016 Comp Metabolic Mdn541 NA 139 mEq/L 12/31/2016 Comp Metabolic Yan957 K 3.7 mEq/L 12/31/2016 Comp Metabolic Vqz979 CL 104 mEq/L 12/31/2016 Comp Metabolic Riq141 CO2 26.0 mEq/L 12/31/2016 Comp Metabolic Hwq847 AN ION GAP 13 12/31/2016 Comp Metabolic Gxm873 GL UCOSE 84 mg/dL 12/31/2016 Comp Metabolic Vbl993 Cr eat 0.7 mg/dL 12/31/2016 Comp Metabolic Hfu724 eG FR 85 ml/min/1.73m2 12/31 Comp Metabolic Zsv722 BUN 13 mg/dL 12/31/2016 Comp Metabolic Ien087 B/ C Ratio 18.1 Ratio 12/31/2016 Comp Metabolic Vqs481 CA LCIUM 8.9 mg/dL 12/31/2016 Comp Metabolic Brw074 AL K PHOS 57 U/L 12/31/2016 Comp Metabolic Lwr137 T(SGOT) 19 U/L 12/31/2016 Comp Metabolic Nbg709 AL T(SGPT) 15 U/L 12/31/2016 Comp Metabolic Ylx518 BI LI T 0.9 mg/dL 12/31/2016 Comp Metabolic Oig199 AL BUMIN 3.8 g/dL 12/31/2016 Comp Metabolic Ryp331 TP RO 6.7 g/dL 12/31/2016 Comp Metabolic Jyd211 GL OB 2.9 g/dL 12/31/2016 Comp Metabolic Qct358 A/ G Ratio 1.3 Ratio 12/31/2016 Comp Metabolic Atw624 Os mo 277 mOsmo 12/31/2016 Pt Iev3475 PT 22.1 seconds 11/24/2016 Pt Qit2767 INR 2.1 11/24/2016 Pt Sdi0260 Low Intensity - 1.5-2.0 11/24/2016 Pt Auf0588 Mod intensity - 2.0-3.0 11/24/2016 Pt Mgh9321 Hi intensity - 3.0-4.0 11/24/2016 Pt Dyr6004 PT 24.6 seconds 10/06/2016 Pt Zqi4409 INR 2.4 10/06/2016 Pt Kmf2076 Low Intensity - 1.5-2.0 10/06/2016 Pt Fmn5152 Mod intensity - 2.0-3.0 10/06/2016 Pt Cbv4129 Hi intensity - 3.0-4.0 10/06/2016 Tsh Ord6 [...] 25.9 % 09/10/2016 Cbc With Differential Ord2 Nance% 11.7 % 09/10/2016 Cbc With Differential Ord2 MCH 28.7 pg 09/10/2016 Cbc With Differential Ord2 Eos% 2.8 % 09/10/2016 Cbc With Differential Ord2 MCHC 32.5 pg 09/10/2016 Cbc With Differential Ord2 PLT 195 K/ul 09/10/2016 Cbc With Differential Ord2 Baso% 0.6 % 09/10/2016 Cbc With Differential Ord2 RDW 15.5 % 09/10/2016 Cbc With Differential Ord2 Neut ABS# 2.98 K/ul 09/10/2016 Cbc With Differential Ord2 Lymph ABS# 1.31 K/ul 09/10/2016 Cbc With Differential Ord2 Nance ABS# 0.6 K/ul 09/10/2016 Cbc With Differential Ord2 Eos ABS# 0.1 K/ul 09/10/2016 Cbc With Differential Ord2 Baso ABS# 0.0 K/ul 09/10/2016 Lipid Ord30 CHOL 173 mg/dL 09/10/2016 Lipid Ord30 HDL 51.0 mg/dl 09/10/2016 Lipid Ord30 TRIG 76 mg/dL 09/10/2016 Lipid Ord30 LDL 107 mg/dL 09/10/2016 Lipid Ord30 C/HDL 3.4 Ratio 09/10/2016 Comp Metabolic Nsh616 NA 140 mEq/L 09/10/2016 Comp Metabolic Hkd595 K 3.7 mEq/L 09/10/2016 Comp Metabolic Pri272 CL 105 mEq/L 09/10/2016 Comp Metabolic Fbr354 CO2 26.0 mEq/L 09/10/2016 Comp Metabolic Nyo428 AN ION GAP 13 09/10/2016 Comp Metabolic Ejr993 GL UCOSE 91 mg/dL 09/10/2016 Comp Metabolic Omx613 Cr eat 0.7 mg/dL 09/10/2016 Comp Metabolic Ace977 eG FR 93 ml/min/1.73m2 09/10 Comp Metabolic Nfx858 BUN 12 mg/dL 09/10/2016 Comp Metabolic Eye518 B/ C Ratio 17.9 Ratio 09/10/2016 Comp Metabolic Kdl719 CA LCIUM 8.6 mg/dL 09/10/2016 Comp Metabolic Fff917 AL K PHOS 70 U/L 09/10/2016 Comp Metabolic Ekl204 T(SGOT) 19 U/L 09/10/2016 Comp Metabolic Xnf253 AL T(SGPT) 12 U/L 09/10/2016 Comp Metabolic Vey224 BI LI T 0.9 mg/dL 09/10/2016 Comp Metabolic Opl447 AL BUMIN 3.6 g/dL 09/10/2016 Comp Metabolic Bdt377 TP RO 6.5 g/dL 09/10/2016 Comp Metabolic Ebr683 GL OB 2.9 g/dL 09/10/2016 Comp Metabolic Ckk452 A/ G Ratio 1.3 Ratio 09/10/2016 Comp Metabolic Udu611 Os mo 279 mOsmo 09/10/2016 Magnesium Ord90 Mag 1.6 mg/dL 09/10/2016 Pt Msd7542 PT 24.7 seconds 09/10/2016 Pt Cnv9745 INR 2.4 09/10/2016 Pt Ixo7238 Low Intensity - 1.5-2.0 09/10/2016 Pt Amx3252 Mod intensity - 2.0-3.0 09/10/2016 Pt Uwj9760 Hi intensity - 3.0-4.0 09/10/2016 Pt Ppk9782 PT 23.1 seconds 08/18/2016 Pt Oct7848 INR 2.2 08/18/2016 Pt Rnq0351 Low Intensity - 1.5-2.0 08/18/2016 Pt Kvu2349 Mod intensity - 2.0-3.0 08/18/2016 Pt Aez3422 Hi intensity - 3.0-4.0 08/18/2016 Pt Hap4781 PT 23.7 seconds 07/21/2016 Pt Sfy8094 INR 2.2 07/21/2016 Pt Sgl5468 Low Intensity - 1.5-2.0 07/21/2016 Pt Vfc5863 Mod intensity - 2.0-3.0 07/21/2016 Pt Olf7449 Hi intensity - 3.0-4.0 07/21/2016 Pt Deq4984 PT 20.3 seconds 07/07/2016 Pt Nbf6986 INR 1.8 07/07/2016 Pt Wgm1602 Low Intensity - 1.5-2.0 07/07/2016 Pt Gkm0906 Mod intensity - 2.0-3.0 07/07/2016 Pt Yzt4974 Hi intensity - 3.0-4.0 07/07/2016 Pt Duz5239 PT 21.2 seconds 06/27/2016 Pt Dmm4083 INR 1.9 06/27/2016 Pt Ghp3272 Low Intensity - 1.5-2.0 06/27/2016 Pt Onb1075 Mod intensity - 2.0-3.0 06/27/2016 Pt Bym2966 Hi intensity - 3.0-4.0 06/27/2016 Pt Qfg3752 PT 20.4 seconds 06/23/2016 Pt Suk1565 INR 1.8 06/23/2016 Pt Kjo1479 Low Intensity - 1.5-2.0 06/23/2016 Pt Dja3978 Mod intensity - 2.0-3.0 06/23/2016 Pt Dwc4127 Hi intensity - 3.0-4.0 06/23/2016 Pt Dwp7019 PT 17.6 seconds 05/22/2016 Pt Rvr6696 INR 1.5 05/22/2016 Pt Qyv4697 Low Intensity - 1.5-2.0 05/22/2016 Pt Qfk2335 Mod intensity - 2.0-3.0 05/22/2016 Pt Nlw5670 Hi intensity - 3.0-4.0 05/22/2016 Pt Ljw1842 PT 22.1 seconds 04/22/2016 Pt Ohx9285 INR 2.1 04/22/2016 Pt Lej6172 Low Intensity - 1.5-2.0 04/22/2016 Pt Qrx0204 Mod intensity - 2.0-3.0 04/22/2016 Pt Sbb8492 Hi intensity - 3.0-4.0 04/22/2016 Pt Jdq6563 PT 28.3 seconds 04/07/2016 Pt Gej6317 INR 2.8 04/07/2016 Pt Oiq2867 Low Intensity - 1.5-2.0 04/07/2016 Pt Dyy1381 Mod intensity - 2.0-3.0 04/07/2016 Pt Kft8646 Hi intensity - 3.0-4.0 04/07/2016 Review of [...] lips 07/08/2016 None Full Exam - General 1995 Ears/Nose/Throat lips/teeth/gingiva Overall: normal dentition 07/08/2016 None Full Exam - General 1994 Ears/Nose/Throat oral cavity/pharynx/larynx Overall: oral mucosa clear 07/08/2016 None Full Exam - General 1994 Ears/Nose/Throat oral cavity/pharynx/larynx Overall: oropharyngeal mucosa clear 07/08/2016 None Full Exam - General 1995 Ears/Nose/Throat oral cavity/pharynx/larynx Overall: hypopharynx benign 07/08/2016 [...] 1: 102/68 Code: 8480-6 BMI: 32.8 Code: 56575-9 Heart Rate 1: 91 bpm Height: 5'3" SpO2: 96% Weight: 185 lbs 03/17/2017 Blood Pressure 1: 118/80 Code: 8480-6 BMI: 34.7 Code: 85287-8 Heart Rate 1: 93 bpm Height: 5'3" SpO2: 98% Weight: 196 lbs 01/08/2017 Blood Pressure 1: 134/68 Code: 8480-6 BMI: 36.3 Code: 47893-4 Heart Rate 1: 92 bpm Height: 5'3" SpO2: 95% Weight: 205 lbs 09/09/2016 Blood Pressure 1: 130/84 Code: 8480-6 BMI: 36.5 Code: 05043-7 Heart Rate 1: 95 bpm Height: 5'3" SpO2: 95% Weight: 206 lbs 07/08/2016 Blood Pressure 1: 110/64 Code: 8480-6 BMI: 36.0 Code: 10292-9 Heart Rate 1: 99 bpm Height: 5'3" SpO2: 95% Weight: 203 lbs 04/10/2016 Blood Pressure 1: 118/76 Code: 8480-6 BMI: 34.7 Code: 02902-6 Heart Rate 1: 90 bpm Height: 5'3" [...] 07/08/2016 None Hospital Follow Up _ [facility] 04/10/2016 None Advance Directives No Advance Directive data Encounters Encounter Performer Loca tion Codes Date ([id number]) [id number] EST. P ATIENT, LEVEL IV Diagnosis: Essential (primary) hypertension[ICD10: I10] Diagnosis: Chronic atrial fibrillation[ICD10: I48.2] Diagnosis: Gastro-esophageal reflux disease without esophagitis[ICD10: K21.9] Seema Han MD, [facility] CPT-4: 05143 05/14/2017 ([id number]) 65769 EST. P ATIENT, LEVEL III Diagnosis: Benign paroxysmal vertigo, bilateral[ICD10: H81.13] Adela Han MD, [facility] CPT-4: 72064 03/17/2017 ([id number]) 00741 EST. P ATIENT, LEVEL IV Diagnosis: Essential (primary) hypertension[ICD10: I10] Diagnosis: Chronic atrial fibrillation[ICD10: I48.2] Diagnosis: halfway (current) use of anticoagulants[ICD10: Z79.01] Diagnosis: Morbid (severe) obesity due to excess calories[ICD10: E66.01] Seema Han MD, [facility] CPT-4: 78101 01/08/2017 ([id number]) 09654 EST. P ATIENT, LEVEL IV Diagnosis: Chronic atrial fibrillation[ICD10: I48.2] Diagnosis: Essential (primary) hypertension[ICD10: I10] Diagnosis: Pain in left leg[ICD10: M79.605] Diagnosis: Pain in right leg[ICD10: M79.604] Diagnosis: Bilateral primary osteoarthritis of knee[ICD10: M17.0] Seema Han MD, [facility] CPT-4: 50657 09/09/2016 ([id number]) 16207 EST. P ATIENT, LEVEL IV Diagnosis: Essential (primary) hypertension[ICD10: I10] Diagnosis: Gastro-esophageal reflux disease without esophagitis[ICD10: K21.9] Seema Han MD, [facility] CPT-4: 18947 07/08/2016 ([id number]) 34290 EST. P ATIENT, LEVEL IV Diagnosis: Essential (primary) hypertension[ICD10: I10] Diagnosis: Chronic atrial fibrillation[ICD10: I48.2] Diagnosis: Gastro-esophageal reflux disease without esophagitis[ICD10: K21.9] Seema Han MD, [facility] CPT-4: 81770 04/10/2016 Plan of Care Planned Activity Notes [...] on 04/22/17. 05/14/2017 [phone] ([facility] Moderate 05/14/2017 [...] as discussed 03/17/2017 [phone] ([facility] min) Complex 03/17/2017 Patient Education: Patient Medication Summary Completed 03/17/2017 Patient Education: Obesity Completed 03/17/2017 Visit Plan: Hypertension - well con tiera - continue with current medications, continue with [...] 3.5. 01/08/2017 Appointment: Seema Han WPtel: [phone] (15 min) Moderate 01/08/2017 Patient Education: Patient Medication Summary Completed 01/08/2017 Patient Education: Obesity Completed 01/08/2017 Appointment: Seema Han WPtel: [facility] (15 min) Moderate 11/06/2016 Referral: [facility] WPtel: [phone] Patient informed. Completed 09/18/2016 Care Plan: Referral Order SNOMED-CT : [id number] Pending 09/10/2016 Visit Plan: Atrial Fibrillation - [...] water therapy 09/09/2016 Appointment: Seema Han WPtel: [phone] [facility]66[facility] (15 min) Moderate 09/09/2016 Patient Education: Patient [...] improving. 07/08/2016 Appointment: Seema Han WPtel: [facility]3 [facility] (15 min) Moderate 07/08/2016 Patient Education: Patient [...] not improving. 04/10/2016 Appointment: Seema Han WPtel: [address] [place] [address] New Patient 04/10/2016 Patient Education: Patient Medication Summary Completed 04/10/2016 Patient Education: Obesity Completed 04/10/2016 Referral: [facility] WPtel: [phone] Referral Appointment Requested Instructions Comment . [...]
--- OUTSIDE RECORDS SUMMARY | 2019-07-16 00:27 | XMS REPORT | Continuity of Care Document ---
Author Organization Unknown Address Unknown Phone Unavailable Allergies Active Description Code Type Severity Reaction Onset Reported/Identified Relationship to Patient Clinical Status Yes No Known Drug Allergies [id number] Drug Allergy Unknown N/A 03/15/2017 Yes nifedipine [id number] Drug Allerg y Unknown HEADACHE 07/13/2019 Medications There is no data. Problems Date Dx Coded Attending Type Code Diagnosis Diagnosed By 04/02/1143 MARIE VOGT MD Ot R32 UNSPECIFIED URINARY INCONTINENCE 04/02/1143 MARIE VOGT MD Ot R39.1 5 URGENCY OF URINATION 04/10/2016 ABBI BORGES MD Ot Z48.8 12 ENCNTR FOR SURGICAL AFTCR FOLLOWING SURG 04/10/2016 ABBI BORGES MD Ot Z95.2 PRESENCE OF PROSTHETIC HEART VALVE 05/23/2016 ABBI BORGES MD Ot Z48.8 12 ENCNTR FOR SURGICAL AFTCR FOLLOWING SURG 05/23/2016 ABBI BORGES MD Ot Z95.2 PRESENCE OF PROSTHETIC HEART VALVE 06/17/2016 ABBI BORGES MD Ot Z48.8 12 ENCNTR FOR SURGICAL AFTCR FOLLOWING SURG 06/17/2016 ABBI BORGES MD Ot Z95.2 PRESENCE OF PROSTHETIC HEART VALVE 06/30/2016 ABBI BORGES MD Ot Z48.8 12 ENCNTR FOR SURGICAL AFTCR FOLLOWING SURG 06/30/2016 ABBI BORGES MD Ot Z95.2 PRESENCE OF PROSTHETIC HEART VALVE 07/08/2016 ABBI BORGES MD Ot Z48.8 12 ENCNTR FOR SURGICAL AFTCR FOLLOWING SURG 07/08/2016 ABBI BORGES MD Ot Z95.2 PRESENCE OF PROSTHETIC HEART VALVE 08/21/2016 ABBI BORGES MD Ot Z48.8 12 ENCNTR FOR SURGICAL AFTCR FOLLOWING SURG 08/21/2016 ABBI BORGES MD Ot Z95.2 PRESENCE OF PROSTHETIC HEART VALVE 08/22/2016 Awa NICE MD Ot I48.91 UNSPECIFIED ATRIAL FIBRILLATION 08/22/2016 TEX VIVAS, Awa KLIEN Ot Z95 .2 PRESENCE OF PROSTHETIC HEART VALVE 09/15/2016 TEX VIVAS, Awa KLINE Ot I48.91 UNSPECIFIED ATRIAL FIBRILLATION 09/15/2016 TEX VIVAS, Awa KLINE Ot Z95 .2 PRESENCE OF PROSTHETIC HEART VALVE 09/18/2016 TEX VIVAS, Awa KLINE Ot I48.91 UNSPECIFIED ATRIAL FIBRILLATION 09/18/2016 TEX VIVAS, Awa KLINE Ot Z95 .2 PRESENCE OF PROSTHETIC HEART VALVE 09/18/2016 ABBI BORGES MD Ot Z48.8 12 ENCNTR FOR SURGICAL AFTCR FOLLOWING SURG 09/18/2016 ABBI BORGES MD Ot Z95.2 PRESENCE OF PROSTHETIC HEART VALVE 09/18/2016 TINY CONTRERAS MD Ot Z12.31 ENCNTR SCREEN MAMMOGRAM FOR MALIGNANT NE 09/18/2016 TINY CONTRERAS MD A Ot Z12.31 ENCNTR SCREEN MAMMOGRAM FOR MALIGNANT NE 09/18/2016 TINY CONTRERAS MD A Ot Z12.31 ENCNTR SCREEN MAMMOGRAM FOR MALIGNANT NE 09/19/2016 TINY CONTRERAS MD A Ot Z12.31 ENCNTR SCREEN MAMMOGRAM FOR MALIGNANT NE 09/19/2016 TINY CONTRERAS MD A Ot Z12.31 ENCNTR SCREEN MAMMOGRAM FOR MALIGNANT NE 09/24/2016 TINY CONTRERAS MD Ot Z12.31 ENCNTR SCREEN MAMMOGRAM FOR MALIGNANT NE 10/09/2016 TINY CONTRERAS MD Ot Z12.31 ENCNTR SCREEN MAMMOGRAM FOR MALIGNANT NE 10/15/2016 JAY JAY PINEDA MEDICAL BILLER/CODER Ot R92.8 OT ABN AND INCONCLUSIVE FINDINGS ON DX 10/15/2016 TEX VIVAS, Awa KLINE Ot I48.91 UNSPECIFIED ATRIAL FIBRILLATION 10/15/2016 Awa NICE MD Ot Z95 .2 PRESENCE OF PROSTHETIC HEART VALVE 10/15/2016 ABBI BORGES MD Ot Z48.8 12 ENCNTR FOR SURGICAL AFTCR FOLLOWING SURG 10/15/2016 ABBI BORGES MD Ot Z95.2 PRESENCE OF PROSTHETIC HEART VALVE 10/15/2016 TINY CONTRERAS MD A Ot Z12.31 ENCNTR SCREEN MAMMOGRAM FOR MALIGNANT NE 10/15/2016 MIRIAM JAY JAY Billings MEDICAL BILLER/CODER Ot R92.8 OTH ABN AND INCONCLUSIVE FINDINGS ON DX 10/15/2016 MIRIAMBAOKRISTINE Billings MEDICAL BILLER/CODER Ot R92.8 OTH ABN AND INCONCLUSIVE FINDINGS ON DX 10/16/2016 PINEDABAOKRISTINE Billings MEDICAL BILLER/CODER Ot R92.1 MAMMOGRAPHIC CALCIFCN FOUND ON DIAGNOSTI 11/06/2016 JAY JAY PINEDA MEDICAL BILLER/CODER Ot R92.1 MAMMOGRAPHIC CALCIFCN FOUND ON DIAGNOSTI 03/15/2017 ABBI BORGES MD Ot Z48.8 12 ENCNTR FOR SURGICAL AFTCR FOLLOWING SURG 03/15/2017 ABBI BORGES MD Ot Z95.2 PRESENCE OF PROSTHETIC HEART VALVE 03/15/2017 MELANY OCONNOR APRN Ot R42 DIZZINESS AND GIDDINESS 04/20/2017 Awa NICE MD Ot I48.91 UNSPECIFIED ATRIAL FIBRILLATION 04/20/2017 Awa NICE MD Ot Z95 .2 PRESENCE OF PROSTHETIC HEART VALVE 04/20/2017 ABBI BORGES MD Ot Z48.8 12 ENCNTR FOR SURGICAL AFTCR FOLLOWING SURG 04/20/2017 ABBI BORGES MD Ot Z95.2 PRESENCE OF PROSTHETIC HEART VALVE 04/20/2017 TINY CONTRERAS MD Ot Z12.31 ENCNTR SCREEN MAMMOGRAM FOR MALIGNANT NE 04/20/2017 JAY JAY PINEDA MEDICAL BILLER/CODER Ot R92.1 MAMMOGRAPHIC CALCIFCN FOUND ON DIAGNOSTI 04/20/2017 JAY JAY PINEDA MEDICAL BILLER/CODER Ot R92.1 MAMMOGRAPHIC CALCIFCN FOUND ON DIAGNOSTI 04/20/2017 TINY CONTRERAS MD Ot R92.1 MAMMOGRAPHIC CALCIFCN FOUND ON DIAGNOSTI 04/20/2017 EMANI VIVAS, CHANCE Z Ot N64.9 DISORDER OF BREAST, UNSPECIFIED 04/22/2017 EMANI VIVAS, CHANCE Z Ot R92.1 MAMMOGRAPHIC CALCIFCN FOUND ON DIAGNOSTI 05/01/2017 JAY JAY PINEDA MEDICAL BILLER/CODER Ot R92.1 MAMMOGRAPHIC CALCIFCN FOUND ON DIAGNOSTI 05/08/2017 Awa NICE MD Ot I48.91 UNSPECIFIED ATRIAL FIBRILLATION 05/08/2017 Aaw NICE MD Ot Z95 .2 PRESENCE OF PROSTHETIC HEART VALVE 05/08/2017 ABBI BORGES MD Ot Z48.8 12 ENCNTR FOR SURGICAL AFTCR FOLLOWING SURG 05/08/2017 ABBI BORGES MD Ot Z95.2 PRESENCE OF PROSTHETIC HEART VALVE 05/08/2017 TINY CONTRERAS MD Ot Z12.31 ENCNTR SCREEN MAMMOGRAM FOR MALIGNANT NE 05/08/2017 JAY JAY PINEDA MEDICAL BILLER/CODER Ot R92.1 MAMMOGRAPHIC CALCIFCN FOUND ON DIAGNOSTI 05/08/2017 JAY JAY PINEDA MEDICAL BILLER/CODER Ot R92.1 MAMMOGRAPHIC CALCIFCN FOUND ON DIAGNOSTI 05/08/2017 TINY CONTRERAS MD Ot R92.1 MAMMOGRAPHIC CALCIFCN FOUND ON DIAGNOSTI 05/08/2017 CHANCE JOAQUIN MD Ot R92.1 MAMMOGRAPHIC CALCIFCN FOUND ON DIAGNOSTI 05/11/2017 Awa NICE MD Ot I48.91 UNSPECIFIED ATRIAL FIBRILLATION 05/11/2017 Awa NICE MD Ot Z95 .2 PRESENCE OF PROSTHETIC HEART VALVE 05/11/2017 ABBI BORGES MD Ot Z48.8 12 ENCNTR FOR SURGICAL AFTCR FOLLOWING SURG 05/11/2017 ABBI BORGES MD Ot Z95.2 PRESENCE OF PROSTHETIC HEART VALVE 05/11/2017 TINY CONTRERAS MD Ot Z12.31 ENCNTR SCREEN MAMMOGRAM FOR MALIGNANT NE 05/11/2017 JAY JAY PINEDA MEDICAL BILLER/CODER Ot R92.1 MAMMOGRAPHIC CALCIFCN FOUND ON DIAGNOSTI 05/11/2017 JAY JAY PINEDAP Ot R92.1 MAMMOGRAPHIC CALCIFCN FOUND ON DIAGNOSTI 05/11/2017 TINY CONTRERAS MD Ot R92.1 MAMMOGRAPHIC CALCIFCN FOUND ON DIAGNOSTI 05/11/2017 CHANCE JOAQUIN MD Z Ot R92.1 MAMMOGRAPHIC CALCIFCN FOUND ON DIAGNOSTI 05/12/2017 Awa NICE MD Ot I42 .9 CARDIOMYOPATHY, UNSPECIFIED 05/12/2017 Awa NICE MD Ot I48.91 UNSPECIFIED ATRIAL FIBRILLATION 05/12/2017 Awa NICE MD Ot Z95 .2 PRESENCE OF PROSTHETIC HEART VALVE 05/18/2017 CHANCE JOAQUIN MD Ot R92.1 MAMMOGRAPHIC CALCIFCN FOUND ON DIAGNOSTI 06/02/2017 TEX VIVAS, Awa KLINE Ot I42 .9 CARDIOMYOPATHY, UNSPECIFIED 06/02/2017 Awa NICE MD Ot I48.91 UNSPECIFIED ATRIAL FIBRILLATION 06/02/2017 Awa NICE MD Ot Z95 .2 PRESENCE OF PROSTHETIC HEART VALVE 08/28/2017 TORIE VIVAS, MARIE Hopper Ot Z12.3 1 ENCNTR SCREEN MAMMOGRAM FOR MALIGNANT NE 09/02/2017 MARIE VOGT MD Ot Z12.3 1 ENCNTR SCREEN MAMMOGRAM FOR MALIGNANT NE 09/18/2017 Awa NICE MD Ot Z29 .8 ENCOUNTER FOR OTHER SPECIFIED PROPHYLACT 09/28/2017 MARIE VOGT MD Ot Z12.3 1 ENCNTR SCREEN MAMMOGRAM FOR MALIGNANT NE 10/16/2017 MARIE VOGT MD Ot Z12.3 1 ENCNTR SCREEN MAMMOGRAM FOR MALIGNANT NE 01/21/2018 TEX VIVAS, Awa KLINE Ot I48.91 UNSPECIFIED ATRIAL FIBRILLATION 01/21/2018 Awa NICE MD Ot Z95 .2 PRESENCE OF PROSTHETIC HEART VALVE 01/21/2018 ABBI BORGES MD Ot Z48.8 12 ENCNTR FOR SURGICAL AFTCR FOLLOWING SURG 01/21/2018 ABBI BORGES MD Ot Z95.2 PRESENCE OF PROSTHETIC HEART VALVE 01/21/2018 BEN VIVAS, TINY Tucker Ot Z12.31 ENCNTR SCREEN MAMMOGRAM FOR MALIGNANT NE 01/21/2018 JAY JAY PINEDA Ot R92.1 MAMMOGRAPHIC CALCIFCN FOUND ON DIAGNOSTI 01/21/2018 Awa NICE MD Ot I42 .9 CARDIOMYOPATHY, UNSPECIFIED 01/21/2018 Awa NICE MD Ot I48.91 UNSPECIFIED ATRIAL FIBRILLATION 01/21/2018 Awa NICE MD Ot Z95 .2 PRESENCE OF PROSTHETIC HEART VALVE 01/21/2018 JAY JAY PINEDA Ot R92.1 MAMMOGRAPHIC CALCIFCN FOUND ON DIAGNOSTI 01/21/2018 TINY CONTRERAS MD Ot R92.1 MAMMOGRAPHIC CALCIFCN FOUND ON DIAGNOSTI 01/21/2018 EMANI VIVAS, CHANCE Mathews Ot R92.1 MAMMOGRAPHIC CALCIFCN FOUND ON DIAGNOSTI 01/21/2018 TORIE VIVAS, MARIE Hopper Ot Z12.3 1 ENCNTR SCREEN MAMMOGRAM FOR MALIGNANT NE 01/27/2018 Awa NICE MD Ot E66 .9 OBESITY, UNSPECIFIED 01/27/2018 Awa NICE MD Ot G47.33 OBSTRUCTIVE SLEEP APNEA (ADULT) (PEDIATR 01/27/2018 Awa NICE MD Ot I42 .9 CARDIOMYOPATHY, UNSPECIFIED 01/27/2018 Awa NICE MD Ot I48.91 UNSPECIFIED ATRIAL FIBRILLATION 01/27/2018 Awa NICE MD Ot Z95 .2 PRESENCE OF PROSTHETIC HEART VALVE 02/16/2018 Awa NICE MD Ot E66 .9 OBESITY, UNSPECIFIED 02/16/2018 Awa NICE MD Ot G47.33 OBSTRUCTIVE SLEEP APNEA (ADULT) (PEDIATR 02/16/2018 Awa NICE MD Ot I42 .9 CARDIOMYOPATHY, UNSPECIFIED 02/16/2018 Awa NICE MD Ot I48.91 UNSPECIFIED ATRIAL FIBRILLATION 02/16/2018 Awa NICE MD Ot Z95 .2 PRESENCE OF PROSTHETIC HEART VALVE 03/22/2018 Awa NICE MD Ot I48.91 UNSPECIFIED ATRIAL FIBRILLATION 03/22/2018 Awa NICE MD Ot Z95 .2 PRESENCE OF PROSTHETIC HEART VALVE 03/22/2018 ABBI BORGES MD Ot Z48.8 12 ENCNTR FOR SURGICAL AFTCR FOLLOWING SURG 03/22/2018 ABBI BORGES MD Ot Z95.2 PRESENCE OF PROSTHETIC HEART VALVE 03/22/2018 BEN VIVAS, TINY Tcuker Ot Z12.31 ENCNTR SCREEN MAMMOGRAM FOR MALIGNANT NE 03/22/2018 JAY JAY PINEDA Ot R92.1 MAMMOGRAPHIC CALCIFCN FOUND ON DIAGNOSTI 03/22/2018 Awa NICE MD Ot I42 .9 CARDIOMYOPATHY, UNSPECIFIED 03/22/2018 Awa NICE MD Ot I48.91 UNSPECIFIED ATRIAL FIBRILLATION 03/22/2018 Awa NICE MD RAISA Ot Z95 .2 PRESENCE OF PROSTHETIC HEART VALVE 03/22/2018 JAY JAY PINEDA Ot R92.1 MAMMOGRAPHIC CALCIFCN FOUND ON DIAGNOSTI 03/22/2018 BEN VIVAS, TINY Tucker Ot R92.1 MAMMOGRAPHIC CALCIFCN FOUND ON DIAGNOSTI 03/22/2018 EMANI VIVAS, CHANCE Reid Ot R92.1 MAMMOGRAPHIC CALCIFCN FOUND ON DIAGNOSTI 03/22/2018 TORIE VIVAS, MARIE Hopper Ot Z12.3 1 ENCNTR SCREEN MAMMOGRAM FOR MALIGNANT NE 03/22/2018 TEX VIVAS, Awa KLINE Ot E66 .9 OBESITY, UNSPECIFIED 03/22/2018 TEX VIVAS, Awa KLINE Ot G47.33 OBSTRUCTIVE SLEEP APNEA (ADULT) (PEDIATR 03/22/2018 TEX VIVAS, Awa KLINE Ot I42 .9 CARDIOMYOPATHY, UNSPECIFIED 03/22/2018 TEX VIVAS, Awa KLINE Ot I48.91 UNSPECIFIED ATRIAL FIBRILLATION 03/22/2018 TEX VIVAS, Awa KLINE Ot Z95 .2 PRESENCE OF PROSTHETIC HEART VALVE 03/23/2018 KYARA VIVAS, BENEDICT H Ot I27.20 PULMONARY HYPERTENSION, UNSPECIFIED 03/23/2018 KYARA VIVAS, BENEDICT H Ot J45.909 UNSPECIFIED ASTHMA, UNCOMPLICATED 04/20/2018 KYARA VIVAS, BENEDICT H Ot I27.20 PULMONARY HYPERTENSION, UNSPECIFIED 04/20/2018 KYARA VIVAS, BENEDICT H Ot J45.909 UNSPECIFIED ASTHMA, UNCOMPLICATED 04/22/2018 KYARA VIVAS, BENEDICT H Ot I27.20 PULMONARY HYPERTENSION, UNSPECIFIED 04/22/2018 KYARA VIVAS, BENEDICT H Ot J45.909 UNSPECIFIED ASTHMA, UNCOMPLICATED 04/22/2018 KYARA VIVAS, BENEDICT H Ot I27.20 PULMONARY HYPERTENSION, UNSPECIFIED 04/22/2018 KYARA VIVAS, BENEDICT H Ot J45.909 UNSPECIFIED ASTHMA, UNCOMPLICATED 05/06/2018 KYARA VIVAS, BENEDICT H Ot I27.20 PULMONARY HYPERTENSION, UNSPECIFIED 05/06/2018 KYARA VIVAS, BENEDICT H Ot J45.909 UNSPECIFIED ASTHMA, UNCOMPLICATED 05/11/2018 KYARA VIVAS, BENEDICT H Ot I27.20 PULMONARY HYPERTENSION, UNSPECIFIED 05/11/2018 KYARA VIVAS, BENEDICT H Ot J45.909 UNSPECIFIED ASTHMA, UNCOMPLICATED 05/13/2018 KYARA VIVAS, BENEDICT H Ot I27.20 PULMONARY HYPERTENSION, UNSPECIFIED 05/13/2018 KYARA VIVAS, BENEDICT H Ot J45.909 UNSPECIFIED ASTHMA, UNCOMPLICATED 05/18/2018 KYARA VIVAS, BENEDICT H Ot I27.20 PULMONARY HYPERTENSION, UNSPECIFIED 05/18/2018 KYARA VIVAS, BENEDICT H Ot J45.909 UNSPECIFIED ASTHMA, UNCOMPLICATED 05/20/2018 KYARA VIVAS, BENEDICT H Ot I27.20 PULMONARY HYPERTENSION, UNSPECIFIED 05/20/2018 KYARA VIVAS, BENEDICT H Ot J45.909 UNSPECIFIED ASTHMA, UNCOMPLICATED 05/25/2018 KYARA VIVAS, BENEDICT H Ot I27.20 PULMONARY HYPERTENSION, UNSPECIFIED 05/25/2018 KYARA VIVAS, BENEDICT H Ot J45.909 UNSPECIFIED ASTHMA, UNCOMPLICATED 05/27/2018 KYARA VIVAS, BENEDICT H Ot I27.20 PULMONARY HYPERTENSION, UNSPECIFIED 05/27/2018 KYARA VIVAS, BENEDICT H Ot J45.909 UNSPECIFIED ASTHMA, UNCOMPLICATED 05/31/2018 KYARA VIVAS, BENEDICT H Ot I27.20 PULMONARY HYPERTENSION, UNSPECIFIED 05/31/2018 KYARA VIVAS, BENEDICT H Ot J45.909 UNSPECIFIED ASTHMA, UNCOMPLICATED 06/01/2018 KYARA VIVAS, BENEDICT H Ot I27.20 PULMONARY HYPERTENSION, UNSPECIFIED 06/01/2018 KYARA VIVAS, BENEDICT H Ot J45.909 UNSPECIFIED ASTHMA, UNCOMPLICATED 06/03/2018 KYARA VIVAS, BENEDICT H Ot I27.20 PULMONARY HYPERTENSION, UNSPECIFIED 06/03/2018 KYARA VIVAS, BENEDICT H Ot J45.909 UNSPECIFIED ASTHMA, UNCOMPLICATED 06/08/2018 KYARA VIVAS, BENEDICT H Ot I27.20 PULMONARY HYPERTENSION, UNSPECIFIED 06/08/2018 KYARA VIVAS, BENEDICT H Ot J45.909 UNSPECIFIED ASTHMA, UNCOMPLICATED 06/11/2018 Awa NICE MD Ot Z29 .8 ENCOUNTER FOR OTHER SPECIFIED PROPHYLACT 06/14/2018 Awa NICE MD Ot Z29 .8 ENCOUNTER FOR OTHER SPECIFIED PROPHYLACT 06/17/2018 KYARA VIVAS, BENEDICT H Ot I27.20 PULMONARY HYPERTENSION, UNSPECIFIED 06/17/2018 KYARA VIVAS, BENEDICT H Ot J45.909 UNSPECIFIED ASTHMA, UNCOMPLICATED 06/20/2018 KYARA VIVAS, BENEDICT H Ot I27.20 PULMONARY HYPERTENSION, UNSPECIFIED 06/20/2018 KYARA VIVAS, BENEDICT H Ot J45.909 UNSPECIFIED ASTHMA, UNCOMPLICATED 06/22/2018 KYARA VIVAS, BENEDICT H Ot I27.20 PULMONARY HYPERTENSION, UNSPECIFIED 06/22/2018 KYARA VIVAS, BENEDICT H Ot J45.909 UNSPECIFIED ASTHMA, UNCOMPLICATED 06/22/2018 KYARA VIVAS, BENEDICT H Ot I27.20 PULMONARY HYPERTENSION, UNSPECIFIED 06/22/2018 KYARA VIVAS, BENEDICT H Ot J45.909 UNSPECIFIED ASTHMA, UNCOMPLICATED 06/27/2018 KYARA VIVAS, BENEDICT H Ot I27.20 PULMONARY HYPERTENSION, UNSPECIFIED 06/27/2018 KYARA VIVAS, BENEDICT H Ot J45.909 UNSPECIFIED ASTHMA, UNCOMPLICATED 07/06/2018 KYARA VIVAS, BENEDICT H Ot I27.20 PULMONARY HYPERTENSION, UNSPECIFIED 07/06/2018 KYARA VIVAS, BENEDICT H Ot J45.909 UNSPECIFIED ASTHMA, UNCOMPLICATED 07/07/2018 KYARA VIVAS, BENEDICT H Ot I27.20 PULMONARY HYPERTENSION, UNSPECIFIED 07/07/2018 KYARA VIVAS, BENEDICT H Ot J45.909 UNSPECIFIED ASTHMA, UNCOMPLICATED 07/08/2018 KYARA VIVAS, BENEDICT H Ot I27.20 PULMONARY HYPERTENSION, UNSPECIFIED 07/08/2018 KYARA VIVAS, BENEDICT H Ot J45.909 UNSPECIFIED ASTHMA, UNCOMPLICATED 07/13/2018 KYARA VIVAS, BENEDICT H Ot I27.20 PULMONARY HYPERTENSION, UNSPECIFIED 07/13/2018 KYARA VIVAS, BENEDICT H Ot J45.909 UNSPECIFIED ASTHMA, UNCOMPLICATED 07/16/2018 TEX VIVAS, Awa KLINE Ot Z29 .8 ENCOUNTER FOR OTHER SPECIFIED PROPHYLACT 07/19/2018 TEX VIVAS, Awa KLINE Ot Z29 .8 ENCOUNTER FOR OTHER SPECIFIED PROPHYLACT 07/23/2018 KYARA VIVAS, BENEDICT H Ot I27.20 PULMONARY HYPERTENSION, UNSPECIFIED 07/23/2018 BENEDICT SPARROW MD Ot J45.909 UNSPECIFIED ASTHMA, UNCOMPLICATED 08/13/2018 TEX VIVAS, Awa KLINE Ot I42 .9 CARDIOMYOPATHY, UNSPECIFIED 08/13/2018 TEX VIVAS, Awa KLINE Ot I48 .1 PERSISTENT ATRIAL FIBRILLATION 08/13/2018 Awa NICE MD Ot O07 .1 DELAYED OR EXCESS HEMOR FOL FAILED ATTEM 08/13/2018 Awa NICE MD Ot R06.02 SHORTNESS OF BREATH 08/13/2018 TEX VIVSA, Awa KLINE Ot Z95 .2 PRESENCE OF PROSTHETIC HEART VALVE 08/20/2018 TEX VIVAS, Awa KLINE Ot I42 .9 CARDIOMYOPATHY, UNSPECIFIED 08/20/2018 TEX VIVAS, Awa KLINE Ot I48 .1 PERSISTENT ATRIAL FIBRILLATION 08/20/2018 Awa NICE MD Ot R06.02 SHORTNESS OF BREATH 08/20/2018 TEX VIVAS, Awa KLINE Ot Z95 .2 PRESENCE OF PROSTHETIC HEART VALVE 08/30/2018 TORIE VIVAS, MARIE Hopper Ot 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, UNSPECIFIED, UNSPE 08/30/2018 TORIE VIVAS, MARIE Hopper Ot I51.7 CARDIOMEGALY 09/06/2018 TEX VIVAS, Awa KLINE Ot I42 .9 CARDIOMYOPATHY, UNSPECIFIED 09/06/2018 Awa NICE MD Ot I48 .1 PERSISTENT ATRIAL FIBRILLATION 09/06/2018 TEX VIVAS, Awa KLINE Ot R06.02 SHORTNESS OF BREATH 09/06/2018 TEX VIVAS, Awa KLINE Ot Z95 .2 PRESENCE OF PROSTHETIC HEART VALVE 09/09/2018 EMANI VIVAS, CHANCE Z Ot R92.1 MAMMOGRAPHIC CALCIFCN FOUND ON DIAGNOSTI 09/22/2018 BENEDICT SPARROW MD Ot I27.20 PULMONARY HYPERTENSION, UNSPECIFIED 09/22/2018 BENEDICT SPARROW MD Ot J45.909 UNSPECIFIED ASTHMA, UNCOMPLICATED 09/23/2018 BENEDICT SPARROW MD Ot I27.20 PULMONARY HYPERTENSION, UNSPECIFIED 09/23/2018 BENEDICT SPARROW MD Ot J45.909 UNSPECIFIED ASTHMA, UNCOMPLICATED 09/24/2018 MARIE VOGT MD Ot Z12.3 1 ENCNTR SCREEN MAMMOGRAM FOR MALIGNANT NE 09/29/2018 MARIE VOGT MD Ot Z12.3 1 ENCNTR SCREEN MAMMOGRAM FOR MALIGNANT NE 10/04/2018 MARIE VOGT MD Ot Z12.3 1 ENCNTR SCREEN MAMMOGRAM FOR MALIGNANT NE 10/21/2018 MARIE VOGT MD Ot Z12.3 1 ENCNTR SCREEN MAMMOGRAM FOR MALIGNANT NE 04/08/2019 Awa NICE MD Ot G47.33 OBSTRUCTIVE SLEEP APNEA (ADULT) (PEDIATR 04/08/2019 Awa NICE MD Ot I42 .9 CARDIOMYOPATHY, UNSPECIFIED 04/08/2019 Awa NICE MD Ot Z95 .2 PRESENCE OF PROSTHETIC HEART VALVE 06/23/2019 MARIE VOGT MD Ot R32 UNSPECIFIED URINARY INCONTINENCE 06/23/2019 MARIE VOGT MD Ot R39.1 5 URGENCY OF URINATION 07/12/2019 Awa NICE MD Ot I48.91 UNSPECIFIED ATRIAL FIBRILLATION 07/12/2019 Awa NICE MD Ot Z95 .2 PRESENCE OF PROSTHETIC HEART VALVE 07/12/2019 ABBI BORGES MD Ot Z48.8 12 ENCNTR FOR SURGICAL AFTCR FOLLOWING SURG 07/12/2019 ABBI BORGES MD Ot Z95.2 PRESENCE OF PROSTHETIC HEART VALVE 07/12/2019 TINY CONTRERAS MD Ot Z12.31 ENCNTR SCREEN MAMMOGRAM FOR MALIGNANT NE 07/12/2019 JAY JAY PINEDA Ot R92.1 MAMMOGRAPHIC CALCIFCN FOUND ON DIAGNOSTI 07/12/2019 Awa NICE MD Ot I42 .9 CARDIOMYOPATHY, UNSPECIFIED 07/12/2019 Awa NICE MD Ot I48.91 UNSPECIFIED ATRIAL FIBRILLATION 07/12/2019 Awa NICE MD Ot Z95 .2 PRESENCE OF PROSTHETIC HEART VALVE 07/12/2019 JAY JAY PINEDA Ot R92.1 MAMMOGRAPHIC CALCIFCN FOUND ON DIAGNOSTI 07/12/2019 TINY CONTRERAS MD Ot R92.1 MAMMOGRAPHIC CALCIFCN FOUND ON DIAGNOSTI 07/12/2019 EMANI VIVAS, CHANCE Z Ot R92.1 MAMMOGRAPHIC CALCIFCN FOUND ON DIAGNOSTI 07/12/2019 TORIE VIVAS, MARIE Hopper Ot Z12.3 1 ENCNTR SCREEN MAMMOGRAM FOR MALIGNANT NE 07/12/2019 TEX VIVAS, Awa KLINE Ot E66 .9 OBESITY, UNSPECIFIED 07/12/2019 TEX VIVAS, Awa KLINE Ot G47.33 OBSTRUCTIVE SLEEP APNEA (ADULT) (PEDIATR 07/12/2019 TEX VIVAS, Awa KLINE Ot I42 .9 CARDIOMYOPATHY, UNSPECIFIED 07/12/2019 TEX VIVAS, Awa KLINE Ot I48.91 UNSPECIFIED ATRIAL FIBRILLATION 07/12/2019 TEX VIVAS, Awa KLINE Ot Z95 .2 PRESENCE OF PROSTHETIC HEART VALVE 07/12/2019 MARIE VOGT MD Ot 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, UNSPECIFIED, UNSPE 07/12/2019 MARIE VOGT MD Ot I51.7 CARDIOMEGALY 07/12/2019 Awa NICE MD Ot I42 .9 CARDIOMYOPATHY, UNSPECIFIED 07/12/2019 TEX VIVAS, Awa KLINE Ot I48 .1 PERSISTENT ATRIAL FIBRILLATION 07/12/2019 TEX VIVAS, Awa KLINE Ot R06.02 SHORTNESS OF BREATH 07/12/2019 TEX VIVAS, Awa KLINE Ot Z95 .2 PRESENCE OF PROSTHETIC HEART VALVE 07/12/2019 MARIE VOGT MD Ot Z12.3 1 ENCNTR SCREEN MAMMOGRAM FOR MALIGNANT NE 07/12/2019 KYARA VIVAS, BENEDICT Sanchez Ot I27.20 PULMONARY HYPERTENSION, UNSPECIFIED 07/12/2019 KYARA VIVAS, BENEDICT H Ot J45.909 UNSPECIFIED ASTHMA, UNCOMPLICATED 07/12/2019 TEX VIVAS, Awa KLINE Ot G47.33 OBSTRUCTIVE SLEEP APNEA (ADULT) (PEDIATR 07/12/2019 TEX VIVAS, Awa KLINE Ot I42 .9 CARDIOMYOPATHY, UNSPECIFIED 07/12/2019 Awa NICE MD Ot Z95 .2 PRESENCE OF PROSTHETIC HEART VALVE 07/12/2019 MARIE VOGT MD Ot R32 UNSPECIFIED URINARY INCONTINENCE 07/12/2019 MARIE VOGT MD Ot R39.1 5 URGENCY OF URINATION 07/12/2019 MARIE VOGT MD Ot R32 UNSPECIFIED URINARY INCONTINENCE 07/12/2019 MARIE VOGT MD Ot R39.1 5 URGENCY OF URINATION 07/13/2019 ABBI BORGES MD Ot Z48.8 12 ENCNTR FOR SURGICAL AFTCR FOLLOWING SURG 07/13/2019 ABBI BORGES MD Ot Z95.2 PRESENCE OF PROSTHETIC HEART VALVE 07/13/2019 BEN VIVAS, TINY Tucker Ot R92.1 MAMMOGRAPHIC CALCIFCN FOUND ON DIAGNOSTI 07/13/2019 BENEDICT SPARROW MD Ot I27.20 PULMONARY HYPERTENSION, UNSPECIFIED 07/13/2019 BENEDICT SPARROW MD Ot J45.909 UNSPECIFIED ASTHMA, UNCOMPLICATED Procedures There is no data. Results Test Result Range Complete blood count (CBC) with automate d white blood cell (WBC) differential - 03/15/17 11:34 Blood leukocytes automated count (number/volume) 5.5 10*3/uL 4.3-11.0 Blood erythrocytes automated count (number/volume) 4.25 10*6/uL 4.35-5.85 Venous blood hemoglobin measurement (mass/volume) 12.3 g/dL 11.5-16.0 Blood hematocrit (volume fraction) 37 % 35-52 Automated erythrocyte mean corpuscular volume 87 [ foz_us] 80-99 Automated erythrocyte mean corpuscular h emoglobin (mass per erythrocyte) 29 pg 25-34 Automated erythrocyte mean corpuscular h emoglobin concentration measurement (mass/volume) 33 g/dL 32-36 Automated erythrocyte distribution width ratio 14. 9 % 10.0- 14.5 Automated blood platelet count (count/volume) 190 10*3/uL 130-400 Automated blood platelet mean volume measurement 9.9 [foz_us] 7.4-10.4 Automated blood neutrophils/100 leukocytes 72 % 42-75 Automated blood lymphocytes/100 leukocytes 18 % 12-44 Blood monocytes/100 leukocytes 8 % 0-12 Automated blood eosinophils/100 leukocytes 2 % 0-10 Automated blood basophils/100 leukocytes 1 % 0-10 Blood neutrophils automated count (number/volume) 3.9 10*3 1.8-7.8 Blood lymphocytes automated count (number/volume) 1.0 10*3 1.0-4.0 Blood monocytes automated count (number/volume) 0. 5 10*3 0.0-1.0 Automated eosinophil count 0.1 10*3/uL 0 .0-0.3 Automated blood basophil count (count/volume) 0.0 10*3/uL 0.0-0.1 Comprehensive metabolic panel - 03/15/17 11:34 Serum or plasma sodium measurement (moles/volume) 139 mmol/L 135-145 Serum or plasma potassium measurement (moles/volume) 3.7 mmol/L 3.6-5.0 Serum or plasma chloride measurement (moles/volume) 108 mmol/L 98-107 Carbon dioxide 22 mmol/L 21-32 Serum or plasma anion gap determination (moles/volume) 9 mmol/L 5-14 Serum or plasma urea nitrogen measurement (mass/volume ) 15 mg/dL 7-18 Serum or plasma creatinine measurement (mass/volume) 0.69 mg/dL 0.60-1.30 Serum or plasma urea nitrogen/creatinine mass ratio 22 NRG Serum or plasma creatinine measurement w ith calculation of estimated glomerular filtration rate > NRG Serum or plasma glucose measurement (mass/volume) 115 mg/dL 70-105 Serum or plasma calcium measurement (mass/volume) 9.2 mg/dL 8.5-10.1 Serum or plasma total bilirubin measurement (mass/volu me) 1.2 mg/dL 0.1-1.0 Serum or plasma alkaline phosphatase jaime surement (enzymatic activity/volume) 69 U/L 40-136 Serum or plasma aspartate aminotransfera se measurement (enzymatic activity/volume) 22 U/L 5-34 Serum or plasma alanine aminotransferase measurement (enzymatic activity/volume) 17 U/L 0-55 Serum or plasma protein measurement (mass/volume) 7.1 g/dL 6.4-8.2 Serum or plasma albumin measurement (mass/volume) 3.9 g/dL 3.2-4.5 Serum or plasma troponin i.cardiac measu rement (mass/volume) - 03/15/17 11:34 Serum or plasma troponin i.cardiac measurement (mass/v olume) < ng/mL <0.30 Complete urinalysis with reflex to cultu re - 03/15/17 11:35 Urine color determination [place]OW NRG Urine clarity determination CLEAR NR G Urine pH measurement by test strip 7 5-9 Specific gravity of urine by test strip 1.010 1.016-1.022 Urine protein assay by test strip, semi-quantitative NEGATIVE NEGATIVE Urine glucose detection by automated test strip NE GATIVE NEGATIVE Erythrocytes detection in urine sediment by light micr oscopy NEGATIVE NEGATIVE Urine ketones detection by automated test strip NE GATIVE NEGATIVE Urine nitrite detection by test strip NEGATIVE NEGATIVE Urine total bilirubin detection by test strip NEGA TIVE NEGATIVE Urine urobilinogen measurement by automated test strip (mass/volume) NORMAL NORMAL Urine leukocyte esterase detection by dipstick 1+ NEGATIVE Automated urine sediment erythrocyte cou nt by microscopy (number/high power field) NONE NRG Automated urine sediment leukocyte count by microscopy (number/high power field) [HPF] NRG Bacteria detection in urine sediment by light microsco py NEGATIVE NRG Squamous epithelial cells detection in u rine sediment by light microscopy 2-5 NRG Crystals detection in urine sediment by light microsco py NONE NRG Casts detection in urine sediment by light microscopy NONE NRG Mucus detection in urine sediment by light microscopy NEGATIVE NRG Complete urinalysis with reflex to culture NO NRG PT panel in platelet poor plasma by coag ulation assay - 03/15/17 11:38 Prothrombin time (PT) in platelet poor plasma by coagu lation assay 22.0 s 12.2-14.7 INR in platelet poor plasma or blood by coagulation as say 1.9 0.8-1.4 PT panel in platelet poor plasma by coag ulation assay - 04/20/17 08:09 Prothrombin time (PT) in platelet poor plasma by coagu lation assay 16.0 s 12.2-14.7 INR in platelet poor plasma or blood by coagulation as say 1.3 0.8-1.4 Activated partial thromboplastin time (a PTT) in platelet poor plasma bycoagulation assay - 04/20/17 08:09 Activated partial thromboplastin time (a PTT) in platelet poor plasma bycoagulation assay 26 s 24-35 PT panel in platelet poor plasma by coag ulation assay - 07/13/19 19:30 Prothrombin time (PT) in platelet poor plasma by coagu lation assay 35.2 s 12.2-14.7 INR in platelet poor plasma or blood by coagulation as say 3.3 0.8-1.4 Activated partial thromboplastin time (a PTT) in platelet poor plasma bycoagulation assay - 07/13/19 19:30 Activated partial thromboplastin time (a PTT) in platelet poor plasma bycoagulation assay 44 s 24-35 Complete blood count (CBC) with automate d white blood cell (WBC) differential - 07/13/19 19:30 Blood leukocytes automated count (number/volume) 6.1 10*3/uL 4.3-11.0 Blood erythrocytes automated count (number/volume) 4.10 10*6/uL 4.35-5.85 Venous blood hemoglobin measurement (mass/volume) 11.5 g/dL 11.5-16.0 Blood hematocrit (volume fraction) 35 % 35-52 Automated erythrocyte mean corpuscular volume 85 [ foz_us] 80-99 Automated erythrocyte mean corpuscular h emoglobin (mass per erythrocyte) 28 pg 25-34 Automated erythrocyte mean corpuscular h emoglobin concentration measurement (mass/volume) 33 g/dL 32-36 Automated erythrocyte distribution width ratio 14. 6 % 10.0- 14.5 Automated blood platelet count (count/volume) 190 10*3/uL 130-400 Automated blood platelet mean volume measurement 9.6 [foz_us] 7.4-10.4 Automated blood neutrophils/100 leukocytes 65 % 42-75 Automated blood lymphocytes/100 leukocytes 20 % 12-44 Blood monocytes/100 leukocytes 12 % 0-12 Automated blood eosinophils/100 leukocytes 3 % 0-10 Automated blood basophils/100 leukocytes 1 % 0-10 Blood neutrophils automated count (number/volume) 4.0 10*3 1.8-7.8 Blood lymphocytes automated count (number/volume) 1.2 10*3 1.0-4.0 Blood monocytes automated count (number/volume) 0. 7 10*3 0.0-1.0 Automated eosinophil count 0.2 10*3/uL 0 .0-0.3 Automated blood basophil count (count/volume) 0.0 10*3/uL 0.0-0.1 Comprehensive metabolic panel - 07/13/19 19:30 Serum or plasma sodium measurement (moles/volume) 138 mmol/L 135-145 Serum or plasma potassium measurement (moles/volume) 3.2 mmol/L 3.6-5.0 Serum or plasma chloride measurement (moles/volume) 106 mmol/L 98-107 Carbon dioxide 21 mmol/L 21-32 Serum or plasma anion gap determination (moles/volume) 11 mmol/L 5-14 Serum or plasma urea nitrogen measurement (mass/volume ) 12 mg/dL 7-18 Serum or plasma creatinine measurement (mass/volume) 0.79 mg/dL 0.60-1.30 Serum or plasma urea nitrogen/creatinine mass ratio 15 NRG Serum or plasma creatinine measurement w ith calculation of estimated glomerular filtration rate > NRG Serum or plasma glucose measurement (mass/volume) 114 mg/dL 70-105 Serum or plasma calcium measurement (mass/volume) 8.6 mg/dL 8.5-10.1 Serum or plasma total bilirubin measurement (mass/volu me) 1.1 mg/dL 0.1-1.0 Serum or plasma alkaline phosphatase jaime surement (enzymatic activity/volume) 81 U/L 40-136 Serum or plasma aspartate aminotransfera se measurement (enzymatic activity/volume) 17 U/L 5-34 Serum or plasma alanine aminotransferase measurement (enzymatic activity/volume) 12 U/L 0-55 Serum or plasma protein measurement (mass/volume) 7.2 g/dL 6.4-8.2 Serum or plasma albumin measurement (mass/volume) 3.9 g/dL 3.2-4.5 CALCIUM CORRECTED 8.7 mg/dL 8.5-10.1 Magnesium - 07/13/19 19:30 Magnesium 1.7 mg/dL 1.6-2.4 Myoglobin, serum - 07/13/19 19:30 Myoglobin, serum 62.8 ng/mL 10.0-92.0 Serum or plasma troponin i.cardiac measu rement (mass/volume) - 07/13/19 19:30 Serum or plasma troponin i.cardiac measurement (mass/v olume) < ng/mL <0.028 Serum or plasma thyrotropin measurement by detection limit <=0.05 miu/l (units/volume) - 07/13/19 19:30 Serum or plasma thyrotropin measurement by detection limit <=0.05 miu/l (units/volume) 0.75 u[iU]/mL 0.35-4.94 Whole blood basic metabolic panel - 07/02 06/23 02:29 Serum or plasma sodium measurement (moles/volume) 139 mmol/L 135-145 Serum or plasma potassium measurement (moles/volume) 3.6 mmol/L 3.6-5.0 Serum or plasma chloride measurement (moles/volume) 108 mmol/L 98-107 Carbon dioxide 22 mmol/L 21-32 Serum or plasma anion gap determination (moles/volume) 9 mmol/L 5-14 Serum or plasma urea nitrogen measurement (mass/volume ) 10 mg/dL 7-18 Serum or plasma creatinine measurement (mass/volume) 0.73 mg/dL 0.60-1.30 Serum or plasma urea nitrogen/creatinine mass ratio 14 NRG Serum or plasma creatinine measurement w ith calculation of estimated glomerular filtration rate > NRG Serum or plasma glucose measurement (mass/volume) 97 mg/dL 70-105 Serum or plasma calcium measurement (mass/volume) 8.3 mg/dL 8.5-10.1 Lipid 1996 panel - 07/14/19 02:29 Serum or plasma triglyceride measurement (mass/volume) 66 mg/dL <150 Serum or plasma cholesterol measurement (mass/volume) 151 mg/dL < 200 Serum or plasma cholesterol in HDL measurement (mass/v olume) 47 mg/dL 40-60 Cholesterol in LDL [mass/volume] in serum or plasma by direct assay 108 mg/dL 1-129 Serum or plasma cholesterol in VLDL measurement (mass/ volume) 13 mg/dL 5-40 Encounters ACCT No. Visit Date/Time Discharge Status Pt. Type Provider Facility Loc./Unit Complaint [id number] 07/13/2019 21:57:00 14:07:00 DIS Inpatient VIVIAN SUN MD [facility] ICU AFIB RVR [id number] 07/12/2019 11:11:00 11:44:00 DIS Outpatient MARIE VOGT MD [facility] REHAB URINARY URGENCY [id number] 03/17/2019 07:48:00 23:59:59 CLS Outpatient Awa NICE MD [facility] CARD PRECORDIAL PAIN, HERNANDO, CARDIOMYOPATHY [id number] 09/28/2018 07:53:00 23:59:59 CLS Outpatient MARIE VOGT MD [facility] RAD SCREENING [id number] 09/23/2018 10:45:00 23:59:59 CLS Preadmit BENEDICT SPARROW MD [facility] PUL J45.50 ASTHMA [id number] 06/24/2018 08:52:00 00:01:00 DIS Outpatient BENEDICT SPARROW MD [facility] PUL J45.50 ASTHMA [id number] 08/12/2018 13:55:00 23:59:59 CLS Outpatient Awa NICE MD [facility] CARD SOB, PERSISTENT AFIB [id number] 08/04/2018 15:38:00 23:59:59 CLS Outpatient MARIE VOGT MD [facility] RAD NON HODGKINS LYMPHOMA [id number] 07/17/2018 00:11:00 23:59:59 CLS Preadmit Awa NICE MD [facility] CARDIAC REHAB PHASE III [id number] 07/14/2018 17:10:00 00:01:00 DIS Outpatient Awa NICE MD [facility] CARDIAC REHAB PHASE III [id number] 06/08/2018 09:00:00 00:01:00 DIS Outpatient BENEDICT SPARROW MD [facility] PUL J45.50 ASTHMA [id number] 06/09/2018 16:10:00 00:01:00 DIS Outpatient Awa NICE MD [facility] CARDIAC REHAB PHASE III [id number] 01/25/2018 10:37:00 23:59:59 CLS Outpatient Awa NICE MD [facility] CARD AF,MITRAL VALUE REPLACE D [id number] 09/25/2017 13:30:00 23:59:59 CLS Outpatient MARIE VOGT MD [facility] RAD SCREENING [id number] 09/02/2017 13:08:00 05/18/2 018 00:01:00 DIS Outpatient TEX VIVAS, Awa KLINE [facility] CR3 CARDIAC REHAB [id number] 05/11/2017 12:06:00 018 23:59:59 CLS Outpatient Awa NICE MD [facility] CARD I48.91 AF [id number] 04/20/2017 07:53:00 017 23:59:59 CLS Outpatient EMANI VIVAS, CHANCE Mathews [facility] LAB LT BREAST CALCIFACTIONS [id number] 04/10/2017 13:05:00 017 23:59:59 CLS Preadmit TINY CONTRERAS MD [facility] RAD LT BREAST CALCIFICATION S [id number] 04/10/2017 07:46:00 017 23:59:59 CLS Outpatient JAY JAY PINEDA [facility] RAD 6 MO FOLLOW UP [id number] 03/15/2017 09:22:00 017 12:50:00 DIS Emergency MELANY OCONNOR APRN [facility] ER VERTIGO [id number] 10/15/2016 07:18:00 017 23:59:59 CLS Outpatient JAY JAY PINEDA [facility] RAD ABNORMAL SCREEN ING, INCREASED CALCIFICATION [id number] 09/18/2016 09:57:00 017 23:59:59 CLS Outpatient TINY CONTRERAS MD [facility] RAD SCREENING [id number] 08/21/2016 11:26:00 017 23:59:59 CLS Outpatient Awa NICE MD [facility] CARD I48.91 [id number] 07/09/2016 10:00:00 017 23:59:59 CLS Preadmit ABBI BORGES MD, V [facility] CR MVR [id number] 05/21/2016 11:21:00 017 00:01:00 DIS Outpatient ABBI BORGES MD [facility] CR MVR
== END 2019-07-14 14:07 | disposition home or self-care (01) ==
LOC: EDUNIT# 19:10 → ER 19:11 → ICU 21:57
PROVIDERS: ADMIT Internal Medicine; ATTEND Internal Medicine
DX: I48.0 Paroxysmal atrial fibrillation (principal); I95.9 Hypotension, unspecified; E87.6 Hypokalemia; J45.909 Unspecified asthma, uncomplicated; G47.30 Sleep apnea, unspecified; Z95.2 Presence of prosthetic heart valve; Z79.01 Long term (current) use of anticoagulants; Z79.899 Other long term (current) drug therapy; Z85.72 Personal history of non-Hodgkin lymphomas; Z92.21 Personal history of antineoplastic chemotherapy; Z88.8 Allergy status to other drugs, medicaments and biological substances; Z90.710 Acquired absence of both cervix and uterus
CPT/HCPCS: 36415; 71045; 80048; 80053; 80061; 83735; 83874; 84443; 84484; 85025; 85610; 85730; 93005; 93041; 93306

== ENCOUNTER → 2019-10-04 | Outpatient (CLI) | payer MEDICARE, OTHER ==
[~2019-10-04] MED LIST changes: +AMIO200T4 PO; +DOCU100C37 PO; +FLUT1DIS26 IH; +IRBE75TA9 PO; +METO-333 PO; +MONT10TA26 PO; +OMEP20CA18 PO; +POTA10TA36 PO; +TRZ50T PO; +WARF2.5T82 PO; +WARF2TAB PO
== END ==
LOC: LABNPT 14:03
PROVIDERS: ATTEND Internal Medicine
DX: Z11.59 Encounter for screening for other viral diseases (principal); R53.83 Other fatigue; R51 Headache; R11.0 Nausea
CPT/HCPCS: 87635

== ENCOUNTER 2019-11-10 13:55 | Day surgery (SDC) | payer MEDICARE, OTHER ==
[~2019-11-10] VITALS: Ht 160 cm; Wt 87.0 kg
[2019-11-10] MEDS ORDERED: LIDOCAINE 1% INJ 20 ML 20 ML VIAL ONE (13:57)
[2019-11-10] MEDS ORDERED: LIDOCAINE 1% INJ 20 ML 20 ML VIAL INJ ONE (14:00)
[2019-11-10 14:10] VITALS: BP 129/69
--- NOTE | 2019-11-10 14:25 | Implantation of Loop Monitor ---
Implant of Loop Monitior PROCEDURE PHYSICIAN: Nathaniel Espinoza MD IMPLANTATION OF LOOP MONITOR REPORT DATE OF PROCEDURE: 11/10/19 PERFORMING PHYSICIAN: Dr. Joseph Espinoza. INDICATION: Long-term surveillance of atrial fibrillation PREOP DIAGNOSIS: Long-term surveillance of atrial fibrillation POSTOP DIAGNOSIS: Atrial fibrillation, s/p implantation of loop recorder. PROCEDURE DETAILS: The patient is a 74 female with history of paroxysmal atrial fibrillation req uiring long-term surveillance. Therefore implantable loop recorder was discussed and agreed with the patient. Informed consent was taken. All risks and complications were discussed at length. The patient was draped and prepped in the usual sterile fashion. Local anesthesia was lidocaine, which was given in the substernal area close to the 4th intercostal space. Loop monitor was im planted according to the protocol. Steri-Strips were placed at the end of the procedure. There were no complications and the patient tolerated the procedure well. ANESTHESIA: Local anesthesia with lidocaine. COMPLICATIONS: None CONTRAST/FLUOROSCOPY: None CONCLUSION: 1. Successful implantation of loop monitor for paroxysmal atrial fibrillation. 2. No complication and the patient tolerated the procedure well. Nathaniel Espinoza MD, [facility] Cardiac Electrophysiology Awa ESPINOZA MD Nov 10, 2019 14:25
--- OUTSIDE RECORDS SUMMARY | 2019-11-10 16:47 | XMS REPORT | Continuity of Care Document ---
Author Organization Unknown Address Unknown Phone Unavailable Allergies Active Description Code Type Severity Reaction Onset Reported/Identified Relationship to Patient Clinical Status Yes No Known Drug Allergies [id number] Drug Allergy Unknown N/A 03/15/2017 Yes nifedipine [id number] Drug Allerg y Unknown HEADACHE 07/13/2019 Medications [...] MD Ot I48.91 UNSPECIFIED ATRIAL FIBRILLATION 08/22/2016 Awa NICE MD Ot Z95 .2 PRESENCE OF PROSTHETIC HEART VALVE 09/15/2016 Awa NICE MD Ot I48.91 UNSPECIFIED ATRIAL FIBRILLATION 09/15/2016 Awa NICE MD Ot Z95 .2 PRESENCE OF PROSTHETIC HEART VALVE 09/18/2016 Awa NICE MD Ot I48.91 UNSPECIFIED ATRIAL FIBRILLATION 09/18/2016 TEX [...] FOR MALIGNANT NE 10/15/2016 JAY JAY PINEDA SHIP WORKER Ot R92.8 OTH ABN AND INCONCLUSIVE FINDINGS ON DX 10/15/2016 Awa NICE MD Ot I48.91 UNSPECIFIED ATRIAL FIBRILLATION 10/15/2016 Awa NICE MD Ot Z95 .2 PRESENCE OF PROSTHETIC HEART VALVE 10/15/2016 ABBI BORGES MD Ot Z48.8 12 ENCNTR FOR SURGICAL AFTCR FOLLOWING SURG 10/15/2016 ABBI BORGES MD Ot Z95.2 PRESENCE OF PROSTHETIC HEART VALVE 10/15/2016 TINY CONTRERAS MD A Ot Z12.31 ENCNTR SCREEN MAMMOGRAM FOR MALIGNANT NE 10/15/2016 MIRIAM JAY JAY Billings SHIP WORKER Ot R92.8 OTH ABN AND INCONCLUSIVE FINDINGS ON DX 10/15/2016 PINEDAJAY JAY SHIP WORKER Ot R92.8 OTH ABN AND INCONCLUSIVE FINDINGS ON DX 10/16/2016 PINEDAJAY JAY SHIP WORKER Ot R92.1 MAMMOGRAPHIC CALCIFCN FOUND ON DIAGNOSTI 11/06/2016 JAY JAY PINEDA SHIP WORKER Ot R92.1 MAMMOGRAPHIC CALCIFCN FOUND ON DIAGNOSTI 03/15/2017 ABBI BORGES MD Ot Z48.8 12 ENCNTR FOR SURGICAL AFTCR FOLLOWING SURG 03/15/2017 ABBI BORGES MD Ot Z95.2 PRESENCE OF PROSTHETIC HEART VALVE 03/15/2017 MELANY OCONNOR APRN Ot R42 DIZZINESS AND GIDDINESS 04/20/2017 TEX VIVAS, Awa KLINE Ot I48.91 UNSPECIFIED ATRIAL FIBRILLATION 04/20/2017 Awa NICE MD Ot Z95 .2 PRESENCE OF PROSTHETIC HEART VALVE 04/20/2017 ABBI BORGES MD Ot Z48.8 12 ENCNTR FOR SURGICAL AFTCR FOLLOWING SURG 04/20/2017 ABBI BORGES MD Ot Z95.2 PRESENCE OF PROSTHETIC HEART VALVE 04/20/2017 TINY CONTRERAS MD Ot Z12.31 ENCNTR SCREEN MAMMOGRAM FOR MALIGNANT NE 04/20/2017 JAY JAY PINEDA SHIP WORKER Ot R92.1 MAMMOGRAPHIC CALCIFCN FOUND ON DIAGNOSTI 04/20/2017 JAY JAY PINEDA SHIP WORKER Ot R92.1 MAMMOGRAPHIC CALCIFCN FOUND ON DIAGNOSTI 04/20/2017 TINY CONTRERAS MD Ot R92.1 MAMMOGRAPHIC CALCIFCN FOUND ON DIAGNOSTI 04/20/2017 EMANI VIVAS, CHANCE Z Ot N64.9 DISORDER OF BREAST, UNSPECIFIED 04/22/2017 EMANI VIVAS, CHANCE Z Ot R92.1 MAMMOGRAPHIC CALCIFCN FOUND ON DIAGNOSTI 05/01/2017 JAY JAY PINEDA SHIP WORKER Ot R92.1 MAMMOGRAPHIC CALCIFCN FOUND ON DIAGNOSTI 05/08/2017 Awa NICE MD Ot I48.91 UNSPECIFIED ATRIAL FIBRILLATION 05/08/2017 TEX VIVAS, Awa KLINE Ot Z95 .2 PRESENCE OF PROSTHETIC HEART VALVE 05/08/2017 ABBI BORGES MD Ot Z48.8 12 ENCNTR FOR SURGICAL AFTCR FOLLOWING SURG 05/08/2017 ABBI BORGES MD Ot Z95.2 PRESENCE OF PROSTHETIC HEART VALVE 05/08/2017 TINY CONTRERAS MD Ot Z12.31 ENCNTR SCREEN MAMMOGRAM FOR MALIGNANT NE 05/08/2017 JAY JAY PINEDA SHIP WORKER Ot R92.1 MAMMOGRAPHIC CALCIFCN FOUND ON DIAGNOSTI 05/08/2017 JAY JAY PINEDA SHIP WORKER Ot R92.1 MAMMOGRAPHIC CALCIFCN FOUND ON DIAGNOSTI 05/08/2017 TINY CONTRERAS MD Ot R92.1 MAMMOGRAPHIC CALCIFCN FOUND ON DIAGNOSTI 05/08/2017 CHANCE JOAQUIN MD Z Ot R92.1 MAMMOGRAPHIC [...] FOR MALIGNANT NE 05/11/2017 JAY JAY PINEDA SHIP WORKER Ot R92.1 MAMMOGRAPHIC CALCIFCN FOUND ON DIAGNOSTI 05/11/2017 JAY JAY PINEDA SHIP WORKER Ot R92.1 MAMMOGRAPHIC CALCIFCN FOUND ON DIAGNOSTI [...] PROSTHETIC HEART VALVE 05/18/2017 CHANCE JOAQUIN MD Z Ot R92.1 MAMMOGRAPHIC CALCIFCN FOUND ON DIAGNOSTI 06/02/2017 TEX VIVAS, Awa KLINE Ot I42 .9 CARDIOMYOPATHY, UNSPECIFIED 06/02/2017 TEX VIVAS, Awa KLINE Ot I48.91 UNSPECIFIED ATRIAL FIBRILLATION 06/02/2017 Awa [...] ENCNTR SCREEN MAMMOGRAM FOR MALIGNANT NE 01/21/2018 Awa NICE MD Ot I48.91 UNSPECIFIED ATRIAL FIBRILLATION 01/21/2018 Awa NICE MD Ot Z95 .2 PRESENCE OF PROSTHETIC HEART VALVE 01/21/2018 ABBI BORGES MD Ot Z48.8 12 ENCNTR FOR SURGICAL AFTCR FOLLOWING SURG 01/21/2018 ABBI BORGES MD Ot Z95.2 PRESENCE OF PROSTHETIC HEART VALVE 01/21/2018 EBN VIVAS, TINY Tucker Ot Z12.31 ENCNTR SCREEN MAMMOGRAM FOR MALIGNANT NE 01/21/2018 JAY JAY PINEDA Ot R92.1 MAMMOGRAPHIC CALCIFCN FOUND ON DIAGNOSTI 01/21/2018 Awa NICE MD Ot I42 .9 CARDIOMYOPATHY, UNSPECIFIED 01/21/2018 Awa NICE MD Ot I48.91 UNSPECIFIED ATRIAL FIBRILLATION 01/21/2018 TEX VIVAS, Awa KLINE Ot Z95 .2 PRESENCE OF PROSTHETIC HEART VALVE 01/21/2018 JAY JAY PINEDA Ot R92.1 MAMMOGRAPHIC CALCIFCN FOUND ON DIAGNOSTI 01/21/2018 TINY CONTRERAS MD Ot R92.1 MAMMOGRAPHIC CALCIFCN FOUND ON DIAGNOSTI 01/21/2018 EMANI VIVAS, CHANCE Mathews Ot R92.1 MAMMOGRAPHIC CALCIFCN FOUND ON DIAGNOSTI 01/21/2018 MARIE VOGT MD Ot Z12.3 1 ENCNTR [...] PROSTHETIC HEART VALVE 03/22/2018 BEN VIVAS, TINY Tucker Ot Z12.31 ENCNTR [...] FOUND ON DIAGNOSTI 03/22/2018 EMANI VIVAS, CHANCE Z Ot R92.1 MAMMOGRAPHIC [...] Ot I27.20 PULMONARY HYPERTENSION, UNSPECIFIED 05/06/2018 KYARA IVVAS, BENEDICT H Ot J45.909 UNSPECIFIED ASTHMA, UNCOMPLICATED [...] H Ot J45.909 UNSPECIFIED ASTHMA, UNCOMPLICATED 06/11/2018 TEX VIVAS, Awa KLINE Ot Z29 .8 ENCOUNTER FOR OTHER SPECIFIED PROPHYLACT 06/14/2018 TEX VIVAS, Awa KLINE Ot Z29 .8 [...] UNSPECIFIED ASTHMA, UNCOMPLICATED 07/16/2018 TEX VIVAS, Awa LKINE Ot Z29 .8 ENCOUNTER FOR OTHER SPECIFIED [...] Ot R06.02 SHORTNESS OF BREATH 08/13/2018 TEX VIVAS, Awa KLINE Ot Z95 .2 PRESENCE OF PROSTHETIC HEART VALVE 08/20/2018 TEX VIVAS, Awa KLINE Ot I42 .9 CARDIOMYOPATHY, UNSPECIFIED 08/20/2018 Awa NICE MD Ot I48 .1 PERSISTENT ATRIAL FIBRILLATION 08/20/2018 Awa NICE MD Ot R06.02 SHORTNESS OF BREATH 08/20/2018 TEX VIVAS, Awa KLINE Ot Z95 .2 PRESENCE OF PROSTHETIC HEART VALVE 08/30/2018 TORIE VIVAS, MARIE Hopper Ot 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, UNSPECIFIED, UNSPE 08/30/2018 TORIE VIVAS, MARIE Hopper Ot I51.7 CARDIOMEGALY 09/06/2018 Awa NICE MD Ot I42 .9 CARDIOMYOPATHY, UNSPECIFIED 09/06/2018 Awa NICE MD Ot I48 .1 PERSISTENT ATRIAL FIBRILLATION 09/06/2018 TEX VIVAS, Awa KLINE Ot R06.02 SHORTNESS OF BREATH 09/06/2018 TEX VIVAS, Awa KLINE Ot Z95 .2 PRESENCE OF PROSTHETIC HEART VALVE 09/09/2018 EMANI VIVAS, CHANCE Z Ot R92.1 MAMMOGRAPHIC CALCIFCN FOUND ON DIAGNOSTI 09/22/2018 KYARA VIVAS, BENEDICT H Ot I27.20 PULMONARY HYPERTENSION, UNSPECIFIED 09/22/2018 BENEDICT SPARROW MD H Ot J45.909 UNSPECIFIED ASTHMA, UNCOMPLICATED 09/23/2018 BENEDICT SPARROW MD H Ot I27.20 PULMONARY HYPERTENSION, UNSPECIFIED 09/23/2018 BENEDICT SPARROW MD H Ot J45.909 UNSPECIFIED ASTHMA, UNCOMPLICATED 09/24/2018 TORIE VIVAS, MARIE Hopper Ot Z12.3 1 ENCNTR SCREEN MAMMOGRAM FOR MALIGNANT NE 09/29/2018 MARIE VOGT MD Ot Z12.3 1 ENCNTR SCREEN MAMMOGRAM FOR MALIGNANT NE 10/04/2018 MARIE VOGT MD Ot Z12.3 1 ENCNTR SCREEN MAMMOGRAM FOR MALIGNANT NE 10/21/2018 MARIE VOGT MD Ot Z12.3 1 ENCNTR SCREEN MAMMOGRAM FOR MALIGNANT NE 04/08/2019 TEX VIVAS, Awa KLINE Ot G47.33 OBSTRUCTIVE [...] Z95.2 PRESENCE OF PROSTHETIC HEART VALVE 07/12/2019 BEN VIVAS, TINY Tucker Ot Z12.31 ENCNTR [...] FOUND ON DIAGNOSTI 07/12/2019 EMANI VIVAS, CHANCE Mathews Ot R92.1 MAMMOGRAPHIC [...] MARIE VOGT MD Ot I51.7 CARDIOMEGALY 07/12/2019 TEX VIVAS, Awa KLINE Ot I42 [...] Sanchez Ot I27.20 PULMONARY HYPERTENSION, UNSPECIFIED 07/12/2019 BENEDICT SPARROW MD H Ot J45.909 UNSPECIFIED ASTHMA, UNCOMPLICATED 07/12/2019 TEX VIVAS, Awa KLINE Ot G47.33 OBSTRUCTIVE SLEEP APNEA (ADULT) (PEDIATR 07/12/2019 TEX VIVAS, Awa KLINE Ot I42 .9 CARDIOMYOPATHY, UNSPECIFIED 07/12/2019 TEX VIVAS, Awa KLINE Ot Z95 .2 PRESENCE OF PROSTHETIC HEART VALVE 07/12/2019 MARIE VOGT MD Ot R32 UNSPECIFIED URINARY INCONTINENCE 07/12/2019 MARIE VOGT MD Ot R39.1 5 URGENCY OF URINATION 07/12/2019 TORIE VIVAS, MARIE Hopper Ot R32 UNSPECIFIED URINARY INCONTINENCE 07/12/2019 MARIE VOGT MD Ot R39.1 5 URGENCY OF URINATION 07/13/2019 ABBI BORGES MD Ot Z48.8 12 ENCNTR FOR SURGICAL AFTCR FOLLOWING SURG 07/13/2019 ABBI BORGES MD Ot Z95.2 PRESENCE OF PROSTHETIC HEART VALVE 07/13/2019 BEN VIVAS, TINY Tucker Ot R92.1 MAMMOGRAPHIC CALCIFCN FOUND ON DIAGNOSTI 07/13/2019 KYARA VIVAS, BENEDICT Sanchez Ot I27.20 PULMONARY HYPERTENSION, UNSPECIFIED 07/13/2019 KYARA VIVAS, BENEDICT H Ot J45.909 UNSPECIFIED ASTHMA, UNCOMPLICATED 07/14/2019 VIVIAN SUN MD Ot E87. 6 HYPOKALEMIA 07/14/2019 VIVIAN SUN MD Ot G47. 30 SLEEP APNEA, UNSPECIFIED 07/14/2019 VIVIAN SUN MD Ot I48. 0 PAROXYSMAL ATRIAL FIBRILLATION 07/14/2019 VIVIAN SUN MD Ot I95. 9 HYPOTENSION, UNSPECIFIED 07/14/2019 VIVIAN SUN MD Ot J45.909 UNSPECIFIED ASTHMA, UNCOMPLICATED 07/14/2019 VIVIAN SUN MD Ot Z79. 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 72 PERSONAL HISTORY OF NON-HODGKIN LYMPHOMA 07/14/2019 VIVIAN SUN MD Ot Z88. 8 ALLERGY STATUS TO OT DRUG/MEDS/BIOL SUB 07/14/2019 VIVIAN SUN MD Ot Z90.710 ACQUIRED ABSENCE OF BOTH CERVIX AND UTER 07/14/2019 VIVIAN SUN MD Ot Z92. 21 PERSONAL HISTORY OF ANTINEOPLASTIC CHEMO 07/14/2019 VIVIAN SUN MD Ot Z95. 2 PRESENCE OF PROSTHETIC HEART VALVE 07/14/2019 VIVIAN SUN MD Ot E87. 6 HYPOKALEMIA 07/14/2019 VIVIAN SUN MD Ot G47. 30 SLEEP APNEA, UNSPECIFIED 07/14/2019 VIVIAN SUN MD Ot I48. 0 PAROXYSMAL ATRIAL FIBRILLATION 07/14/2019 VIVIAN SUN MD Ot I95. 9 HYPOTENSION, UNSPECIFIED 07/14/2019 DINO VIVAS, VIVIAN Hopper Ot J45.909 UNSPECIFIED ASTHMA, UNCOMPLICATED 07/14/2019 DINO VIVAS, VIVIAN Hopper Ot Z79. 01 JAIL (CURRENT) USE OF ANTICOAGULANT 07/14/2019 DINO VIVAS, IVVIAN Hopper Ot Z79.899 OTHER JAIL (CURRENT) DRUG THERAPY 07/14/2019 DINO VIVAS, VIVIAN Hopper Ot Z85. 72 PERSONAL HISTORY OF NON-HODGKIN LYMPHOMA 07/14/2019 VIVIAN SUN MD Ot Z88. 8 ALLERGY STATUS TO OTH DRUG/MEDS/BIOL SUB 07/14/2019 VIVIAN SUN MD Ot Z90.710 ACQUIRED ABSENCE OF BOTH CERVIX AND UTER 07/14/2019 VIVIAN SUN MD Ot Z92. 21 PERSONAL HISTORY OF ANTINEOPLASTIC CHEMO 07/14/2019 VIVIAN SUN MD Ot Z95. 2 PRESENCE OF PROSTHETIC HEART VALVE 07/29/2019 VIVIAN SUN MD Ot E87. 6 HYPOKALEMIA 07/29/2019 VIVIAN SUN MD Ot G47. 30 SLEEP APNEA, UNSPECIFIED 07/29/2019 VIVIAN SUN MD Ot I48. 0 PAROXYSMAL ATRIAL FIBRILLATION 07/29/2019 VIVIAN SUN MD Ot I95. 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 72 PERSONAL HISTORY OF NON-HODGKIN LYMPHOMA 07/29/2019 VIVIAN SUN MD Ot Z88. 8 ALLERGY STATUS TO OTH DRUG/MEDS/BIOL SUB 07/29/2019 VIVIAN SUN MD Ot Z90.710 ACQUIRED ABSENCE OF BOTH CERVIX AND UTER 07/29/2019 VIVIAN SUN MD Ot Z92. 21 PERSONAL HISTORY OF ANTINEOPLASTIC CHEMO 07/29/2019 VIVIAN SUN MD Ot Z95. 2 PRESENCE OF PROSTHETIC HEART VALVE 07/29/2019 VIVIAN SUN MD Ot E87. 6 HYPOKALEMIA 07/29/2019 VIVIAN SUN MD Ot G47. 30 SLEEP APNEA, UNSPECIFIED 07/29/2019 VIVIAN SUN MD Ot I48. 0 PAROXYSMAL ATRIAL FIBRILLATION 07/29/2019 VIVIAN SUN MD Ot I95. 9 HYPOTENSION, UNSPECIFIED 07/29/2019 VIVIAN SUN MD Ot J45.909 UNSPECIFIED ASTHMA, UNCOMPLICATED 07/29/2019 VIVIAN SUN MD Ot Z79. 01 JAIL (CURRENT) USE OF ANTICOAGULANT 07/29/2019 VIVIAN SUN MD, Ot Z79.899 OTHER PAYROLL ACCOUNTING SPECIALIST (CURRENT) DRUG THERAPY 07/29/2019 VIVIAN SUN MD Ot Z85. 72 PERSONAL HISTORY OF NON-HODGKIN LYMPHOMA 07/29/2019 VIVIAN SUN MD, Ot Z88. 8 ALLERGY STATUS TO OT DRUG/MEDS/BIOL SUB 07/29/2019 VIVIAN SUN MD, Ot Z90.710 ACQUIRED ABSENCE OF BOTH CERVIX AND UTER 07/29/2019 VIVIAN SUN MD Ot Z92. 21 PERSONAL HISTORY OF ANTINEOPLASTIC CHEMO 07/29/2019 VIVIAN SUN MD Ot Z95. 2 PRESENCE OF PROSTHETIC HEART VALVE 10/07/2019 MARIE VOGT MD Ot R11.0 NAUSEA 10/07/2019 MARIE VOGT MD Ot R51 HEADACHE 10/07/2019 MARIE VOGT MD Ot R53.8 3 OTHER FATIGUE 10/07/2019 MARIE VOGT MD Ot Z11.5 9 ENCOUNTER FOR SCREENING FOR OTHER VIRAL 10/11/2019 MARIE VOGT MD Ot R11.0 NAUSEA 10/11/2019 MARIE VOGT MD Ot R51 HEADACHE 10/11/2019 MARIE VOGT MD Ot R53.8 3 OTHER FATIGUE 10/11/2019 MARIE VOGT MD Ot Z11.5 9 ENCOUNTER FOR SCREENING FOR OTHER VIRAL Procedures There is no data. Results Test [...] VLDL measurement (mass/ volume) 13 mg/dL 5-40 Coronavirus SARS-CoV-2 SO 2019 - 0 14:03 Coronavirus Ab [Units/volume] in Serum Negative Negative Encounters ACCT No. Visit Date/Time Discharge Status Pt. Type Provider Facility Loc./Unit Complaint [id number] 03/16/2017 11:08:19 03/16/2017 23:59:5 9 CLS Outpatient [id number] 10/04/2019 14:03:00 23:59:59 CLS Outpatient MARIE VOGT MD [facility] LABNPT [id number] 07/13/2019 23:00:00 13:37:00 DIS Inpatient VIVIAN SUN MD [facility] ICU AFIB RVR [id number] 07/12/2019 11:11:00 11:44:00 DIS Outpatient MARIE VOGT MD [facility] REHAB URINARY URGENCY [id number] 03/17/2019 07:48:00 23:59:59 CLS Outpatient Awa NICE MD [facility] CARD PRECORDIAL PAIN, HERNANDO, CARDIOMYOPATHY [id number] 09/28/2018 07:53:00 23:59:59 CLS Outpatient MARIE VOGT MD [facility] RAD SCREENING [id number] 09/23/2018 10:45:00 23:59:59 CLS Preadmit BENEDICT SPARROW MD [facility] PULM J45.50 ASTHMA [id number] 06/24/2018 08:52:00 00:01:00 DIS Outpatient BENEDICT SPARROW MD [facility] PULM J45.50 ASTHMA [id number] 08/12/2018 13:55:00 23:59:59 CLS Outpatient Awa NICE MD [facility] CARD SOB, PERSISTENT AFIB [id number] 08/04/2018 15:38:00 23:59:59 CLS Outpatient MARIE VOGT MD [facility] RAD NON HODGKINS LYMPHOMA [id number] 07/17/2018 00:11:00 23:59:59 CLS Preadmit Awa NICE MD [facility] [place] [address] CARDIAC REHAB PHASE III [id number] 07/14/2018 17:10:00 019 00:01:00 DIS Outpatient Awa NICE MD [facility] [place] [address] CARDIAC REHAB PHASE III [id number] 06/08/2018 09:00:00 019 00:01:00 DIS Outpatient BENEDICT SPARROW MD [facility] PULM J45.50 ASTHMA [id number] 06/09/2018 16:10:00 00:01:00 DIS Outpatient Awa NICE MD [facility] [place] [address] CARDIAC REHAB PHASE III [id number] 01/25/2018 10:37:00 018 23:59:59 CLS Outpatient Awa NICE MD [facility] CARD AF,MITRAL VALUE REPLACE D [id number] 09/25/2017 13:30:00 018 23:59:59 CLS Outpatient MARIE VOGT MD [facility] RAD SCREENING [id number] 09/02/2017 13:08:00 018 00:01:00 DIS Outpatient Awa NICE MD [facility] [place] [address] CARDIAC REHAB [id number] 05/11/2017 12:06:00 018 23:59:59 CLS Outpatient Awa NICE MD [facility] CARD I48.91 AF [id number] 04/20/2017 07:53:00 017 23:59:59 CLS Outpatient CHANCE JOQAUIN MD [facility] LAB LT BREAST CALCIFACTIONS [id number] 04/10/2017 13:05:00 017 23:59:59 CLS Preadmit TINY CONTRERAS MD [facility] RAD LT BREAST CALCIFICATION S [id number] 04/10/2017 07:46:00 017 23:59:59 CLS Outpatient JAY JAY PINEDA [facility] RAD 6 MO FOLLOW UP [id number] 03/15/2017 09:22:00 017 12:50:00 DIS Emergency MELANY OCONNOR GLORIA [facility] ER VERTIGO [id number] 10/15/2016 07:18:00 017 23:59:59 CLS Outpatient JAY JAY PINEDA SHIP WORKER [facility] RAD ABNORMAL SCREEN ING, INCREASED CALCIFICATION [id number] 09/18/2016 09:57:00 017 23:59:59 CLS Outpatient TINY CONTRERAS MD [facility] RAD SCREENING [id number] 08/21/2016 11:26:00 017 23:59:59 CLS Outpatient Awa NICE MD [facility] CARD I48.91 [id number] 07/09/2016 10:00:00 017 23:59:59 CLS Preadmit ABBI BORGES MD, V [facility] CR MVR [id number] 05/21/2016 11:21:00 017 00:01:00 DIS Outpatient ABBI BORGES MD [facility] CR MVR [id number] 11/10/2019 14:30:00 P EN Preadmit Awa NICE MD [facility] CATH PAF
== END 2019-11-10 14:41 | disposition home or self-care (01) ==
LOC: CATH 13:55
PROVIDERS: ATTEND Internal Medicine Interventional Cardiology
DX: I48.0 Paroxysmal atrial fibrillation (principal); K59.00 Constipation, unspecified; I42.8 Other cardiomyopathies; I27.20 Pulmonary hypertension, unspecified; I25.10 Atherosclerotic heart disease of native coronary artery without angina pectoris; I07.1 Rheumatic tricuspid insufficiency; G47.33 Obstructive sleep apnea (adult) (pediatric); J45.909 Unspecified asthma, uncomplicated; E66.9 Obesity, unspecified; Z68.34 Body mass index [BMI] 34.0-34.9, adult; Z79.01 Long term (current) use of anticoagulants; Z95.2 Presence of prosthetic heart valve; Z85.72 Personal history of non-Hodgkin lymphomas
CPT/HCPCS: 33285; C1764

== ENCOUNTER 2019-12-06 07:19 | Emergency (ER) | payer MEDICARE, OTHER ==
[~2019-12-06] VITALS: Ht 160 cm; Wt 87.0 kg
[2019-12-06] MEDS ORDERED: ONDANSETRON 4 MG/2 ML (SDV) Z0FRAN ONE (07:33)
--- NOTE | 2019-12-06 07:36 | ED Cardiac General ---
History of Present Illness General Chief Complaint: NAUSEA Stated Complaint: NAUSEA Source: patient Exam Limitations: no limitations (LARISSA LAGUERRE) History of Present Illness Date Seen by Provider: Dec 06, 2019 Time Seen by Provider: 07:[address] Becerra, GP On warfarin status post mitral bovine valve replacement 2015. Echocardiogram by Dr. Mendez 2019: EF of 50-55%. Mild left ventricular hypertrophy. Moderate tricuspid regurgitation. Mechanical mitral valve prosthesis. Loop recorder in place. (LARISSA LAGUERRE) Initial Comments Mona Franco is a 74 year old female who arrived in the ER with chief complaint of nausea and dizziness. Describes having difficult walking as if she is being pulled to the right, and also reports she feels as if the room is spinning, and that she feels as if she could faint. Denies any syncope. She has been heaving frequently due to nausea, but has not vomited. She reports that her symptoms began last Thursday when she started Multaq for afib, symptoms worsened significantly yesterday, so she did not take her Multaq this morning. She reports having a similar reaction to amiodarone in the past. Sees Dr. Espinoza for cardiology. Initial EKG shows afib with rate control. Timing/Duration: 1 week, constant, getting worse Activities at Onset: none (PAPI PHELAN MED STUDENT) Allergies and Home Medications Allergies Coded Allergies: nifedipine (Verified Adverse Reaction, Unknown, HEADACHE, 07/13/19) Home Medications Amiodarone HCl 200 Mg Tablet, 200 MG PO UD Take 2 tablets twice daily for one week then Take one tablet twice daily Prescribed by: ALYSHA MENDEZ on 07/14/19 1301 Docusate Sodium 100 Mg Capsule, 100 MG PO DAILY, (Reported) Fluticasone/Salmeterol 1 Each Blst.w.dev, 1 EACH IH BID, (Reported) LAST FILLED 03-17-2019 # DAY SUPPLY Irbesartan 75 Mg Tablet, 75 MG PO DAILY, (Reported) Metoprolol Tartrate 25 Mg Tablet, 12.5 MG PO BID, (Reported) TAKES OF A 25MG TO EQUAL 12.5 MG TWICE DAILY Montelukast Sodium 10 Mg Tablet, 10 MG PO DAILY, (Reported) Omeprazole 20 Mg Capsule.dr, 20 MG PO DAILY, (Reported) Potassium Chloride 10 Meq Tab.er.prt, 10 MEQ PO DAILY, (Reported) Trazodone HCl 50 Mg Tablet, 50 MG PO HS, (Reported) Warfarin Sodium 2 Mg Tablet, 2 MG PO DAILY Prescribed by: ALYSHA MENDEZ on 07/14/19 1301 Patient Home Medication List Home Medication List Reviewed: Yes (LARISSA LAGUERRE) Review of Systems Review of Systems Musculoskeletal: back pain (chronic), joint pain (chronic) Psychiatric/Neurological: Denies Anxiety (LARISSA LAGUERRE) Constitutional: dizziness Respiratory: Denies Cough, Denies Shortness of Air Cardiovascular: Denies Chest Pain; Lightheadedness; Denies Palpitations, Denies Syncope Gastrointestinal: Abdominal Pain (heaving), Nausea; Denies Vomiting Psychiatric/Neurological: Headache (chronic) (PAPI PHELAN STUDENT) All Other Systems Reviewed Negative Unless Noted: Yes (LARISSA LAGUERRE) Past Tnyllaa-Xswbox-Akzaph Hx Patient Social History 2nd Hand Smoke Exposure: No Recent Foreign Travel: No Contact w/Someone Who Travel: No Recent Hopitalizations: No (LARISSA LAGUERRE) Alcohol Use: Denies Use Recreational Drug Use: No Smoking Status: Never a Smoker (PAPI PHELAN [employer] JANESSA) Immunizations Up To Date Date of Pneumonia Vaccine: May 04, 2016 Date of Influenza Vaccine: Jan 12, 2019 (LARISSA LAGUERRE) Seasonal Allergies Seasonal Allergies: Yes (LARISSA LAGUERRE) Past Medical History Surgeries: Yes Gallbladder, Hysterectomy, Valve Replacement Respiratory: Yes Asthma, Sleep Apnea Currently Using CPAP: Yes Currently Using BIPAP: No Cardiac: Yes ("APPROX 5 CARDIOVERSIONS", MITRAL VALVE REPLACEMENT) Atrial Fibrillation Neurological: No Reproductive Disorders: No Genitourinary: No Gastrointestinal: No Musculoskeletal: Yes ("NEEDS LEFT KNEE REPLACEMENT" ) Endocrine: No HEENT: No Cancer: Yes (NON-HODGKIN'S LYMPHOMA ) Lymphoma Did You Recieve Any Treatments: Yes What Type of Treatment Did You: Chemotherapy Psychosocial: No Integumentary: No Blood Disorders: No Adverse Reaction/Blood Tranf: No (LARISSA LAGUERRE) Family Medical History No Pertinent Family Hx (LARISSA LAGUERRE) Physical Exam Vital Signs Vital Signs - First Documented 12/06/19 07:25 Temp 36.1 Pulse 64 Resp 24 B/P (MAP) 114/92 (99) Pulse Ox 97 (PAPI PHELAN MED STUDENT) Vital Signs Capillary Refill : (LARISSA LAGUERRE) Height, Weight, BMI Height: 5'3.00" Weight: 197lbs. 0.0oz. 88.245564su; 33.98 BMI Method:Stated HEENT: PERRL/EOMI, TMs Normal, Normal ENT Inspection (no otosclerosis or effusion. No bulging, erythema or injection bilateral TMs.), Pharynx Normal, Moist Mucous Membranes Neck: Full Range of Motion Respiratory: No Accessory Muscle Use, No Respiratory Distress Cardiovascular: Regular Rate, Rhythm, No Edema, Normal Peripheral Pulses Gastrointestinal: Normal Bowel Sounds, No Organomegaly, Non Tender Extremity: Normal Capillary Refill, Normal Inspection, No Pedal Edema Skin: Normal Color, Warm/Dry (LARISSA LAGUERRE) General Appearance: Anxious, Mild Distress, Obese Gastrointestinal: Non Tender Neurologic/Psychiatric: Alert, Oriented x3, Normal Mood/Affect (PAPI PHELAN STUDENT) Progress/Results/Core Measures Results/Orders Lab Results Laboratory Tests Test 12/06/19 07:30 Range/Units White Blood Count 8.2 4.3-11.0 10^3/uL Red Blood Count 3.95 L 4.35-5.85 10^6/uL Hemoglobin 11.2 L 11.5-16.0 G/DL Hematocrit 34 L 35-52 % Mean Corpuscular Volume 87 80-99 FL Mean Corpuscular Hemoglobin 28 25-34 PG Mean Corpuscular Hemoglobin Concent 33 32-36 G/DL Red Cell Distribution Width 15.5 H 10.0-14.5 % Platelet Count 193 130-400 10^3/uL Mean Platelet Volume 9.8 7.4-10.4 FL Neutrophils (%) (Auto) 71 42-75 % Lymphocytes (%) (Auto) 19 12-44 % Monocytes (%) (Auto) 9 0-12 % Eosinophils (%) (Auto) 1 0-10 % Basophils (%) (Auto) 0 0-10 % Neutrophils # (Auto) 5.8 1.8-7.8 X 10^3 Lymphocytes # (Auto) 1.6 1.0-4.0 X 10^3 Monocytes # (Auto) 0.8 0.0-1.0 X 10^3 Eosinophils # (Auto) 0.1 0.0-0.3 10^3/uL Basophils # (Auto) 0.0 0.0-0.1 10^3/uL Prothrombin Time 19.4 H 12.2-14.7 SEC INR Comment 1.6 H 0.8-1.4 Activated Partial Thromboplast Time 30 24-35 SEC (PAPI PHELAN MED STUDENT) Medications Given in ED Current Medications Medications Dose Ordered Sig/Ann Route Start Time Stop Time Status Last Admin Dose Admin Ondansetron HCl 8 mg ONCE ONCE IVP 12/06/19 07:45 12/06/19 07:46 DC 12/06/19 07:40 8 MG (PAPI PHELAN STUDENT) Vital Signs/I&O 12/06/19 07:25 Temp 36.1 Pulse 64 Resp 24 B/P (MAP) 114/92 (99) Pulse Ox 97 (PAPI PHELAN STUDENT) Progress Progress Note #1: Time: 08:10 Progress Note 8 of Zofran failed to treat her nausea properly so we gave her 12-1/2 mg IV Phenergan which fixed her nausea. When she is more comfortable we will get a set of orthostatic vital signs. Chest x-ray and EKG. She is an 82 fibrillation without rapid ventricular response. She says she had a similar symptoms when she tech amiodarone as she is experiencing on Multaq for the past week. If she has been dry heaving perhaps she is a little dehydrated. She did not take her multi- this morning. We will discuss this with her deli worker and since she is not in [facility] probably have her follow-up in the clinic. We will get some troponins to rule out an atypical angina however since her symptoms of been going on progressively worse since yesterday a single troponin will probably suffice. Plan to interrogate her implanted loop recorder. I attest that I saw this patient alongside the medical student and agree with his documented history, physical exam and review of systems except as otherwise noted. Progress Note #2: Time: 08:58 Progress Note Patient is resting comfortably. [employer] called back and said they have a few episodes of A. fib with occasional bigeminy but no runs of V. tach or V. fib. (LARISSA LAGUERRE) Initial ECG Impression Date: Dec 06, 2019 Initial ECG Impression Time: 07:32 Initial ECG Rate: 69 Initial ECG Rhythm: A Fib/Flutter Initial ECG Intervals: QT (506) Initial ECG Impression: Atrial Fibrillation Initial ECG Comparisson: Unchanged Comment Atrial fibrillation without rapid ventricular response. PVCs noted. No clinically relevant ST T-wave elevation or depression. (LARISSA LAGUERRE) Diagnostic Imaging Diagonstic Imaging: Xray Plain Films/CT/US/NM/MRI: chest Comments No acute cardiopulmonary process on one view chest x-ray. (LARISSA LAGUERRE) Consults : Consulting Physician: Awa ESPINOZA MD Consults Notes Discussed case with Dr. Espinoza, cardiology and he says she can come straight simon y to the clinic he will see her. (LARISSA LAGUERRE) Departure Impression Primary Impression: Adverse drug reaction Qualified Codes: T50.905A - Adverse effect of unspecified drugs, medicaments and biological substances, initial encounter Additional Impression: Nausea Disposition: HOME, SELF-CARE Condition: Stable Departure-Patient Inst. Decision time for Depature: 09:02 (LARISSA LAGUERRE) Referrals: Awa ESPINOZA MD, JOHN D MD (PCP/Family) Primary Care Physician Patient Instructions: Nausea and Vomiting, Adult Add. Discharge Instructions: From here go straight to Dr. Espinoza's office and he will see you. If you have nausea then you may take Phenergan 1 tablet every 6 hours as necessary. Stop taking the Multaq and follow instructions the deli worker office. Scripts Promethazine HCl (Promethazine Tablet) 25 Mg Tablet 25 MG PO Q6H PRN for NAUSEA/VOMITING, #12 TAB 0 Refills Prov: LARISAS LAGUERRE 12/06/19 LARISSA LAGUERRE Dec 06, 2019 07:36 PAPI PHELAN MED STUDENT Dec 06, 2019 07:45
[2019-12-06 07:44] LABS: BASOPHILS % (AUTO) 0 % (0-10); EOSINOPHILS # (AUTO) 0.1 10^3/uL (0.0-0.3); EOSINOPHILS % (AUTO) 1 % (0-10); HEMATOCRIT 34 % (35-52); HEMOGLOBIN 11.2 G/DL (11.5-16.0); LYMPHOCYTES # (AUTO) 1.6 X 10^3 (1.0-4.0); LYMPHOCYTES % (AUTO) 19 % (12-44); MEAN CORPUSCULAR HEMOGLOBIN 28 PG (25-34); MEAN CORPUSCULAR HGB CONC 33 G/DL (32-36); MEAN CORPUSCULAR VOLUME 87 FL (80-99); MEAN PLATELET VOLUME 9.8 FL (7.4-10.4); MONOCYTES # (AUTO) 0.8 X 10^3 (0.0-1.0); MONOCYTES % (AUTO) 9 % (0-12); NEUTROPHILS # (AUTO) 5.8 X 10^3 (1.8-7.8); NEUTROPHILS % (AUTO) 71 % (42-75); PLATELET COUNT 193 10^3/uL (130-400); RED CELL DISTRIBUTION WIDTH 15.5 % (10.0-14.5); WHITE BLOOD COUNT 8.2 10^3/uL (4.3-11.0)
[2019-12-06] MEDS ORDERED: ASPIRIN 81 MG CHEW (CHILDREN'S ASA) PO ONE (07:45)
[2019-12-06] MEDS ORDERED: ONDANSETRON 4 MG/2 ML (SDV) Z0FRAN IVP ONE (07:45)
[2019-12-06 07:51] LABS: INR 1.6 (0.8-1.4); PROTHROMBIN TIME PATIENT 19.4 SEC (12.2-14.7)
--- NOTE | 2019-12-06 07:52 | NUR ---
PT CONT TO CO OF NAUSEA, WILL HOLD ASA AT THIS X.
[2019-12-06] MEDS ORDERED: PROMETHAZINE INJ 25 MG/ML (PHENERGAN) AMP ONE (07:53)
[2019-12-06 07:58] LABS: ALANINE AMINOTRANSFERASE 9 U/L (0-55); ALKALINE PHOSPHATASE 61 U/L (40-136); BILIRUBIN,TOTAL 1.8 MG/DL (0.1-1.0); BUN/CREATININE RATIO 15; CARBON DIOXIDE 21 MMOL/L (21-32); CHLORIDE 107 MMOL/L (98-107); CREATININE SERUM 0.87 MG/DL (0.60-1.30); GFR ESTIMATED > 60; GLUCOSE 108 MG/DL (70-105); MAGNESIUM 1.7 MG/DL (1.6-2.4); POTASSIUM 3.7 MMOL/L (3.6-5.0); SODIUM 140 MMOL/L (135-145); TOTAL PROTEIN 7.7 GM/DL (6.4-8.2)
[2019-12-06] MEDS ORDERED: PROMETHAZINE INJ 25 MG/ML (PHENERGAN) AMP IVP ONE (08:00)
--- NOTE | 2019-12-06 08:24 | Diagnostic Imaging Report ---
INDICATION: Nausea and chest pain. COMPARISON: 07/13/2019. FINDINGS: Sternal wires midline. There is enlargement of the cardiac silhouette more pronounced than on prior but no overt uncompensated failure pattern or keisha vascular congestion. No effusion or pneumothorax. There is some scarring in the left apex medially stable. IMPRESSION: Mild increased prominence of the cardiac silhouette. No other change. Dictated by: Dictated on workstation # [id number]
[2019-12-06 08:29] VITALS: BP_SYST 110; BP_SYST 114; BP_DIAS 63; BP_DIAS 67; BP_DIAS 87
--- NOTE | 2019-12-06 08:45 | NUR ---
0850 INVESTIGATION OF LOOP RECORDER
[2019-12-06] MEDS ORDERED: PROM25TA14 PO (09:03)
[2019-12-06 09:15] VITALS: BP 124/71
--- OUTSIDE RECORDS SUMMARY | 2019-12-06 09:54 | XMS REPORT | Continuity of Care Document ---
Author Organization Unknown Address Unknown Phone Unavailable Allergies Active Description Code Type Severity Reaction Onset Reported/Identified Relationship to Patient Clinical Status Yes No Known Drug Allergies [id number] Drug Allergy Unknown N/A 03/15/2017 Yes nifedipine [id number] Drug Allerg y Unknown HEADACHE 07/13/2019 Medications [...] SCREEN MAMMOGRAM FOR MALIGNANT NE 09/19/2016 TINY OCNTRERAS MD A Ot Z12.31 ENCNTR SCREEN MAMMOGRAM FOR MALIGNANT NE 09/19/2016 TINY CONTRERAS MD A Ot Z12.31 ENCNTR SCREEN MAMMOGRAM FOR MALIGNANT NE 09/24/2016 TINY CONTRERAS MD Ot Z12.31 ENCNTR SCREEN MAMMOGRAM FOR MALIGNANT NE 10/09/2016 TINY CONTRERAS MD Ot Z12.31 ENCNTR SCREEN MAMMOGRAM FOR MALIGNANT NE 10/15/2016 JAY JAY PINEDA CLEANING MATRON Ot R92.8 OTH ABN AND INCONCLUSIVE FINDINGS [...] MALIGNANT NE 10/15/2016 MIRIAM JAY JAY Billings CLEANING MATRON Ot R92.8 OTH ABN AND INCONCLUSIVE FINDINGS ON DX 10/15/2016 PINEDAJAY JAY CLEANING MATRON Ot R92.8 OTH ABN AND INCONCLUSIVE FINDINGS ON DX 10/16/2016 PINEDAJAY JAY CLEANING MATRON Ot R92.1 MAMMOGRAPHIC CALCIFCN FOUND ON DIAGNOSTI 11/06/2016 JAY JAY PINEDA CLEANING MATRON Ot R92.1 MAMMOGRAPHIC CALCIFCN FOUND ON DIAGNOSTI [...] FOR MALIGNANT NE 04/20/2017 JAY JAY PINEDA CLEANING MATRON Ot R92.1 MAMMOGRAPHIC CALCIFCN FOUND ON DIAGNOSTI 04/20/2017 JAY JAY PINEDA CLEANING MATRON Ot R92.1 MAMMOGRAPHIC CALCIFCN FOUND ON DIAGNOSTI 04/20/2017 TINY CONTRERAS MD Ot R92.1 MAMMOGRAPHIC CALCIFCN FOUND ON DIAGNOSTI 04/20/2017 EMANI VIVAS, CHANCE Z Ot N64.9 DISORDER OF BREAST, UNSPECIFIED 04/22/2017 EMANI VIVAS, CHANCE Z Ot R92.1 MAMMOGRAPHIC CALCIFCN FOUND ON DIAGNOSTI 05/01/2017 JAY JAY PINEDA CLEANING MATRON Ot R92.1 MAMMOGRAPHIC CALCIFCN FOUND ON DIAGNOSTI [...] FOR MALIGNANT NE 05/08/2017 JAY JAY PINEDA CLEANING MATRON Ot R92.1 MAMMOGRAPHIC CALCIFCN FOUND ON DIAGNOSTI 05/08/2017 JAY JAY PINEDA CLEANING MATRON Ot R92.1 MAMMOGRAPHIC CALCIFCN FOUND ON DIAGNOSTI [...] FOR MALIGNANT NE 05/11/2017 JAY JAY PINEDA CLEANING MATRON Ot R92.1 MAMMOGRAPHIC CALCIFCN FOUND ON DIAGNOSTI 05/11/2017 JAY JAY PINEDA CLEANING MATRON Ot R92.1 MAMMOGRAPHIC CALCIFCN FOUND ON DIAGNOSTI [...] H Ot I27.20 PULMONARY HYPERTENSION, UNSPECIFIED 06/27/2018 KAYRA VIVAS, BENEDICT H Ot J45.909 UNSPECIFIED ASTHMA, [...] PRESENCE OF PROSTHETIC HEART VALVE 07/12/2019 MARIE VGOT MD Ot R32 UNSPECIFIED URINARY INCONTINENCE 07/12/2019 [...] 07/14/2019 VIVIAN SUN MD Ot Z79. 01 FINISH PRODUCTION MANAGER (CURRENT) USE OF ANTICOAGULANT 07/14/2019 VIVIAN SUN MD Ot Z79.899 OTHER USP (CURRENT) DRUG THERAPY 07/14/2019 VIVIAN SNU MD Ot Z85. 72 PERSONAL HISTORY OF [...] DINO VIVAS, VIVIAN Hopper Ot Z79. 01 USP (CURRENT) USE OF ANTICOAGULANT 07/14/2019 DINO VIVAS, VIVIAN Hopper Ot Z79.899 OTHER USP (CURRENT) DRUG THERAPY 07/14/2019 DINO VIVAS, VIVIAN [...] DINO VIVAS, VIVIAN Hopper Ot Z79. 01 FINISH PRODUCTION MANAGER (CURRENT) USE OF ANTICOAGULANT 07/29/2019 VIVIAN SUN MD Ot Z79.899 OTHER FINISH PRODUCTION MANAGER (CURRENT) DRUG THERAPY 07/29/2019 VIVIAN SUN MD [...] 07/29/2019 VIVIAN SUN MD Ot Z79. 01 USP (CURRENT) USE OF ANTICOAGULANT 07/29/2019 VIVIAN SUN MD Ot Z79.899 OTHER FINISH PRODUCTION MANAGER (CURRENT) DRUG THERAPY 07/29/2019 VIVIAN SUN MD [...] 9 ENCOUNTER FOR SCREENING FOR OTHER VIRAL 11/10/2019 Awa NICE MD Ot I48 .0 PAROXYSMAL ATRIAL FIBRILLATION 11/16/2019 Awa NICE MD Ot E66 .9 OBESITY, UNSPECIFIED 11/16/2019 Awa NICE MD Ot G47.33 OBSTRUCTIVE SLEEP APNEA (ADULT) (PEDIATR 11/16/2019 Awa NICE MD Ot I07 .1 RHEUMATIC TRICUSPID INSUFFICIENCY 11/16/2019 Awa NICE MD Ot I25.10 ATHSCL HEART DISEASE OF [place] CORONARY 11/16/2019 Awa NICE MD Ot I27.20 PULMONARY HYPERTENSION, UNSPECIFIED 11/16/2019 Awa NICE MD Ot I42 .8 OTHER CARDIOMYOPATHIES 11/16/2019 Awa NICE MD Ot I48 .0 PAROXYSMAL ATRIAL FIBRILLATION 11/16/2019 Awa NICE MD Ot J45.909 UNSPECIFIED ASTHMA, UNCOMPLICATED 11/16/2019 TEX VIVAS, Awa KLINE Ot K59.00 CONSTIPATION, UNSPECIFIED 11/16/2019 Awa NICE MD Ot Z68.34 BODY MASS INDEX (BMI) 34.0-34.9, ADULT 11/16/2019 Awa NICE MD Ot Z79.01 FINISH PRODUCTION MANAGER (CURRENT) USE OF ANTICOAGULANT 11/16/2019 Awa NICE MD Ot Z85.72 PERSONAL HISTORY OF NON-[place] LYMPHOMA 11/16/2019 Awa NICE MD Ot Z95 .2 PRESENCE OF PROSTHETIC HEART VALVE 11/16/2019 Awa NICE MD Ot E66 .9 OBESITY, UNSPECIFIED 11/16/2019 Awa NICE MD Ot G47.33 OBSTRUCTIVE SLEEP APNEA (ADULT) (PEDIATR 11/16/2019 Awa NICE MD Ot I07 .1 RHEUMATIC TRICUSPID INSUFFICIENCY 11/16/2019 Awa NICE MD Ot I25.10 ATHSCL HEART DISEASE OF [place] CORONARY 11/16/2019 Awa NICE MD Ot I27.20 PULMONARY HYPERTENSION, UNSPECIFIED 11/16/2019 Awa NICE MD Ot I42 .8 OTHER CARDIOMYOPATHIES 11/16/2019 Awa NICE MD Ot I48 .0 PAROXYSMAL ATRIAL FIBRILLATION 11/16/2019 Awa NICE MD Ot J45.909 UNSPECIFIED ASTHMA, UNCOMPLICATED 11/16/2019 Awa NICE MD Ot K59.00 CONSTIPATION, UNSPECIFIED 11/16/2019 Awa NICE MD Ot Z68.34 BODY MASS INDEX (BMI) 34.0-34.9, ADULT 11/16/2019 Awa NICE MD, Ot Z79.01 FINISH PRODUCTION MANAGER (CURRENT) USE OF ANTICOAGULANT 11/16/2019 Awa NICE MD, Ot Z85.72 PERSONAL HISTORY OF NON-[place]GKIN LYMPHOMA 11/16/2019 Awa NICE MD, Ot Z95 .2 PRESENCE OF PROSTHETIC HEART VALVE Procedures There is no data. Results Test [...] volume) 13 mg/dL 5-40 Coronavirus SARS-CoV-2 SO 2018 - 0 14:03 Coronavirus Ab [Units/volume] in Serum Negative Negative Encounters ACCT No. Visit Date/Time Discharge Status Pt. Type Provider Facility Loc./Unit Complaint [id number] 03/16/2017 11:08:19 03/16/2017 23:59:5 9 CLS Outpatient [id number] 12/06/2019 07:21:00 09:15:00 DIS Emergency LARISSA LAGUERRE MD Via [facility] ER NAUSEA [id number] 11/10/2019 13:55:00 14:41:00 DIS Outpatient Awa NICE MD Via [facility] CATH PAF [id number] 10/04/2019 14:03:00 23:59:59 CLS Outpatient MARIE VOGT MD Via [facility] LABNPT [id number] 07/13/2019 23:00:00 13:37:00 DIS Inpatient VIVIAN SUN MD Via [facility] ICU AFIB RVR [id number] 07/12/2019 11:11:00 11:44:00 DIS Outpatient MARIE VOGT MD Via [facility] REHAB URINARY URGENCY [id number] 03/17/2019 07:48:00 23:59:59 CLS Outpatient Awa NICE MD Via [facility] CARD PRECORDIAL PAIN, HERNANDO, CARDIOMYOPATHY [id number] 09/28/2018 07:53:00 23:59:59 CLS Outpatient MARIE VOGT MD Via [facility] RAD SCREENING [id number] 09/23/2018 10:45:00 23:59:59 CLS Preadmit BENEDICT SPARROW MD Via [facility] PUL J45.50 ASTHMA [id number] 06/24/2018 08:52:00 00:01:00 DIS Outpatient BENEDICT SPARROW MD Via [facility] PUL J45.50 ASTHMA [id number] 08/12/2018 13:55:00 23:59:59 CLS Outpatient Awa NICE MD Via [facility] CARD SOB, PERSISTENT AFIB [id number] 08/04/2018 15:38:00 23:59:59 CLS Outpatient MARIE VOGT MD Via [facility] RAD NON [place] LYMPHOMA [id number] 07/17/2018 00:11:00 23:59:59 CLS Preadmit Awa NICE MD Via [facility] CARDIAC REHAB PHASE III [id number] 07/14/2018 17:10:00 00:01:00 DIS Outpatient Awa NICE MD Via [facility] CR3 CARDIAC REHAB PHASE III [id number] 06/08/2018 09:00:00 00:01:00 DIS Outpatient BENEDICT SPARROW MD Via [facility] PUL J45.50 ASTHMA [id number] 06/09/2018 16:10:00 00:01:00 DIS Outpatient Awa NICE MD [facility] CARDIAC REHAB PHASE III [id number] 01/25/2018 10:37:00 018 23:59:59 CLS Outpatient Awa NICE MD Via [facility] CARD AF,MITRAL VALUE REPLACE D [id number] 09/25/2017 13:30:00 018 23:59:59 CLS Outpatient MARIE VOGT MD Via [facility] RAD SCREENING [id number] 09/02/2017 13:08:00 018 00:01:00 DIS Outpatient Awa NICE MD Via [facility] CR3 CARDIAC REHAB [id number] 05/11/2017 12:06:00 018 23:59:59 CLS Outpatient Awa NICE MD Via [facility] CARD I48.91 AF [id number] 04/20/2017 07:53:00 017 23:59:59 CLS Outpatient EMANI VIVAS, CHANCE Mathews Via [facility] LAB LT BREAST CALCIFACTIONS [id number] 04/10/2017 13:05:00 017 23:59:59 CLS Preadmit TINY CONTRERAS MD Via [facility] RAD LT BREAST CALCIFICATION S [id number] 04/10/2017 07:46:00 017 23:59:59 CLS Outpatient JAY JAY PINEDA Via [facility] RAD 6 MO FOLLOW UP [id number] 03/15/2017 09:22:00 017 12:50:00 DIS Emergency MELANY OCONNOR LUMP MAKER Via [facility] ER VERTIGO [id number] 10/15/2016 07:18:00 017 23:59:59 CLS Outpatient JAY JAY PINEDA Via [facility] RAD ABNORMAL SCREEN ING, INCREASED CALCIFICATION [id number] 09/18/2016 09:57:00 017 23:59:59 CLS Outpatient TINY CONTRERAS MD Via [facility] RAD SCREENING [id number] 08/21/2016 11:26:00 017 23:59:59 CLS Outpatient Awa NICE MD Via [facility] CARD I48.91 [id number] 07/09/2016 10:00:00 017 23:59:59 CLS Preadmit JONY VIVAS, ABBI torre [facility] CR MVR [id number] 05/21/2016 11:21:00 017 00:01:00 DIS Outpatient ABBI BORGES MD [facility] CR MVR
== END 2019-12-06 09:15 | disposition home or self-care (01) ==
LOC: EDUNIT# 07:19 → ER 07:21
DX: T46.2X5A Adverse effect of other antidysrhythmic drugs, initial encounter (principal); E66.9 Obesity, unspecified; Z68.33 Body mass index [BMI] 33.0-33.9, adult; F41.9 Anxiety disorder, unspecified; I48.91 Unspecified atrial fibrillation; J45.909 Unspecified asthma, uncomplicated; Z85.72 Personal history of non-Hodgkin lymphomas; Z79.01 Long term (current) use of anticoagulants
CPT/HCPCS: 36415; 71045; 80053; 83690; 83735; 83874; 83880; 84484; 85025; 85610; 85730; 93005; 93041; 96374; 96375

== ENCOUNTER → 2020-08-06 | Outpatient (CLI) | payer MEDICARE, OTHER ==
[~2020-08-06] MED LIST changes: -AMIO200T4 PO; +AMIO200T6 PO; -MONT10TA26 PO; +MONT10TA32 PO; +PROM25TA14 PO; -WARF2.5T82 PO; +WRF2.5T PO
--- NOTE | 2020-08-06 14:09 | Diagnostic Imaging Report ---
HISTORY: Cough. COMPARISON: 12/06/2019 TECHNIQUE: Two views of the chest. FINDINGS: There are chronic opacities in the left upper lobe and the right perihilar region and right lung base which appear unchanged compared to 07/13/2019. No new consolidation is seen. There is no pneumothorax or pleural effusion. The cardiac silhouette is stable in size. Sternotomy wires and valve prosthesis are noted. IMPRESSION: 1. Scarring in the lungs bilaterally appears stable since the prior exam. No acute pulmonary abnormality is seen. Dictated by: Dictated on workstation # [id number]
== END ==
LOC: RAD 09:57
PROVIDERS: ATTEND Physician Assistant
DX: J98.4 Other disorders of lung (principal)
CPT/HCPCS: 71046

== ENCOUNTER 2020-11-30 05:39 | Outpatient (CLI) | payer MEDICARE, OTHER ==
[~2020-11-30] VITALS: Ht 160 cm; Wt 81.8 kg
[2020-11-30] MEDS ORDERED: WARF-47 PO (12:03)
[2020-11-30] MEDS ORDERED: SPIR25TA5 PO (12:03)
[2020-11-30] MEDS ORDERED: DILT180C54 PO (12:03)
[2020-11-30] MEDS ORDERED: WARF3TAB56 PO (12:03)
[2020-11-30] MEDS ORDERED: FLUT1DIS27 IH (12:03)
== END 2020-11-30 12:08 | disposition home or self-care (01) ==
LOC: PREOP 05:39
PROVIDERS: ATTEND Specialist
DX: Z01.818 Encounter for other preprocedural examination (principal)

== ENCOUNTER 2020-12-07 06:57 | Day surgery (SDC) | payer MEDICARE, OTHER ==
[~2020-12-07] VITALS: Ht 160 cm; Wt 81.8 kg
[~2020-12-07 06:57] MED LIST changes: +DILT180C54 PO; +FLUT1DIS27 IH; +SPIR25TA5 PO; +WARF-47 PO; +WARF3TAB56 PO
[2020-12-07] MEDS ORDERED: TROPICAMIDE 1% OPH SOLN (MYDRIACYL) 15 ML BTL OU PRN (07:15)
[2020-12-07] MEDS ORDERED: TETRACAINE 0.5% OPHTH SOLN 4 ML BTL (SINGLE DOSE ONLY) OU PRN (07:15)
[2020-12-07] MEDS ORDERED: PHENYLEPHRINE 10% OPHTH (NEO-SYN) 5 ML BTL OU PRN (07:15)
[2020-12-07 07:21] VITALS: BP 104/65
--- NOTE | 2020-12-07 08:14 | Ophthalmologist Pre-Op Note ---
Pre-Operative Progress Note H&P Reviewed The H&P was reviewed, patient examined and no changes noted. Date H&P Reviewed: Dec 07, 2020 Time H&P Reviewed: 07:50 Pre-Op Dx Secondary Cataract, Right Eye LARS TALAMANTES MD Dec 07, 2020 08:14
--- NOTE | 2020-12-07 08:15 | Ophthalmology Operative Report ---
YAG Capsulotomy PREOPERATIVE DIAGNOSIS: Secondary Cataract Right Eye POSTOPERATIVE DIAGNOSIS: Secondary Cataract Right Eye PROCEDURE: YAG Capsulotomy, right eye SURGEON: Parth Talamantes ANESTHESIA: Topical anesthesia COMPLICATIONS: None ESTIMATED BLOOD LOSS: Minimal DESCRIPTION OF PROCEDURE: After proper informed consent was obtained, the patient's, a 75 female, right eye received one drop of Tropicamide and one drop of Tetracaine. The patient was then placed at the YAG laser and using a power of [4.2 ] millijoules and [28 ] bursts were used to fashion a central capsulotomy. The patient tolerated the procedure well without complications. PARTH TALAMANTES MD Dec 07, 2020 08:15
== END 2020-12-07 07:36 ==
LOC: SDC 06:57
PROVIDERS: ATTEND Specialist
DX: H26.491 Other secondary cataract, right eye (principal); J45.909 Unspecified asthma, uncomplicated

== ENCOUNTER 2021-11-15 13:17 | Emergency (ER) | payer MEDICARE, OTHER ==
[~2021-11-15] VITALS: Ht 160 cm; Wt 78.0 kg
[~2021-11-15 13:17] MED LIST changes: -AMIO200T6 PO; +AMIO200T65 PO; +MONT-40 PO; -MONT10TA32 PO; -POTA10TA36 PO; +POTA10TA37 PO
[2021-11-15] MEDS ORDERED: fentaNYL INJ 100 MCG/2 ML AMP IVP STA ×2 (13:34→14:28)
--- NOTE | 2021-11-15 13:39 | ED Back Pain ---
General Chief Complaint: Back Problems Stated Complaint: BACK PAIN,CONSTIPATION Source of Information: Patient Exam Limitations: No Limitations History of Present Illness Date Seen by Provider: Nov 15, 2021 Time Seen by Provider: 13:37 Initial Comments Patient is a 76-year-old female with a history of non-Hodgkin's lymphoma, heart valve replacement, A. fib, cholecystectomy, asthma, sleep apnea who presents ED with mid back pain. This back pain started last Thursday. She states she got out of of the tub and had some mild discomfort woke up Thursday with sharp stabbing pain. No radiation. Pain has been constant worse with movement. She denies of any bowel or urine incontinence, saddle paresthesia, lower extremity weakness. She reports similar type pain was diagnosed with non-Hodgkin's lymphoma. She had chemotherapy and currently remain in remission since 2010. Had chemotherapy at [facility] in [place]. She denies nausea, vomiting, diarrhea, abd pain, shortness of breath, cough or chest pain. Currently on warfarin. Patient was placed on a muscle relaxer and prednisone but has had no improvement. She denies headache, dizziness, visual changes. Patient mild to moderate distress on arrival. Denies of any urinary symptoms, fever. Patient states she has been constipated with a normal bowel movement on Thursday and 2 small bowel movements since Thursday. Currently taking a laxative. History of constipation Allergies and Home Medications Allergies Coded Allergies: amiodarone (Verified Allergy, Unknown, Vomiting, 11/15/21) nifedipine (Verified Adverse Reaction, Unknown, HEADACHE, 07/13/19) Patient Home Medication List Home Medication List Reviewed: Yes Diltiazem HCl (Cartia Xt) 180 Mg Cap.er.24h, 180 MG PO DAILY, (Reported) Entered as Reported by: SHA MERINO on 11/30/20 1203 Docusate Sodium (Docusate Sodium) 100 Mg Capsule, 100 MG PO DAILY, (Reported) Entered as Reported by: JOHNNY DAVEY on 07/14/19 1119 Fluticasone/Salmeterol (Advair 500-50 Diskus) 1 Each Blst.w.dev, 1 EACH IH BID, (Reported) Entered as Reported by: SHA MERINO on 11/30/20 1203 Hydrocodone/Acetaminophen (Hydrocodone-Acetamin 5-325 mg) 5 Mg-325 Mg Tablet, 1 TAB PO Q4H PRN for PAIN-MODERATE (5-7) Prescribed by: DEBORAH HARRINGTON on 11/15/21 1607 Omeprazole (Omeprazole) 20 Mg Capsule.dr, 20 MG PO DAILY, (Reported) Entered as Reported by: JOHNNY DAVEY on 07/14/19 1119 Spironolactone (Spironolactone) 25 Mg Tablet, 25 MG PO DAILY, (Reported) Entered as Reported by: SHA MERINO on 11/30/20 1203 Trazodone HCl (Trazodone HCl) 50 Mg Tablet, 75 MG PO HS, (Reported) Entered as Reported by: JOHNNY DAVEY on 07/14/19 1119 Warfarin Sodium (Warfarin Sodium) 2 Mg Tablet, 2 MG PO SuTuThSa, (Reported) Entered as Reported by: SHA MERINO on 11/30/20 1203 Warfarin Sodium (Warfarin Sodium) 3 Mg Tablet, 3 MG PO wowefr, (Reported) Entered as Reported by: SHA MERINO on 11/30/20 1203 Review of Systems Constitutional: No chills, No diaphoresis, No fever, No malaise, No weakness EENTM: No ear discharge, No blurred vision, No double vision, No mouth pain, No mouth swelling, No throat pain, No other Respiratory: No cough Cardiovascular: No chest pain, No edema Gastrointestinal: No abdominal pain, No diarrhea, No nausea, No vomiting Genitourinary: No dysuria, No frequency, No hematuria Musculoskeletal: back pain; No joint pain, No muscle pain, No muscle stiffness, No muscle cramps Skin: No change in color, No change in hair/nails All Other Systems Reviewed Negative Unless Noted: Yes Past Rwzyjbs-Naaioz-Fdpckq Hx Patient Social History Tobacco Use?: No Use of E-Cig and/or Vaping dev: No Substance use?: No Alcohol Use?: No Pt feels they are or have been: No Immunizations Up To Date Influenza Vaccine Up-to-Date: Yes; Up-to-Date First/Initial COVID19 Vaccinat: 2020 Second COVID19 Vaccination Edmundo: 2020 Third COVID19 Vaccination Date: JUN 2021 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: [employer] Seasonal Allergies Seasonal Allergies: Yes Past Medical History Surgery/Hospitalization HX: KNEE REPLACEMENT, VALVE REPLACEMENT, HYSTO, NICHO ASTHMA, SLEEP APNEA, LOW IRON, HX OF NHL Surgeries: Yes Gallbladder, Hysterectomy, Valve Replacement Respiratory: Yes Asthma, Sleep Apnea Currently Using CPAP: Yes Currently Using BIPAP: No Cardiac: Yes ("APPROX 5 CARDIOVERSIONS", MITRAL VALVE REPLACEMENT) Atrial Fibrillation Neurological: No Reproductive Disorders: No Genitourinary: No Gastrointestinal: No Musculoskeletal: Yes ("NEEDS LEFT KNEE REPLACEMENT" ) Endocrine: No HEENT: No Cancer: Yes (NON-HODGKIN'S LYMPHOMA ) Lymphoma Did You Recieve Any Treatments: Yes What Type of Treatment Did You: Chemotherapy Psychosocial: No Integumentary: No Blood Disorders: No Adverse Reaction/Blood Tranf: No Family Medical History No Pertinent Family Hx Physical Exam Vital Signs Vital Signs - First Documented 11/15/21 13:23 Temp 36.7 Pulse 96 Resp 14 B/P (MAP) 134/79 (97) Capillary Refill : Height, Weight, BMI Height: 5'3.00" Weight: 197lbs. 0.0oz. 88.912533op; 33.00 BMI Method:Stated General Appearance: No Apparent Distress, WD/WN HEENT: PERRL/EOMI, TMs Normal, Normal ENT Inspection, Pharynx Normal Neck: Full Range of Motion, Non Tender Cardiovascular: Regular Rate, Rhythm, No Edema, No Gallop, No JVD, No Murmur Respiratory: Chest Non Tender, Lungs Clear, Normal Breath Sounds, No Accessory Muscle Use, No Respiratory Distress Gastrointestinal: Normal Bowel Sounds, No Organomegaly, No Pulsatile Mass, Non Tender, Soft Back: Other (Thoracic midline tenderness. Bilateral thoracic paraspinal muscle tenderness.) Extremity: Normal Capillary Refill, Normal Inspection, Normal Range of Motion, Non Tender Neurologic/Psychiatric: Alert, Oriented x3, No Motor/Sensory Deficits, Normal Mood/Affect Skin: Normal Color, Warm/Dry Progress/Results/Core Measures Results/Orders Lab Results Laboratory Tests Test 11/15/21 13:38 11/15/21 14:40 Range/Units White Blood Count 8.4 4.3-11.0 10^3/uL Red Blood Count 4.59 3.80-5.11 10^6/uL Hemoglobin 11.4 L 11.5-16.0 g/dL Hematocrit 37 35-52 % Mean Corpuscular Volume 80 80-99 fL Mean Corpuscular Hemoglobin 25 25-34 pg Mean Corpuscular Hemoglobin Concent 31 L 32-36 g/dL Red Cell Distribution Width 15.9 H 10.0-14.5 % Platelet Count 322 130-400 10^3/uL Mean Platelet Volume 9.5 9.0-12.2 fL Immature Granulocyte % (Auto) 1 % Neutrophils (%) (Auto) 87 H 42-75 % Lymphocytes (%) (Auto) 6 L 12-44 % Monocytes (%) (Auto) 7 0-12 % Eosinophils (%) (Auto) 0 0-10 % Basophils (%) (Auto) 0 0-10 % Neutrophils # (Auto) 7.3 1.8-7.8 10^3/uL Lymphocytes # (Auto) 0.5 L 1.0-4.0 10^3/uL Monocytes # (Auto) 0.6 0.0-1.0 10^3/uL Eosinophils # (Auto) 0.0 0.0-0.3 10^3/uL Basophils # (Auto) 0.0 0.0-0.1 10^3/uL Immature Granulocyte # (Auto) 0.1 0.0-0.1 10^3/uL Neutrophils % (Manual) 81 % Lymphocytes % (Manual) 10 % Monocytes % (Manual) 9 % Blood Morphology Comment NORMAL Erythrocyte Sedimentation Rate 37 H 0-30 MM/HR Prothrombin Time 26.4 H 12.2-14.7 SEC INR Comment 2.4 H 0.8-1.4 Activated Partial Thromboplast Time 28 24-35 SEC Sodium Level 136 135-145 MMOL/L Potassium Level 3.7 3.6-5.0 MMOL/L Chloride Level 100 98-107 MMOL/L Carbon Dioxide Level 21 21-32 MMOL/L Anion Gap 15 H 5-14 MMOL/L Blood Urea Nitrogen 25 H 7-18 MG/DL Creatinine 0.97 0.60-1.30 MG/DL Estimat Glomerular Filtration Rate 61 BUN/Creatinine Ratio 26 Glucose Level 120 H 70-105 MG/DL Calcium Level 9.7 8.5-10.1 MG/DL Corrected Calcium 9.4 8.5-10.1 MG/DL Total Bilirubin 0.7 0.1-1.0 MG/DL Aspartate Amino Transf (AST/SGOT) 15 5-34 U/L Alanine Aminotransferase (ALT/SGPT) 10 0-55 U/L Alkaline Phosphatase 75 40-136 U/L Troponin I < 0.028 <0.028 NG/ML C-Reactive Protein High Sensitivity 0.10 0.00-0.50 MG/DL Total Protein 8.4 H 6.4-8.2 GM/DL Albumin 4.4 3.2-4.5 GM/DL Lipase 18 8-78 U/L Urine Color YELLOW Urine Clarity CLEAR Urine pH 6.5 5-9 Urine Specific [place] <=1.005 1.016-1.022 Urine Protein NEGATIVE NEGATIVE Urine Glucose (UA) NEGATIVE NEGATIVE Urine Ketones NEGATIVE NEGATIVE Urine Nitrite NEGATIVE NEGATIVE Urine Bilirubin NEGATIVE NEGATIVE Urine Urobilinogen 0.2 < = 1.0 MG/DL Urine Leukocyte Esterase NEGATIVE NEGATIVE Urine RBC (Auto) NEGATIVE NEGATIVE Urine RBC NONE /HPF Urine WBC RARE /HPF Urine Squamous Epithelial Cells 2-5 /HPF Urine Crystals NONE /LPF Urine Bacteria NEGATIVE /HPF Urine Casts NONE /LPF Urine Mucus NEGATIVE /LPF Urine Culture Indicated NO My Orders Orders - FRANCK BRUCE Urinalysis (11/15/21 13:22) Cbc With Automated Diff (11/15/21 13:34) Comprehensive Metabolic Panel (11/15/21 13:34) Lipase (11/15/21 13:34) Hs C Reactive Protein (11/15/21 13:34) Erythrocyte Sedimentation Rate (11/15/21 13:34) Ekg Tracing (11/15/21 13:34) Troponin I Josephine (11/15/21 13:34) Iv/Invasive Line Insertion .IV start (11/15/21 13:34) Fentanyl Inj (Sublimaze Injection) (11/15/21 13:34) Partial Thromboplastin Time (11/15/21 13:38) Protime With Inr (11/15/21 13:38) Ct Chest/Abdomen/Pelvis W (11/15/21 13:34) Ct Thoracic Spine Wo (11/15/21 ) Manual Differential (11/15/21 13:38) Iohexol Injection (Omnipaque 350 Mg/Ml 1 (11/15/21 14:00) Received Contrast (Hold Metformin- Contr (11/15/21 14:00) Ns (Ivpb) (Sodium Chloride 0.9% Ivpb Bag (11/15/21 14:00) Fentanyl Inj (Sublimaze Injection) (11/15/21 14:28) Medications Given in ED Current Medications Medications Dose Ordered Sig/Ann Route Start Time Stop Time Status Last Admin Dose Admin Iohexol 100 ml ONCE ONCE IV 11/15/21 14:00 11/15/21 14:01 DC 11/15/21 14:12 99 ML Sodium Chloride 100 ml ONCE ONCE IV 11/15/21 14:00 11/15/21 14:01 DC 11/15/21 14:12 80 ML Vital Signs/I&O 11/15/21 11/15/21 13:23 16:20 Temp 36.7 36.7 Pulse 96 81 Resp 14 14 B/P (MAP) 134/79 (97) 117/66 Departure Communication (PCP) Patient is a 76-year-old female presents ED with back pain. Back pain since last Thursday. No specific injury. She did get out of the tub and felt some pain and discomfort but denies of any fall. Patient denies any chest pain abdominal pain vomiting. She states she has been constipated. Currently on L inzess and has used a Fleet enema with very small amount. Denies any rectal pain. Patient vital signs stable. Moderate distress complaining of thoracic to thoracic paraspinal muscle pain. No focal neural deficits. History of non- Hodgkin's lymphoma currently in remission in 2010. She states this pain feels similar when she had diagnosed lymphoma. Her lab work was reassuring here in the ED. Normal urinalysis.CT scan chest was unremarkable. CT abdomen pelvis negative for acute abnormality. Soft tissue thickening around the rectum and perineum. She has no pain to this area. Continue monitoring this area. Pain control with IV fentanyl. She is requesting something stronger for her pain medication. Currently on prednisone with a few days worth and muscle relaxer. Will discharge with [place] to take for moderate pain. She is on warfarin INR 2.4. CT scan of thoracic spine did note T4-T5 age-indeterminate compression fracture 10% loss of height. T7 compression fracture with 30% loss of height. No retropulsion. These results were discussed with patient. I recommend follow-up with primary care physician resulting of thoracic spine imaging and may need further imaging with MRI. Could benefit with physical therapy. Pain could be related to the thoracic spine or more muscular pain. Patient cardiac work-up unremarkable. No current chest pain, cough or shortness of breath. recommend heating pad. Discharged with pain medication. Outpatient follow-up with primary care physician for further evaluation Impression Primary Impression: Back pain Disposition: 01 HOME, SELF-CARE Condition: Stable Departure-Patient Inst. Decision time for Depature: 16:06 Referrals: NO,LOCAL PHYSICIAN (PCP/Family) Primary Care Physician Patient Instructions: Upper Back Pain ED Scripts Hydrocodone/Acetaminophen (Hydrocodone-Acetamin 5-325 mg) 5 Mg-325 Mg Tablet 1 TAB PO Q4H PRN for PAIN-MODERATE (5-7), #12 TAB Prov: FRANCK BRUCE 11/15/21 FRANCK BRUCE Nov 15, 2021 13:39
[2021-11-15 13:47] LABS: BASOPHILS % (AUTO) 0 % (0-10); EOSINOPHILS % (AUTO) 0 % (0-10); HEMATOCRIT 37 % (35-52); HEMOGLOBIN 11.4 g/dL (11.5-16.0); LYMPHOCYTES # (AUTO) 0.5 10^3/uL (1.0-4.0); LYMPHOCYTES % (AUTO) 6 % (12-44); MEAN CORPUSCULAR HEMOGLOBIN 25 pg (25-34); MEAN CORPUSCULAR HGB CONC 31 g/dL (32-36); MEAN CORPUSCULAR VOLUME 80 fL (80-99); MEAN PLATELET VOLUME 9.5 fL (9.0-12.2); MONOCYTES # (AUTO) 0.6 10^3/uL (0.0-1.0); MONOCYTES % (AUTO) 7 % (0-12); NEUTROPHILS # (AUTO) 7.3 10^3/uL (1.8-7.8); NEUTROPHILS % (AUTO) 87 % (42-75); PLATELET COUNT 322 10^3/uL (130-400); WHITE BLOOD COUNT 8.4 10^3/uL (4.3-11.0)
[2021-11-15 13:55] LABS: ALBUMIN 4.4 GM/DL (3.2-4.5); CHLORIDE 100 MMOL/L (98-107); POTASSIUM 3.7 MMOL/L (3.6-5.0); SODIUM 136 MMOL/L (135-145)
[2021-11-15 13:57] LABS: CALCIUM 9.7 MG/DL (8.5-10.1); INR 2.4 (0.8-1.4); PROTHROMBIN TIME PATIENT 26.4 SEC (12.2-14.7)
[2021-11-15 13:58] LABS: GLUCOSE 120 MG/DL (70-105); LYMPHOCYTES % (MANUAL) 10 %; NEUTROPHILS % (MANUAL) 81 %; TOTAL PROTEIN 8.4 GM/DL (6.4-8.2)
[2021-11-15 13:59] LABS: CARBON DIOXIDE 21 MMOL/L (21-32); MONOCYTES % (MANUAL) 9 %; RBC MORPH NORMAL
[2021-11-15 14:00] LABS: BILIRUBIN,TOTAL 0.7 MG/DL (0.1-1.0)
[2021-11-15] MEDS ORDERED: IOHEXOL 350 MG/ML 100 ML (OMNIPAQUE 350) VIAL IV ONE (14:00)
[2021-11-15] MEDS ORDERED: HOLD METFORMIN - RECEIVED CONTRAST 20 ML VIAL IV SCH (14:00)
[2021-11-15] MEDS ORDERED: NS 100 ML (IVPB) BAG IV ONE (14:00)
[2021-11-15 14:01] LABS: ALKALINE PHOSPHATASE 75 U/L (40-136)
[2021-11-15 14:02] LABS: CREATININE SERUM 0.97 MG/DL (0.60-1.30); GFR ESTIMATED 61
[2021-11-15 14:03] LABS: BUN/CREATININE RATIO 26
[2021-11-15 14:04] LABS: ALANINE AMINOTRANSFERASE 10 U/L (0-55)
[2021-11-15 14:05] LABS: LIPASE 18 U/L (8-78)
[2021-11-15 14:06] LABS: ERYTHROCYTE SEDIMENTATION RATE 37 MM/HR (0-30)
[2021-11-15 14:53] LABS: BILIRUBIN,URINE NEGATIVE (NEGATIVE); CLARITY,URINE CLEAR; COLOR,URINE YELLOW; GLUCOSE, URINE (UA) NEGATIVE (NEGATIVE); KETONES,URINE NEGATIVE (NEGATIVE); LEUKOCYTE ESTERASE ,URINE NEGATIVE (NEGATIVE); NITRITE,URINE NEGATIVE (NEGATIVE); PH,URINE 6.5 (5-9); PROTEIN,URINE NEGATIVE (NEGATIVE)
--- NOTE | 2021-11-15 14:55 | Diagnostic Imaging Report ---
PROCEDURE: CT thoracic spine without contrast. TECHNIQUE: Multiple axial computerized tomography images were obtained from the base of the thoracic spine to the vertex without intravenous contrast. Auto Exposure Controls were utilized during the CT exam to meet ALARA standards for radiation dose reduction. INDICATION: Mid back pain. COMPARISON: Two-view chest radiograph 08/06/2020. FINDINGS: Normal alignment. Superior endplate height loss of T4 and T5 of approximately 10% without retropulsion or involvement of the posterior elements is age indeterminate. Anterior wedging of the T7 vertebral body resulting in up to 40% height loss without retropulsion or involvement of the posterior elements is age indeterminate. Height loss of T7 of approximately 30% without retropulsion or involvement of the posterior elements appears to have progressed since 08/06/2020 but is age indeterminate. No acute appearing fracture lines are seen in the thoracic spine. Mild scattered degenerative endplate changes. No evidence of spinal canal stenosis on soft tissue windows. Sternotomy. Cardiac valve prosthesis. Cardiomegaly. Cholecystectomy. Calcified granulomas in the spleen. Moderate atherosclerotic calcifications. IMPRESSION: 1. Multiple compression fractures detailed above are mostly age indeterminate. No definite acute fracture lines are identified. This could be better investigated with MRI. 2. Mild spondylotic changes. No evidence of high-grade spinal canal stenosis. Dictated by: Dictated on workstation # [id number]
[2021-11-15 14:59] LABS: BACTERIA,URINE NEGATIVE /HPF; WBC,URINE RARE /HPF
--- NOTE | 2021-11-15 15:52 | Diagnostic Imaging Report ---
PROCEDURE: CT chest, abdomen and pelvis with contrast. TECHNIQUE: Multiple contiguous axial images were obtained through the chest, abdomen, and pelvis after the administration of intravenous contrast. Auto Exposure Controls were utilized during the CT exam to meet ALARA standards for radiation dose reduction. INDICATION: 76-year-old female, nearly 1 week history of mid back pain. Has not improved on medication therapy. History of non-Hodgkin's lymphoma. CORRELATION: CT abdomen and pelvis 08/04/2018. FINDINGS: CT CHEST: Poststernotomy with mitral valve prosthesis. Electronic recorder device projects over the soft tissues of anterior chest. Heart size enlarged but without pericardial effusion. Thoracic aorta grossly normal in contour. No aneurysm or dissection. Small hiatal hernia. No pathologically enlarged mediastinal, hilar and/or axillary lymph nodes. A few clips within the left axilla. Linear scarring suggested at the left lung apex. No significant effusion or pneumothorax. There is accentuated thoracic kyphosis. Several mildly compressed thoracic vertebral bodies. The sternum with sternal wires. No acute rib fracture. CT ABDOMEN and PELVIS: Liver, mildly atrophic pancreas and adrenal glands are unremarkable. Granulomas in the spleen. Cholecystectomy. No bile ductal dilatation. Small cyst in left kidney. No obstructive uropathy. Stomach mildly distended with fluid and gas. No small bowel obstruction. Moderate amount of stool through the colon. Abdominal aorta nonaneurysmal with mild wall calcification. Urinary bladder unremarkable. Uterus is absent. Soft tissue thickening at the level the rectum and perineum. No abnormal gas collection. Moderate degenerative disc disease with bilateral foraminal narrowing L5-S1 and to a lesser degree L4-L5 level. IMPRESSION: CT CHEST: 1. Negative for acute abnormality of the chest. Cardiac enlargement with prior sternotomy changes and a mitral valve prosthesis. Thoracic aorta demonstrates no acute aortic syndrome. 2. Thoracic spine assessed on separate study/dictation. CT ABDOMEN and PELVIS: 1. Negative for acute abnormality about the abdomen and/or pelvis. 2. Asymmetric soft tissue thickening at the level of the rectum and posterior perineum. Relatively stable from prior. Correlation for any symptoms or previous infection and/or surgery in this area. Dictated by: Dictated on workstation # [id number]
[2021-11-15] MEDS ORDERED: ACHD5005 PO (16:06)
[2021-11-15 16:20] VITALS: BP 117/66
== END 2021-11-15 16:22 | disposition home or self-care (01) ==
LOC: EDUNIT# 13:17 → ER 13:18
DX: M54.6 Pain in thoracic spine (principal); K59.00 Constipation, unspecified; G47.30 Sleep apnea, unspecified; I48.91 Unspecified atrial fibrillation; Z85.72 Personal history of non-Hodgkin lymphomas; Z99.89 Dependence on other enabling machines and devices; Z90.49 Acquired absence of other specified parts of digestive tract; Z90.710 Acquired absence of both cervix and uterus; Z79.01 Long term (current) use of anticoagulants; Z79.899 Other long term (current) drug therapy
CPT/HCPCS: 36415; 71260; 72128; 74177; 80053; 81000; 83690; 84484; 85007; 85027; 85610; 85652; 85730; 86141

== ENCOUNTER → 2021-12-03 | Outpatient (CLI) | payer MEDICARE, OTHER ==
[~2021-12-03] MED LIST changes: +ACHD5005 PO
--- NOTE | 2021-12-03 15:02 | Diagnostic Imaging Report ---
INDICATION: Postmenopausal screening history of vertebral compression COMPARISON: Baseline FINDINGS: AP Spine L1-L4: [BMD (g/cm2): 0.797] [T-Score: -3.4] [Z-Score: -2.0] [BMD Previous: NA] [BMD % Change: NA] LT Hip Neck: [BMD (g/cm2): 0.641] [T-Score: -2.9] [Z-Score: -1.2] LT Hip Total: [BMD (g/cm2):0.703] [T-Score:-2.4] [Z-Score: -1.0] [BMD Previous: NA] [BMD % Change: NA] RT Hip Neck: [BMD (g/cm2):0.688] [T-Score:-2.5] [Z-Score:-0.9] RT Hip Total: [BMD (g/cm2):0.744] [T-score:-2.1] [Z-Score:-0.7] [BMD Previous:NA] [BMD % Change:NA] *Indicates significant change from prior examination based on 95% confidence level. World Health Organization criteria for BMD interpretation classify patients as Normal (T-score at or above -1.0), Osteopenic (T-score between -1.0 and -2.5) or Osteoporotic (T-score at or below -2.5). LIMITATIONS AND MODIFICATION: None. FRACTURE RISK (FRAX SCORE): The ten year probability of (%): Major Osteoporotic Fracture: [28.5] Hip Fracture: [10.1] IMPRESSION: 1. Osteoporosis. 2. Baseline examination. 3. See below National Osteoporosis Foundation guidelines on when to potentially initiate pharmacologic therapy. Based on the National Osteoporosis Foundation Guidelines, pharmacologic treatment should be initiated in any of the following, unless clinical conditions suggest otherwise: * Any patient with prior fragility fracture of the hip or vertebrae. A spine fracture indicates 5X risk for subsequent spine fracture and 2X risk for subsequent hip fracture. * Osteoporosis (T-score <-2.5). * Postmenopausal women and men age 50 and older with low bone mass/osteopenia (T-score between -1.0 and -2.5) by DXA and 10-year major osteoporotic fracture greater than 20% or a 10-year probability of hip fracture greater than 3%. These fracture risks are supplied above in the FRAX score, if applicable. * Clinician judgement and/or patient preferences may indicate treatment for people with 10-year fracture probabilities above or below these levels. Dictated by: Dictated on workstation # [id number]
== END ==
LOC: RAD 13:30
PROVIDERS: ATTEND Orthopaedic Surgery Orthopaedic Surgery of the Spine
DX: M48.54XA Collapsed vertebra, not elsewhere classified, thoracic region, initial encounter for fracture (principal); M81.0 Age-related osteoporosis without current pathological fracture; Z78.0 Asymptomatic menopausal state
CPT/HCPCS: 77080

== ENCOUNTER 2022-10-10 10:08 | Outpatient (CLI) | payer MEDICARE, OTHER ==
[~2022-10-10 10:08] MED LIST changes: +POTA-177 PO; -POTA10TA37 PO
== END 2022-10-10 11:00 ==
LOC: SLEEP 10:08
PROVIDERS: ATTEND Internal Medicine Pulmonary Disease
DX: G47.33 Obstructive sleep apnea (adult) (pediatric) (principal); Z86.73 Personal history of transient ischemic attack (TIA), and cerebral infarction without residual deficits
CPT/HCPCS: G0399

== ENCOUNTER 2022-11-26 20:30 | Outpatient (CLI) | payer MEDICARE, OTHER | END 2022-11-27 06:00 | disposition home or self-care (01) | LOC: SLEEP 20:30 | PROVIDERS: ATTEND Internal Medicine Pulmonary Disease | DX: G47.33 Obstructive sleep apnea (adult) (pediatric) (principal); R09.02 Hypoxemia | CPT/HCPCS: 95811 ==